=== PATIENT | female | born 1965 | race Caucasian/White ===

== ENCOUNTER 2022-03-26 13:06 | Outpatient (CLI) | payer OTHER, SELFPAY ==
--- OUTSIDE RECORDS SUMMARY | 2022-03-26 08:57 | XMS_ITS | Encounter Summary ---
:1965 Author Organization [facility] Address [address] [place] [address] Care Team Providers Name Role Phone Unavailable Primary Care Provider Unavailable Encounter Details Date Type Department Care Team Description 12/24/2018 Ancillary Procedure Department of Colon and Rectal Social History Tobacco Use Types Packs/Day Years Used Date Smoking Tobacco: Some Days Cigarettes Smokeless Tobacco: Never Comments: 1 cigarette per day Alcohol Use Standard Drinks/Week Comments Yes 3 (1 standard drink = 0.6 oz pure alcoho l) Alcohol Habits Answer Date Recorded How often do you have a drink containing alcohol? 2-3 times a week 12/08/2020 How many drinks containing alcohol do you have on a 1 or 2 12/08/2020 typical day when you are drinking? How often do you have six or more drinks on one Never 12/08/2020 occasion? Comment: Not asked Social Isolation Answer Date Recorded In a typical week, how many times do you More than three ori es a week 12/08/2020 talk on the phone with family, friends, or neighbors? How often do you get together with friends Twice a week 12/08/2020 or relatives? How often do you attend catholic or More than 4 times per year 12/08/2020 episcopalian services? Do you belong to any clubs or Yes 12/08/2020 organizations such as catholic groups, unions, fraternal or athletic groups, or school groups? How often do you attend meetings of the 1 to 4 times per yea r 12/08/2020 clubs or organizations you belong to? Are you now , , , 12/08/2020 , never or living with a partner? Physical Activity Answer Date Recorded On average, how many days per week do you engage in moderate to 7 days 12/08/2020 strenuous exercise (like walking fast, running, jogging, dancing, swimming, biking, or other activities that cause a light or heavy sweat)? On average, how many minutes do you engage in exercise at th is 10 min 12/08/2020 level? Stress Answer Date Recorded Do you feel stress - tense, restless, nervous, or To some ex tent 12/08/2020 anxious, or unable to sleep at night because your mind is troubled all the time - these days? Financial Resource Strain Answer Date Recorded How hard is it for you to pay for the very basics like Not v phillip hard 12/08/2020 food, housing, medical care, and heating? Food Insecurity Answer Date Recorded Within the past 12 months, you worried that your food would Never true 12/08/2020 run out before you got money to buy more. Within the past 12 months, the food you bought just didn't N ever true 05/12/2019 last and you didn't have money to get more. Transportation Needs Answer Date Recorded In the past 12 months, has lack of transportation kept you f rom No 12/08/2020 medical appointments or from getting medications? In the past 12 months, has lack of transportation kept you f rom No 12/08/2020 meetings, work, or getting things needed for daily living? Housing Stability Answer Date Recorded In the last 12 months, was there a time when you were not ab le No 12/08/2020 to pay the mortgage or rent on time? In the last 12 months, how many places have you lived? 1 12/08/2020 In the last 12 months, was there a time when you did not hav e a No 12/08/[address] or slept in a senior care (including now)? Sex Assigned at Date Recorded Female 12/15/2017 11:22 AM CDT documented as of this encounter Plan of Treatment Not on filedocumented as of this encounter Procedures Procedure Name Priority Date/Time Associated Diagnosis Comme nts COLON AND RECTAL Routine 12/24/2018 8:20 AM Resul ts for this SURGERY IMAGE EXAM CDT procedure are in the results section. documented in this encounter Results Flexible Sigmoidoscopy-Colon And Rectal Surgery Image Exam (12/24/2018 8:20 AM CDT) Specimen (Source) Anatomical Location Collection Method / Collectio n Time Received Time / Laterality Volume Narrative [facility] - 12/24/2018 6:19 PM CDT This order has been created and auto-finalized to support the import of images acquired without order. The clini sonido documentation to support these images can be found on the encounter van t produced images. Provider Not In System IMG NON RAD IMAGING PROCEDUR ES Performing Organization Address City/State/ZIP Code Phon e Number IIMS IIMS NA documented in this encounter Visit Diagnoses Not on filedocumented in this encounter
--- OUTSIDE RECORDS SUMMARY | 2022-03-26 08:57 | XMS_ITS | Encounter Summary ---
:1965 Author Organization [facility] Address [address] [place] [address] Care Team Providers Name Role Phone Unavailable Primary Care Provider Unavailable Encounter Details Date Type Department Care Team Description 08/11/2018 Ancillary Procedure Department of Colon and Rectal [...] or relatives? How often do you attend pentecostal or More than 4 times per year 12/08/2020 roman catholic services? Do you belong to any clubs or Yes 12/08/2020 organizations such as pentecostal groups, unions, fraternal or athletic groups, or [...] place to sleep or slept in a penitentiary (including now)? Sex Assigned at Date Recorded Female 12/15/2017 11:22 AM CDT documented as of this encounter Plan of Treatment Not on filedocumented as of this encounter Procedures Procedure Name Priority Date/Time Associated Diagnosis Comme nts COLON AND RECTAL Routine 08/11/2018 2:30 PM Resul ts for this SURGERY IMAGE EXAM NEWSPAPER OR PERIODICAL EDITOR procedure are in the results section. documented in this encounter Results COLON AND RECTAL SURGERY IMAGE EXAM (08/11/2018 2:30 PM NEWSPAPER OR PERIODICAL EDITOR) Specimen (Source) Anatomical Collection Method Collection Time Re ceived Time Location / / Volume Laterality 08/11/2018 2:29 PM NEWSPAPER OR PERIODICAL EDITOR Narrative [facility] - 08/11/2018 5:25 PM NEWSPAPER OR PERIODICAL EDITOR This order has been created and auto-finalized to support the import of images acquired without order. The clini sonido documentation to support these images can be found on the encounter van t produced images. Provider Not In System IMG NON RAD IMAGING PROCEDUR ES Performing Organization Address City/State/ZIP Code Phon e Number IISD IISD NA documented in this encounter Visit Diagnoses Not on filedocumented in this encounter
--- OUTSIDE RECORDS SUMMARY | 2022-03-26 08:57 | XMS_ITS | Encounter Summary ---
:1965 Author Organization [facility] Address [address] [place] [address] Care Team Providers Name Role Phone Unavailable Primary Care Provider Unavailable Reason for Referral Outpatient (Routine) - Closed Specialty Diagnoses / Procedures Referred By Contact Refer red To Contact Diagnoses Malignant Neoplasm Of Rectum (HCC) Arlene Tripathi M.D. [facility] Procedures Flexible Sigmoidoscopy [address] [place] [address] [phone] Referral ID Status Reason Start Date Expiration Date Visits Requ ested Visits Authorized [id number] Closed 08/11/2018 08/11/2019 1 1 Reason for Visit Outpatient (Routine) - Closed Specialty Diagnoses / Procedures Referred By Contact Refer red To Contact Diagnoses Malignant Neoplasm Of Rectum (HCC) Arlene Tripathi M.D. [facility] Procedures Flexible Sigmoidoscopy [address] [place] [address] [phone] Referral ID Status Reason Start Date Expiration Date Visits Requ ested Visits Authorized [id number] Closed 08/11/2018 08/11/2019 1 1 Encounter Details Date Type Department Care Team Description 12/24/2018 Hospital Encounter Division of Colon Arlene Tripathi Ma lignant Neoplasm and Rectal Surgery Tavia Powers Of Rectum (HCC) in [place], [facility] [address] [place], [place] [address] [facility] [address] [place], [place] [phone] (Work) [phone] Social History Tobacco Use Types Packs/Day Years [...] or relatives? How often do you attend congregational or More than 4 times per year 12/08/2020 quaker services? Do you belong to any clubs or Yes 12/08/2020 organizations such as congregational groups, unions, fraternal or athletic groups, or [...] place to sleep or slept in a group home (including now)? Sex Assigned at Date Recorded Female 12/15/2017 11:22 AM CDT documented as of this encounter Medications at Time of Discharge Medication Sig Dispensed Refills Start Date End Date acetaminophen (TYLENOL) Take 2 tablets by 0 06/0305/13/2019 500 mg tablet mouth every 6 (six) hours as needed. for pain. Take no more than 4000 mg in 24 hours. Ok to obtain over the counter. ibuprofen (ADVIL,MOTRIN) Take 3 tablets (600 0 05/13/2019 200 mg tablet mg total) by mouth as needed for pain. every 4-6 hours as needed for pain lisinopril Take 1 tablet by 0 05/12/2017 05/13/20 19 (PRINIVIL,ZESTRIL) 10 mg mouth daily. tablet documented as of this encounter Plan of Treatment Not on filedocumented as of this encounter Procedures Procedure Name Priority Date/Time Associated Comments Diagnosis FLEXIBLE SIGMOIDOSCOPY Routine 12/24/2018 8:20 AM Malignant Ne oplasm Results for this CDT Of Rectum (HCC) procedure ar e in the results section. CRS FLEXIBLE Routine 12/24/2018 8:20 AM Malignant Neoplasm SIGMOIDOSCOPY CDT Of Rectum (HCC) documented in this encounter Results Flexible Sigmoidoscopy (12/24/2018 8:20 AM CDT) Specimen (Source) Anatomical Collection Method Collection Time Re ceived Time Location / / Volume Laterality 12/24/2018 8:20 AM CDT Impressions [facility] - 12/24/2018 6:11 PM CDT Post-op Diagnoses: ? - Post-polypectomy scar in the mi d rectum. ? - No specimens collected. Narrative [facility] - 12/24/2018 6:11 PM CDT Gonda 9 CRS GI Patient Name: Conchita Solis Date of : 1965 Age: 53 Gender: Female Procedure Date: 12/24/2018 Procedure: ? Flexible Sigmoidoscopy Providers: ? Arlene Tripathi MD Referring Provider: ?Arlene olivares MD Pre-op Diagnoses: ?High risk c olon cancer surveillance: Personal ? his tory of rectal cancer Findings: ? The perianal examination was norm al. ? A 30 mm post polypectomy scar was found in the mid rectum. The scar ? tissue was healthy in appearance. There was no evidence of the previous ? polyp. Estimated blood loss: none . Procedural Details: ? The patient was seen, evaluated, and history reviewed. The risks, ? benefits and alternatives for the procedure were discussed and informed ? consent was obtained. A procedura l pause was conducted in the presence ? of assisting personnel to verify the correct patient identity and ? procedure to be performed. The Fl exible Sigmoidoscope was introduced ? under direct vision through the a nus and advanced to the sigmoid colon. ? The flexible sigmoidoscopy was ac complished without difficulty. The ? patient tolerated the procedure w ell. The quality of the bowel ? preparation was good. Complications: ? No immedia te complications. Sedation: ? No sedation administered. Attending Participation: I personally pe rformed the entire procedure. Arlene Tripathi MD 12/24/2018 6:11:17 PM This report has been signed electronical ly. Number of Addenda: 0 Note Initiated On: 12/24/2018 8:20 AM Arlene Tripathi M.D. GI PROCEDURE ORDERABLES Performing Organization Address City/State/ZIP Code Phon e Number [employer] NA documented in this encounter Visit Diagnoses Diagnosis Malignant Neoplasm Of Rectum (HCC) documented in this encounter
--- OUTSIDE RECORDS SUMMARY | 2022-03-26 08:57 | XMS_ITS | Encounter Summary ---
:1965 Author Organization [facility] Address [address] [place] [address] Care Team Providers Name Role Phone Unavailable Primary Care Provider Unavailable Reason for Visit Reason Onset Date Comments Communication 12/28/2018 Encounter Details Date Type Department Care Team Description 12/28/2018 Clinical Communication Division of Colon and Dolly Tripathi Communication Rectal Surgery in [place]. [place], [place] [address] [facility] [address] [place] [phone] Social History Tobacco Use Types Packs/Day Years [...] or relatives? How often do you attend jain or More than 4 times per year 12/08/2020 confucianist services? Do you belong to any clubs or Yes 12/08/2020 organizations such as jain groups, unions, fraternal or athletic groups, or [...] AM CDT documented as of this encounter Miscellaneous Notes Telephone Encounter - Priyanka Womack - 12/28/2018 1:14 PM CDT Patient scheduled, left message for her to call back. Deuce will call with results, held a Deuce visit, just in case per Decue request. Jami Mathew documented in this encounter Plan of Treatment Not on filedocumented as of this encounter Visit Diagnoses Not on filedocumented in this encounter
--- OUTSIDE RECORDS SUMMARY | 2022-03-26 08:57 | XMS_ITS | Encounter Summary ---
:1965 Author Organization [facility] Address [address] [place] [address] Care Team Providers Name Role Phone Unavailable Primary Care Provider Unavailable Reason for Visit Outpatient (Routine) - Closed Specialty Diagnoses / Procedures Referred By Contact Refer red To Contact Colon and Rectal Arlene Tripathi [facility] M.D. [address] [place] [address] Referral ID Status Reason Start Date Expiration Date Visits Requ ested Visits Authorized [id number] Closed 08/11/2018 08/11/2019 1 1 Encounter Details Date Type Department Care Team Description 12/24/2018 Office Visit Division of Colon and Arlene Tripathi M alignant Neoplasm Of Rectal Surgery in M.D. Rectum (HCC) (Primary [place], [place] [address] [facility]) [address] [place] [phone] Social History Tobacco Use Types Packs/Day Years [...] or relatives? How often do you attend hinduism or More than 4 times per year 12/08/2020 hoahaoism services? Do you belong to any clubs or Yes 12/08/2020 organizations such as hinduism groups, unions, fraternal or athletic groups, or [...] place to sleep or slept in a [facility] (including now)? Sex Assigned at Date Recorded Female 12/15/2017 11:22 AM CDT documented as of this encounter Consult Notes Arlene Tripathi M.D. - 12/24/2018 9:15 AM CDT SUBJECTIVE CHIEF COMPLAINT / REASON FOR VISIT Conchita Solis is a 53 y.o. female who presents for evaluation of follow-up of T1 rectal cancer. HISTORY OF PRESENT ILLNESS Ms. Solis is about a year and a half status post transanal excision for a T1 NX rectal cancer. She is here for standard follow-up with flexible sigmoidoscopy and CEA. She reports no concerns with bleeding or changes in her bowel habits. She is otherwise well. The following portions of the patient's history were reviewed and updated as appropriate: current medications, medical history, social history, surgical history and problem list. OBJECTIVE CEA to be drawn later today. PHYSICAL EXAM Digital rectal exam was completely normal. Flexible sigmoidoscopy revealed a scar in the distal rectum that is completely healthy with no signs of recurrent disease. ASSESSMENT / PLAN #1 Hypertension #2 Malignant Neoplasm Of Rectum (HCC) #3 Leiomyoma (Fibroid) Uterus #4 Appendicitis #5 Post Operative Nausea/Vomiting Ms. Solis and I discussed the findings. Her rectal scar looks great with no concerns for recurrence. We will wait for the CEA result. If her CEA remains the same as previous which was approximately 5.7, we will plan to see her back in [address] scans of the chest abdomen pelvis and anotherCEA as well as a flexible sigmoidoscopy. However, for CEA continues to rise, we will get the scans earlier and will also add an MRI of the pelvis to look for localized disease. I spent 15 minutes with the patient, greater than 50% was counseling. documented in this encounter Plan of Treatment Not on filedocumented as of this encounter Visit Diagnoses Diagnosis Malignant Neoplasm Of Rectum (HCC) - Zarina sharon documented in this encounter
--- OUTSIDE RECORDS SUMMARY | 2022-03-26 08:57 | XMS_ITS | Encounter Summary ---
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 [facility] Procedures MR Pelvis without and with IV Contrast UT MRI PELVIS WO/W CNTRST HC MRI PELVIS WO/W CNTRST UT MRI PELVIS WO/W CNTRST [address] [place] [address] Referral ID Status Reason Start Date Expiration Date Visits Requ ested Visits Authorized [id number] Closed 12/10/2018 01/10/2019 1 1 MRI/CAT/PET Scan (Routine) - Closed Specialty Diagnoses / Procedures Referred By Contact Refer red To Contact Radiology Diagnoses Malignant Neoplasm Of Rectosigmoid (HCC) Arlene Tripathi M.D. [facility] Procedures CT Abdomen Pelvis with IV Contrast UT CT ABD&PELVIS W CNTRST HC CT ABD&PELVIS W CNTRST UT CT ABD&PELVIS W CNTRST [address] [place] [address] Referral ID Status Reason Start Date Expiration Date Visits Requ ested Visits Authorized [id number] Closed 12/24/2018 12/24/2019 1 1 MRI/CAT/PET Scan (Routine) - Closed Specialty Diagnoses / Procedures Referred By Contact Refer red To Contact Radiology Diagnoses Malignant Neoplasm Of Rectosigmoid (HCC) Arlene Tripathi M.D. [facility] Procedures CT Chest with IV Contrast UT CT THORAX W CNTRST HC CT THORAX W CNTRST UT CT THORAX W CNTRST [address] [place] [address] Referral ID Status Reason Start Date Expiration Date Visits Requ ested Visits Authorized [id number] Closed 12/10/2018 01/10/2019 1 1 Encounter Details Date Type Department Care Team Description 12/24/2018 Orders Only Division of Colon and Gypsy Conner alignant Neoplasm Of Rectosigmoid (HCC); Rectal Surgery in [place] 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 How often do you attend caodaism or More than 4 times per year 12/08/2020 yarsanism services? Do you belong to any clubs or Yes 12/08/2020 organizations such as caodaism groups, unions, fraternal or athletic groups, or [...] to sleep or slept in a senior living (including now)? Sex Assigned at Date Recorded Female 12/15/2017 11:22 AM CDT documented as of this encounter Plan of Treatment Not on filedocumented as of this encounter Results MR Pelvis without and with IV Contrast (01/07/2019 3:14 PM CDT) Anatomical Region Laterality Modality Pelvis, Abdominal RST LOS, Abdominal ARZ LOS, Abdominal N/A Magnetic Resonance FLA LOS, Musculoskeletal ARZ LOS Specimen (Source) Anatomical Collection Method Collection Time Re ceived Time Location / / Volume Laterality 01/07/2019 4:06 PM CDT Impressions 01/07/2019 4:30 PM CDT No evidence of recurrent rectal tumor. Hysterectomy. Narrative 01/07/2019 4:30 PM CDT EXAM: ??MR PELVIS WITHOUT AND WITH IV CONTRAST COMPARISON: ??CT 08/11/2018 and 01/08/20 19. MR 05/20/2017. FINDINGS: ??Since 05/20/2017 there has b een hysterectomy and resection of fallopian tubes, with ovarian preservati on. Suboptimal image quality because of clay on. Patient has a history of previously resected malignant polyp 10 cm from the anal image, and now has rising CEA. No evidence of tumor recurrence. No lymphad enopathy. No suspicious osseous lesions. A 7 mm T1 hypointense lesion in the left posterior acetabulum (12/01) is unchanged from 05/20/2017. Remainder unr emarkable. Procedure Note Cristopher Louie M.B., Ch.B. - 01/07/2019 EXAM: MR PELVIS WITHOUT AND WITH IV CONT RAST COMPARISON: CT 08/11/2018 and 01/07/2019 . MR 05/20/2017. FINDINGS: Since 05/20/2017 there has bee n hysterectomy and resection of fallopian tubes, with ovarian preservati on. Suboptimal image quality because of clay on. Patient has a history of previously resected malignant polyp 10 cm from the anal image, and now has rising CEA. No evidence of tumor recurrence. No lymphad enopathy. No suspicious osseous lesions. A 7 mm T1 hypointense lesion in the left posterior acetabulum (12/01) is unchanged from 05/20/2017. Remainder unr emarkable. IMPRESSION: No evidence of recurrent rectal tumor. H ysterectomy. Arlene DYSON MRI PROCEDURES CT Abdomen Pelvis with IV Contrast (01/07/2019 12:40 PM CDT) Anatomical Region Laterality Modality Abdomen, Pelvis, Abdominal RST LOS, Abdominal ARZ LOS, N/A Computed Tomography Abdominal FLA LOS Specimen (Source) Anatomical Collection Method Collection Time Re ceived Time Location / / Volume Laterality 01/07/2019 1:12 PM CDT Impressions 01/07/2019 1:21 PM CDT No evidence of recurrence or metastasis in the abdomen or pelvis. Narrative 01/07/2019 1:21 PM CDT EXAM: ??CT ABDOMEN PELVIS WITH IV CONTRAST COMPARISON: ??CT dated 08/11/2018 FINDINGS: Liver is negative for metastasis. Probab le adenomyomatosis in the gallbladder fundus. Adrenals, kidneys and pancreas a re unremarkable. A few mildly prominent lymph nodes in the retroperitoneum are s table and likely benign. Hysterectomy. Appendectomy. Small fat-containing umbil ical hernia. Degenerative changes in the lumbosacral junction. This examination was performed in conjun ction with a CT of the chest, which will be reported separately. Procedure Note Aicha Landers M.D. - 01/07/2019Forma tting of this note might be different from the original. EXAM: CT ABDOMEN PELVIS WITH IV CONTRAST COMPARISON: CT dated 08/11/2018 FINDINGS: Liver is negative for metastasis. Probab le adenomyomatosis in the gallbladder fundus. Adrenals, kidneys and pancreas a re unremarkable. A few mildly prominent lymph nodes in the retroperitoneum are s table and likely benign. Hysterectomy. Appendectomy. Small fat-containing umbil ical hernia. Degenerative changes in the lumbosacral junction. This examination was performed in conjun ction with a CT of the chest, which will be reported separately. IMPRESSION: No evidence of recurrence or metastasis in the abdomen or pelvis. Arlene DYSON CT PROCEDURES CT Chest with IV Contrast (01/07/2019 12:40 PM CDT) Anatomical Region Laterality Modality Chest, Thoracic RST LOS, Thoracic ARZ LOS, Thoracic N/A Computed Tomography ARZ LOS, Thoracic FLA LOS Specimen (Source) Anatomical Collection Method Collection Time Re ceived Time Location / / Volume Laterality 01/07/2019 2:31 PM CDT Impressions 01/07/2019 3:01 PM CDT No new or increasing findings to suggest metastatic disease in the chest. . Narrative 01/07/2019 3:01 PM CDT EXAM: CT CHEST WITH IV CONTRAST No 3D post-processing performed. COMPARISON: 08/11/2018, 12/04/2017 FINDINGS: Stability of prior reported no dules. 2 mm, left lower lobe, image 198 series 5. 1 mm, lingular, image 157. 3 mm, left lower lobe, image 113 and 176 . T1 focal sclerosis image 1 series 5. Mil d degenerative changes thoracic spine. Chest otherwise negative. This examination was performed in conjun ction with a CT of the abdomen, which will be reported separately. Procedure Note Bigg Rodriguez M.D. - 01/07/2019Fo rmatting of this note might be different from the original. EXAM: CT CHEST WITH IV CONTRAST No 3D post-processing performed. COMPARISON: 08/11/2018, 12/04/2017 FINDINGS: Stability of prior reported no dules. 2 mm, left lower lobe, image 198 series 5. 1 mm, lingular, image 157. 3 mm, left lower lobe, image 113 and 176 . T1 focal sclerosis image 1 series 5. Mil d degenerative changes thoracic spine. Chest otherwise negative. This examination was performed in conjun ction with a CT of the abdomen, which will be reported separately. IMPRESSION: No new or increasing findings to suggest metastatic disease in the chest. . Arlene TRAOREG CT PROCEDURES documented in this encounter Visit Diagnoses Diagnosis Malignant Neoplasm Of Rectosigmoid (HCC) Malignant Neoplasm Of Pelvis Not Bone Pr imary (HCC) Malignant Neoplasm Of Pelvis Not Bone Pr imary (HCC) Malignant Neoplasm Of Rectosigmoid (HCC) documented in this encounter
--- OUTSIDE RECORDS SUMMARY | 2022-03-26 08:57 | XMS_ITS | Encounter Summary ---
:1965 Author Organization [facility] Address [address] [place] [address] Care Team Providers Name Role Phone Unavailable Primary Care Provider Unavailable Reason for Referral Outpatient (Routine) - Closed Specialty Diagnoses / Procedures Referred By Contact Refer red To Contact Colon and Rectal Arlene Tripathi [facility] Asif Squires [address] [place] [address] Referral ID Status Reason Start Date Expiration Date Visits Requ ested Visits Authorized [id number] Closed 08/11/2018 08/11/2019 1 1 Scheduling Instructions YUMI with Deuce [place] NUTRITION CONSULTANT Outpatient (Routine) - Closed Specialty Diagnoses / Procedures Referred By Contact Refer red To Contact Diagnoses Malignant Neoplasm Of Rectum (HCC) Arlene Tripathi M.D. [place] [facility] Procedures Flexible Sigmoidoscopy [address] [place] [address] Referral ID Status Reason Start Date Expiration Date Visits Requ ested Visits Authorized [id number] Closed 08/11/2018 08/11/2019 1 1 [place] NUTRITION CONSULTANT Encounter Details Date Type Department Care Team Description 08/11/2018 Orders Only Division of Colon and Gypsy Conner alignant Neoplasm Of Rectal Surgery in L, R.N. Rectum (HC C) (Primary [place], [place] Dx) [address] [place] [phone] Social History Tobacco Use Types Packs/Day Years [...] or relatives? How often do you attend jehovah's witness or More than 4 times per year 12/08/2020 hoahaoism services? Do you belong to any clubs or Yes 12/08/2020 organizations such as jehovah's witness groups, unions, fraternal or athletic groups, or [...] place to sleep or slept in a long term (including now)? Sex Assigned at Date Recorded Female 12/15/2017 11:22 AM CDT documented as of this encounter Plan of Treatment Scheduled Referrals Name Type Priority Associated Diagnoses Order S chedule Colon and Rectal Outpatient Referral Routine Expe cted: Surgery office 11/11/2018, visit (clinic) Expires: 08/11/2021 documented as of this encounter Results (ABNORMAL) CEA (Carcinoembryonic Antigen) (12/24/2018 9:42 AM CDT) [facility] gist Method Time Signature Carcinoembryonic Ag 6.3 (H) ng/mL 12/24/2018 (CEA), S 2:19 PM CDT Comment: ----REFERENCE VALUE---- <=3.0 (Non-smokers) Some smokers may have elevated CEA, usually <5.0. ----ADDITIONAL INFORMATION---- The testing method is an immunoenzymatic assay manufactured by [employer] and performed on the [employer] DxI 800. ? Values obtained with different assay met hods or kits may be different and cannot be used inte rchangeably. ? Test results cannot be interpreted as ab solute evidence for the presence or absence of malignant disease. Specimen Anatomical Collection Method Collection Time Receive d Time (Source) Location / / Volume Laterality Blood (Blood, 12/24/2018 9:42 AM 12/25/19 19 Venous) CDT 12:54 PM CDT Arlene Tripathi M.D. LAB BLOOD ADD-ON Performing Organization Address City/State/ZIP Code Phon e Number [facility] [address] [place], [place] [address] SUPPORT CENTER documented in this encounter Visit Diagnoses Diagnosis Malignant Neoplasm Of Rectum (HCC) - Zarina herrera documented in this encounter
--- OUTSIDE RECORDS SUMMARY | 2022-03-26 08:57 | XMS_ITS | Encounter Summary ---
:1965 Author Organization [facility] Address [address] [place] [address] Care Team Providers Name Role Phone Unavailable Primary Care Provider Unavailable Encounter Details Date Type Department Care Team Description 12/24/2018 Hospital Encounter Department of Arlene Tripathi ant Neoplasm Laboratory Medicine Tavia Powers Of Rectum (HCC) and Pathology, [address] [place] [address], in [place], [place] [address] [place] [address] [place], [place] (Work) [phone] Social History Tobacco Use Types Packs/Day Years [...] or relatives? How often do you attend yazidism or More than 4 times per year 12/08/2020 holiness services? Do you belong to any clubs or Yes 12/08/2020 organizations such as yazidism groups, unions, fraternal or athletic groups, or [...] Procedure Name Priority Date/Time Associated Comments Diagnosis CARCINOEMBRYONIC AG Routine 12/24/2018 9:42 Malignant Neoplasm Results for this (CEA), S AM CDT Of Rectum (HCC) procedure ar e in the results section. documented in this encounter Results (ABNORMAL) CEA (Carcinoembryonic Antigen) (12/24/2018 9:42 AM CDT) [facility] gist Method Time Signature Carcinoembryonic Ag 6.3 (H) ng/mL 12/24/2018 (CEA), S 2:19 PM CDT Comment: ----REFERENCE VALUE---- <=3.0 (Non-smokers) Some smokers may have elevated CEA, usually <5.0. ----ADDITIONAL INFORMATION---- The testing method is an immunoenzymatic assay manufactured by [employer] and performed on the [employer] DxI 800. ? Values obtained with different [...] Organization Address City/State/ZIP Code Phon e Number [facility] [address] [place], [place] [address] SUPPORT CENTER documented in this encounter Visit Diagnoses Diagnosis Malignant Neoplasm Of Rectum (HCC) documented in this encounter
--- OUTSIDE RECORDS SUMMARY | 2022-03-26 08:59 | XMS_ITS | Encounter Summary ---
:1965 Author Organization [facility] Address [address] [place] [address] Care Team Providers Name Role Phone Unavailable Primary Care Provider Unavailable Encounter Details Date Type Department Care Team Description 05/27/2017 Hospital Encounter HX RST CRS FLOOR Arlene Tripathi, PRACTICE M.DSinan [address] [place] [address] (Wo rk) Social History Tobacco Use Types Packs/Day Years Used Date Smoking Tobacco: Never Assessed Alcohol Habits Answer Date Recorded How often [...] or relatives? How often do you attend yarsanism or More than 4 times per year 12/08/2020 hindu services? Do you belong to any clubs or Yes 12/08/2020 organizations such as yarsanism groups, unions, fraternal or athletic groups, or [...] place to sleep or slept in a retirement (including now)? Sex Assigned at Date Recorded Female 12/15/2017 11:22 AM CDT documented as of this encounter Medications at Time of Discharge Medication Sig Dispensed Refills Start Date End Date lisinopril Take 1 tablet by 0 05/12/2017 05/13/20 19 (PRINIVIL,ZESTRIL) 10 mg mouth daily. tablet documented as of this encounter Plan of Treatment Not on filedocumented as of this encounter Visit Diagnoses Not on filedocumented in this encounter
--- OUTSIDE RECORDS SUMMARY | 2022-03-26 08:59 | XMS_ITS | Encounter Summary ---
:1965 Author Organization [facility] Address [address] [place] [address] Care Team Providers Name Role Phone Unavailable Primary Care Provider Unavailable Reason for Visit Reason Comments Colon Cancer Screening Encounter Details Date Type Department Care Team Description 12/04/2017 Clinical Support Enema Prep Facility Shawn Tripathi M.D. [address] [place] [phone] Malignant Neoplasm Of in [facility] Conchita Haddad, R.N. [address] [place] [phone] Rectum (HCC) [place] [address] [place] [phone] Social History Tobacco Use Types Packs/Day Years Used Date Smoking Tobacco: Some Days Alcohol Habits Answer Date Recorded How often [...] or relatives? How often do you attend mu-ism or More than 4 times per year 12/08/2020 anglican services? Do you belong to any clubs or Yes 12/08/2020 organizations such as mu-ism groups, unions, fraternal or athletic groups, or [...] place to sleep or slept in a custodial (including now)? Sex Assigned at Date Recorded Female 12/15/2017 11:22 AM CDT documented as of this encounter Procedure Notes Conchita Haddad R.N. - 12/04/2017 11:45 AM CDT Patient is seen in the Enema Prep Facility for rectal enema administration prior to: flexible sigmoidoscopy/ileoscopy/pouchoscopy nremt needed: No; Egyptian is patient's preferred language. Enema administered by: RN Type of enema(s) administered: Fleet enema(s) administered 2 Time enema(s) administered: 1156 and 1209 documented in this encounter Plan of Treatment Not on filedocumented as of this encounter Visit Diagnoses Diagnosis Malignant Neoplasm Of Rectum (HCC) documented in this encounter Administered Medications Inactive Administered Medications - up to 3 most recent administrations Medication Order MAR Action Action Date Dose Rate Site sodium phosphates enema 1 enema Given 12/04/2017 12:09 PM CDT 1 enema (FLEET) 1 enema, rectal, Every 15 min, First dose on Kari 12/04/17 at 1200, For 2 doses, Administer one hour before procedure., Indications: bowel evacuation Given 12/04/2017 11:56 AM CDT 1 enema documented in this encounter
--- OUTSIDE RECORDS SUMMARY | 2022-03-26 08:59 | XMS_ITS | Encounter Summary ---
:1965 Author Organization [facility] Address [address] [place] [address] Care Team Providers Name Role Phone Unavailable Primary Care Provider Unavailable Encounter Details Date Type Department Care Team Description 05/20/2017 Hospital Encounter HX RST CRS FLOOR Donaldo Martínez PRACTICE M.D. Social History Tobacco Use Types Packs/Day Years [...] or relatives? How often do you attend voodoo or More than 4 times per year 12/08/2020 congregational services? Do you belong to any clubs or Yes 12/08/2020 organizations such as voodoo groups, unions, fraternal or athletic groups, or [...] place to sleep or slept in a half-way (including now)? Sex Assigned at Date Recorded [...]
--- OUTSIDE RECORDS SUMMARY | 2022-03-26 08:59 | XMS_ITS | Encounter Summary ---
:1965 Author Organization [facility] Address [address] [place] [address] Care Team Providers Name Role Phone Unavailable Primary Care Provider Unavailable Encounter Details Date Type Department Care Team Description 11/05/2017 Orders Only Division of Colon and Arlene Tripathi P ersonal History Of Rectal Surgery in M.D. Other Malignant [place], [place] [address] [facility] Neoplasm Of Rectum [address] [place], [place] [address] [place] [phone] Social History Tobacco Use Types Packs/Day Years [...] More than 4 times per year 12/08/2020 alevism services? Do you belong to any clubs [...] as of this encounter Visit Diagnoses Diagnosis Personal History Of Other Malignant Neop lasm Of Rectum Rectosigmoid Junction And Anus documented in this encounter
--- OUTSIDE RECORDS SUMMARY | 2022-03-26 08:59 | XMS_ITS | Encounter Summary ---
:1965 Author Organization [facility] Address [address] [place] [address] Care Team Providers Name Role Phone Unavailable Primary Care Provider Unavailable Encounter Details Date Type Department Care Team Description 08/28/2017 Hospital Encounter HX RST CRS FLOOR Arlene Tripathi, PRACTICE M.DSinan [address] [place] [address] (Wo rk) Social History Tobacco Use Types [...] or relatives? How often do you attend mandaen or More than 4 times per year 12/08/2020 catholic services? Do you belong to any clubs or Yes 12/08/2020 organizations such as mandaen groups, unions, fraternal or athletic groups, or [...] hours. Ok to obtain over the counter. docusate sodium (COLACE) Take 2 capsules by 0 12/04/2017 100 mg capsule mouth daily. to soften stool. ibuprofen (ADVIL,MOTRIN) Take 2 tablets by 0 05/1512/25/2017 200 mg tablet mouth as needed. every 4-6 hours as needed for pain lisinopril Take 1 tablet by 0 05/12/2017 05/13/20 19 (PRINIVIL,ZESTRIL) 10 mg mouth daily. tablet documented as of this encounter Plan of Treatment Not on filedocumented as of this encounter Procedures Procedure Name Priority Date/Time Associated Diagnosis Comme nts FLEXIBLE SIGMOIDOSCOPY Routine 08/28/2017 2:10 PM RESPIRATORY THERAPIST ASSISTANT documented in this encounter Results Flexible Sigmoidoscopy (08/28/2017 2:10 PM RESPIRATORY THERAPIST ASSISTANT) Specimen (Source) Anatomical Collection Method Collection Time Re ceived Time Location / / Volume Laterality 08/28/2017 2:10 PM RESPIRATORY THERAPIST ASSISTANT Arlene Tripathi M.D. GI PROCEDURE ORDERABLES Performing Organization Address City/State/ZIP Code Phon e Number [facility] CON[facility] documented in this encounter Visit Diagnoses Not on filedocumented in this encounter
--- OUTSIDE RECORDS SUMMARY | 2022-03-26 08:59 | XMS_ITS | Encounter Summary ---
:1965 Author Organization [facility] Address [address] [place] [address] Care Team Providers Name Role Phone Unavailable Primary Care Provider Unavailable Encounter Details Date Type Department Care Team Description 06/03/2017 Hospital Encounter HX NO MAPPING Social History Tobacco Use Types Packs/Day Years [...] or relatives? How often do you attend congregation or More than 4 times per year 12/08/2020 faith services? Do you belong to any clubs or Yes 12/08/2020 organizations such as congregation groups, unions, fraternal or athletic groups, or [...] place to sleep or slept in a fdc (including now)? Sex Assigned at Date Recorded Female 12/15/2017 11:22 AM CDT documented as of this encounter Last Filed Vital Signs Vital Sign Reading Time Taken Comments Blood Pressure 149/72 06/03/2017 11:30 AM DRAFTER TOPOGRAPHICAL Pulse 75 06/03/2017 11:30 AM DRAFTER TOPOGRAPHICAL Temperature - - Respiratory Rate 16 06/03/2017 11:30 AM DRAFTER TOPOGRAPHICAL Oxygen Saturation - - Inhaled Oxygen Concentration - - Weight 79.7 kg (175 lb 11.3 oz) 06/03/2017 5:44 AM DRAFTER TOPOGRAPHICAL Height 161 cm (5' 3.39) 06/03/2017 5:44 AM DRAFTER TOPOGRAPHICAL Body Mass Index 30.75 06/03/2017 5:44 AM DRAFTER TOPOGRAPHICAL documented in this encounter Medications at Time of Discharge [...]
--- OUTSIDE RECORDS SUMMARY | 2022-03-26 08:59 | XMS_ITS | Encounter Summary ---
:1965 Author Organization [facility] Address [address] [place] [address] Care Team Providers Name Role Phone Unavailable Primary Care Provider Unavailable Reason for Visit MRI/CAT/PET Scan (Routine) - Closed Specialty Diagnoses / Procedures Referred By Contact Refer red To Contact Radiology Diagnoses Malignant Neoplasm Of Rectosigmoid (HCC) Arlene Tripathi M.D. [facility] Procedures CT Abdomen Pelvis with IV Contrast CT Abdomen Pelvis without and with IV Contrast MT CT ABD&PELVIS WO/W CNTRST HC CT ABD&PELVIS WO/W CNTRST MT CT ABD&PELVIS WO/W CNTRST MT CT ABD&PELVIS W CNTRST HC CT ABD&PELVIS W CNTRST [address] [facility] MT CT ABD&[place] [address] Referral ID Status Reason Start Date Expiration Date Visits Requ ested Visits Authorized [id number] Closed 11/11/2017 05/10/2018 1 1 Encounter Details Date Type Department Care Team Description 12/04/2017 Hospital Encounter Department of Arlene Tripathi Malign ant Neoplasm Of Radiology, Jesus Powers M.D. Rectosigmoid (HCC) Building, in [address] [place] [phone] [place] [address] [place], [place] (Work) [phone] Social History Tobacco Use Types Packs/Day Years [...] or relatives? How often do you attend yazidi or More than 4 times per year 12/08/2020 congregational services? Do you belong to any clubs or Yes 12/08/2020 organizations such as yazidi groups, unions, fraternal or athletic groups, or [...] Sign Reading Time Taken Comments Blood Pressure - - Pulse - - Temperature - - Respiratory Rate - - Oxygen Saturation - - Inhaled Oxygen Concentration - - Weight 79 kg (174 lb 2.6 oz) 12/04/2017 2:29 PM CDT Height - - Body Mass Index 30.48 06/03/2017 7:35 AM SPINNERET PERSON documented in this encounter Medications at Time of Discharge Medication Sig Dispensed Refills Start Date End Date acetaminophen (TYLENOL) Take 2 tablets by 0 06/0305/13/2019 500 mg tablet mouth every 6 (six) hours as needed. for pain. Take no more than 4000 mg in 24 hours. Ok to obtain over the counter. ibuprofen (ADVIL,MOTRIN) Take 2 tablets by 0 05/1512/25/2017 200 mg tablet mouth as needed. every 4-6 hours as needed for pain lisinopril Take 1 tablet by 0 05/12/2017 05/13/20 19 (PRINIVIL,ZESTRIL) 10 mg mouth daily. tablet documented as of this encounter Plan of Treatment Not on filedocumented as of this encounter Procedures Procedure Name Priority Date/Time Associated Comments Diagnosis CT ABDOMEN PELVIS RAD - Routine 12/04/2017 3:05 Malignant Neoplasm Results for this WITH IV CONTRAST (most inpatients PM CDT Of Rectosigmoid proc edure are in and all (HCC) the results outpatients) section. CT CHEST WITH IV RAD - Routine 12/04/2017 3:05 Malignant Neoplasm R esults for this CONTRAST (most inpatients PM CDT Of Rectosigmoid procedur e are in and all (HCC) the results outpatients) section. documented in this encounter Results CT Abdomen Pelvis with IV Contrast (12/04/2017 3:05 PM CDT) Anatomical Region Laterality Modality Abdomen, Pelvis, Abdominal RST LOS N/A Compu filiberto Tomography Specimen (Source) Anatomical Collection Method Collection Time Re ceived Time Location / / Volume Laterality 12/04/2017 5:31 PM CDT Impressions 12/04/2017 5:51 PM CDT IMPRESSION: ?? 1. No evidence of metastatic rectal canc er. 2. Appendicitis, likely chronic, likely perforated, without evidence of spread of inflammation beyond the appendiceal r egion. Discussed with Arlene Tripathi MD [phone], by telephone. Narrative 12/04/2017 5:51 PM CDT EXAM: ??CT ABDOMEN PELVIS WITH IV CONTRAST. This examination was performed in conjunction with a CT of the chest, whic h will be reported separately. COMPARISON: ??Outside CT abdomen and pel vis with IV contrast material 05/02/2017. FINDINGS: ??New soft tissue stranding hernandez rrounding the tip of the previously normal appendix (series 4 image 97, seri es 6 image 53, series 9 image 104) is nonspecific. This inflammation extends t o adjacent segments of small bowel. Single bubble of extraintestinal gas (se neo 4 image 98 and series 6 image 56). Minimal aortoiliac atherosclerosis. Mild ly prominent, but subcentimeter, para-aortic and common iliac lymph nodes are again demonstrated. Uterine fibroids. Largest fibroid, likely and hernandez bmucosal location, measures 4.5 cm diameter. Degenerative disk disease at t he lumbosacral junction. Abdomen and pelvis are otherwise negative. Procedure Note Bigg Gandara M.D. - 12/04/2017Formatt ing of this note might be different from the original. EXAM: CT ABDOMEN PELVIS WITH IV CONTRAST . This examination was performed in conjunction with a CT of the chest, whic h will be reported separately. COMPARISON: Outside CT abdomen and pelvi s with IV contrast material 05/02/2017. FINDINGS: New soft tissue stranding surr ounding the tip of the previously normal appendix (series 4 image 97, seri es 6 image 53, series 9 image 104) is nonspecific. This inflammation extends t o adjacent segments of small bowel. Single bubble of extraintestinal gas (se neo 4 image 98 and series 6 image 56). Minimal aortoiliac atherosclerosis. Mild ly prominent, but subcentimeter, para-aortic and common iliac lymph nodes are again demonstrated. Uterine fibroids. Largest fibroid, likely and hernandez bmucosal location, measures 4.5 cm diameter. Degenerative disk disease at t he lumbosacral junction. Abdomen and pelvis are otherwise negative. IMPRESSION: 1. No evidence of metastatic rectal canc er. 2. Appendicitis, likely chronic, likely perforated, without evidence of spread of inflammation beyond the appendiceal r egion. Discussed with Arlene Tripathi MD [phone], by telephone. Arlene Tripathi M.D. IMG CT PROCEDURES CT Chest with IV Contrast (12/04/2017 3:05 PM CDT) Anatomical Region Laterality Modality Chest, Thoracic RST LOS, Thoracic RST LOS N/A Computed Tomography Specimen (Source) Anatomical Collection Method Collection Time Re ceived Time Location / / Volume Laterality 12/04/2017 3:41 PM CDT Impressions 12/04/2017 3:56 PM CDT IMPRESSION: Indeterminate 2 mm lung nodule in the left lower lobe. Follow-up CT exams suggested. Narrative 12/04/2017 3:56 PM CDT EXAM: CT CHEST WITH IV CONTRAST No 3D post-processing performed. COMPARISON: ?Outside exam 05/02/2017 . FINDINGS: A 2 mm nodule in the periphery of the left lower lobe posteriorly (series 5, image 198) appears to be new, but may have been obscured by atelectasis on the outside exam. A 2-3 m m subpleural nodule in the left lower lobe laterally (series 5, image 175) is unchanged. A 2 mm subpleural nodule in the right middle lobe anteriorly (series 5, image 175) is also stable. A 5 mm nodule in the right middle lobe adjacent to the minor fissure (series 5, image 124) is unchanged. No lymphadenopathy. No pleural effusions . This examination was performed in conjun ction with a CT of the abdomen, which will be reported separately. Procedure Note David Berkowitz M.D. - 12/04/2017Formatt ing of this note might be different from the original. EXAM: CT CHEST WITH IV CONTRAST No 3D post-processing performed. COMPARISON: Outside exam 05/02/2017. FINDINGS: A 2 mm nodule in the periphery of the left lower lobe posteriorly (series 5, image 198) appears to be new, but may have been obscured by atelectasis on the outside exam. A 2-3 m m subpleural nodule in the left lower lobe laterally (series 5, image 175) is unchanged. A 2 mm subpleural nodule in the right middle lobe anteriorly (series 5, image 175) is also stable. A 5 mm nodule in the right middle lobe adjacent to the minor fissure (series 5, image 124) is unchanged. No lymphadenopathy. No pleural effusions . This examination was performed in conjun ction with a CT of the abdomen, which will be reported separately. IMPRESSION: Indeterminate 2 mm lung nodu le in the left lower lobe. Follow-up CT exams suggested. Arlene DYSON CT PROCEDURES documented in this encounter Visit Diagnoses Diagnosis Malignant Neoplasm Of Rectosigmoid (HCC) documented in this encounter Administered Medications Inactive Administered Medications - up to 3 most recent administrations Medication Order MAR Action Action Date Dose Rate Site iohexol 300 mg iodine/mL solution Given 12/04/2017 3:01 PM CDT 1 40 mL 1-200 mL (OMNIPAQUE) 1-200 mL, intravenous, Once in imaging, contrast, Starting on Kari 12/04/17 at 1418, For 1 dose, Imaging Protocol Orders, Dose per Radiant Medication Guidelines sodium chloride 0.9 % flush 50 mL Given 12/04/2017 3:06 PM CDT 50 mL 50 mL, intravenous, Once, On Kari 12/04/17 at 1515, For 1 dose documented in this encounter
--- OUTSIDE RECORDS SUMMARY | 2022-03-26 08:59 | XMS_ITS | Encounter Summary ---
:1965 Author Organization [facility] Address [address] [place] [address] Care Team Providers Name Role Phone Unavailable Primary Care Provider Unavailable Encounter Details Date Type Department Care Team Description 08/28/2017 Telemedicine Department of Colon and Rectal Social History [...] or relatives? How often do you attend christian or More than 4 times per year 12/08/2020 spiritism services? Do you belong to any clubs or Yes 12/08/2020 organizations such as christian groups, unions, fraternal or athletic groups, or [...] Diagnosis Comme nts COLON AND RECTAL Routine 08/28/2017 2:10 PM Resul ts for this SURGERY IMAGE EXAM LABOR STANDARDS DIRECTOR procedure are in the results section. documented in this encounter Results COLON AND RECTAL SURGERY IMAGE EXAM (08/28/2017 2:10 PM LABOR STANDARDS DIRECTOR) Specimen (Source) Anatomical Collection Method Collection Time Re ceived Time Location / / Volume Laterality 08/28/2017 2:10 PM LABOR STANDARDS DIRECTOR Narrative [facility] - 08/28/2017 5:01 PM LABOR STANDARDS DIRECTOR This order has been created and auto-finalized [...]
--- OUTSIDE RECORDS SUMMARY | 2022-03-26 08:59 | XMS_ITS | Encounter Summary ---
:1965 Author Organization [facility] Address [address] [place] [address] Care Team Providers Name Role Phone Unavailable Primary Care Provider Unavailable Encounter Details Date Type Department Care Team Description 11/13/2017 Abstract DATA ABSTRACTION Provider, Historical Social History Tobacco Use Types Packs/Day Years [...] More than 4 times per year 12/08/2020 presybeterian services? Do you belong to any clubs [...] place to sleep or slept in a fpc (including now)? Sex Assigned at Date Recorded Female 12/15/2017 11:22 AM CDT documented as of this encounter Plan of Treatment Not on filedocumented as of this encounter Visit Diagnoses Not on filedocumented in this encounter
--- OUTSIDE RECORDS SUMMARY | 2022-03-26 09:00 | XMS_ITS | Encounter Summary ---
:1965 Author Organization [facility] Address [address] [place] [address] Care Team Providers Name Role Phone Unavailable Primary Care Provider Unavailable Encounter Details Date Type Department Care Team Description 05/19/2017 Hospital Encounter HX NO MAPPING Provider, Historical Social History Tobacco Use Types [...] or relatives? How often do you attend faith or More than 4 times per year 12/08/2020 anabaptism services? Do you belong to any clubs or Yes 12/08/2020 organizations such as faith groups, unions, fraternal or athletic groups, or [...] place to sleep or slept in a fci (including now)? Sex Assigned at Date Recorded [...]
--- OUTSIDE RECORDS SUMMARY | 2022-03-26 09:00 | XMS_ITS | Encounter Summary ---
:1965 Author Organization [facility] Address [address] [place] [address] Care Team Providers Name Role Phone Unavailable Primary Care Provider Unavailable Encounter Details Date Type Department Care Team Description 05/19/2017 Hospital Encounter HX RST CRS DIRECT CLINIC Yanira Whitman, RICHAR, C.N.P., D.N.P. [address] [place] [id number] Social History Tobacco Use Types Packs/Day Years [...] or relatives? How often do you attend shinto or More than 4 times per year 12/08/2020 christianity services? Do you belong to any clubs or Yes 12/08/2020 organizations such as shinto groups, unions, fraternal or athletic groups, or [...] place to sleep or slept in a residential (including now)? Sex Assigned at Date Recorded Female 12/15/2017 11:22 AM CDT documented as of this encounter Last Filed Vital Signs Vital Sign Reading Time Taken Comments Blood Pressure 163/94 05/19/2017 7:42 AM PRODUCT SAFETY HEAD Pulse 72 05/19/2017 7:42 AM PRODUCT SAFETY HEAD Temperature - - Respiratory Rate - - Oxygen Saturation - - Inhaled Oxygen - - Concentration Weight 81.4 kg (179 lb 7.3 05/19/2017 12:58 Vital si gn result oz) PM PRODUCT SAFETY HEAD from [facility]. Height 163 cm (5' 4.17) 05/19/2017 12:58 Vital sign result PM PRODUCT SAFETY HEAD from [facility]. Body Mass Index 30.64 05/19/2017 12:58 PM PRODUCT SAFETY HEAD documented in this encounter Medications at Time of Discharge Medication Sig Dispensed Refills Start Date End Date lisinopril Take 1 tablet by 0 05/12/2017 05/13/20 19 (PRINIVIL,ZESTRIL) 10 mg mouth daily. tablet documented as of this encounter Plan of Treatment Not on filedocumented as of this encounter Procedures Procedure Name Priority Date/Time Associated Comments Diagnosis MR PELVIS WITHOUT AND Routine 05/20/2017 10:26 Re sults for this WITH IV CONTRAST AM PRODUCT SAFETY HEAD procedure a re in the results section. CBC WITHOUT Routine 05/19/2017 9:31 Results for this DIFFERENTIAL, B AM PRODUCT SAFETY HEAD procedure ar e in the results section. BUN (BLOOD UREA Routine 05/19/2017 9:31 Results f or this NITROGEN), S/P AM PRODUCT SAFETY HEAD procedure are in the results section. SODIUM, S/P Routine 05/19/2017 9:31 Results for this AM PRODUCT SAFETY HEAD procedure are i n the results section. POTASSIUM, S/P Routine 05/19/2017 9:31 Results fo r this AM PRODUCT SAFETY HEAD procedure are i n the results section. GLUCOSE, FASTING, S/P Routine 05/19/2017 9:31 Res ults for this AM PRODUCT SAFETY HEAD procedure are i n the results section. CREATININE WITH EGFR, Routine 05/19/2017 9:31 Res ults for this S/P AM PRODUCT SAFETY HEAD procedure are i n the results section. CHLORIDE, S/P Routine 05/19/2017 9:31 Results for this AM PRODUCT SAFETY HEAD procedure are i n the results section. CARCINOEMBRYONIC AG Routine 05/19/2017 9:31 Resul ts for this (CEA), S AM PRODUCT SAFETY HEAD procedure are i n the results section. BICARBONATE, B/S/P Routine 05/19/2017 9:31 Result s for this AM PRODUCT SAFETY HEAD procedure are i n the results section. documented in this encounter Results MR Pelvis without and with IV Contrast (05/20/2017 10:26 AM PRODUCT SAFETY HEAD) Anatomical Region Laterality Modality Pelvis N/A Magnetic Resonance Specimen (Source) Anatomical Collection Method Collection Time Re ceived Time Location / / Volume Laterality 05/20/2017 10:26 AM PRODUCT SAFETY HEAD Impressions 05/20/2017 11:17 AM PRODUCT SAFETY HEAD 1. No MRI findings to suggest residual r ectal carcinoma. No evidence of metastatic disease in the pelvis. 2. Uterine fibroids as described below. FINDINGS: Scans somewhat limited by patient motion artifact. History of a 2.5 cm polyp, approximately 10 cm from the anal verge demonstrating moderately differentiated adenocarcinoma. No definite wall thickening or enhancing mass is seen in the expecte d location within the rectum. The masslike area of wall thickening seen on outside CT 05/02/2017 is no longer seen. No soft tissue or mass in the perirectal fat. No perirectal or pelvic lymphadenopathy. Within the anterior uterine body is a 4. 5 x 3.9 cm T2 hypointense mass with confluent enhancement in keeping with uterine fibroid which is predominantly myometrial with subendometrial extension, imparti ng mild mass effect upon the endometrial cavity (series 5, image 10 and series 2, image 15). Three other small myometrial uterine fibroids are seen the uterine body. The left ovary abuts the posterior super ior uterine fundus (series 2, image 10), with normal appearance. Normal appearance and location of the right ovary. T1 hyperintense lesions in the sacrum ar e hypointense with fat saturation and avidly enhancing, most likely relating to areas of red marrow regeneration. No definite suspicious osseous lesion. Glucagon, 1.00 milligram .9NaCl, 20.00 milliliter Electronically signed by: ?? Christel Johnson M.D. [id number] 20-May-2017 11:17 Narrative 05/20/2017 11:17 AM PRODUCT SAFETY HEAD 20-May-2017 10:26:00 ??Exam: MRI PELVIS wo&w Indications: Carcinoid Rectal Malignant ORIGINAL REPORT - 20-May-2017 11:17:00 EXAM: MRI PELVIS wo&w COMPARISON: ??Outside CT the abdomen and pelvis 05/02/2017. Procedure Note Chapo Johnson M.D. - 10/08/2017 20-May-2017 10:26:00 Exam: MRI PELVIS wo &w Indications: Carcinoid Rectal Malignant ORIGINAL REPORT - 20-May-2017 11:17:00 EXAM: MRI PELVIS wo&w COMPARISON: Outside CT the abdomen and p denis 05/02/2017. IMPRESSION: 1. No MRI findings to suggest residual r ectal carcinoma. No evidence of metastatic disease in the pelvis. 2. Uterine fibroids as described below. FINDINGS: Scans somewhat limited by patient motion artifact. History of a 2.5 cm polyp, approximately 10 cm from the anal verge demonstrating moderately differentiated adenocarcinoma. No definite wall thickening or enhancing mass is seen in the expected location wi thin the rectum. The masslike area of wall thickening seen on outside CT 05/02/2017 is no longer seen. No soft tissue or mass in the perirectal fat. No perirectal or pelvic lymphadenopathy. Within the anterior uterine body is a 4. 5 x 3.9 cm T2 hypointense mass with confluent enhancement in keeping with uterine fibroid which is predominantly myometrial with subendometrial extension, imparting mild mass effect upon the endometrial cavity (series 5, image 10 and series 2, image 15). Three other small myometrial uterine fibroids are seen the uterine body. The left ovary abuts the posterior super ior uterine fundus (series 2, image 10), with normal appearance. Normal appearance and location of the right ovary. T1 hyperintense lesions in the sacrum ar e hypointense with fat saturation and avidly enhancing, most likely relating to areas of red marrow regeneration. No definite suspicious osseous lesion. Glucagon, 1.00 milligram .9NaCl, 20.00 milliliter Electronically signed by: Christel Johnson M.D. [id number] 20-May-2017 11:17 Matheus Carrillo APRN, C.N.P., M.S. IM MRI PROCEDURES CBC without Differential (05/19/2017 9:31 AM PRODUCT SAFETY HEAD) [facility] Method Time Signature Hemoglobin 12.4 12.0 - [facility] 15.5 G/DL LABORATORIES - [facility] Hematocrit 37.5 34.9 - [facility] 44.5 % LABORATORIES - [facility] RBC Distrib Width 14.5 11.9 - [facility] 15.5 % LABORATORIES - [facility] Platelet Count 289 150 - 450 [facility] X10(9)/L LABORATORIES - [facility] Leukocytes 5.6 3.5 - [facility] 10.5 LABORATORIES - X10(9)/L [facility] Erythrocytes 4.35 3.90 - [facility] 5.03 LABORATORIES - X10(12)/L [facility] MCV 86.2 81.6 - [facility] 98.3 FL LABORATORIES - [facility] Specimen Anatomical Collection Method Collection Time Receive d Time (Source) Location / / Volume Laterality 05/19/2017 9:31 AM 7 9:31 PRODUCT SAFETY HEAD AM PRODUCT SAFETY HEAD Matheus Carrillo APRN, C.N.P., M.S. LAB BLOOD ADD-ON Performing Organization Address City/State/ZIP Code Phon e Number [facility] LABORATORIES - [address] [place] [id number] [facility] Potassium (05/19/2017 9:31 AM PRODUCT SAFETY HEAD) P athologist Signature Potassium, S 4.5 3.6 - 5.2 [facility] MMOL/L [facility] Specimen Anatomical Collection Method Collection Time Receive d Time (Source) Location / / Volume Laterality 05/19/2017 9:31 AM 7 9:31 PRODUCT SAFETY HEAD AM PRODUCT SAFETY HEAD Matheus Carrillo APRN, C.N.P., M.S. LAB BLOOD ADD-ON Performing Organization Address City/Va Hospital/ZIP Code Phon e Number [facility] LABORATORIES - [address] [place] [address] [facility] Glucose, Fasting (05/19/2017 9:31 AM PRODUCT SAFETY HEAD) P athologist Signature Last Intake 15 HR [facility] Glucose, P 78 70 - 100 [facility] MG/DL [facility] Specimen Anatomical Collection Method Collection Time Receive d Time (Source) Location / / Volume Laterality 05/19/2017 9:31 AM 7 9:31 PRODUCT SAFETY HEAD AM PRODUCT SAFETY HEAD Mathieu Juárez APRN.Fransisco., M.S. LAB BLOOD NON ADD-ON Performing Organization Address City/State/ZIP Code Phon e Number [facility] LABORATORIES - [address] [place] [address] [facility] Creatinine with Estimated GFR (MDRD) (05/19/2017 9:31 AM PRODUCT SAFETY HEAD) Analysis Performed At Patho logist Time Signature eGFR-Black/Afri >60 >60 [facility] can Estonian ML/MIN/BSA [facility] Creatinine 0.6 0.6 - 1.1 [facility] MG/DL LABORATORIES - [facility] eGFR >60 >60 [facility] Non-Black/Afric ML/MIN/BSA LABORATORIES - an Estonian [facility] Specimen Anatomical Collection Method Collection Time Receive d Time (Source) Location / / Volume Laterality 05/19/2017 9:31 AM 7 9:31 PRODUCT SAFETY HEAD AM PRODUCT SAFETY HEAD Matheus Carrillo APRN, C.N.P., M.S. LAB BLOOD ADD-ON Performing Organization Address City/State/ZIP Code Phon e Number [facility] LABORATORIES - [address] [place] [address] [facility] Bicarbonate (05/19/2017 9:31 AM PRODUCT SAFETY HEAD) P athologist Signature HX 24 22 - 29 [facility] Bicarbonate, MMOL/L LABORATORIES - P/S [facility] Specimen Anatomical Collection Method Collection Time Receive d Time (Source) Location / / Volume Laterality 05/19/2017 9:31 AM 7 9:31 PRODUCT SAFETY HEAD AM PRODUCT SAFETY HEAD Matheus Carrillo APRN, C.N.P., M.S. LAB BLOOD ADD-ON Performing Organization Address City/State/ZIP Code Phon e Number [facility] LABORATORIES - [address] [place] [address] [facility] Chloride (05/19/2017 9:31 AM PRODUCT SAFETY HEAD) P athologist Signature Chloride, S 107 98 - 107 [facility] MMOL/L LABORATORIES - [facility] Specimen Anatomical Collection Method Collection Time Receive d Time (Source) Location / / Volume Laterality 05/19/2017 9:31 AM 7 9:31 PRODUCT SAFETY HEAD AM PRODUCT SAFETY HEAD Mathieu Juárez APRN.Fransisco., M.S. LAB BLOOD ADD-ON Performing Organization Address City/State/ZIP Code Phon e Number [facility] LABORATORIES - [address] [address] [facility] BUN (Blood Urea Nitrogen) (05/19/2017 9:31 AM PRODUCT SAFETY HEAD) P athologist Signature BUN (Blood 13 6 - 21 [facility] Urea MG/DL LABORATORIES - Nitrogen), S [facility] Specimen Anatomical Collection Method Collection Time Receive d Time (Source) Location / / Volume Laterality 05/19/2017 9:31 AM 7 9:31 PRODUCT SAFETY HEAD AM PRODUCT SAFETY HEAD Matheus Carrillo APRN, C.N.P., M.S. LAB BLOOD ADD-ON Performing Organization Address City/Va Hospital/[facility] Code Phon e Number [facility] LABORATORIES - [address] [place] [address] [facility] Sodium (05/19/2017 9:31 AM PRODUCT SAFETY HEAD) P athologist Signature Sodium, S 145 135 - 145 [facility] MMOL/L [facility] Specimen Anatomical Collection Method Collection Time Receive d Time (Source) Location / / Volume Laterality 05/19/2017 9:31 AM 7 9:31 PRODUCT SAFETY HEAD AM PRODUCT SAFETY HEAD Matheus Carrillo APRN, C.N.P., M.S. LAB BLOOD ADD-ON Performing Organization Address [facility]/Va Hospital/[facility] Phon e Number [facility] LABORATORIES - [address] [place] [address] [facility] (ABNORMAL) CEA (Carcinoembryonic Antigen) (05/19/2017 9:31 AM PRODUCT SAFETY HEAD) Patholo gist Method Time Signature Carcinoembryonic Ag 6.2 (H) SeeComment [facility] (CEA), S NG/ML [facility] Comment: ? REFERENCE VALUE------ ? <=3.0 (Non-smokers) ? Some smokers may have elevated ? CEA, usually <5.0. ? ADDITIONAL INFORMATIO N ? The testing method is an immunoenzymatic assay ? manufactured by [employer] and performed ? on the Uni[employer] DxI 800. ? Values obtained with different assay met hods or kits ? may be different and cannot be used inte rchangeably. ? Test results cannot be interpreted as ab solute ? evidence for the presence or absence of malignant ? disease. ? Specimen Anatomical Collection Method Collection Time Receive d Time (Source) Location / / Volume Laterality 05/19/2017 9:31 AM 7 9:31 PRODUCT SAFETY HEAD AM PRODUCT SAFETY HEAD Matheus Carrillo APRN, C.N.P., M.S. LAB BLOOD ADD-ON Performing Organization Address City/State/ZIP Code Phon e Number [facility] LABORATORIES - [address] [place], [place] [address] [facility] documented in this encounter Visit Diagnoses Not on filedocumented in this encounter
--- OUTSIDE RECORDS SUMMARY | 2022-03-26 09:00 | XMS_ITS | Encounter Summary ---
:1965 Author Organization [facility] Address [address] [place] [address] Care Team Providers Name Role Phone Unavailable Primary Care Provider Unavailable Encounter Details Date Type Department Care Team Description 05/20/2017 Telemedicine Department of Colon and Rectal Social [...] or relatives? How often do you attend mosque or More than 4 times per year 12/08/2020 yazdanism services? Do you belong to any clubs or Yes 12/08/2020 organizations such as mosque groups, unions, fraternal or athletic groups, or [...] place to sleep or slept in a nursing home (including now)? Sex Assigned at Date Recorded Female 12/15/2017 11:22 AM CDT documented as of this encounter Plan of Treatment Not on filedocumented as of this encounter Procedures Procedure Name Priority Date/Time Associated Diagnosis Comme nts COLON AND RECTAL Routine 05/20/2017 2:15 PM Resul ts for this SURGERY IMAGE EXAM AUTOMOTIVE COLLISION REPAIR INSTRUCTOR procedure are in the results section. documented in this encounter Results COLON AND RECTAL SURGERY IMAGE EXAM (05/20/2017 2:15 PM AUTOMOTIVE COLLISION REPAIR INSTRUCTOR) Specimen (Source) Anatomical Collection Method Collection Time Re ceived Time Location / / Volume Laterality 05/20/2017 2:11 PM AUTOMOTIVE COLLISION REPAIR INSTRUCTOR Narrative [facility] - 05/20/2017 3:49 PM AUTOMOTIVE COLLISION REPAIR INSTRUCTOR This order has been created and auto-finalized [...]
--- OUTSIDE RECORDS SUMMARY | 2022-03-26 09:01 | XMS_ITS | Clinical Summary ---
:1965 Author Organization [facility] [place] [address] Care Team Providers Name Role Phone Pcp, No Primary Care Provider Unavailable Allergies No known active allergies Medications No known medications Active Problems No known active problems Social History Tobacco Use Types Packs/Day Years Used Date Smoker, Current Status Unknown Cigarettes Tobacco Cessation: Ready to Quit: No; Co unseling Given: Yes Alcohol Use Standard Drinks/Week Comments Yes 0 (1 standard drink = 0.6 oz pure alcoho l) Sex Assigned at Date Recorded Not on file Obstetrics History Last Filed Vital Signs Vital Sign Reading Time Taken Comments Blood Pressure 138/86 03/23/2013 8:40 AM CDT Pulse 88 03/23/2013 8:40 AM CDT Temperature - - Respiratory Rate 18 02/18/2013 10:15 AM CDT Oxygen Saturation 99% 02/18/2013 10:15 AM CDT Inhaled Oxygen Concentration - - Weight 92.9 kg (204 lb 12.8 oz) 03/23/2013 8:40 AM CDT Height 161.9 cm (5' 3.75) 02/18/2013 10:15 AM CDT Body Mass Index 35.43 02/18/2013 10:15 AM CDT Plan of Treatment Health Maintenance Due Date Last Done Comments COVID-19 vaccine series (#1) 03/27/1965 Tdap 09/25/1975 Depression screening for age 12+ 1976 BMI (ht and wt on same day) for age 18+ 1982 Hepatitis C screening for age 18-79 1982 Tetanus booster 1984 Colonoscopy through age 75 2009 Lipids for age 45-75 2009 Mammogram for age 45-75 2009 Zoster (shingles) series for age 50+ (1 of 2014 2) Pap test for age 21-65 03/25/2020 03/25/2017, 03/25/2017 Influenza for age 50-64 03/14/2022 Results Not on filefrom Last 3 Months Insurance Payer Benefit Plan / Subscriber ID Effective Dates Phone Addre ss Type [employer] [id number] 2013-Present [address] [place] [address] Care Teams Materials Supervisor Relationship Specialty Start Date End Date Pcp, No PCP - General 02/18/13 .
[2022-03-26 13:04] LABS: Chloride* 104 mmol/L (96-114); Sodium* 136 mmol/L (135-149)
[2022-03-26 13:05] LABS: Potassium* 4.4 mmol/L (3.6-5.1)
[2022-03-26 13:07] LABS: Blood Urea Nitrogen* 17 mg/dL (7-30); Carbon Dioxide* 23 mmol/L (20-32); Cholesterol* 247 mg/dL (90-199); Creatinine* 0.6 mg/dL (0.5-1.5); Estimated Glomerular Filt Rate 105 ml/min
[2022-03-26 13:08] LABS: Calcium* 9.3 mg/dL (8.4-10.6); Glucose* 93 mg/dL (60-115); HDL Cholesterol* 52 mg/dL (>=50); LDL Cholesterol Calculated 164 mg/dL (<100); Triglycerides* 156 mg/dL (40-149)
== END 2022-03-26 13:07 | disposition home or self-care (01) ==
PROVIDERS: PCP Internal Medicine; Visit Provider Internal Medicine
DX: Z00.00 Encounter for general adult medical examination without abnormal findings (principal); I10 Essential (primary) hypertension; Z13.6 Encounter for screening for cardiovascular disorders
CPT/HCPCS: 80048; 80061

== ENCOUNTER 2022-04-30 11:27 | Outpatient (CLI) | payer OTHER, SELFPAY ==
--- NOTE | 2022-04-30 11:30 | CRLHL7_ITS ---
For Patients: As a result of the Century Cures Act, medical imaging exams and procedure reports are released immediately into your electronic medical record. You may view this report before your referring provider. If you have questions, please contact your health care provider. BILATERAL SCREENING MAMMOGRAM WITH COMPUTER-AIDED DETECTION AND TOMOSYNTHESIS TECHNIQUE: CC and MLO views were obtained. These mammographic images have been obtained using full-field digital technique. These mammographic images were interpreted with the benefit of computer-aided detection. Breast tomosynthesis was used in this interpretation. COMPARISON FILM: 12/28/20, 07/16/18, 03/26/17. FINDINGS: The breasts are almost entirely fatty. IMPRESSION: There is no radiographic evidence for malignancy. ASSESSMENT: BI-RADS Category 1: Negative RECOMMENDATION: Routine screening mammogram in 1 year. A lay language report of this examination will be provided to the patient. CRISTOPHER SEQUEIRA M.D. Diagnostic Radiologist [email or web address] Transcribed: 3:[address]/Dictated by: Cristopher Sequeira MD @ 05/01/2022 9:13:00 AM (Electronically Signed)
--- OUTSIDE RECORDS SUMMARY | 2022-04-30 11:46 | XMS_ITS | Encounter Summary ---
:1965 Author Organization [facility] Address [address] [place] [address] Care Team Providers Name Role Phone Unavailable Primary Care Provider Unavailable Reason for Referral Specialty Diagnoses / Procedures Referred By Contact Refer red To Contact Mary Da Silva M.D. [facility] [address] [place] [phone] Referral ID Status Reason Start Date Expiration Date Visits Requ ested Visits Authorized DRAGGER Encounter Details Date Type Department Care Team Description 05/21/2021 Orders Only RST PCP [facility] MNT Mary Da Silva M.D. [address] [place] [address] [phone] (Wo rk) Social History Tobacco Use Types [...] more drinks on one Never 12/08/2020 occasion? Social Isolation Answer Date Recorded In a typical week, how many times do you More than three ori es a week 12/08/2020 talk on the phone with family, friends, or neighbors? How often do you get together with friends Twice a week 12/08/2020 or relatives? How often do you attend samaritan or More than 4 times per year 12/08/2020 roman catholic services? Do you belong to any clubs or Yes 12/08/2020 organizations such as samaritan groups, unions, fraternal or athletic groups, or [...] place to sleep or slept in a prison (including now)? Education Answer Date Recorded What is the highest level of school Associate degree: stacey blancas, 05/12/2019 you have completed or the highest technical, or vocational p galen degree you have received? Sex Assigned at Date Recorded Female 12/15/2017 11:22 AM CDT documented as of this encounter Plan of Treatment Scheduled Referrals Name Type Priority Associated Order Schedule Diagnoses Covid immunization Outpatient Referral Routine Ex pected: office visit Booster 021 (Approximate), Expires: 05/21/2022 documented as of this encounter Visit Diagnoses Not on filedocumented in this encounter
--- OUTSIDE RECORDS SUMMARY | 2022-04-30 11:46 | XMS_ITS | Encounter Summary ---
:1965 Author Organization [facility] Address [address] [place] [id number] Care Team Providers Name Role Phone Unavailable Primary Care Provider Unavailable Encounter Details Date Type Department Care Team Description 10/01/2021 Orders Only Division of Colon and James, Stacey Doyle, Malignant Neoplasm Of Rectal Surgery in R.N. Rectum (HCC) (Primary [place], [place] Dx) [address] [place] [address] Social History Tobacco Use Types Packs/Day Years Used Date Smoking Tobacco: Some Days Cigarettes Smokeless Tobacco: Never Comments: 3 cigarette per day Alcohol Use Standard Drinks/Week [...] or relatives? How often do you attend sabianist or More than 4 times per year 12/08/2020 jewish services? Do you belong to any clubs or Yes 12/08/2020 organizations such as sabianist groups, unions, fraternal or athletic groups, or [...] or slept in a retirement (including now)? Education Answer Date Recorded What is the highest level of school Associate degree: stacey blancas, 05/12/2019 you have completed or the highest technical, or vocational p galen degree you have received? Sex Assigned at Date Recorded Female 12/15/2017 11:22 AM CDT documented as of this encounter Plan of Treatment Not on filedocumented as of this encounter Results (ABNORMAL) CEA (Carcinoembryonic Antigen) (12/07/2021 9:08 AM CDT) [facility] gist Method Time Signature Carcinoembryonic Ag 6.4 (H) ng/mL 12/07/2021 [facility] (CEA), S 2:13 PM CDT Comment: ----REFERENCE VALUE---- <=3.0 (Non-smokers) Some smokers may have elevated CEA, usually <5.0. ----ADDITIONAL INFORMATION---- The testing method is an immunoenzymatic assay manufactured by [employer]. and performed on the [employer]I 800. ? Values obtained with different assay met hods or kits may be different and cannot be used inte rchangeably. ? Test results cannot be interpreted as ab solute evidence for the presence or absence of malignant disease. Specimen Anatomical Collection Method Collection Time Receive d Time (Source) Location / / Volume Laterality Blood (Blood, 12/07/2021 9:08 AM 12/08/19 1:09 Venous) CDT PM CDT Arlene Tripathi M.D. LAB BLOOD ADD-ON Performing Organization Address City/State/ZIP Code Phon e Number [facility] [address] [place], [place] [address] [facility] [place] [address] Laboratory Medicine and Pathology [address] [place] documented in this encounter Visit Diagnoses Diagnosis Malignant Neoplasm Of Rectum (HCC) - Zarina herrera documented in this encounter
--- OUTSIDE RECORDS SUMMARY | 2022-04-30 11:46 | XMS_ITS | Encounter Summary ---
:1965 Author Organization [facility] Address [address] [place] [address] Care Team Providers Name Role Phone Unavailable Primary Care Provider Unavailable Encounter Details Date Type Department Care Team Description 05/21/2021 Orders Only RST PCP TH Mary Huynh M.D. [address] [place], [place] [phone] (Wo rk) Social History Tobacco [...] or relatives? How often do you attend quaker or More than 4 times per year 12/08/2020 jewish services? Do you belong to any clubs or Yes 12/08/2020 organizations such as quaker groups, unions, fraternal or athletic groups, or [...] or slept in a chcf (including now)? Education Answer Date Recorded What [...]
--- OUTSIDE RECORDS SUMMARY | 2022-04-30 11:46 | XMS_ITS | Encounter Summary ---
:1965 Author Organization [facility] Address [address] [place] [address] Care Team Providers Name Role Phone Unavailable Primary Care Provider Unavailable Reason for Referral Outpatient (Routine) - Closed Specialty Diagnoses / Procedures Referred By Contact Refer red To Contact Diagnoses Malignant Neoplasm Of Rectum (HCC) Arlene Tripathi M.D. [facility] Procedures Colonoscopy [address] [place] [address] Referral ID Status Reason Start Date Expiration Date Visits Requ ested Visits Authorized [id number] Closed 03/13/2021 07/13/2021 1 1 FORMER Reason for Visit Outpatient (Routine) - Closed Specialty Diagnoses / Procedures Referred By Contact Refer red To Contact Diagnoses Malignant Neoplasm Of Rectum (HCC) Arlene Tripathi M.D. [facility] Procedures Colonoscopy [address] [place] [address] Referral ID Status Reason Start Date Expiration Date Visits Requ ested Visits Authorized [id number] Closed 03/13/2021 07/13/2021 1 1 Encounter Details Date Type Department Care Team Description 06/14/2021 Hospital Division of Arlene Tripathi Malignant Pérez plasm Encounter Gastroenterology tamia Powers M.D. Of Rectum (HCC) [place], [place] [address] [facility] [address] [place] [phone] Social History Tobacco Use Types Packs/Day Years [...] More than 4 times per year 12/08/2020 caodaism services? Do you belong to any clubs [...] or slept in a residential (including now)? Education Answer Date Recorded What is the highest level of school Associate degree: stacey blancas, 05/12/2019 you have completed or the highest technical, or vocational p galen degree you have received? Sex Assigned at Date Recorded Female 12/15/2017 11:22 AM CDT documented as of this encounter Last Filed Vital Signs Vital Sign Reading Time Taken Comments Blood Pressure 113/79 06/14/2021 12:46 PM LEAD FORMER Pulse 65 06/14/2021 12:46 PM LEAD FORMER Temperature 36.6 ??C (97.9 ??F) 06/14/2021 12:31 PM LEAD FORMER Respiratory Rate 20 06/14/2021 12:46 PM LEAD FORMER Oxygen Saturation 99% 06/14/2021 12:46 PM LEAD FORMER Inhaled Oxygen Concentration - - Weight 92.1 kg (203 lb) 06/14/2021 10:06 AM LEAD FORMER Height 162.6 cm (5' 4) 06/14/2021 10:06 AM LEAD FORMER Body Mass Index 34.84 06/14/2021 10:06 AM LEAD FORMER documented in this encounter Medications at Time of Discharge Medication Sig Dispensed Refills Start Date End Date lisinopril-hydroCHLOROthi Take 2 tablets by 3 05/2019 azide mouth daily. (PRINZIDE,ZESTORETIC) 20-12.5 mg per tablet documented as of this encounter H&P Notes Cy Hui M.D. - 06/14/2021 10:15 AM CST ASSESSMENT / PLAN Patient Name: Conchita Solis Colonoscopy Procedure Department : DIVISION OF GASTROENTEROLOGY IN [place], [place] SUBJECTIVE Past Medical History: Diagnosis Date ??? Hypertension NOS ??? Leiomyoma (Fibroid) Uterus ??? 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 Malignant Neoplasm Of Rectum (HCC) 2017 ??? Menorrhagia ??? Polyp Colon Adenomatous Family History ??? Post Operative Nausea/Vomiting Past Surgical History: Procedure Laterality Date ??? ABDOMINAL SURGERY ??? HERNIA REPAIR ??? LAPAROSCOPIC APPENDECTOMY N/A 12/25/2017 Procedure: Laparoscopic Appendectomy; Surgeon: Arlene Tripathi M.D.; Location: [facility] ??? RECTAL TUMOR, EXCISION, TRANSANAL N/A 06/03/2017 Rectal tumor, excision, transanal ??? ROBOTIC-ASSISTED HYSTERECTOMY ABDOMINAL WITH SALPINGO-OOPHORECTOMY Bilateral 12/25/2017 Procedure: ROBOTIC-ASSISTED HYSTERECTOMY, SALPINGECTOMY, OVARIAN PRESERVATION.; Surgeon: Chastity Mckay M.D.; Location: [facility] OR OB History Para Term AB Living 1 SAB IAB Ectopic Molar Multiple Live Births # Outcome Date GA Lbr Tho/2nd Weight Sex Delivery Anes PTL Lv 1 Social History Socioeconomic History ??? Marital status: Spouse name: None ??? Number of children: None ??? Years of education: None ??? Highest education level: Associate degree: occupational, technical, or vocational program Occupational History ??? None Tobacco Use ??? Smoking status: Current Some Day Smoker Types: Cigarettes ??? Smokeless tobacco: Never Used ??? Tobacco comment: 3 cigarette per day Vaping Use ??? Vaping Use: never used Substance and Sexual Activity ??? Alcohol use: Yes Alcohol/week: 3.0 standard drinks Types: 3 Glasses of wine per week ??? Drug use: No ??? Sexual activity: None Other Topics Concern ??? None Social History Narrative ??? None Social Determinants of Health Financial Resource Strain: Low Risk ??? Difficulty of Paying Living Expenses: Not very hard Food Insecurity: Unknown ??? Worried About Running Out of Food in the Last Year: Never true ??? Ran Out of Food in the Last Year: Not on file Transportation Needs: No Transportation Needs ??? Lack of Transportation (Medical): No ??? Lack of Transportation (Non-Medical): No Physical Activity: Insufficiently Active ??? Days of Exercise per Week: 7 days ??? Minutes of Exercise per Session: 10 min Stress: Stress Concern Present ??? Feeling of Stress : To some extent Social Connections: Socially Integrated ??? Frequency of Communication with Friends and Family: More than three times a week ??? Frequency of Social Gatherings with Friends and Family: Twice a week ??? Attends Caodaism Services: More than 4 times per year ??? Active Member of Clubs or Organizations: Yes ??? Attends Club or Organization Meetings: 1 to 4 times per year ??? Marital Status: Intimate Partner Violence: Not on file Housing Stability: Low Risk ??? Unable to Pay for Housing in the Last Year: No ??? Number of Places Lived in the Last Year: 1 ??? Unstable Housing in the Last Year: No Ambulatory Infusion Pump/Implanted Milking System Installer- Peripheral IV Catheter 06/14/21 20 G Right Arm (Active) Site Assessment Clean;Dry;Intact 06/14/21 1137 Lumen Status Fluids infusing 06/14/21 1137 Line Care Line pulled back 06/14/21 1137 Dressing Type Transparent 06/14/21 1137 Dressing Status Clean;Dry;Intact 06/14/21 1137 Peripheral IV Catheter 06/14/21 20 G Right Arm (Active) 06/14/21 1125 Arm Placed by External Staff?: IV Change Due: Size (Gauge): 20 G Length (Inches): Orientation: Right Site Prep: Alcohol Technique: Anatomical landmarks Placed by: jordy valle Insertion attempts: 2 Removal Reason (REQUIRED): Removal Status: Site Assessment Clean;Dry;Intact 06/14/21 1137 Lumen Status Fluids infusing 06/14/21 1137 Line Care Line pulled back 06/14/21 1137 Dressing Type Transparent 06/14/21 1137 Dressing Status Clean;Dry;Intact 06/14/21 1137 Nothing was implanted during the procedure OBJECTIVE Weight: 92.1 kg Pain Score: 0 - No pain Consents Obtained: written The benefits, risks and alternatives of sedation or anesthesia, as well as the names, roles, and responsibilities of the healthcare team members, were discussed with the patient and/or decision maker: yes Procedure / Reason for visit: See medical history The following portions of the patient's history were reviewed and updated as appropriate: allergies,current medications, family history, medical history, surgical history, social history and problem list. yes Review of systems: pertinent ROS negative Mallampati: IV - only hard palate visible Heart: normal Lung: normal General / Constitutional: normal ASA physical exam: class 1 - normal, healthy patient Patient seen, evaluated and approved for sedation Sedation plan: moderate sedation Baseline Behavior: Psychosocial (WDL): Within Defined Limits Abdominal Exam: Abdomen Inspection: Soft,Nondistended Dental Information: FORMER documented in this encounter Plan of Treatment Not on filedocumented as of this encounter Procedures Procedure Name Priority Date/Time Associated Diagnosis Comme nts SURGICAL PATHOLOGY Routine 06/14/2021 12:13 PM Re sults for this LEAD FORMER procedure are i n the results section. COLONOSCOPY Routine 06/14/2021 11:36 AM Malignant Neoplasm Re sults for this LEAD FORMER Of Rectum (HCC) procedure ar e in the results section. COLONOSCOPY Routine 06/14/2021 11:36 AM Malignant Neoplasm LEAD FORMER Of Rectum (HCC) documented in this encounter Results Surgical Pathology (06/14/2021 12:13 PM LEAD FORMER) Component Value Ref Test Analysis Performed At [facility] Range Method Time Signature 06/18/2021 DTL 3:30 PM LEAD FORMER Participated in Lemo 06/18/2021 DTL the Interpretation Marleny 3:30 PM BUCKY Squires-Patholog y Resident Report Dorian Nation M.D., Ph.D. [phone] DTL electronically 3:30 PM LEAD FORMER signed by I verify that I have examined all relevant slides/materials for the specimen(s) and rendered or confirmed the diagnosis. Gross Description Received in formalin labeled with the patient's n shaggy, 06/18/2021 DTL medical record number, and colon-polyp, cecum is a 0.5 x 3:30 PM LEAD FORMER 0.3 x 0.1 cm pale roberts-pink irregular soft tissue. ??The specimen is submitted en toto in cassette A1. ??Grossed by AJG. Interpretation FINAL DIAGNOSIS 06/18/2021 DTL A. ??Colon, cecum, polyp, endoscopic biopsy: ??Sessile 3:30 PM LEAD FORMER serrated adenoma. Specimen (Source) Anatomical Collection Method Collection Time Re ceived Time Location / / Volume Laterality Polyp (Colon) 06/14/2021 12:13 PM LEAD FORMER Narrative This result has an attachment that is no t available. Cy Hui M.D. LAB SURG PATH ORDERABLES Performing Organization Address City/State/ZIP Code Phon e Number [facility] - [address] [place], [place] [address] [facility] [address] [facility] [address] Colonoscopy (06/14/2021 11:36 AM LEAD FORMER) Specimen (Source) Anatomical Collection Method Collection Time Re ceived Time Location / / Volume Laterality 06/14/2021 11:36 AM LEAD FORMER Impressions [employer] - 06/14/2021 12:27 PM LEAD FORMER Post-op Diagnoses: ? - One 3 mm polyp in the cecum, re moved with a cold snare. Resected and ? retrieved. ? - A tattoo was seen in the rectum . N[facility]ative [facility] - 06/14/2021 12:27 PM LEAD FORMER [facility] GI GI Patient Name: Conchita Solis Date of : 1965 Age: 55 Gender: Female Procedure Date: 06/14/2021 Procedure: ? Colonosc opy Providers: ? Cy Hui MD Referring Provider: ?Arlene olivares MD Pre-op Diagnoses: ?High risk c olon cancer surveillance: Personal ? his tory of colon cancer Recommendation: ? - Follow up recommendations for p atients with polyps identified during ? colonoscopy are impacted by sever al factors including polyp ? characteristics (size, number and histology), adequacy of colonic ? preparation and pertinent family history. For [facility] providers, ? detailed recommendations are matilda magana as an AskMayoExpert Care Process ? Model: <https://[email or web address].[email or web address].org/>. ? There may be some circumstances, specifically those patients with a ? personal or family history of sig nificant colorectal neoplasms where ? these guidelines may not apply. C onsider consultation in ? Gastroenterology for all other po lyp findings or for patients who are ? not at average risk. Findings: ? A 3 mm polyp was found in the cec um. The polyp was sessile. The polyp ? was removed with a cold snare. Re section and retrieval were complete. ? Estimated blood loss was minimal. ? A tattoo was seen in the rectum. ? The exam was otherwise normal thr oughout the examined colon.A ? retroflexed view of the rectum co uld noty be obtained due to a narrowed ? lumen. ? The perianal and digital rectal e xaminations were normal. Procedural Details: ? The patient was seen, evaluated, history reviewed, airway and heart-lung ? exams were performed by licensed provider and were satisfactory for ? planned level of sedation care. ? The risks, benefits and alternati ves for the procedure and sedation were ? discussed and informed consent wa s obtained. A procedural pause was ? conducted in the presence of assi sting personnel to verify the correct ? patient identity and procedure to be performed. Throughout the ? procedure, the patient's blood pr essure, pulse, and oxygen saturations ? were monitored continuously. The Pediatric Colonoscope was introduced ? under direct vision through the a nus and advanced to the terminal ileum, ? with identification of the append iceal orifice and IC valve. The ? colonoscopy was performed without difficulty. The patient tolerated the ? procedure well. The quality of th e bowel preparation was evaluated using ? the BBPS ([place] Bowel Preparatio n Scale) with scores of: Right Colon = ? 2 (minor amount of residual stain ing, small fragments of stool and/or ? opaque liquid, but mucosa seen we ll), Transverse Colon = 2 (minor amount ? of residual staining, small fragm ents of stool and/or opaque liquid, but ? mucosa seen well) and Left Colon = 3 (entire mucosa seen well with no ? residual staining, small fragment s of stool or opaque liquid). The total ? BBPS score equals 7. The quality of the bowel preparation was good. Estimated Blood Loss: ?Estimated blo od loss was minimal. Complications: ? No immedia te complications. Sedation: ? Moderate (conscious) sedation was administered by the endoscopy nurse ? and supervised by the endoscopist . The following parameters were ? monitored: oxygen saturation, hea rt rate, blood pressure, and response ? to care. Total physician intraser vice time was 23 minutes. Attending Participation: I personally pe rformed the entire procedure. Cy Hui MD 06/14/2021 12:27:44 PM This report has been signed electronical ly. Number of Addenda: 0 Arlene Tripathi M.D. GI PROCEDURE ORDERABLES Performing Organization Address City/State/ZIP Code Phon e Number [employer] [facility] documented in this encounter Visit Diagnoses Diagnosis Malignant Neoplasm Of Rectum (HCC) documented in this encounter Administered Medications Inactive Administered Medications - up to 3 most recent administrations Medication Order MAR Action Action Date Dose Rate Site fentaNYL injection (SUBLIMAZE) Given 06/14/2021 12:00 PM LEAD FORMER 50 mcg intravenous, Code/trauma/sedation medication, Starting on Kari 06/14/21 at 1159 fentaNYL injection (SUBLIMAZE) Given 06/14/2021 12:02 PM LEAD FORMER 25 mcg intravenous, Code/trauma/sedation medication, Starting on Kari 06/14/21 at 1202 fentaNYL injection (SUBLIMAZE) Given 06/14/2021 12:07 PM LEAD FORMER 25 mcg intravenous, Code/trauma/sedation medication, Starting on Kari 06/14/21 at 1207 fentaNYL injection (SUBLIMAZE) Given 06/14/2021 12:12 PM LEAD FORMER 25 mcg intravenous, Code/trauma/sedation medication, Starting on Kari 06/14/21 at 1212 lactated ringers New Bag 06/14/2021 11:37 125 mL/hr 125 mL/hr Code/trauma/sedation continuous med, AM LEAD FORMER Starting on Kari 06/14/21 at 1137 midazolam (PF) injection (VERSED) Given 06/14/2021 12:00 PM LEAD FORMER 2 mg Code/trauma/sedation medication, Starting on Kari 06/14/21 at 1159 midazolam (PF) injection (VERSED) Given 06/14/2021 12:02 PM LEAD FORMER 3 mg Code/trauma/sedation medication, Starting on Kari 06/14/21 at 1202 midazolam (PF) injection (VERSED) Given 06/14/2021 12:12 PM LEAD FORMER 1 mg Code/trauma/sedation medication, Starting on Kari 06/14/21 at 1212 simethicone drops (MYLICON) Given 06/14/2021 12:11 PM LEAD FORMER 1 mL Code/trauma/sedation medication, Starting on Kari 06/14/21 at 1211 sodium chloride 0.9 % injection Given 06/14/2021 12:00 PM LEAD FORMER 3 mL Code/trauma/sedation medication, Starting on Kari 06/14/21 at 1159 sodium chloride 0.9 % injection Given 06/14/2021 12:02 PM LEAD FORMER 3 mL Code/trauma/sedation medication, Starting on Kari 06/14/21 at 1202 sodium chloride 0.9 % injection Given 06/14/2021 12:07 PM LEAD FORMER 4 mL Code/trauma/sedation medication, Starting on Kari 06/14/21 at 1207 sodium chloride 0.9 % injection Given 06/14/2021 12:12 PM LEAD FORMER 3 mL Code/trauma/sedation medication, Starting on Kari 06/14/21 at 1212 documented in this encounter
--- OUTSIDE RECORDS SUMMARY | 2022-04-30 11:46 | XMS_ITS | Encounter Summary ---
:1965 Author Organization [facility] Address [address] [place] [address] Care Team Providers Name Role Phone Unavailable Primary Care Provider Unavailable Reason for Visit Reason Comments Appointment Encounter Details Date Type Department Care Team Description 03/12/2021 Clinical Communication Division of Colon and Dolly Tripathi, Appointment Rectal Surgery in [place], [place] [address] [facility] [address] [place] [phone] Social History Tobacco Use Types Packs/Day Years [...] or relatives? How often do you attend taoism or More than 4 times per year 12/08/2020 jewish services? Do you belong to any clubs or Yes 12/08/2020 organizations such as taoism groups, unions, fraternal or athletic groups, or [...] this encounter Miscellaneous Notes Telephone Encounter - Edith Brannon - 03/12/2021 12:41 PM CDT Patient needing a colonoscopy in june per Dr. Tripathi note. Patient is requesting with Dr. Tripathi. Please place order. Thank you Patrica documented in this encounter Plan of Treatment Not on filedocumented as of this encounter Visit Diagnoses Not on filedocumented in this encounter
--- OUTSIDE RECORDS SUMMARY | 2022-04-30 11:46 | XMS_ITS | Encounter Summary ---
:1965 Author Organization [facility] Address [address] [place] [address] Care Team Providers Name Role Phone Unavailable Primary Care Provider Unavailable Encounter Details Date Type Department Care Team Description 10/25/2021 Orders Only Division of Colon and Gypsy Conner alignike Neoplasm Of Rectal Surgery in L, R.N. Rectum (HC C) (Primary [place], [place] Dx) [address] [place] [address] Social History Tobacco Use Types Packs/Day Years [...] or relatives? How often do you attend anglican or More than 4 times per year 12/08/2020 pentecostalism services? Do you belong to any clubs or Yes 12/08/2020 organizations such as anglican groups, unions, fraternal or athletic groups, or [...] slept in a long term (including now)? Education Answer Date Recorded What [...]
--- OUTSIDE RECORDS SUMMARY | 2022-04-30 11:46 | XMS_ITS | Encounter Summary ---
:1965 Author Organization [facility] Address [address] [place] [address] Care Team Providers Name Role Phone Unavailable Primary Care Provider Unavailable Reason for Referral Outpatient (Routine) - Closed Specialty Diagnoses / Procedures Referred By Contact Refer red To Contact Diagnoses Malignant Neoplasm Of Rectum (HCC) Arlene Tripathi M.D. [facility] Procedures Flexible Sigmoidoscopy [address] [place], [place] [address] Referral ID Status Reason Start Date Expiration Date Visits Requ ested Visits Authorized [id number] Closed 11/25/2021 03/13/2022 1 1 Reason for Visit Outpatient (Routine) - Closed Specialty Diagnoses / Procedures Referred By Contact Refer red To Contact Diagnoses Malignant Neoplasm Of Rectum (HCC) Arlene Tripathi M.D. [facility] Procedures Flexible Sigmoidoscopy [address] [place] [address] Referral ID Status Reason Start Date Expiration Date Visits Requ ested Visits Authorized [id number] Closed 11/25/2021 03/13/2022 1 1 Encounter Details Date Type Department Care Team Description 12/07/2021 Hospital Encounter Division of Colon Arlene Tripathi Ma lignant Neoplasm and Rectal Surgery Tavia Powers Of Rectum (HCC) in [place], [address] [place], [place] [address] [facility] [address] [place], [place] [phone] (Work) [phone] Social History Tobacco Use Types Packs/Day Years [...] or relatives? How often do you attend anabaptist or More than 4 times per year 12/08/2020 hinduism services? Do you belong to any clubs or Yes 12/08/2020 organizations such as anabaptist groups, unions, fraternal or athletic groups, or [...] place to sleep or slept in a m[facility]p (including now)? Education Answer Date Recorded What [...] per tablet documented as of this encounter Plan of Treatment Not on filedocumented as of this encounter Procedures Procedure Name Priority Date/Time Associated Comments Diagnosis FLEXIBLE SIGMOIDOSCOPY Routine 12/07/2021 8:09 AM Malignant Ne oplasm Results for this CDT Of Rectum (HCC) procedure ar e in the results section. CRS FLEXIBLE Routine 12/07/2021 8:09 AM Malignant Neoplasm SIGMOIDOSCOPY CDT Of Rectum (HCC) documented in this encounter Results Flexible Sigmoidoscopy (12/07/2021 8:09 AM CDT) Specimen (Source) Anatomical Collection Method Collection Time Re ceived Time Location / / Volume Laterality 12/07/2021 8:09 AM CDT Impressions [employer] - 12/13/2021 7:50 PM CDT Post-op Diagnoses: ? - No specimens collected. Narrative [employer] - 12/13/2021 7:50 PM CDT Gonda 9 CRS GI Patient Name: Conchita Solis Date of : 1965 Age: 56 Gender: Female Procedure Date: 12/07/2021 Procedure: ? Flexible Sigmoidoscopy Providers: ? Arlene Tripathi MD Referring Provider: ?Arlene olivares MD Pre-op Diagnoses: ?High risk c olon cancer surveillance: Personal ? his tory of rectal cancer Recommendation: ? - Discharge patient to home ([facility]). Findings: ? The perianal and digital rectal e xaminations were normal. ? A 30 mm post polypectomy scar was found in the distal rectum. The scar ? tissue was healthy in appearance. There was no evidence of the previous ? polyp. Procedural Details: ? The patient was seen, [...] the a nus and advanced to the rectosigmoid ? junction. The flexible sigmoidosc opy was accomplished without ? difficulty. The patient tolerated the procedure fairly well. Estimated Blood Loss: ?Estimated blo od loss: none. Estimated blood loss: ? non e. Complications: ? No immedia te complications. Sedation: ? No sedation administered. Attending Participation: I personally pe rformed the entire procedure. Arlene Tripathi MD 12/13/2021 7:50:30 PM This report has been signed electronical ly. Number of Addenda: 0 Note Initiated On: 12/07/2021 8:09 AM Arlene Tripathi M.D. GI PROCEDURE ORDERABLES Performing Organization Address City/State/ZIP Code Phon e Number [employer] NA documented in this encounter Visit Diagnoses Diagnosis Malignant Neoplasm Of Rectum (HCC) documented in this encounter
--- OUTSIDE RECORDS SUMMARY | 2022-04-30 11:46 | XMS_ITS | Encounter Summary ---
:1965 Author Organization [facility] Address [address] [place] [address] Care Team Providers Name Role Phone Unavailable Primary Care Provider Unavailable Reason for Referral MRI/CAT/PET Scan (Routine) - Closed Specialty Diagnoses / Procedures Referred By Contact Refer red To Contact Radiology Diagnoses Malignant Neoplasm Of Rectum (HCC) Arlene Tripathi M.D. [facility] Procedures CT Abdomen Pelvis with IV Contrast NM CT ABD&PELVIS W CNTRST [address] [place] [phone] Referral ID Status Reason Start Date Expiration Date Visits Requ ested Visits Authorized [id number] Closed 11/25/2021 03/13/2022 1 1 Reason for Visit MRI/CAT/PET Scan (Routine) - Modified Order Specialty Diagnoses / Procedures Referred By Contact Refer red To Contact Radiology Diagnoses Malignant Neoplasm Of Rectum (HCC) Arlene Tripathi M.D. [facility] Procedures CT Chest with IV Contrast CT Chest without IV Contrast NM CT THORAX WO CNTRST [address] [place] [phone] Referral ID Status Reason Start Date Expiration Date Visits V isits Requested Authorized [id number] Modified 11/25/2021 10/25/2022 1 1 Order Encounter Details Date Type Department Care Team Description 12/07/2021 Hospital Encounter Department of Arlene Tripathi Malign ant Neoplasm Radiology, Jerry Powers M.D. Of Rectum (HCC) [facility], in [address] [place] [address] [place], [place] [phone] [place], [place] [phone] (Work) [phone] Social History Tobacco Use Types Packs/Day Years [...] or relatives? How often do you attend religion or More than 4 times per year 12/08/2020 mormon services? Do you belong to any clubs or Yes 12/08/2020 organizations such as religion groups, unions, fraternal or athletic groups, or [...] minutes do you engage in exercise at is 10 min 12/08/2020 level? Stress Answer [...] place to sleep or slept in a correction (including now)? Education Answer Date Recorded What [...] of this encounter Plan of Treatment Scheduled Orders Name Type Priority Associated Diagnoses Order S chedule Creatinine, POCT Point of Care Routine Routine la b collection Testing-Docked (next collect ion) for Device 1 Occurrences s tarting 12/07/2021 unti l 12/07/2021 documented as of this encounter Procedures Procedure Name Priority Date/Time Associated Comments Diagnosis CT ABDOMEN PELVIS RAD - Routine 12/07/2021 8:54 Malignant Result s for this WITH IV CONTRAST (most inpatients AM CDT Neoplasm Of procedu re are in and all Rectum (HCC) the results outpatients) section. CT CHEST WITH IV RAD - Routine 12/07/2021 8:54 Malignant Results for this CONTRAST (most inpatients AM CDT Neoplasm Of procedure a re in and all Rectum (HCC) the results outpatients) section. CREATININE, POCT, Routine 12/07/2021 8:13 Results for this B AM CDT procedure are i n the results section. CREATININE, POCT, Routine 12/07/2021 8:13 Results for this B AM CDT procedure are i n the results section. documented in this encounter Results CT Chest with IV Contrast (12/07/2021 8:54 AM CDT) Anatomical Region Laterality Modality Chest, Thoracic RST LOS, Thoracic ARZ N/A Co mputed Tomography, Computed LOS, Thoracic ARZ LOS, Thoracic FLA Moi graphy LOS Specimen (Source) Anatomical Collection Method Collection Time Re ceived Time Location / / Volume Laterality 12/07/2021 8:38 AM CDT Impressions 12/07/2021 9:12 AM CDT No change since 11/30/2020. No metastati c disease in the chest. Narrative 12/07/2021 9:12 AM CDT EXAM: CT CHEST WITH IV CONTRAST COMPARISON: CT chest with IV contrast en hancement 11/30/2020. FINDINGS: Tiny bilateral pulmonary nodules are unc hanged since 11/30/2020 and dating back to 01/07/2019 and should be benign. No new nodules. Minimal scarring in the right base. Smal l bilateral thyroid nodules. This examination was performed in conjun ction with a CT of the abdomen, which will be reported separately. Procedure Note Brad Page M.D. - 12/07/2021Forma tting of this note might be different from the original. EXAM: CT CHEST WITH IV CONTRAST COMPARISON: CT chest with IV contrast en hancement 11/30/2020. FINDINGS: Tiny bilateral pulmonary nodules are unc hanged since 11/30/2020 and dating back to 01/07/2019 and should be benign. No new nodules. Minimal scarring in the right base. Smal l bilateral thyroid nodules. This examination was performed in conjun ction with a CT of the abdomen, which will be reported separately. IMPRESSION: No change since 11/30/2020. No metastati c disease in the chest. Arlene Tripathi M.D. G CT PROCEDURES CT Abdomen Pelvis with IV Contrast (12/07/2021 8:54 AM CDT) Anatomical Region Laterality Modality Abdomen, Pelvis, Abdominal RST LOS, N/A Comp uted Tomography, Computed Abdominal ARZ LOS, Abdominal FLA LOS John ography Specimen (Source) Anatomical Collection Method Collection Time Re ceived Time Location / / Volume Laterality 12/07/2021 8:35 AM CDT Impressions 12/07/2021 9:[address] evidence of metastatic disease in abdomen or pelvis. Narrative 12/07/2021 9:07 AM CDT EXAM: ??CT ABDOMEN PELVIS WITH IV CONTRAST COMPARISON: ??CT 12/08/2020, 03/22/2020. FINDINGS: ??No suspicious hepatic lesion s. Focal fatty infiltration near falciform ligament. Stable adenomyomatosis of gallbladder fundus. P ancreas, spleen, adrenals and kidneys are negative. Normal caliber bowel. Unchanged subcentimeter p eriportal, retroperitoneal and iliac chain lymph nodes. No new or enlarged lymph nodes in abdomen o r pelvis. No ascites. Postoperative changes of hysterectomy, b ilateral salpingo-oophorectomy, laparoscopic appendectomy and transanal excision of rectal tumor. No suspicious osseous lesions. Stable as ymmetrical sclerosis right pubic bone. This examination was performed in conjun ction with CT of the chest, which will be reported separately. Procedure Note Mary Hdez M.D. - 12/07/2021Forma tting of this note might be different from the original. EXAM: CT ABDOMEN PELVIS WITH IV CONTRAST COMPARISON: CT 12/08/2020, 03/22/2020. FINDINGS: No suspicious hepatic lesions. Focal fatty infiltration near falciform ligament. Stable adenomyomatosis of gallbladder fundus. P ancreas, spleen, adrenals and kidneys are negative. Normal caliber bowel. Unchanged subcentimeter p eriportal, retroperitoneal and iliac chain lymph nodes. No new or enlarged lymph nodes in abdomen o r pelvis. No ascites. Postoperative changes of hysterectomy, b ilateral salpingo-oophorectomy, laparoscopic appendectomy and transanal excision of rectal tumor. No suspicious osseous lesions. Stable as ymmetrical sclerosis right pubic bone. This examination was performed in conjun ction with CT of the chest, which will be reported separately. IMPRESSION: No CT evidence of metastatic disease in abdomen or pelvis. Arlene DYSON CT PROCEDURES Creatinine, POCT (12/07/2021 8:13 AM CDT) athologist Signature Creatinine, 0.7 0.6 - 1.0 12/07/2021 PCDT POCT, B mg/dL 8:16 AM CDT Comment: ----ADDITIONAL INFORMATION---- Performed at the Point of Care Specimen Anatomical Collection Method Collection Time Receive d Time (Source) Location / / Volume Laterality Blood 12/07/2021 8:13 AM 8:16 CDT AM CDT Unknown Provider LAB POCT ORDERABLES - DEVICE Performing Organization Address [facility] Phon e Number POC YODER PERFORMING [address] [place] [address] [place] [address] [facility] [address] Creatinine, POCT (12/07/2021 8:13 AM CDT) athologist Signature eGFR-Black/Afri >90 >=60 12/07/2021 PCDT can Kazakh, mL/min/BSA 8:16 AM CDT POCT Comment: ----ADDITIONAL INFORMATION---- Estimated GFR calculated using the 2009 CKD_EPI creatinine equation. eGFR Non-Black/, >90 >=60 mL/min/BSA 12/07/2021 8:16 AM CDT PCDT POCT Comment: ----ADDITIONAL INFORMATION---- Estimated GFR calculated using the 2009 CKD_EPI creatinine equation. Specimen Anatomical Collection Method Collection Time Receive d Time (Source) Location / / Volume Laterality Blood 12/07/2021 8:13 AM 8:16 CDT AM CDT Unknown Provider LAB POCT ORDERABLES - DEVICE Performing Organization Address [facility] Phon e Number POC YODER PERFORMING [address] [place] [address] [place] [address] [facility] [address] documented in this encounter Visit Diagnoses Diagnosis Malignant Neoplasm Of Rectum (HCC) documented in this encounter Administered Medications Inactive Administered Medications - up to 3 most recent administrations Medication Order MAR Action Action Date Dose Rate Site iohexoL 300 mg iodine/mL solution Given 12/07/2021 8:26 AM CDT 1 00 mL 1-200 mL (OMNIPAQUE) 1-200 mL, intravenous, Once in imaging, contrast, Starting on Fri12/07/21 at 0806, For 1 dose, Imaging Protocol Orders, Dose per Radiant Medication Guidelines sodium chloride (PF) 0.9 % injection 1-1 00 mL Given 12/07/2021 8:26 AM CDT 50 mL 1-100 mL, intravenous, Once, On Fri12/07/21 at 0815, For 1 dose, Imaging Protocol Orders documented in this encounter
--- OUTSIDE RECORDS SUMMARY | 2022-04-30 11:46 | XMS_ITS | Encounter Summary ---
:1965 Author Organization [facility] Address [address] [place] [address] Care Team Providers Name Role Phone Unavailable Primary Care Provider Unavailable Encounter Details Date Type Department Care Team Description 06/14/2021 Ancillary Procedure Department of Gastroenterology Social History Tobacco Use Types Packs/Day Years [...] More than 4 times per year 12/08/2020 sikhism services? Do you belong to any clubs [...] or slept in a half-way (including now)? Education Answer Date Recorded What is the highest level of school Associate degree: stacey blancas, 05/12/2019 you have completed or the highest technical, or vocational p rogram degree you have received? Sex Assigned at Date Recorded Female 12/15/2017 11:22 AM CDT documented as of this encounter Plan of Treatment Not on filedocumented as of this encounter Procedures Procedure Name Priority Date/Time Associated Comments Diagnosis GASTROENTEROLOGY IMAGE Routine 06/14/2021 11:40 R esults for this EXAM AM RADIOLOGIC TECHNOLOGY TEACHER procedure are i n the results section. documented in this encounter Results Colonoscopy-Gastroenterology Image Exam (06/14/2021 11:40 AM RADIOLOGIC TECHNOLOGY TEACHER) Specimen (Source) Anatomical Collection Method Collection Time Re ceived Time Location / / Volume Laterality 06/14/2021 11:36 AM RADIOLOGIC TECHNOLOGY TEACHER Narrative [facility] - 06/14/2021 12:35 PM RADIOLOGIC TECHNOLOGY TEACHER This order has been created and auto-finalized [...]
--- OUTSIDE RECORDS SUMMARY | 2022-04-30 11:46 | XMS_ITS | Encounter Summary ---
:1965 Author Organization [facility] Address [address] [place] [address] Care Team Providers Name Role Phone Unavailable Primary Care Provider Unavailable Encounter Details Date Type Department Care Team Description 05/25/2021 Orders Only RST PCP TH Mary Huynh M.D. [address] [place], [place] [phone] (Wo rk) Social History [...] or relatives? How often do you attend buddhism or More than 4 times per year 12/08/2020 restorationism services? Do you belong to any clubs or Yes 12/08/2020 organizations such as buddhism groups, unions, fraternal or athletic groups, or [...]
--- OUTSIDE RECORDS SUMMARY | 2022-04-30 11:46 | XMS_ITS | Clinical Summary ---
:1965 Author Organization [facility] Address [address] [place] [address] Care Team Providers Name Role Phone Unavailable Primary Care Provider Unavailable Source Comments Patient records contain information from all sites at [facility]. For routine questions regarding patient records, call [phone] during business hours, M-F 8:00 AM - 5:00 PM Central Time. Record requests for emergency care only can be directed to [phone] at any time.[facility] Allergies No known active allergies Medications Medication Sig Dispensed Refills Start Date End Date Status lisinopril-hydroCHLORO Take 2 tablets by 3 9 Active thiazide mouth daily. 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 How often do you attend roman catholic or More than 4 times per year 12/08/2020 confucianist services? Do you belong to any clubs or Yes 12/08/2020 organizations such as roman catholic groups, unions, fraternal or athletic groups, [...] highest level of school Associate degree: stacey blnacas, 05/12/2019 you have completed or the highest technical, or vocational p galen degree you have received? Sex Assigned at Date Recorded Female 12/15/2017 11:22 AM CDT Last Filed Vital Signs Vital Sign Reading Time Taken Comments Blood Pressure 113/79 06/14/2021 12:46 PM SUBSTATION DESIGNER Pulse 65 06/14/2021 12:46 PM SUBSTATION DESIGNER Temperature 36.6 ??C (97.9 ??F) 06/14/2021 12:31 PM SUBSTATION DESIGNER Respiratory Rate 20 06/14/2021 12:46 PM SUBSTATION DESIGNER Oxygen Saturation 99% 06/14/2021 12:46 PM SUBSTATION DESIGNER Inhaled Oxygen Concentration - - Weight 92.1 kg (203 lb) 06/14/2021 10:06 AM SUBSTATION DESIGNER Height 162.6 cm (5' 4) 06/14/2021 10:06 AM SUBSTATION DESIGNER Body Mass Index 34.84 06/14/2021 10:06 AM SUBSTATION DESIGNER Plan of Treatment Health Maintenance Due Date Last Done Comments CT Colonography 1965 Cologuard 1965 HIV Screening 1965 Hepatitis B Vaccines (1 of 3 - 1965 3-dose series) Hepatitis C Screening 1965 Lipid (Cholesterol) Screening 1965 Mammogram 1965 Office Visit for Blood Pressure 1965 Check / Re-check Tobacco Cessation counseling 1965 Pneumococcal vaccine (0-64 years) 1970 (1 - PCV) Zoster Vaccines (1 of 2) 2014 Potassium Level 05/19/2018 05/19/2017 Sodium Level 05/19/2018 05/19/2017 Fasting Glucose for Diabetes 05/19/2020 05/19/2017 Screening Depression Screening (Annual 07/14/2021 PHQ-2) COVID-19 Vaccine (4 - Booster for 08/16/2021 06/21/2021, , Pfizer series) 09/30/2020 Influenza Vaccine (#1) 2022 06/01/2018 Creatinine Level 12/07/2022 12/07/2021, 12/08/2020, 03/22/2020, Additional history exists Colonoscopy 06/14/2026 06/14/2021, 06/14/2021, 04/14/2018, Additional history exists Colorectal Cancer Surveillance 06/14/2026 DTaP,Tdap,and Td Vaccines (2 - Td 03/25/2027 03/25/2017 or Tdap) Insurance Payer Benefit Plan / Subscriber ID Effective Phone Address T ype Group Dates PREFERREDONE PREFERREDONE [id number] 2021-Pres [phone] PPO ADMINISTRATIVE SEGIP ent [id number] SERVICES [place] [id number] [facility] [address] [place] [phone] Advance Directives For more information, please contact: [phone] Latest Code Status on File Code Status Date Activated Date Inactivated Comments Full Code 12/25/2017 5:21 PM 12/25/2017 11:28 PM Question Answer Comments Full Code: Discussed Code Status History Code Status Date Activated Date Inactivated Comments Full Code 12/25/2017 5:58 AM 12/25/2017 5:21 PM Question Answer Comments Full Code: Discussed
--- OUTSIDE RECORDS SUMMARY | 2022-04-30 11:46 | XMS_ITS | Encounter Summary ---
:1965 Author Organization [facility] Address [address] [place] [address] Care Team Providers Name Role Phone Unavailable Primary Care Provider Unavailable Reason for Visit Outpatient (Routine) - Closed Specialty Diagnoses / Procedures Referred By Contact Refer red To Contact Laboratory Medicine and Diagnoses Malignant Neoplasm Of Rectum (HCC) Arlene Tripathi [facility]john [facility] Cl C Pathology / Laboratory Procedures CARCINOEMBRYONIC AG (CEA), S LAB TEST BLOOD M.D. [address] [place] [address] Medicine [address] [place] [phone] Referral ID Status Reason Start Date Expiration Date Visits Requ ested Visits Authorized [id number] Closed 06/14/2021 07/13/2021 1 1 Encounter Details Date Type Department Care Team Description 06/14/2021 Hospital Encounter Department of Arlene Tripathi Malign ant Neoplasm Laboratory Medicine [facility] Of Rectum (HCC) and Pathology, [address] [place] [address] in [place], [place] [phone] [place] [address] [place], [place] (Work) [phone] Social History Tobacco Use [...] or relatives? How often do you attend zoroastrianism or More than 4 times per year 12/08/2020 islam services? Do you belong to any clubs or Yes 12/08/2020 organizations such as zoroastrianism groups, unions, fraternal or athletic groups, or [...] Date/Time Associated Comments Diagnosis CARCINOEMBRYONIC AG Routine 06/14/2021 2:06 Malignant Neoplasm Results for this (CEA), S PM SNOW TECHNICIAN Of Rectum (HCC) procedure ar e in the results section. documented in this encounter Results (ABNORMAL) CEA (Carcinoembryonic Antigen) (06/14/2021 2:06 PM SNOW TECHNICIAN) [facility] Method Time Signature Carcinoembryonic Ag 5.7 (H) ng/mL 06/14/2021 SDSC (CEA), S 7:13 PM SNOW TECHNICIAN Comment: ----REFERENCE VALUE---- <=3.0 (Non-smokers) Some smokers may have elevated CEA, usually <5.0. ----ADDITIONAL INFORMATION---- The testing method is an immunoenzymatic assay manufactured by [employer] and performed on the ConnollyI 800. ? Values obtained with different assay met hods or kits may be different and cannot be used inte rchangeably. ? Test results cannot be interpreted as ab solute evidence for the presence or absence of malignant disease. Specimen Anatomical Collection Method Collection Time Receive d Time (Source) Location / / Volume Laterality Blood (Blood, 06/14/2021 2:06 PM 06/14/20 21 6:20 Venous) SNOW TECHNICIAN PM SNOW TECHNICIAN Arlene Tripathi M.D. LAB BLOOD ADD-ON Performing Organization Address City/State/ZIP Code Phon e Number [facility] [address] [place] [address] SUPPORT CENTER [facility] [place] [address] Laboratory Medicine and Pathology [address] [place] documented in this encounter Visit Diagnoses Diagnosis Malignant Neoplasm Of Rectum (HCC) documented in this encounter
--- OUTSIDE RECORDS SUMMARY | 2022-04-30 11:46 | XMS_ITS | Encounter Summary ---
:1965 Author Organization [facility] Address [address] [place] [address] Care Team Providers Name Role Phone Unavailable Primary Care Provider Unavailable Reason for Referral Outpatient (Routine) - Closed Specialty Diagnoses / Procedures Referred By Contact Refer red To Contact Colon and Rectal Diagnoses Arlene Tripathi, [facility] Surgery MCherie [address] [place] [address] Referral ID Status Reason Start Date Expiration Date Visits Requ ested Visits Authorized [id number] Closed 11/25/2021 03/13/2022 1 1 Scheduling Instructions Liz Sometime in November Outpatient (Routine) - Closed Specialty Diagnoses / Procedures Referred By Contact Refer red To Contact Diagnoses Malignant Neoplasm Of Rectum (HCC) Arlene Tripathi M.D. [facility] Procedures Colonoscopy [address] [place] [address] Referral ID Status Reason Start Date Expiration Date Visits Requ ested Visits Authorized [id number] Closed 03/13/2021 07/13/2021 1 1 Outpatient (Routine) - Closed Specialty Diagnoses / Procedures Referred By Contact Refer red To Contact Diagnoses Malignant Neoplasm Of Rectum (HCC) Arlene Tripathi M.D. [facility] Procedures Flexible Sigmoidoscopy [address] [place], [place] [address] Referral ID Status Reason Start Date Expiration Date Visits Requ ested Visits Authorized [id number] Closed 11/25/2021 03/13/2022 1 1 MRI/CAT/PET Scan (Routine) - Closed Specialty Diagnoses / Procedures Referred By Contact Refer red To Contact Radiology Diagnoses Malignant Neoplasm Of Rectum (HCC) Arlene Tripathi M.D. [facility] Procedures CT Abdomen Pelvis with IV Contrast DE CT ABD&PELVIS W CNTRST [address] [place], [place] [address] Referral ID Status Reason Start Date Expiration Date Visits Requ ested Visits Authorized [id number] Closed 11/25/2021 03/13/2022 1 1 Encounter Details Date Type Department Care Team Description 03/13/2021 Orders Only Division of Colon and Gypsy Conner alignant Neoplasm Of Rectal Surgery in L, R.N. Rectum (HC C) (Primary [place], [place] Dx) [address] [place] [phone] Social History Tobacco Use Types Packs/Day Years [...] More than 4 times per year 12/08/2020 sabianist services? Do you belong to any clubs [...] place to sleep or slept in a mcc (including now)? Education Answer Date Recorded What [...] Outpatient Referral Routine Expe cted: Surgery office 11/12/2021 visit (clinic) (Approximate) , Expires: 03/13/2024 documented as of this encounter Results CT Abdomen Pelvis with IV Contrast (12/07/2021 [...] metastatic disease in abdomen or pelvis. Arlene Tripathi M.D. IMG CT PROCEDURES (ABNORMAL) CEA (Carcinoembryonic Antigen) (06/14/2021 2:06 PM IN CLASSROOM TUTOR) [facility] Method Time Signature Carcinoembryonic Ag 5.7 (H) ng/mL 06/14/2021 [facility] (CEA), S 7:13 PM IN CLASSROOM TUTOR Comment: ----REFERENCE VALUE---- <=3.0 (Non-smokers) Some smokers may have elevated CEA, usually <5.0. ----ADDITIONAL INFORMATION---- The testing method is an immunoenzymatic assay manufactured by [employer]. and performed on the [employer] DxI 800. ? Values obtained with different assay met hods or kits may be different and cannot be used inte rchangeably. ? Test results cannot be interpreted as ab solute evidence for the presence or absence of malignant disease. Specimen Anatomical Collection Method Collection Time Receive d Time (Source) Location / / Volume Laterality Blood (Blood, 06/14/2021 2:06 PM 06/14/20 21 6:20 Venous) IN CLASSROOM TUTOR PM IN CLASSROOM TUTOR Arlene Tripathi M.D. LAB BLOOD ADD-ON Performing Organization Address City/State/ZIP Code Phon e Number [facility] [address] [place], [place] [address] SUPPORT CENTER [facility] [place] [address] Laboratory Medicine and Pathology [address] [place] documented in this encounter Visit Diagnoses Diagnosis Malignant Neoplasm Of Rectum (HCC) - Zarina sharon Malignant Neoplasm Of Rectum (HCC) documented in this encounter
--- OUTSIDE RECORDS SUMMARY | 2022-04-30 11:46 | XMS_ITS | Encounter Summary ---
:1965 Author Organization [facility] Address [address] [place] [address] Care Team Providers Name Role Phone Unavailable Primary Care Provider Unavailable Reason for Referral MRI/CAT/PET Scan (Routine) - Closed Specialty Diagnoses / Procedures Referred By Contact Refer red To Contact Radiology Diagnoses Malignant Neoplasm Of Rectum (HCC) Arlene Tripathi M.D. [facility] Procedures CT Chest with IV Contrast [address] [place], [place] [address] Referral ID Status Reason Start Date Expiration Date Visits Requ ested Visits Authorized [id number] Closed 11/13/2020 07/13/2021 1 1 MRI/CAT/PET Scan (Routine) - Closed Specialty Diagnoses / Procedures Referred By Contact Refer red To Contact Radiology Diagnoses Malignant Neoplasm Of Rectum (HCC) Arlene Tripathi M.D. [facility] Procedures CT Abdomen Pelvis with IV Contrast [address] [place] [address] Referral ID Status Reason Start Date Expiration Date Visits Requ ested Visits Authorized [id number] Closed 11/13/2020 07/13/2021 1 1 Reason for Visit MRI/CAT/PET Scan (Routine) - Closed Specialty Diagnoses / Procedures Referred By Contact Refer red To Contact Radiology Diagnoses Malignant Neoplasm Of Rectum (HCC) Arlene Tripathi M.D. [facility] Procedures CT Chest with IV Contrast [address] [place] [phone] Referral ID Status Reason Start Date Expiration Date Visits Requ ested Visits Authorized [id number] Closed 11/13/2020 07/13/2021 1 1 Encounter Details Date Type Department Care Team Description 12/08/2020 Hospital Encounter Department of Arlene Tripathi ant Neoplasm Radiology, Jesus Powers M.D. Of Rectum (HCC) Building, in [address] [place] [address] [place] [address] [place], [place] [phone] (Work) [phone] Social History Tobacco Use Types Packs/Day Years [...] More than 4 times per year 12/08/2020 lutheran services? Do you belong to any clubs [...] tablets by 3 05/2019 azide mouth daily. (PRINZIDAlberta,ZESTORETIC) 20-12.5 mg per tablet documented as of this encounter Plan of Treatment Scheduled Orders Name Type Priority Associated Diagnoses Order S chedule Creatinine, POCT Point of Care Routine Routine la b collection Testing-Docked (next collect ion) for Device 1 Occurrences s tarting 12/08/2020 unti l 12/08/2020 documented as of this encounter Procedures Procedure Name Priority Date/Time Associated Comments Diagnosis CT ABDOMEN PELVIS RAD - Routine 12/08/2020 11:49 Malignant Resul ts for this WITH IV CONTRAST (most inpatients AM CDT Neoplasm Of procedu re are in and all Rectum (HCC) the results outpatients) section. CT CHEST WITH IV RAD - Routine 12/08/2020 11:49 Malignant Result s for this CONTRAST (most inpatients AM CDT Neoplasm Of procedure a re in and all Rectum (HCC) the results outpatients) section. CREATININE, POCT, Routine 12/08/2020 10:50 Result s for this B AM CDT procedure are i n the results section. CREATININE, POCT, Routine 12/08/2020 10:50 Result s for this B AM CDT procedure are i n the results section. documented in this encounter Results CT Chest with IV Contrast (12/08/2020 11:49 AM CDT) Anatomical Region Laterality Modality Chest, Thoracic RST LOS, Thoracic ARZ N/A Co mputed Tomography, Computed LOS, Thoracic ARZ LOS, Thoracic FLA Moi graphy LOS Specimen (Source) Anatomical Collection Method Collection Time Re ceived Time Location / / Volume Laterality 12/08/2020 1:01 PM CDT Impressions 12/08/2020 1:09 PM CDT 1. Unchanged scattered bilateral pulmonary nodules. 2. This examination was performed in [facility] with a CT of the abdomen and pelvis, which will be reported separatel y. Narrative 12/08/2020 1:09 PM CDT EXAM: CT CHEST WITH IV CONTRAST COMPARISON: CT chest with IV contrast . FINDINGS: No lymphadenopathy. Unchanged trace simple pericardial effus ion. Prominent pericardial fat. No pleural effusion. Unchanged scattered bilateral noncalcifi ed solid pulmonary nodules. Example: Sub-3 mm, peripheral left lower lobe pos terior basal segment (series 3, image 403). Unchanged scattered bilateral most likely intrapulmonary lymph nodes. Example: Along the minor fissure (series 3, image 272). Unchanged mild diffuse). Unchanged mild diffuse bronchial wall th ickening and mosaic attenuation of the lungs compatible with infectious/inflamm atory airway disease. No suspicious osseous focus. Most likely subcentimeter bone island in the caudal right humeral head. Degenerative changes of the skeleton. This examination was performed in conjun ction with a CT of the abdomen and pelvis, which will be reported separatel y. Procedure Note Ana Mcintosh M.D. - 12/08/2020Formatt ing of this note might be different from the original. EXAM: CT CHEST WITH IV CONTRAST COMPARISON: CT chest with IV contrast . FINDINGS: No lymphadenopathy. Unchanged trace simple pericardial effus ion. Prominent pericardial fat. No pleural effusion. Unchanged scattered bilateral noncalcifi ed solid pulmonary nodules. Example: Sub-3 mm, peripheral left lower lobe pos terior basal segment (series 3, image 403). Unchanged scattered bilateral most likely intrapulmonary lymph nodes. Example: Along the minor fissure (series 3, image 272). Unchanged mild diffuse). Unchanged mild diffuse bronchial wall th ickening and mosaic attenuation of the lungs compatible with infectious/inflamm atory airway disease. No suspicious osseous focus. Most likely subcentimeter bone island in the caudal right humeral head. Degenerative changes of the skeleton. This examination was performed in conjun ction with a CT of the abdomen and pelvis, which will be reported separatel y. IMPRESSION: 1. Unchanged scattered bilateral pulmona ry nodules. 2. This examination was performed in [facility] with a CT of the abdomen and pelvis, which will be reported separatel y. Arlene DYSON CT PROCEDURES CT Abdomen Pelvis with IV Contrast (12/08/2020 11:49 AM CDT) Anatomical Region Laterality Modality Abdomen, Pelvis, Abdominal RST LOS, N/A Comp uted Tomography, Computed Abdominal ARZ LOS, Abdominal FLA LOS John ography Specimen (Source) Anatomical Collection Method Collection Time Re ceived Time Location / / Volume Laterality 12/08/2020 11:37 AM CDT Impressions 12/08/2020 1:16 PM CDT No evidence of metastatic disease in the abdomen or pelvis. Narrative 12/08/2020 1:16 PM CDT EXAM: ??CT ABDOMEN PELVIS WITH IV CONTRAST COMPARISON: ??CT abdomen/pelvis 03/22/20 20, 09/13/2019, 01/07/2019 FINDINGS: ?? No suspicious hepatic lesions. Focal megan atosis near the falciform ligament. Unchanged adenomyomatosis in the gallbla dder fundus. The pancreas, spleen, adrenals, and kidneys are negative. Norm al caliber of the bowel. Unchanged subcentimeter periportal, retroperitonea l, and iliac chain lymph nodes. No new or enlarging lymphadenopathy. No ascites . Hysterectomy. No suspicious osseous lesions. Stable asymmetric sclerosis of the right pubic body. This examination was performed in conjun ction with a CT of the chest, which will be reported separately. Procedure Note Lev Pak M.D. - 12/08/2020 EXAM: CT ABDOMEN PELVIS WITH IV CONTRAST COMPARISON: CT abdomen/pelvis 03/22/2020 , 09/13/2019, 01/07/2019 FINDINGS: No suspicious hepatic lesions. Focal megan atosis near the falciform ligament. Unchanged adenomyomatosis in the gallbla dder fundus. The pancreas, spleen, adrenals, and kidneys are negative. Norm al caliber of the bowel. Unchanged subcentimeter periportal, retroperitonea l, and iliac chain lymph nodes. No new or enlarging lymphadenopathy. No ascites . Hysterectomy. No suspicious osseous lesions. Stable asymmetric sclerosis of the right pubic body. This examination was performed in conjun ction with a CT of the chest, which will be reported separately. IMPRESSION: No evidence of metastatic disease in the abdomen or pelvis. Arlene Tripathi M.D. IMG CT PROCEDURES Creatinine, POCT (12/08/2020 10:50 AM CDT) P athologist Signature Creatinine, 0.6 0.6 - 1.0 12/08/2020 PCDT POCT, B mg/dL 11:07 AM CDT Comment: ----ADDITIONAL INFORMATION---- Performed at the Point of Care Specimen Anatomical Collection Method Collection Time Receive d Time (Source) Location / / Volume Laterality Blood 12/08/2020 10:50 12/08/2020 AM CDT 11:07 AM CDT Unknown Provider LAB POCT ORDERABLES - DEVICE Performing Organization Address City/State/ZIP Code Phon e Number POC [facility] PERFORMING [address] [place] [address] LABS PCDT [facility] [place] [address] [place] [facility] [address] Creatinine, POCT (12/08/2020 10:50 AM CDT) P athologist Signature eGFR-Black/Afri >90 >=60 12/08/2020 PCMO can Gabonese, mL/min/BSA 11:07 AM CDT POCT Comment: ----ADDITIONAL INFORMATION---- Estimated GFR calculated using the 2009 CKD_EPI creatinine equation. eGFR Non-Black/, >90 >=60 mL/min/BSA 12/08/2020 11:07 AM CDT PCMO POCT Comment: ----ADDITIONAL INFORMATION---- Estimated GFR calculated using the 2009 CKD_EPI creatinine equation. Specimen Anatomical Collection Method Collection Time Receive d Time (Source) Location / / Volume Laterality Blood 12/08/2020 10:50 12/08/2020 AM CDT 11:07 AM CDT Unknown Provider LAB POCT ORDERABLES - DEVICE Performing Organization Address City/State/ZIP Code Phon e Number POC [facility] [address] [place] [address] OUTPATIENT LABS PCMO [facility] [place] [address] [place] [facility] [address] documented in this encounter Visit Diagnoses Diagnosis Malignant Neoplasm Of Rectum (HCC) documented in this encounter Administered Medications Inactive Administered Medications - up to 3 most recent administrations Medication Order MAR Action Action Date Dose Rate Site iohexoL 300 mg iodine/mL solution Given 12/08/2020 11:33 AM CDT 140 mL 1-200 mL (OMNIPAQUE) 1-200 mL, intravenous, Once in imaging, contrast, Starting on Fri12/08/20 at 1032, For 1 dose, Imaging Protocol Orders, Dose per Radiant Medication Guidelines sodium chloride (PF) 0.9 % injection 1-1 00 mL Given 12/08/2020 11:34 AM CDT 50 mL 1-100 mL, intravenous, Once, On Fri12/08/20 at 1045, For 1 dose, Imaging Protocol Orders documented in this encounter
--- OUTSIDE RECORDS SUMMARY | 2022-04-30 11:46 | XMS_ITS | Encounter Summary ---
:1965 Author Organization [facility] Address [address] [place] [address] Care Team Providers Name Role Phone Unavailable Primary Care Provider Unavailable Reason for Referral Outpatient (Routine) - Closed Specialty Diagnoses / Procedures Referred By Contact Refer red To Contact Diagnoses Malignant Neoplasm Of Rectum (HCC) Arlene Tripathi M.D. [facility] Procedures Flexible Sigmoidoscopy [address] [place] [address] Referral ID Status Reason Start Date Expiration Date Visits Requ ested Visits Authorized [id number] Closed 11/27/2020 07/13/2021 1 1 Encounter Details Date Type Department Care Team Description 12/08/2020 Orders Only Division of Colon and Gypsy Conner alignant Neoplasm Of Rectal Surgery in L, R.N. Rectum (HC C) (Primary [place], [place] Dx) [address] [place] [address] Social History Tobacco Use Types Packs/Day [...] or relatives? How often do you attend oriental orthodox or More than 4 times per year 12/08/2020 buddhism services? Do you belong to any clubs or Yes 12/08/2020 organizations such as oriental orthodox groups, unions, fraternal or athletic groups, or [...] place to sleep or slept in a care home (including now)? Education Answer Date Recorded What is the highest level of school Associate degree: stacey blancas, 05/12/2019 you have completed or the highest technical, or vocational p galen degree you have received? Sex Assigned at Date Recorded Female 12/15/2017 11:22 AM CDT documented as of this encounter Plan of Treatment Scheduled Orders Name Type Priority Associated Diagnoses Order S chedule Flexible Sigmoidoscopy GI Routine Malignant Neoplasm Of Expected: 12/08/2020, Rectum (HCC) Expires: 2023 documented as of this encounter Visit Diagnoses Diagnosis Malignant Neoplasm Of Rectum (HCC) - Zarina herrera documented in this encounter
--- OUTSIDE RECORDS SUMMARY | 2022-04-30 11:46 | XMS_ITS | Encounter Summary ---
:1965 Author Organization [facility] Address [address] [place] [address] Care Team Providers Name Role Phone Unavailable Primary Care Provider Unavailable Encounter Details Date Type Department Care Team Description 12/07/2021 Hospital Encounter Department of Arlene Tripathi ant Neoplasm Laboratory Medicine Tavia Powers Of Rectum (HCC) and Pathology, [address] [place] [address], in [place], [place] [address] [place] [address] [place], [place] (Work) [address] [phone] Social History Tobacco Use Types Packs/Day Years [...] More than 4 times per year 12/08/2020 tenriism services? Do you belong to any clubs [...] Date/Time Associated Comments Diagnosis CARCINOEMBRYONIC AG Routine 12/07/2021 9:08 Malignant Neoplasm Results for this (CEA), S AM CDT Of Rectum (HCC) procedure ar e in the results section. documented in this encounter Results (ABNORMAL) CEA (Carcinoembryonic Antigen) (12/07/2021 9:08 AM CDT) [facility] gist Method Time Signature Carcinoembryonic Ag 6.4 (H) ng/mL 12/07/2021 [facility] (CEA), S 2:13 PM CDT Comment: ----REFERENCE VALUE---- <=3.0 (Non-smokers) Some smokers may have elevated CEA, usually <5.0. ----ADDITIONAL INFORMATION---- The testing method is an immunoenzymatic assay manufactured by [employer] and performed on the [employer] DxI 800. ? Values obtained with different [...] Organization Address City/State/ZIP Code Phon e Number [facility] [address] [place] [address] SUPPORT CENTER [facility] [place] [address] Laboratory Medicine and Pathology [address] [place] documented in this encounter Visit Diagnoses Diagnosis Malignant Neoplasm Of Rectum (HCC) documented in this encounter
--- OUTSIDE RECORDS SUMMARY | 2022-04-30 11:46 | XMS_ITS | Encounter Summary ---
:1965 Author Organization [facility] Address [address] [place] [address] Care Team Providers Name Role Phone Unavailable Primary Care Provider Unavailable Reason for Visit Reason Comments Appointment Encounter Details Date Type Department Care Team Description 09/28/2021 Clinical Communication Division of Colon and Dolly Tripathi, Appointment Rectal Surgery in [place], [place] [address] [facility] [address] [place] [address] [phone] Social History Tobacco Use Types Packs/Day Years [...] More than 4 times per year 12/08/2020 methodist services? Do you belong to any clubs [...] or the highest technical, or vocational p [facility] degree you have received? Sex Assigned at Date Recorded Female 12/15/2017 11:22 AM CDT documented as of this encounter Miscellaneous Notes Telephone Encounter - Stacey Ramirez R.N. - 10/01/2021 4:57 PM CDT Order placed for CEA please schedule Telephone Encounter - Edith Brannon - 09/28/2021 10:59 AM CDT Patient wondered if she should also have a blood test with these appointments in November. She said she usually does. CEA? I dont have any orders. Thank you Patrica documented in this encounter Plan of Treatment Not on filedocumented as of this encounter Visit Diagnoses Not on filedocumented in this encounter
--- OUTSIDE RECORDS SUMMARY | 2022-04-30 11:46 | XMS_ITS | Encounter Summary ---
:[address] [facility] Address [address] [place] [address] Care Team Providers Name Role Phone Unavailable Primary Care Provider Unavailable Reason for Visit Outpatient (Routine) - Closed Specialty Diagnoses / Procedures Referred By Contact Refer red To Contact Colon and Rectal Diagnoses Arlene Tripathi, [facility] Surgery M.D. [address] [place] [address] Referral ID Status Reason Start Date Expiration Date Visits Requ ested Visits Authorized [id number] Closed 11/25/2021 03/13/2022 1 1 Encounter Details Date Type Department Care Team Description 12/07/2021 Office Visit Division of Colon and Arlene Tripathi M alignant Neoplasm Of Rectal Surgery in M.D. Rectum (HCC) (Primary [place], [place] [address] [facility] Dx) [address] [place] [address] [phone] Social History Tobacco Use Types Packs/Day Years [...] or the highest technical, or vocational p fiorellaram degree you have received? Sex Assigned at Date Recorded Female 12/15/2017 11:22 AM CDT documented as of this encounter Consult Notes Arlene Tripathi M.D. - 12/07/2021 2:00 PM CDT SUBJECTIVE CHIEF COMPLAINT / REASON FOR VISIT Conchita Solis is a 56 y.o. female presenting in referral from Arlene Tripathi M.D. for consultation in the evaluation of rectal cancer follow-up. HISTORY OF PRESENT ILLNESS Ms. Solis is well known to me. She is about 4 years out from a transanal excision for an early rectal cancer. She comes back regularly for surveillance imaging and endoscopies. Her last full colonoscopy was in May of 2021, she had a 3 mm cecal polyp. She denies any new concerns related to her bowels. She is otherwise doing well. She had a CT scan ofthe chest abdomen pelvis today. OBJECTIVE I reviewed the CT scans of the chest abdomen and pelvis. These were all negative for recurrent or metastatic disease. Her CEA remains pending. PHYSICAL EXAM Physical Exam Digital rectal exam was normal. I performed a anoscopy and flexible sigmoidoscopy. Sigmoidoscopy shows a flat white scar with no recurrent growth. The remainder of the rectum appears normal. There is alarge tattoo adjacent to the scar. ASSESSMENT / PLAN #1 Malignant Neoplasm Of Rectum (HCC) Ms. Solis is 4 years out. This is great. I suggest that we bring her back in 1 year for flexible sigmoidoscopy, CT scans of the chest abdomen pelvis, and a CEA. If this is all normal then she willbe dismissed from our cancer practice. But she should continue to get colonoscopies approximately every 3 years until she has no polyps and then could consider every 5 years after that. She is comfortable with this plan. I will let her know after we receive the CEA test. documented in this encounter Plan of Treatment Not on filedocumented as of this encounter Visit Diagnoses Diagnosis Malignant Neoplasm Of Rectum (HCC) - Zarina herrera documented in this encounter
--- OUTSIDE RECORDS SUMMARY | 2022-04-30 11:46 | XMS_ITS | Encounter Summary ---
:1965 Author Organization [facility] Address [address] [place] [address] Care Team Providers Name Role Phone Unavailable Primary Care Provider Unavailable Reason for Referral Outpatient (Routine) - Closed Specialty Diagnoses / Procedures Referred By Contact Refer red To Contact Diagnoses Malignant Neoplasm Of Rectum (HCC) Arlene Tripathi M.D. [facility] Procedures Flexible Sigmoidoscopy [address] [place], [place] [address] Referral ID Status Reason Start Date Expiration Date Visits Requ ested Visits Authorized [id number] Closed 11/27/2020 07/13/2021 1 1 Reason for Visit Outpatient (Routine) - Closed Specialty Diagnoses / Procedures Referred By Contact Refer red To Contact Diagnoses Malignant Neoplasm Of Rectum (HCC) Arlene Tripathi M.D. [facility] Procedures Flexible Sigmoidoscopy [address] [place] [phone] Referral ID Status Reason Start Date Expiration Date Visits Requ ested Visits Authorized [id number] Closed 11/27/2020 07/13/2021 1 1 Encounter Details Date Type Department Care Team Description 12/08/2020 Hospital Encounter Division of Colon Arlene Tripathi Ma lignant Neoplasm and Rectal Surgery Tavia Powers Of Rectum (HCC) in [place], [address] [place], [place] [address] [facility] [address] [place], [place] [phone] (Work) [phone] Social History Tobacco Use Types Packs/Day Years [...] or relatives? How often do you attend temple or More than 4 times per year 12/08/2020 christianity services? Do you belong to any clubs or Yes 12/08/2020 organizations such as temple groups, unions, fraternal or athletic groups, or [...] Flexible Sigmoidoscopy GI Routine Malignant Neoplasm Of Once for 1 Occurrences Rectum (HCC) starting 2020 until 1 documented as of this encounter Visit Diagnoses Diagnosis Malignant Neoplasm Of Rectum (HCC) documented in this encounter
--- OUTSIDE RECORDS SUMMARY | 2022-04-30 11:46 | XMS_ITS | Encounter Summary ---
:1965 Author Organization [facility] Address [address] [place] [address] Care Team Providers Name Role Phone Unavailable Primary Care Provider Unavailable Encounter Details Date Type Department Care Team Description 12/08/2020 Hospital Encounter Department of Arlene Tripathi ant Neoplasm Laboratory Medicine Tavia Powers Of Rectum (HCC) and Pathology, [address] [place] [address], in [place], [place] [address] [place] [address] [place], [place] (Work) [address] [phone] Social History Tobacco Use Types Packs/Day Years [...] or relatives? How often do you attend nondenominational or More than 4 times per year 12/08/2020 yazdanism services? Do you belong to any clubs or Yes 12/08/2020 organizations such as nondenominational groups, unions, fraternal or athletic groups, or [...] or the highest technical, or vocational p [facility] degree you have received? Sex Assigned at [...] Date/Time Associated Comments Diagnosis CARCINOEMBRYONIC AG Routine 12/08/2020 12:06 Malignant Neoplas m Results for this (CEA), S PM CDT Of Rectum (HCC) procedure ar e in the results section. documented in this encounter Results (ABNORMAL) CEA (Carcinoembryonic Antigen) (12/08/2020 12:06 PM CDT) [facility] Method Time Signature Carcinoembryonic Ag 5.9 (H) ng/mL 12/08/2020 [facility] (CEA), S 4:58 PM CDT Comment: ----REFERENCE VALUE---- <=3.0 (Non-smokers) Some smokers may have elevated CEA, usually <5.0. ----ADDITIONAL INFORMATION---- The testing method is an immunoenzymatic assay manufactured by [employer] and performed on the [employer] DxI 800. ? Values obtained with different assay met hods or kits may be different and cannot be used inte rchangeably. ? Test results cannot be interpreted as ab solute evidence for the presence or absence of malignant disease. Specimen Anatomical Collection Method Collection Time Receive d Time (Source) Location / / Volume Laterality Blood (Blood, 12/08/2020 12:06 12/08/2020 3:36 Venous) PM CDT PM CDT Arlene Tripathi M.D. LAB BLOOD ADD-ON Performing Organization Address City/State/ZIP Code Phon e Number [facility] [address] [place], [place] [address] SUPPORT CENTER [facility] [place] [address] Laboratory Medicine and Pathology [address] [place] documented in this encounter Visit Diagnoses Diagnosis Malignant Neoplasm Of Rectum (HCC) documented in this encounter
--- OUTSIDE RECORDS SUMMARY | 2022-04-30 11:47 | XMS_ITS | Encounter Summary ---
:1965 Author Organization [facility] Address [address] [place] [address] Care Team Providers Name Role Phone Unavailable Primary Care Provider Unavailable Encounter Details Date Type Department Care Team Description 01/06/2019 Orders Only Division of Colon and Gypsy Conner , Rectal Surgery in [place], [place] [address] [place] [address] Social History Tobacco Use Types Packs/Day Years [...] or relatives? How often do you attend synagogue or More than 4 times per year 12/08/2020 presybeterian services? Do you belong to any clubs or Yes 12/08/2020 organizations such as synagogue groups, unions, fraternal or athletic groups, or [...] place to sleep or slept in a detention (including now)? Sex Assigned at Date Recorded Female 12/15/2017 11:22 AM CDT documented as of this encounter Plan of Treatment Not on filedocumented as of this encounter Visit Diagnoses Not on filedocumented in this encounter
--- OUTSIDE RECORDS SUMMARY | 2022-04-30 11:47 | XMS_ITS | Encounter Summary ---
:1965 Author Organization [facility] Address [address] [place] [address] Care Team Providers Name Role Phone Unavailable Primary Care Provider Unavailable Reason for Referral Outpatient (Routine) - Closed Specialty Diagnoses / Procedures Referred By Contact Refer red To Contact Colon and Rectal Diagnoses Malignant neoplasm of rectum (HCC) Arlene Tripathi [facility] M.[facility] [address] [place] [address] Referral ID Status Reason Start Date Expiration Date Visits Requ ested Visits Authorized [id number] Closed 08/17/2019 07/13/2020 1 1 MRI/CAT/PET Scan (Routine) - Closed Specialty Diagnoses / Procedures Referred By Contact Refer red To Contact Radiology Diagnoses Malignant Neoplasm Of Rectum Adenocarcinoma (HCC) Arlene Tripathi M.D. [facility] Procedures CT Chest with IV Contrast [address] [place] [phone] Referral ID Status Reason Start Date Expiration Date Visits Requ ested Visits Authorized [id number] Closed 05/14/2019 05/13/2020 1 1 Encounter Details Date Type Department Care Team Description 05/14/2019 Orders Only Division of Colon and Arlene Tripathi M alignant Neoplasm Of Rectal Surgery in M.D. Rectum Adenocarcinoma [place], [place] [address] [facility] (HCC) (Primary Dx) [address] [place] [phone] [phone] Social History Tobacco Use Types Packs/Day Years [...] or relatives? How often do you attend denominational or More than 4 times per year 12/08/2020 baptist services? Do you belong to any clubs or Yes 12/08/2020 organizations such as denominational groups, unions, fraternal or athletic groups, or [...] place to sleep or slept in a alf (including now)? Education Answer Date Recorded What [...] Outpatient Referral Routine Expe cted: Surgery office 08/14/2019 visit (clinic) (Approximate) , Expires: 05/14/2022 documented as of this encounter Results CT Chest with IV Contrast (09/13/2019 12:05 PM ALLOCATIONS CLERK) Anatomical Region Laterality Modality Chest, Thoracic RST LOS, Thoracic ARZ N/A Co mputed Tomography, Computed LOS, Thoracic ARZ LOS, Thoracic FLA Moi graphy LOS Specimen (Source) Anatomical Collection Method Collection Time Re ceived Time Location / / Volume Laterality 09/13/2019 1:08 PM ALLOCATIONS CLERK Impressions 09/13/2019 1:26 PM ALLOCATIONS CLERK 1. No significant change in the chest since 01/07/2019. 2. Tiny pulmonary nodules remain stable. Narrative 09/13/2019 1:26 PM ALLOCATIONS CLERK EXAM: CT CHEST WITH IV CONTRAST No 3D post-processing performed. COMPARISON: Chest CT 01/07/2019. FINDINGS: Tiny pulmonary nodules are unchanged wit h examples including a 4 mm nodule in the subpleural right middle lobe (series 2 image 352), 3 mm subpleural nodule in the left lower lobe (2/330) and a 2-3 mm nodule in the peripheral left lower lobe (2/375). No new or enlarging nodule s. Few scattered areas of peripheral endobronchial plugging. Mosaic attenuati on in both lungs, which is likely secondary to air trapping. Slight linear scarring/atelectasis in the left lower lung. No pleural effusion. Mildly prominent hilar lymph nodes are s table including a right hilar node measuring 8 mm in short axis (2/210 and left hilar node measuring 7 mm (2/242). No thoracic lymphadenopathy by size crit eria. Stable small area of sclerosis within th e posterior T1 vertebral body. Minor hypertrophic changes in the spine. This examination was performed in conjun ction with a CT of the abdomen, which will be reported separately. Procedure Note Hermelindo Bedolla M.D. - 09/13/2019Form atting of this note might be different from the original. EXAM: CT CHEST WITH IV CONTRAST No 3D post-processing performed. COMPARISON: Chest CT 01/07/2019. FINDINGS: Tiny pulmonary nodules are unchanged wit h examples including a 4 mm nodule in the subpleural right middle lobe (series 2 image 352), 3 mm subpleural nodule in the left lower lobe (2/330) and a 2-3 mm nodule in the peripheral left lower lobe (2/375). No new or enlarging nodule s. Few scattered areas of peripheral endobronchial plugging. Mosaic attenuati on in both lungs, which is likely secondary to air trapping. Slight linear scarring/atelectasis in the left lower lung. No pleural effusion. Mildly prominent hilar lymph nodes are s table including a right hilar node measuring 8 mm in short axis (2/210 and left hilar node measuring 7 mm (2/242). No thoracic lymphadenopathy by size crit eria. Stable small area of sclerosis within th e posterior T1 vertebral body. Minor hypertrophic changes in the spine. This examination was performed in conjun ction with a CT of the abdomen, which will be reported separately. IMPRESSION: 1. No significant change in the chest si nce 01/07/2019. 2. Tiny pulmonary nodules remain stable. Arlene Tripathi M.D. IMG CT PROCEDURES (ABNORMAL) CEA (Carcinoembryonic Antigen) (09/13/2019 10:38 AM ALLOCATIONS CLERK) [facility] gist Method Time Signature Carcinoembryonic Ag 5.8 (H) ng/mL 09/13/2019 [facility] (CEA), S 3:53 PM ALLOCATIONS CLERK Comment: ----REFERENCE VALUE---- <=3.0 (Non-smokers) Some smokers may have elevated CEA, usually <5.0. ----ADDITIONAL INFORMATION---- The testing method is an immunoenzymatic assay manufactured by [employer] and performed on the 7writeI 800. ? Values obtained with different assay met hods or kits may be different and cannot be used inte rchangeably. ? Test results cannot be interpreted as ab solute evidence for the presence or absence of malignant disease. Specimen Anatomical Collection Method Collection Time Receive d Time (Source) Location / / Volume Laterality Blood (Blood, 09/13/2019 10:38 09/13/2019 2:58 Venous) AM ALLOCATIONS CLERK PM ALLOCATIONS CLERK Arlene Tripathi M.D. LAB BLOOD ADD-ON Performing Organization Address City/State/ZIP Code Phon e Number [facility] [address] [place] [address] SUPPORT CENTER [facility] [place] [address] Laboratory Medicine and Pathology [address] [place] documented in this encounter Visit Diagnoses Diagnosis Malignant Neoplasm Of Rectum Adenocarcin ruby (HCC) - Primary Malignant Neoplasm Of Rectum Adenocarcin ruby (HCC) documented in this encounter
--- OUTSIDE RECORDS SUMMARY | 2022-04-30 11:47 | XMS_ITS | Encounter Summary ---
:1965 Author Organization [facility] Address [address] [place] [address] Care Team Providers Name Role Phone Unavailable Primary Care Provider Unavailable Reason for Referral Outpatient (Routine) - Closed Specialty Diagnoses / Procedures Referred By Contact Refer red To Contact Colon and Rectal Diagnoses Malignant neoplasm of rectum (HCC) Arlene Tripathi [facility] Surgery Tavia [address] [place] [phone] Referral ID Status Reason Start Date Expiration Date Visits Requ ested Visits Authorized [id number] Closed 01/26/2019 01/26/2020 1 1 Scheduling Instructions YUMI Outpatient (Routine) - Closed Specialty Diagnoses / Procedures Referred By Contact Refer red To Contact Diagnoses Malignant Neoplasm Of Rectum (HCC) Arlene Tripathi M.D. [facility] Procedures Flexible Sigmoidoscopy [address] [place] [phone] Referral ID Status Reason Start Date Expiration Date Visits Requ ested Visits Authorized [id number] Closed 01/26/2019 01/26/2020 1 1 Encounter Details Date Type Department Care Team Description 01/26/2019 Orders Only Division of Colon and Gypsy Conner alignant Neoplasm Of Rectal Surgery in [place], [place]. Rectum (HC C) (Primary [place], [place] Dx) [address] [place] [phone] Social History Tobacco Use Types Packs/Day [...] place to sleep or slept in a assisted (including now)? Sex Assigned at Date Recorded Female 12/15/2017 11:22 AM CDT documented as of this encounter Plan of Treatment Scheduled Referrals Name Type Priority Associated Diagnoses Order S chedule Colon and Rectal Outpatient Referral Routine Expe cted: Surgery office 04/13/2019 visit (clinic) (Approximate) , Expires: 01/26/2022 documented as of this encounter Results (ABNORMAL) CEA (Carcinoembryonic Antigen) (05/13/2019 12:09 PM CDT) [facility] Method Time Signature Carcinoembryonic Ag 6.4 (H) ng/mL 05/13/2019 [facility] (CEA), S 4:12 PM CDT Comment: ----REFERENCE VALUE---- <=3.0 (Non-smokers) Some smokers may have elevated CEA, usually <5.0. ----ADDITIONAL INFORMATION---- The testing method is an immunoenzymatic assay manufactured by [employer] and performed on the TrilibisI 800. ? Values obtained with different assay met hods or kits may be different and cannot be used inte rchangeably. ? Test results cannot be interpreted as ab solute evidence for the presence or absence of malignant disease. Specimen Anatomical Collection Method Collection Time Receive d Time (Source) Location / / Volume Laterality Blood (Blood, 05/13/2019 12:09 05/13/2019 3:24 Venous) PM CDT PM CDT Arlene Tripathi M.D. LAB BLOOD ADD-ON Performing Organization Address City/State/ZIP Code Phon e Number [facility] [address] [place] [address] SUPPORT [facility] [place] [address] Laboratory Medicine and Pathology [address] [place] [address] Dr. CLAY documented in this encounter Visit Diagnoses Diagnosis Malignant Neoplasm Of Rectum (HCC) - Zarina herrera documented in this encounter
--- OUTSIDE RECORDS SUMMARY | 2022-04-30 11:47 | XMS_ITS | Encounter Summary ---
:1965 Author Organization [facility] Address [address] [place] [address] Care Team Providers Name Role Phone Unavailable Primary Care Provider Unavailable Reason for Referral Outpatient (Routine) - Closed Specialty Diagnoses / Procedures Referred By Contact Refer red To Contact Colon and Rectal Diagnoses - Arlene Tripathi [facility] Surgery MCherie [address] [place] [address] Referral ID Status Reason Start Date Expiration Date Visits Requ ested Visits Authorized [id number] Closed 11/13/2020 07/13/2021 1 1 Scheduling Instructions tammy some time in Jul MRI/CAT/PET Scan (Routine) - Closed Specialty Diagnoses / Procedures Referred By Contact Refer red To Contact Radiology Diagnoses Malignant Neoplasm Of Rectum (HCC) Arlene Tripathi M.D. [facility] Procedures CT Chest with IV Contrast 200 [place] [address] Referral ID Status Reason Start Date Expiration Date Visits Requ ested Visits Authorized [id number] Closed 11/13/2020 07/13/2021 1 1 MRI/CAT/PET Scan (Routine) - Closed Specialty Diagnoses / Procedures Referred By Contact Refer red To Contact Radiology Diagnoses Malignant Neoplasm Of Rectum (HCC) Arlene Tripathi M.D. [facility] Procedures CT Abdomen Pelvis with IV Contrast [address] [place] [address] Referral ID Status Reason Start Date Expiration Date Visits Requ ested Visits Authorized [id number] Closed 11/13/2020 07/13/2021 1 1 Encounter Details Date Type Department Care Team Description 04/05/2020 Orders Only Division of Colon and Gypsy Conner Neoplasm Of Rectal Surgery in L, R.N. Rectum (HC C) (Primary [place], [place] Dx) [address] [place] [address] Social History Tobacco Use Types Packs/Day Years [...] or relatives? How often do you attend presybeterian or More than 4 times per year 12/08/2020 protestant services? Do you belong to any clubs or Yes 12/08/2020 organizations such as presybeterian groups, unions, fraternal or athletic groups, or [...] Outpatient Referral Routine Expe cted: Surgery office 07/31/2020 visit (clinic) (Approximate) , Expires: 04/05/2023 documented as of this encounter Results CT [...] nodules. 2. This examination was performed in [place] with a CT of the abdomen [...] the skeleton. This examination was performed in [facility] with [facility] CT of the abdomen and pelvis, which will be reported separatel y. IMPRESSION: 1. Unchanged scattered bilateral pulmona ry nodules. 2. This examination was performed in [facility] with a CT of the abdomen and [...] pubic body. [facility] of the chest, which [...] disease in the abdomen or pelvis. Arlene DYSON CT PROCEDURES documented in this encounter Visit Diagnoses Diagnosis Malignant Neoplasm Of Rectum (HCC) - [facility] Malignant Neoplasm Of Rectum (HCC) documented in this encounter
--- OUTSIDE RECORDS SUMMARY | 2022-04-30 11:47 | XMS_ITS | Encounter Summary ---
:1965 Author Organization [facility] Address [address] [place] [address] Care Team Providers Name Role Phone Unavailable Primary Care Provider Unavailable Reason for Visit Reason Comments Appointment Encounter Details Date Type Department Care Team Description 06/21/2020 Clinical Communication Division of Colon and Deuce, Dolly Powers, Appointment Rectal Surgery in [place], [place] [address] [facility] [address] [place] [phone] [phone] Social History Tobacco Use Types Packs/Day Years [...] or relatives? How often do you attend baptist or More than 4 times per year 12/08/2020 worship services? Do you belong to any clubs or Yes 12/08/2020 organizations such as baptist groups, unions, fraternal or athletic groups, or school groups? How often do you attend meetings of the to 4 times per yea r 12/08/2020 [...] Notes Telephone Encounter - Edith Brannon - 06/22/2020 2:12 PM CST Left a message on - but sent 3 letters also.I can keep trying if you like INER Telephone Encounter - Edith Brannon - 06/21/2020 7:35 AM CST We have attempted multiple times to contact patient, are we ok to stop or should we continue trying? Thank you Patrica INER documented in this encounter Plan of Treatment Not on filedocumented as of this encounter Visit Diagnoses Not on filedocumented in this encounter
--- OUTSIDE RECORDS SUMMARY | 2022-04-30 11:47 | XMS_ITS | Encounter Summary ---
:1965 Author Organization [facility] Address [address] [place] [address] Care Team Providers Name Role Phone Unavailable Primary Care Provider Unavailable Encounter Details Date Type Department Care Team Description 05/13/2019 Ancillary Procedure Department of Colon and Rectal [...] or relatives? How often do you attend scientology or More than 4 times per year 12/08/2020 jainism services? Do you belong to any clubs or Yes 12/08/2020 organizations such as scientology groups, unions, fraternal or athletic groups, or [...] Diagnosis Comme nts COLON AND RECTAL Routine 05/13/2019 2:20 PM Resul ts for this SURGERY IMAGE EXAM CDT procedure are in the results section. documented in this encounter Results Flexible Sigmoidoscopy-Colon And Rectal Surgery Image Exam (05/13/2019 2:20 PM CDT) Specimen (Source) Anatomical Location Collection Method / Collectio n Time Received Time / Laterality Volume Narrative [facility] - 05/14/2019 8:26 AM CDT This order has been created and [...]
--- OUTSIDE RECORDS SUMMARY | 2022-04-30 11:47 | XMS_ITS | Encounter Summary ---
:1965 Author Organization [facility] Address [address] [place] [address] Care Team Providers Name Role Phone Unavailable Primary Care Provider Unavailable Reason for Visit Reason Comments Consult Outpatient (Routine) - Closed Specialty Diagnoses / Procedures Referred By Contact Refer red To Contact Colon and Rectal Diagnoses Malignant neoplasm of rectum (HCC) Arlene Tripathi [facility] Surgery M.D. [address] [place] [address] Referral ID Status Reason Start Date Expiration Date Visits Requ ested Visits Authorized [id number] Closed 08/17/2019 07/13/2020 1 1 Encounter Details Date Type Department Care Team Description 09/13/2019 Office Visit Division of Colon and Arlene Tripathi M alignant Neoplasm Of Rectal Surgery in M.D. Rectum (HCC) (Primary [place], [place] [address] [facility] Dx) [address] [place] [phone] Social History Tobacco Use Types Packs/Day Years [...] More than 4 times per year 12/08/2020 mormonism services? Do you belong to any clubs [...] or slept in a penitentiary (including now)? Education Answer Date Recorded What is the highest level of school Associate degree: stacey blancas, 05/12/2019 you have completed or the highest technical, or vocational p galen degree you have received? Sex Assigned at Date Recorded Female 12/15/2017 11:22 AM CDT documented as of this encounter Consult Notes Arlene Tripathi M.D. - 09/13/2019 3:30 PM CST SUBJECTIVE CHIEF COMPLAINT / REASON FOR VISIT Conchita Solis is a 53 y.o. female who presents for evaluation of surveillance after transanal excision of rectal cancer. HISTORY OF PRESENT ILLNESS Ms. Solis is well known to me. She returns for her normal surveillance. She reports no issues with her anorectal function. She is feeling well overall. The following portions of the patient's history were reviewed and updated as appropriate: current medications, medical history, social history, surgical history and problem list. OBJECTIVE CEA went slightly down. CT chest abdomen and pelvis show no new concerns and no evidence of metastatic or recurrent disease. She does have some indeterminate pulmonary nodules which is not changed overtime. PHYSICAL EXAM Digital rectal exam was normal. I did an endoscopy which shows a normal scar. There is a tiny polypoid lesion on the lateral side of the scar which I removed as a polypectomy today. This did not appearconcerning it appeared very benign in nature. The remainder of the rectum appears normal. ASSESSMENT / PLAN #1 Surveillance after transanal excision of rectal cancer Ms. Solis is doing well. I will call her later this week after we get the biopsy results as well as the CEA level. If this is normal, we will plan to re- evaluate in 6 months. If there are any concerns, we will continue on 3-4 months surveillance plan. I spent 15 minutes with the patient, greater than 50% was counseling. Answers for HPI/ROS submitted by the patient on 09/12/2019 No general issues: Yes No eye issues: Yes No ENT issues: Yes No heart issues: Yes No respiratory issues: Yes No GI issues: Yes Muscle pain/stiffness: Yes Pain or stiffness in the joints: Yes No skin issues: Yes No neurologic issues: Yes No mental health issues: Yes No blood/lymph issues: Yes No urinary/reproductive issues: Yes OR EXAMINER documented in this encounter Plan of Treatment Not on filedocumented as of this encounter Visit Diagnoses Diagnosis Malignant Neoplasm Of Rectum (HCC) - Zarina herrera documented in this encounter
--- OUTSIDE RECORDS SUMMARY | 2022-04-30 11:47 | XMS_ITS | Encounter Summary ---
:1965 Author Organization [facility] Address [address] [place] [address] Care Team Providers Name Role Phone Unavailable Primary Care Provider Unavailable Reason for Referral MRI/CAT/PET Scan (Routine) - Closed Specialty Diagnoses / Procedures Referred By Contact Refer red To Contact Radiology Diagnoses Malignant Neoplasm Of Rectosigmoid (HCC) Arlene Tripathi M.D. [facility] Procedures CT Abdomen Pelvis with IV Contrast AK CT ABD&PELVIS W CNTRST HC CT ABD&PELVIS W CNTRST AK CT ABD&PELVIS W CNTRST [address] [place] [address] Referral ID Status Reason Start Date Expiration Date Visits Requ ested Visits Authorized [id number] Closed 12/24/2018 12/24/2019 1 1 MRI/CAT/PET Scan (Routine) - Closed Specialty Diagnoses / Procedures Referred By Contact Refer red To Contact Radiology Diagnoses Malignant Neoplasm Of Rectosigmoid (HCC) Arlene Tripathi M.D. [facility] Procedures CT Chest with IV Contrast AK CT THORAX W CNTRST HC CT THORAX W CNTRST AK CT THORAX W CNTRST [address] [place] [phone] Referral ID Status Reason Start Date Expiration Date Visits Requ ested Visits Authorized [id number] Closed 12/10/2018 01/10/2019 1 1 Reason for Visit MRI/CAT/PET Scan (Routine) - Closed Specialty Diagnoses / Procedures Referred By Contact Refer red To Contact Radiology Diagnoses Malignant Neoplasm Of Rectosigmoid (HCC) Arlene Tripathi M.D. [facility] Procedures CT Chest with IV Contrast AK CT THORAX W CNTRST HC CT THORAX W CNTRST AK CT THORAX W CNTRST [address] [place] [phone] Referral ID Status Reason Start Date Expiration Date Visits Requ ested Visits Authorized [id number] Closed 12/10/2018 01/10/2019 1 1 Encounter Details Date Type Department Care Team Description 01/07/2019 Hospital Encounter Department of Arlene Tripathi Malign ant Neoplasm Of Radiology, Jerry Powers M.D. Rectosigmoid (HCC) [facility], in [address] [place] [phone] [place] [address] [place], [place] (Work) [phone] Social History Tobacco Use [...] More than 4 times per year 12/08/2020 amish services? Do you belong to any clubs [...] or slept in a mcc (including now)? Sex Assigned at Date Recorded Female 12/15/2017 11:22 AM CDT documented as of this encounter Last Filed Vital Signs Vital Sign Reading Time Taken Comments Blood Pressure - - Pulse - - Temperature - - Respiratory Rate - - Oxygen Saturation - - Inhaled Oxygen Concentration - - Weight - - Height 162.6 cm (5' 4) 01/07/2019 11:56 AM CDT Body Mass Index - - documented in this encounter Medications at Time [...] 19 (PRINIVIL,ZESTRIL) 10 mg mouth daily. tablet LORazepam (ATIVAN) 0.5 mg Take 2 tablets (1 mg 1 tablet 0 01/06/2019 05/13/2019 tablet total) by mouth as directed for 1 day. Take 1 tablet 30-60 minutes before exam documented as of this encounter Nursing Notes Matheus Da Silva R.N. - 01/07/2019 12:10 PM CDT Outpatient, keeping PIV in for later exam: Why is PIV being left in? Another procedure/exam scheduled for today which requires a PIV Name and role of person notified in receiving area: documented in this encounter Plan of Treatment Not on filedocumented as of this encounter Procedures Procedure Name Priority Date/Time Associated Comments Diagnosis CT ABDOMEN PELVIS RAD - Routine 01/07/2019 12:40 Malignant Neoplasm Results for this WITH IV CONTRAST (most inpatients PM CDT Of Rectosigmoid proc edure are in and all (HCC) the results outpatients) section. CT CHEST WITH IV RAD - Routine 01/07/2019 12:40 Malignant Neoplasm Results for this CONTRAST (most inpatients PM CDT Of Rectosigmoid procedur e are in and all (HCC) the results outpatients) section. CREATININE, POCT, Routine 01/07/2019 11:59 Result s for this B AM CDT procedure are i n the results section. CREATININE, POCT, Routine 01/07/2019 11:59 Result s for this B AM CDT procedure are i n the results section. documented in this encounter Results CT Abdomen Pelvis with IV Contrast (01/07/2019 [...] metastatic disease in the chest. . Arlene Tripathi M.D. IMG CT PROCEDURES Creatinine, POCT (01/07/2019 11:59 AM CDT) P athologist Signature Creatinine, 0.6 0.6 - 1.0 01/07/2019 POCT, B mg/dL 12:07 PM CDT Comment: ----ADDITIONAL INFORMATION---- Performed at the Point of Care Specimen Anatomical Collection Method Collection Time Receive d Time (Source) Location / / Volume Laterality Blood 01/07/2019 11:59 01/07/2019 AM CDT 12:07 PM CDT Unknown Provider LAB POCT ORDERABLES - DEVICE Performing Organization Address [facility] Phon e Number [facility] 200 [place] [address] Creatinine, POCT (01/07/2019 11:59 AM CDT) P athologist Signature eGFR-Black/Afri >90 >=60 01/07/2019 can Spanish, mL/min/BSA 12:07 PM CDT POCT Comment: ----ADDITIONAL INFORMATION---- Estimated GFR calculated using the 2009 CKD_EPI creatinine equation. eGFR Non-Black/, >90 >=60 mL/min/BSA 0 01/07/2019 12:07 PM CDT POCT Comment: ----ADDITIONAL INFORMATION---- Estimated GFR calculated using the 2009 CKD_EPI creatinine equation. Specimen Anatomical Collection Method Collection Time Receive d Time (Source) Location / / Volume Laterality Blood 01/07/2019 11:59 01/07/2019 AM CDT 12:07 PM CDT Unknown Provider LAB POCT ORDERABLES - DEVICE Performing Organization Address [facility] Phon e Number [facility] 200 [place] [address] documented in this encounter Visit Diagnoses Diagnosis Malignant Neoplasm Of Rectosigmoid (HCC) documented in this encounter Administered Medications Inactive Administered Medications - up to 3 most recent administrations Medication Order MAR Action Action Date Dose Rate Site iohexol 300 mg iodine/mL solution Given 01/07/2019 12:30 PM CDT 140 mL 1-200 mL (OMNIPAQUE) 1-200 mL, intravenous, Once in imaging, contrast, Starting on Kari 01/07/19 at 1146, For 1 dose, Imaging Protocol Orders, Dose per Radiant Medication Guidelines sodium chloride (PF) 0.9 % injection 1-1 00 mL Given 01/07/2019 12:31 PM CDT 50 mL 1-100 mL, intravenous, Once, On Kari 01/07/19 at 1200, For 1 dose, Imaging Protocol Orders documented in this encounter
--- OUTSIDE RECORDS SUMMARY | 2022-04-30 11:47 | XMS_ITS | Encounter Summary ---
:1965 Author Organization [facility] Address [address] [place] [address] Care Team Providers Name Role Phone Unavailable Primary Care Provider Unavailable Reason for Visit Reason Comments Establish Care Outpatient (Routine) - Closed Specialty Diagnoses / Procedures Referred By Contact Refer red To Contact Colon and Rectal Diagnoses - Arlene Tripathi, [facility] Surgery M.D. [address] [place] [address] Referral ID Status Reason Start Date Expiration Date Visits Requ ested Visits Authorized [id number] Closed 11/13/2020 07/13/2021 1 1 Encounter Details Date Type Department Care Team Description 12/08/2020 Office Visit Division of Colon and Arlene Tripathi M alignant Neoplasm Of Rectal Surgery in M.D. Rectum (HCC) (Primary [place], [place] [address] [facility] Dx) [address] [place] [phone] Social History Tobacco Use Types Packs/Day Years [...] or relatives? How often do you attend sabianism or More than 4 times per year 12/08/2020 religion services? Do you belong to any clubs or Yes 12/08/2020 organizations such as sabianism groups, unions, fraternal or athletic groups, or [...] place to sleep or slept in a usp (including now)? Education Answer Date Recorded What is the highest level of school Associate degree: stacey yonny, 05/12/2019 you have completed or the highest technical, or vocational p galen degree you have received? Sex Assigned at Date Recorded Female 12/15/2017 11:22 AM CDT documented as of this encounter Consult Notes Arlene Tripathi M.D. - 12/08/2020 3:30 PM CDT SUBJECTIVE CHIEF COMPLAINT / REASON FOR VISIT Conchita Solis is a 55 y.o. female presenting in referral from Arlene Tripathi M.D. for consultation in the evaluation of history of rectal cancer. HISTORY OF PRESENT ILLNESS Ms. Solis is a very pleasant 55-year-old female who I know well. She underwent a transanal excision of an early stage rectal cancer now 3 and half years ago. She has had serial imaging and flex sig follow-ups. Her last 1 with me was 3-4 months ago. She reports no new complaints or concerns. The following portions of the patient's history were reviewed and updated as appropriate: current medications, medical history, social history, surgical history and problem list. OBJECTIVE I reviewed the CT scans of the chest abdomen pelvis which did not show any obvious metastatic disease in any of the cavities. She does have some known bilateral pulmonary nodules which are unchanged. CEA is pending currently. PHYSICAL EXAM Physical Exam Digital rectal exam was normal. Flexible sigmoidoscopy reveals a tattooed scar- like lesion in the distal rectum. There is no regrowth or concern along the scar. It looks very healthy. No biopsies were taken. ASSESSMENT / PLAN #1 History of rectal cancer status post transanal excision Ms. Solis and I discussed the findings of her CT scans which is very reassuring. Additionally, her endoscopy looks great. She is now 3 and half years postoperatively. As long as her CEA is okay, we will plan to see her back in 6 months with a colonoscopy only. Then 12 months from now we will see her back with CT scans of the chest abdomen pelvis in a flex sig for me to do in the office. I will reach out after I get the CEA result. All her questions answered to satisfaction. I spent 15 minutes in counseling with the patient and anadditional 5 minutes during the procedure. Answers for HPI/ROS submitted by the patient on 12/08/2020 No general issues: Yes No eye issues: Yes No ENT issues: Yes No heart issues: Yes No respiratory issues: Yes Diarrhea: Yes No muscle/bone issues: Yes No skin issues: Yes No neurologic issues: Yes No mental health issues: Yes No blood/lymph issues: Yes No urinary/reproductive issues: Yes documented in this encounter Plan of Treatment Not on filedocumented as of this encounter Visit Diagnoses Diagnosis Malignant Neoplasm Of Rectum (HCC) - Zarina herrera documented in this encounter
--- OUTSIDE RECORDS SUMMARY | 2022-04-30 11:47 | XMS_ITS | Encounter Summary ---
:1965 Author Organization [facility] Address [address] [place] [address] Care Team Providers Name Role Phone Unavailable Primary Care Provider Unavailable Reason for Referral Outpatient (Routine) - Closed Specialty Diagnoses / Procedures Referred By Contact Refer red To Contact Diagnoses Malignant Neoplasm Of Rectum (HCC) Arlene Tripathi M.D. [facility] Procedures Flexible Sigmoidoscopy [address] [place] [phone] Referral ID Status Reason Start Date Expiration Date Visits Requ ested Visits Authorized [id number] Closed 12/28/2019 07/13/2020 1 1 Reason for Visit Outpatient (Routine) - Closed Specialty Diagnoses / Procedures Referred By Contact Refer red To Contact Diagnoses Malignant Neoplasm Of Rectum (HCC) Arlene Tripathi M.D. [facility] Procedures Flexible Sigmoidoscopy [address] [place] [phone] Referral ID Status Reason Start Date Expiration Date Visits Requ ested Visits Authorized [id number] Closed 12/28/2019 07/13/2020 1 1 Encounter Details Date Type Department Care Team Description 03/22/2020 Hospital Encounter Division of Colon Arlene Tripathi Ma lignant Neoplasm and Rectal Surgery Tavia Powers Of Rectum (HCC) in [place], [facility] [address] [place], [place] [address] [facility] [address] [place], [place] [phone] (Work) [phone] Social History Tobacco Use Types Packs/Day Years [...] AM CDT documented as of this encounter Discharge Instructions AttachmentsThe following attachments cannot be sent through Care Everywhere. About Your Unsedated Flexible Sigmoidoscopy (Maltese)documented in this encounter Medications at Time of Discharge Medication Sig Dispensed Refills Start Date End Date lisinopril-hydroCHLOROthi Take 2 tablets by 3 05/2019 azide mouth daily. (PRINZIDE,ZESTORETIC) 20-12.5 mg per tablet documented as of this encounter Plan of Treatment Scheduled Orders Name Type Priority Associated Diagnoses Order S chedule Flexible Sigmoidoscopy GI Routine Malignant Neoplasm Of Once for 1 Occurrences Rectum (HCC) starting 2019 until 0 documented as of this encounter Visit Diagnoses Diagnosis Malignant Neoplasm Of Rectum (HCC) documented in this encounter
--- OUTSIDE RECORDS SUMMARY | 2022-04-30 11:47 | XMS_ITS | Encounter Summary ---
:1965 Author Organization [facility] Address [address] [place] [address] Care Team Providers Name Role Phone Unavailable Primary Care Provider Unavailable Reason for Visit Reason Onset Date Comments confirm appts 07/26/2019 Encounter Details Date Type Department Care Team Description 07/26/2019 Clinical Communication Division of Colon and Dolly Tripathi confirm appts Rectal Surgery in Tavia Powers [place], [place] [address] [facility] [address] [place] [phone] Social History Tobacco Use Types Packs/Day Years [...] or relatives? How often do you attend restoration or More than 4 times per year 12/08/2020 anglican services? Do you belong to any clubs or Yes 12/08/2020 organizations such as restoration groups, unions, fraternal or athletic groups, or [...] this encounter Miscellaneous Notes Telephone Encounter - Mercedes Soto - 08/06/2019 4:20 PM CST Left message to call and confirm September follow up Mercedes ICAL FIELD SPECIALIST Telephone Encounter - Mercedes Soto - 07/26/2019 1:31 PM CST Please order CRS flex for fabian to do. I only have an office visit and patient called back to schedule her follow up. Mercedes ICAL FIELD SPECIALIST documented in this encounter Plan of Treatment Not on filedocumented as of this encounter Visit Diagnoses Not on filedocumented in this encounter
--- OUTSIDE RECORDS SUMMARY | 2022-04-30 11:47 | XMS_ITS | Encounter Summary ---
:1965 Author Organization [facility] Address [address] [place] [address] Care Team Providers Name Role Phone Unavailable Primary Care Provider Unavailable Reason for Referral Outpatient (Routine) - Closed Specialty Diagnoses / Procedures Referred By Contact Refer red To Contact Diagnoses Malignant Neoplasm Of Rectum (HCC) Arlene Tripathi M.D. [facility] Procedures Flexible Sigmoidoscopy [address] [place], [place] [phone] Referral ID Status Reason Start Date Expiration Date Visits Requ ested Visits Authorized [id number] Closed 01/26/2019 01/26/2020 1 1 Reason for Visit Outpatient (Routine) - Closed Specialty Diagnoses / Procedures Referred By Contact Refer red To Contact Diagnoses Malignant Neoplasm Of Rectum (HCC) Arlene Tripathi M.D. [facility] Procedures Flexible Sigmoidoscopy [address] [place] [address] Referral ID Status Reason Start Date Expiration Date Visits Requ ested Visits Authorized [id number] Closed 01/26/2019 01/26/2020 1 1 Encounter Details Date Type Department Care Team Description 05/13/2019 Hospital Encounter Division of Colon Arlene Tripathi Ma lignant Neoplasm and Rectal Surgery Tavia Powers Of Rectum (HCC) [place], [facility] [address] [place], [place] [address] [facility] [address] [place], [place] [phone] (Work) [phone] Social History Tobacco Use Types Packs/Day Years [...] or relatives? How often do you attend amish or More than 4 times per year 12/08/2020 church services? Do you belong to any clubs or Yes 12/08/2020 organizations such as amish groups, unions, fraternal or athletic groups, or [...] or slept in a assisted (including now)? Education Answer Date Recorded What [...] Date/Time Associated Comments Diagnosis FLEXIBLE SIGMOIDOSCOPY Routine 05/13/2019 2:16 PM Malignant Ne oplasm Results for this CDT Of Rectum (HCC) procedure ar e in the results section. CRS FLEXIBLE Routine 05/13/2019 2:16 PM Malignant Neoplasm SIGMOIDOSCOPY CDT Of Rectum (HCC) documented in this encounter Results Flexible Sigmoidoscopy (05/13/2019 2:16 PM CDT) Specimen (Source) Anatomical Collection Method Collection Time Re ceived Time Location / / Volume Laterality 05/13/2019 2:16 PM CDT Impressions [employer] - 05/14/2019 8:19 AM CDT Post-op Diagnoses: ? - Scar in the distal rectum. ? - No specimens collected. Narrative [employer] - 05/14/2019 8:19 AM CDT Gonda 9 CRS GI Patient Name: Conchita Solis Date of : 1965 Age: 53 Gender: Female Procedure Date: 05/13/2019 Procedure: ? Flexible Sigmoidoscopy Providers: ? Arlene Tripathi MD Referring Provider: ?Arlene olivares MD Pre-op Diagnoses: ?High risk c olon cancer surveillance: Personal ? his tory of rectal cancer Findings: ? The perianal and digital rectal e xaminations were normal. ? A 20 mm scar was found in the dis airam rectum. The scar tissue was healthy ? in appearance. There was no evide nce of the previous polyp. Procedural Details: ? The patient was [...] rformed the entire procedure. Arlene Tripathi MD 05/14/2019 8:19:00 AM This report has been signed electronical ly. Number of Addenda: 0 Note Initiated On: 05/13/2019 2:16 PM Arlene Tripathi M.D. GI PROCEDURE ORDERABLES Performing Organization Address City/State/ZIP Code [facility]on [facility] documented in this encounter Visit Diagnoses Diagnosis Malignant Neoplasm Of Rectum (HCC) documented in this encounter
--- OUTSIDE RECORDS SUMMARY | 2022-04-30 11:47 | XMS_ITS | Encounter Summary ---
:1965 Author Organization [facility] Address [address] [place] [address] Care Team Providers Name Role Phone Unavailable Primary Care Provider Unavailable Reason for Referral Outpatient (Routine) - Closed Specialty Diagnoses / Procedures Referred By Contact Refer red To Contact Diagnoses Malignant Neoplasm Of Rectum (HCC) Arlene Tripathi M.D. [facility] Procedures Flexible Sigmoidoscopy [address] [place] [address] [phone] Referral ID Status Reason Start Date Expiration Date Visits Requ ested Visits Authorized [id number] Closed 08/17/2019 07/13/2020 1 1 IGURATION MANAGEMENT ADMINISTRATOR Reason for Visit Outpatient (Routine) - Closed Specialty Diagnoses / Procedures Referred By Contact Refer red To Contact Diagnoses Malignant Neoplasm Of Rectum (HCC) Arlene Tripathi M.D. [facility] Procedures Flexible Sigmoidoscopy [address] [place] [address] [phone] Referral ID Status Reason Start Date Expiration Date Visits Requ ested Visits Authorized [id number] Closed 08/17/2019 07/13/2020 1 1 Encounter Details Date Type Department Care Team Description 09/13/2019 Hospital Encounter Division of Colon Arlene Tripathi Ma lignant Neoplasm and Rectal Surgery Tavia Powers Of Rectum (HCC) in [place], [facility] [address] [place], [place] [address] [facility] [address] [place], [place] [phone] (Work) [phone] Social History Tobacco Use Types Packs/Day Years [...] or relatives? How often do you attend advent or More than 4 times per year 12/08/2020 zoroastrianism services? Do you belong to any clubs or Yes 12/08/2020 organizations such as advent groups, unions, fraternal or athletic groups, or [...] place to sleep or slept in a longterm (including now)? Education Answer Date Recorded What [...] Procedure Name Priority Date/Time Associated Comments Diagnosis SURGICAL PATHOLOGY Routine 09/13/2019 4:11 PM Res ults for this CONFIGURATION MANAGEMENT ADMINISTRATOR procedure are i n the results section. FLEXIBLE SIGMOIDOSCOPY Routine 09/13/2019 1:34 PM Malignant Ne oplasm Results for this CONFIGURATION MANAGEMENT ADMINISTRATOR Of Rectum (HCC) procedure ar e in the results section. CRS FLEXIBLE Routine 09/13/2019 1:34 PM Malignant Neoplasm SIGMOIDOSCOPY CONFIGURATION MANAGEMENT ADMINISTRATOR Of Rectum (HCC) documented in this encounter Results Surgical Pathology (09/13/2019 4:11 PM CONFIGURATION MANAGEMENT ADMINISTRATOR) Component Value Ref Test Analysis Performed At [facility] Method Time Signature 09/14/2019 DTL 9:33 AM CONFIGURATION MANAGEMENT ADMINISTRATOR Report Sammy Pickard M.D. [phone] 09/14/2019 DT electronically I verify that I have examined all relevant slides/ma terials 9:33 AM CONFIGURATION MANAGEMENT ADMINISTRATOR signed by for the specimen(s) and rendered or confirmed the diagnosis. Gross Description Received in formalin labeled with the patient's n shaggy, 09/14/2019 DT medical record number, and rectum-rectal polyp are five 9:33 AM CONFIGURATION MANAGEMENT ADMINISTRATOR pale roberts-pink irregular soft tissues, ranging from 0.1-0.3 cm in greatest dimension. Specimens are submitted en toto in cassette A1. ??Grossed by AT. Interpretation FINAL DIAGNOSIS 09/14/2019 DTL A. ??Rectum, polyp, endoscopic biopsy: ??Slightly thickened 9:33 AM CONFIGURATION MANAGEMENT ADMINISTRATOR muscularis mucosa beneath normal rectal mucosa. ??No evidence of neoplasm. Specimen (Source) Anatomical Collection Method Collection Time Re ceived Time Location / / Volume Laterality Biopsy (Rectum) 09/13/2019 4:11 PM CONFIGURATION MANAGEMENT ADMINISTRATOR Narrative This result has an attachment that is no t available. Arlene Tripathi M.D. LAB SURG PATH ORDERABLES Performing Organization Address City/State/[facility] Code Phon e Number [facility] - [address] [place] [phone] [place] [place] [address] [address] Flexible Sigmoidoscopy (09/13/2019 1:34 PM CONFIGURATION MANAGEMENT ADMINISTRATOR) Specimen (Source) Anatomical Collection Method Collection Time Re ceived Time Location / / Volume Laterality 09/13/2019 1:34 PM CONFIGURATION MANAGEMENT ADMINISTRATOR Impressions [facility] - 10/18/2019 7:46 AM CDT Post-op Diagnoses: ? - The rectum is normal. Narrative [facility] - 10/18/2019 7:46 AM CDT Gonda 9 CRS GI Patient Name: Conchita Solis Date of : 1965 Age: 53 Gender: Female Procedure Date: 09/13/2019 Procedure: ? Flexible Sigmoidoscopy Providers: ? Arlene Tripathi MD Referring Provider: ?Arlene olivares MD Pre-op Diagnoses: ?High risk c olon cancer surveillance: Personal ? his tory of rectal cancer Findings: ? The perianal and digital rectal e xaminations were normal. ? A post excision was found in the distal rectum. The scar tissue was ? healthy in appearance. This was b iopsied with a cold forceps for ? histology. ? The perianal and digital rectal e xaminations were normal. [Pertinent ? Negatives]. Procedural Details: ? The patient was seen, [...] rformed the entire procedure. Arlene Tripathi MD 10/18/2019 7:46:07 AM This report has been signed electronical ly. Number of Addenda: 0 Note Initiated On: 09/13/2019 1:34 PM Arlene Tripathi M.D. GI PROCEDURE ORDERABLES Performing Organization Address City/State/ZIP Code Phon e Number [employer] NA documented in this encounter Visit Diagnoses Diagnosis Malignant Neoplasm Of Rectum (HCC) documented in this encounter
--- OUTSIDE RECORDS SUMMARY | 2022-04-30 11:47 | XMS_ITS | Encounter Summary ---
:1965 Author Organization [facility] Address [address] [place] [phone] Care Team Providers Name Role Phone Unavailable Primary Care Provider Unavailable Encounter Details Date Type Department Care Team Description 10/12/2020 Orders Only RST PCP [facility] Joaquín Feliz Jr., M.D. [address] [place] [phone] (Wo rk) Social History Tobacco Use Types [...] or relatives? How often do you attend protestant or More than 4 times per year 12/08/2020 orthodox services? Do you belong to any clubs or Yes 12/08/2020 organizations such as protestant groups, unions, fraternal or athletic groups, or [...]
--- OUTSIDE RECORDS SUMMARY | 2022-04-30 11:47 | XMS_ITS | Encounter Summary ---
:1965 Author Organization 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 [facility] Procedures MR Pelvis without and with IV Contrast KS MRI PELVIS WO/W CNTRST HC MRI PELVIS WO/W CNTRST [place] MRI PELVIS WO/W CNTRST [address] [place] [phone] Referral ID Status Reason Start Date Expiration Date Visits Requ ested Visits Authorized [id number] Closed 12/10/2018 01/10/2019 1 1 Encounter Details Date Type Department Care Team Description 01/07/2019 Hospital Encounter Department of Malignan t Neoplasm Of Radiology, Gonda Pelvis Not Bone Primary Building, in ([facility]) [place], [place] [address] [place] [address] Social History Tobacco Use Types Packs/Day Years [...] More than 4 times per year 12/08/2020 taoism services? Do you belong to any clubs [...] or slept in a longterm (including now)? Sex Assigned at Date Recorded Female 12/15/2017 11:22 AM CDT documented as of this encounter Last Filed Vital Signs Vital Sign Reading Time Taken Comments Blood Pressure - - Pulse - - Temperature - - Respiratory Rate - - Oxygen Saturation - - Inhaled Oxygen Concentration - - Weight - - Height 162.6 cm (5' 4) 01/07/2019 12:59 PM CDT Body Mass Index - - documented [...] documented as of this encounter Nursing Notes Manny Stokes R.N. - 01/07/2019 1:03 PM CDT Glucagon Administration Screening: Does patient have an allergy to glucagon? NO If no???continue. Does patient have a history of insulinoma or phenochromocytoma? NO If no???continue. If yes, discusswith Radiologist. Does patient have diabetes? NO If yes???order and obtain RMG. If yes and insulin dependent, provide patient with Glucagon Injections if you Have Diabetes card. What is patient???s glucose? Not diabetic - less than 70 treat f using Hypoglycemia Nurse Initiated Protocol - between 70 and 300 administer medication as ordered. - greater than 300 notify radiologist and do not administer medication. Manny Stokes R.N. - 01/07/2019 12:56 PM CDT Gel Administration Screening: * If also ordered with Glucagon, perform that screening as well. If not ordered with Glucagon, verify with Technologist if this may have been an oversight and Glucagon is wanted. Does patient have an allergy or sensitivity to Lidocaine or other amide-type (Prilocaine, Mepivacaine, Bupivacaine, Levobupivacaine, Articaine, Ropivacaine) local anesthetics? No If no... continue Does patient have a latex allergy? No If no, administer as ordered and outlined in medication reference document. documented in this encounter Plan of Treatment Not on filedocumented as of this encounter Procedures Procedure Name Priority Date/Time Associated Comments Diagnosis MR PELVIS WITHOUT RAD - Routine 01/07/2019 3:14 Malignant Result s for this AND WITH IV (most inpatients PM CDT Neoplasm Of procedure a re in CONTRAST and all Pelvis Not Bone the results outpatients) Primary (HCC) section. documented in this encounter Results MR [...] tumor. H ysterectomy. Arlene DYSON MRI PROCEDURES documented in this encounter Visit Diagnoses Diagnosis Malignant Neoplasm Of Pelvis Not Bone Pr imary (HCC) documented in this encounter Administered Medications Inactive Administered Medications - up to 3 most recent administrations Medication Order MAR Action Action Date Dose Rate Site gadobutrol injection 0.01-30 mL Given 01/07/2019 2:57 PM CDT 8 m L (GADAVIST) 0.01-30 mL, intravenous, Once in imaging, contrast, Starting on Kari 01/07/19 at 1259, For 1 dose, Imaging Protocol Orders, Dose per Radiant Medication Guidelines glucagon injection 0.5-1 mg (GlucaGen) Given 01/07/2019 2:48 PM CDT 1 mg 0.5-1 mg, intravenous, Once, On Kari 01/07/19 at 1300, For 1 dose, Imaging Protocol Orders NaCl 0.9 % bolus 20 mL New Bag 01/07/2019 3:00 PM CDT 20 mL 20 mL, intravenous, Once, On Kari 01/07/19 at 1515, For 1 dose documented in this encounter
--- OUTSIDE RECORDS SUMMARY | 2022-04-30 11:47 | XMS_ITS | Encounter Summary ---
:1965 Author Organization [facility] Address [address] [place] [address] Care Team Providers Name Role Phone Unavailable Primary Care Provider Unavailable Reason for Referral MRI/CAT/PET Scan (Routine) - Closed Specialty Diagnoses / Procedures Referred By Contact Refer red To Contact Radiology Diagnoses Malignant Neoplasm Of Rectum Adenocarcinoma (HCC) Arlene Tripathi M.D. [facility] Procedures CT Chest with IV Contrast [address] [place] [phone] Referral ID Status Reason Start Date Expiration Date Visits Requ ested Visits Authorized [id number] Closed 05/14/2019 05/13/2020 1 1 CASTER Reason for Visit Outpatient (Routine) - Closed Specialty Diagnoses / Procedures Referred By Contact Refer red To Contact Radiology Diagnoses Malignant Neoplasm Of Rectum Adenocarcinoma (HCC) Arlene Tripathi M.D. [facility] Procedures CT Abdomen Pelvis with IV Contrast CT Abdomen without and with IV Contrast [address] [place] [address] [phone] Referral ID Status Reason Start Date Expiration Date Visits Requ ested Visits Authorized [id number] Closed 08/17/2019 07/13/2020 1 1 Encounter Details Date Type Department Care Team Description 09/13/2019 Hospital Encounter Department of Arlene Tripathi ant Neoplasm Of Radiology, Jerry Powers M.D. Rectum Adenocarcinoma Building, in [address] [place] [address] (HCC) [facility] [phone] [place] [address] [place], [place] (Work) [phone] Social History Tobacco Use Types Packs/Day Years [...] or slept in a fci (including now)? Education Answer Date Recorded What [...] Concentration - - Weight - - Height 162 cm (5' 3.78) 09/13/2019 11:32 AM FOAM CASTER Body Mass Index - - documented in this encounter Medications at Time of Discharge Medication Sig Dispensed Refills Start Date End Date lisinopril-hydroCHLOROthi Take 2 tablets by 3 05/2019 azide mouth daily. (PRINZIDE,ZESTORETIC) 20-12.5 mg per tablet documented as of this encounter Nursing Notes Alexandra Klein R.N. - 09/13/2019 12:00 PM CST A review of the patients current medications was completed under the context of radiology care priorto contrast/medication administration. JG CASTER documented in this encounter Plan of Treatment Scheduled Orders Name Type Priority Associated Diagnoses Order S chedule Creatinine, POCT Point of Care STAT STAT for 1 Occurrences Testing-Docked starting 08/2019 Device until 0 documented as of this encounter Procedures Procedure Name Priority Date/Time Associated Diagnosis Comme nts CT ABDOMEN RAD - Routine 09/13/2019 12:05 Malignant Neoplasm Of R esults for PELVIS WITH IV (most inpatients PM FOAM CASTER Rectum Adenocarcinoma this procedure CONTRAST and all (HCC) are in the outpatients) results section. CT CHEST WITH IV RAD - Routine 09/13/2019 12:05 Malignant Neoplasm Of Results for CONTRAST (most inpatients PM FOAM CASTER Rectum Adenocarcinoma th is procedure and all (HCC) are in the outpatients) results section. CREATININE, Routine 09/13/2019 11:40 Results for POCT, B AM FOAM CASTER this procedure are in the results section. CREATININE, Routine 09/13/2019 11:40 Results for POCT, B AM FOAM CASTER this procedure are in the results section. documented in this encounter Results CT Abdomen Pelvis with IV Contrast (09/13/2019 12:05 PM FOAM CASTER) Anatomical Region Laterality Modality Abdomen, Pelvis, Abdominal RST LOS, N/A Comp uted Tomography, Computed Abdominal ARZ LOS, Abdominal FLA LOS John ography Specimen (Source) Anatomical Collection Method Collection Time Re ceived Time Location / / Volume Laterality 09/13/2019 1:07 PM FOAM CASTER Impressions 09/13/2019 1:16 PM FOAM CASTER Stable exam with no evidence of recurrent or metastatic disease in the abdomen and pelvis. Narrative 09/13/2019 1:16 PM FOAM CASTER EXAM: ??CT ABDOMEN PELVIS WITH IV CONTRAST COMPARISON: ??CT abdomen and pelvis 01/07 and 08/11/2018. FINDINGS: ?? Negative liver. Stable unremarkable panc reas, spleen, and adrenals. Appendectomy. Gallbladder fundal adenomy omatosis. No new or enlarging lymph node enlargement. Fat-containing periumbilica l hernia. Hysterectomy. Degenerative changes at L5-S1. This examination was performed in conjun ction with a CT of the chest, which will be reported separately. Procedure Note Jacob Pitts M.D. - 09/13/2019Formatt ing of this note might be different from the original. EXAM: CT ABDOMEN PELVIS WITH IV CONTRAST COMPARISON: CT abdomen and pelvis 019 and 08/11/2018. FINDINGS: Negative liver. Stable unremarkable panc reas, spleen, and adrenals. Appendectomy. Gallbladder fundal adenomy omatosis. No new or enlarging lymph node enlargement. Fat-containing periumbilica l hernia. Hysterectomy. Degenerative changes at L5-S1. This examination was performed in conjun ction with a CT of the chest, which will be reported separately. IMPRESSION: Stable exam with no evidence of recurren t or metastatic disease in the abdomen and pelvis. Arlene DYSON CT PROCEDURES CT Chest with IV Contrast (09/13/2019 12:05 PM FOAM CASTER) Anatomical Region Laterality Modality Chest, Thoracic RST LOS, Thoracic ARZ N/A Co mputed Tomography, Computed LOS, Thoracic ARZ LOS, Thoracic FLA Moi graphy LOS Specimen (Source) Anatomical Collection Method Collection Time Re ceived Time Location / / Volume Laterality 09/13/2019 1:08 PM FOAM CASTER Impressions 09/13/2019 1:26 PM FOAM CASTER 1. No significant change in the chest since 01/07/2019. 2. Tiny pulmonary nodules remain stable. Narrative 09/13/2019 1:26 PM FOAM CASTER EXAM: CT CHEST WITH IV CONTRAST No [...] 2. Tiny pulmonary nodules remain stable. Arlene DYSON CT PROCEDURES Creatinine, POCT (09/13/2019 11:40 AM FOAM CASTER) P athologist Signature Creatinine, 0.6 0.6 - 1.0 09/13/2019 PCDT POCT, B mg/dL 11:46 AM FOAM CASTER Comment: ----ADDITIONAL INFORMATION---- Performed at the Point of Care Specimen Anatomical Collection Method Collection Time Receive d Time (Source) Location / / Volume Laterality Blood 09/13/2019 11:40 09/13/2019 AM FOAM CASTER 11:46 AM FOAM CASTER Unknown Provider LAB POCT ORDERABLES - DEVICE Performing Organization Address City/State/ZIP Code Phon e Number [facility] [address] [place] [address] LABS PCDT [facility] [place] [phone] [place] [address] Creatinine, POCT (09/13/2019 11:40 AM FOAM CASTER) P athologist Signature eGFR-Black/Afri >90 >=60 09/13/2019 PCDT can Armenian, mL/min/BSA 11:46 AM FOAM CASTER POCT Comment: ----ADDITIONAL INFORMATION---- Estimated GFR calculated using the 2009 CKD_EPI creatinine equation. eGFR Non-Black/, >90 >=60 mL/min/BSA 09/13/2019 11:47 AM FOAM CASTER PCDT POCT Comment: ----ADDITIONAL INFORMATION---- Estimated GFR calculated using the 2009 CKD_EPI creatinine equation. Specimen Anatomical Collection Method Collection Time Receive d Time (Source) Location / / Volume Laterality Blood 09/13/2019 11:40 09/13/2019 AM FOAM CASTER 11:46 AM FOAM CASTER Unknown Provider LAB POCT ORDERABLES - DEVICE Performing Organization Address City/State/ZIP Code Phon e Number [facility] [address] [place] [address] LABS PCDT [facility] [place] [phone] [place] [address] documented in this encounter Visit Diagnoses Diagnosis Malignant Neoplasm Of Rectum Adenocarcin ruby (HCC) documented in this encounter Administered Medications Inactive Administered Medications - up to 3 most recent administrations Medication Order MAR Action Action Date Dose Rate Site iohexoL 300 mg iodine/mL solution Given 09/13/2019 11:55 AM FOAM CASTER 140 mL 1-200 mL (OMNIPAQUE) 1-200 mL, intravenous, Once in imaging, contrast, Starting on Fri09/13/19 at 1128, For 1 dose, Imaging Protocol Orders, Dose per Radiant Medication Guidelines sodium chloride (PF) 0.9 % injection 1-1 00 mL Given 09/13/2019 11:55 AM FOAM CASTER 47 mL 1-100 mL, intravenous, Once, On Fri09/13/19 at 1130, For 1 dose, Imaging Protocol Orders documented in this encounter
--- OUTSIDE RECORDS SUMMARY | 2022-04-30 11:47 | XMS_ITS | Encounter Summary ---
:1965 Author Organization [facility] Address [address] [place] [address] Care Team Providers Name Role Phone Unavailable Primary Care Provider Unavailable Reason for Referral Outpatient (Routine) - Closed Specialty Diagnoses / Procedures Referred By Contact Refer red To Contact Colon and Rectal Diagnoses . Arlene Tripathi [facility] Surgery [place] [address] [place] [address] Referral ID Status Reason Start Date Expiration Date Visits Requ ested Visits Authorized [id number] Closed 12/28/2019 07/13/2020 1 1 Scheduling Instructions SarahMar 2020 with Deuce Outpatient (Routine) - Closed Specialty Diagnoses / Procedures Referred By Contact Refer red To Contact Diagnoses Malignant Neoplasm Of Rectum (HCC) Arlene Tripathi M.D. [facility] Procedures Flexible Sigmoidoscopy [address] [place] [address] Referral ID Status Reason Start Date Expiration Date Visits Requ ested Visits Authorized [id number] Closed 12/28/2019 07/13/2020 1 1 Encounter Details Date Type Department Care Team Description 12/28/2019 Orders Only Division of Colon and Gypsy Conner alignant Neoplasm Of Rectal Surgery in L, R.N. Rectum (HC C) (Primary [place], [place] Dx) [address] [place] [phone] Social History Tobacco Use Types Packs/Day [...] or relatives? How often do you attend lutheran or More than 4 times per year 12/08/2020 bahai services? Do you belong to any clubs or Yes 12/08/2020 organizations such as lutheran groups, unions, fraternal or athletic groups, or [...] or slept in a fpc (including now)? Education Answer Date Recorded What [...] Sigmoidoscopy GI Routine Malignant Neoplasm Of Expected: 12/28/2019 Rectum (HCC) (Approximate), Expires: 12/27/2022 Scheduled Referrals Name Type Priority Associated Diagnoses Order S chedule Colon and Rectal Outpatient Referral Routine Expe cted: Surgery office 12/28/2019 visit (clinic) (Approximate) , Expires: 12/27/2022 documented as of this encounter Visit Diagnoses Diagnosis Malignant Neoplasm Of Rectum (HCC) - Zarina herrera documented in this encounter
--- OUTSIDE RECORDS SUMMARY | 2022-04-30 11:47 | XMS_ITS | Encounter Summary ---
:1965 Author Organization [facility] Address [address] [place] [address] Care Team Providers Name Role Phone Unavailable Primary Care Provider Unavailable Reason for Visit Reason Comments Flexible Sigmoidoscopy Outpatient (Routine) - Closed Specialty Diagnoses / Procedures Referred By Contact Refer red To Contact Colon and Rectal Diagnoses Malignant neoplasm of rectum (HCC) Arlene Tripathi, [facility] Surgery M.D. [address] [place] [address] Referral ID Status Reason Start Date Expiration Date Visits Requ ested Visits Authorized [id number] Closed 01/26/2019 01/26/2020 1 1 Encounter Details Date Type Department Care Team Description 05/13/2019 Office Visit Division of Colon and Arlene Tripathi M alignant Neoplasm Of Rectal Surgery in M.D. Rectum (HCC) (Primary [place], [place] [address] [facility] Dx) [address] [place] [phone] Social History Tobacco Use Types Packs/Day Years [...] or relatives? How often do you attend muslim or More than 4 times per year 12/08/2020 sikh services? Do you belong to any clubs or Yes 12/08/2020 organizations such as muslim groups, unions, fraternal or athletic groups, or [...] place to sleep or slept in a halfway (including now)? Education Answer Date Recorded What is the highest level of school Associate degree: stacey blancas, 05/12/2019 you have completed or the highest technical, or vocational p galen degree you have received? Sex Assigned at Date Recorded Female 12/15/2017 11:22 AM CDT documented as of this encounter Consult Notes Arlene Tripathi M.D. - 05/13/2019 2:30 PM CDT SUBJECTIVE CHIEF COMPLAINT / REASON FOR VISIT Conchita Solis is a 53 y.o. female who presents for evaluation of Flexible Sigmoidoscopy. HISTORY OF PRESENT ILLNESS Ms. Solis is well known to me. We performed a transanal excision of a T1 presumed N0 rectal cancer 2 years ago. She has been followed closely since that time. She is here for flexible sigmoidoscopy today. She denies any symptoms concerning for recurrent cancer. Particularly, no changes in bowel function and no bleeding. Her weight is stable. The following portions of the patient's history were reviewed and updated as appropriate: current medications, medical history, social history, surgical history and problem list. OBJECTIVE We did not do any new imaging today. I did review the CT scans of the chest abdomen pelvis as well as the MRI of the pelvis from earlier this summer. These were unremarkable. Her CEA is pending today. PHYSICAL EXAM Abdomen soft and nontender. Digital rectal exam normal. Endoscopy performed with no concerns at the transanal excision site. Photos taken. ASSESSMENT / PLAN #1 Transanal excision of T1 rectal cancer #2 Slightly elevated CEA We will await the results of the CEA from today. If this continues to rise, we will have to consideradditional imaging. However, we did full set of imaging just a couple of months ago which was completely unremarkable. The only testing we have not performed via CT PET scan. She and I will discuss theCEA level once it is back. If it is stable, we will plan to see her back in 3 months for new imagingand endoscopy. I spent 20 minutes with the patient, greater than 50% was counseling. documented in this encounter Plan of Treatment Not on filedocumented as of this encounter Visit Diagnoses Diagnosis Malignant Neoplasm Of Rectum (HCC) - Zarina herrera documented in this encounter
--- OUTSIDE RECORDS SUMMARY | 2022-04-30 11:47 | XMS_ITS | Encounter Summary ---
:1965 Author Organization [facility] Address [address] [place] [address] Care Team Providers Name Role Phone Unavailable Primary Care Provider Unavailable Reason for Referral Outpatient (Routine) - Closed Specialty Diagnoses / Procedures Referred By Contact Refer red To Contact Diagnoses Malignant Neoplasm Of Rectum (HCC) Arlene Tripathi M.D. [facility] Procedures Flexible Sigmoidoscopy [address] [place] [address] Referral ID Status Reason Start Date Expiration Date Visits Requ ested Visits Authorized [id number] Closed 08/17/2019 07/13/2020 1 1 ARCH TEST ENGINE EVALUATOR Encounter Details Date Type Department Care Team Description 07/26/2019 Orders Only Division of Colon and Gypsy Conner alignant Neoplasm Of Rectal Surgery in L, R.N. Rectum (HC C) (Primary [place], [place] Dx) [address] [place] [address] Social History Tobacco Use Types [...] or relatives? How often do you attend holiness or More than 4 times per year 12/08/2020 sabianist services? Do you belong to any clubs or Yes 12/08/2020 organizations such as holiness groups, unions, fraternal or athletic groups, or [...] place to sleep or slept in a [place] [facility] [place] (including now)? Education Answer Date Recorded What is the highest level of school Associate degree: stacey blancas, 05/12/2019 you have completed or the highest technical, or vocational ambrocio aaron degree you have received? Sex Assigned at Date Recorded Female 12/15/2017 11:22 AM CDT documented as of this encounter Plan of Treatment Not on filedocumented as of this encounter Visit Diagnoses Diagnosis Malignant Neoplasm Of Rectum (HCC) - Zarina herrera documented in this encounter
--- OUTSIDE RECORDS SUMMARY | 2022-04-30 11:47 | XMS_ITS | Encounter Summary ---
:1965 Author Organization [facility] Address [address] [place] [address] Care Team Providers Name Role Phone Unavailable Primary Care Provider Unavailable Encounter Details Date Type Department Care Team Description 09/13/2019 Ancillary Procedure Department of Colon and Rectal [...] or relatives? How often do you attend gnosticism or More than 4 times per year 12/08/2020 catholic services? Do you belong to any clubs or Yes 12/08/2020 organizations such as gnosticism groups, unions, fraternal or athletic groups, or [...] Diagnosis Comme nts COLON AND RECTAL Routine 09/13/2019 1:35 PM Resul ts for this SURGERY IMAGE EXAM BOX STAPLER procedure are in the results section. documented in this encounter Results Flexible Sigmoidoscopy-Colon And Rectal Surgery Image Exam (09/13/2019 1:35 PM BOX STAPLER) Specimen (Source) Anatomical Location Collection Method / Collectio n Time Received Time / Laterality Volume Narrative IIMS - 10/18/2019 7:57 AM CDT This order has been created [...]
--- OUTSIDE RECORDS SUMMARY | 2022-04-30 11:47 | XMS_ITS | Encounter Summary ---
:1965 Author Organization [facility] Address [address] [place] [address] Care Team Providers Name Role Phone Unavailable Primary Care Provider Unavailable Encounter Details Date Type Department Care Team Description 05/13/2019 Hospital Encounter Department of Arlene Tripathi ant Neoplasm Laboratory Medicine Tavia Powers Of Rectum (HCC) and Pathology, [address] [place] [address], in [place], [place] [address] [place] [address] [place], [place] (Work) [phone] Social History Tobacco Use Types Packs/Day Years [...] or relatives? How often do you attend latter-day or More than 4 times per year 12/08/2020 jew services? Do you belong to any clubs or Yes 12/08/2020 organizations such as latter-day groups, unions, fraternal or athletic groups, or [...] or slept in a custodial (including now)? Education Answer Date Recorded What [...] Date/Time Associated Comments Diagnosis CARCINOEMBRYONIC AG Routine 05/13/2019 12:09 Malignant Neoplas m Results for this (CEA), S PM CDT Of Rectum (HCC) procedure ar e in the results section. documented in this encounter Results (ABNORMAL) CEA (Carcinoembryonic Antigen) (05/13/2019 12:09 PM CDT) [facility] gist Method Time Signature Carcinoembryonic Ag 6.4 (H) ng/mL 05/13/2019 [facility] (CEA), S 4:12 PM CDT Comment: ----REFERENCE VALUE---- <=3.0 (Non-smokers) Some smokers may have elevated CEA, usually <5.0. ----ADDITIONAL INFORMATION---- The testing method is an immunoenzymatic assay manufactured by [employer] and performed on the [employer] 800. ? Values obtained with [...] City/State/ZIP Code Phon e Number [facility] [address] [place], [place] [address] [place] [address] Laboratory Medicine and Pathology [address] [place] documented in this encounter Visit Diagnoses Diagnosis Malignant Neoplasm Of Rectum (HCC) documented in this encounter
--- OUTSIDE RECORDS SUMMARY | 2022-04-30 11:47 | XMS_ITS | Encounter Summary ---
:1965 Author Organization [facility] Address [address] [place] [address] Care Team Providers Name Role Phone Unavailable Primary Care Provider Unavailable Reason for Visit Reason Comments Flexible Sigmoidoscopy Outpatient (Routine) - Closed Specialty Diagnoses / Procedures Referred By Contact Refer red To Contact Colon and Rectal Diagnoses . Arlene Tripathi, [facility] Surgery M.D. [address] [place] [address] Referral ID Status Reason Start Date Expiration Date Visits Requ ested Visits Authorized [id number] Closed 12/28/2019 07/13/2020 1 1 Encounter Details Date Type Department Care Team Description 03/22/2020 Office Visit Division of Colon and Arlene Tripathi M alignant Neoplasm Of Rectal Surgery in M.D. Rectum (HCC) (Primary [place], [place] [address] [facility] Dx) [address] [place] [phone] Social History Tobacco Use Types Packs/Day Years [...] or relatives? How often do you attend yazdanism or More than 4 times per year 12/08/2020 congregational services? Do you belong to any clubs or Yes 12/08/2020 organizations such as yazdanism groups, unions, fraternal or athletic groups, or [...] encounter Consult Notes Arlene Tripathi M.D. - 03/22/2020 2:30 PM CDT SUBJECTIVE CHIEF COMPLAINT / REASON FOR VISIT Conchita Solis is a 54 y.o. female who presents for evaluation of Flexible Sigmoidoscopy. HISTORY OF PRESENT ILLNESS Ms. Solis is almost 3 years out from a transanal excision for an early rectal cancer. She is doing well with no complaints or concerns. She is here for her surveillance imaging and flexible sigmoidoscopy. The following portions of the patient's history were reviewed and updated as appropriate: current medications, medical history, social history, surgical history and problem list. OBJECTIVE I reviewed the CT scans of the chest abdomen pelvis. Fortunately, the CT chest shows unchanged indeterminate very small nodules bilaterally. The CT scan of the abdomen and pelvis showed no concerns forrecurrent or metastatic disease. CEA is 5.7. PHYSICAL EXAM Digital rectal exam was normal. Endoscopic exam shows a large scar in the low rectum consistent withprior transanal excision. This is completely healed with no signs of polypoid regrowth. ASSESSMENT / PLAN #1 History of rectal cancer status post transanal excision She is doing great. I did not know the CEA level at the time of the visit but I will call her to solange know this evening. We will plan for a four-month re- evaluation with flexible sigmoidoscopy and repeat imaging as well as the CEA. She is comfortable with this plan. I spent 20 minutes with the patient, greater than 50% was counseling. Answers for HPI/ROS submitted by the patient on 03/22/2020 No general issues: Yes No eye issues: Yes No ENT issues: Yes No heart issues: Yes No respiratory issues: Yes Diarrhea: Yes Pain or stiffness in the joints: [...]
--- OUTSIDE RECORDS SUMMARY | 2022-04-30 11:47 | XMS_ITS | Encounter Summary ---
:1965 Author Organization [facility] Address [address] [place] [address] Care Team Providers Name Role Phone Unavailable Primary Care Provider Unavailable Reason for Visit Outpatient (Routine) - Closed Specialty Diagnoses / Procedures Referred By Contact Refer red To Contact Laboratory Medicine Diagnoses Malignant Neoplasm Of Rectum Adenocarcinoma (HCC) Arlene Tripathi [facility] C and Pathology / Procedures CARCINOEMBRYONIC AG (CEA), S LAB TEST BLOOD M.DSinan [address] [place] [address] Laboratory Medicine [address] [place] [phone] Referral ID Status Reason Start Date Expiration Date Visits Requ ested Visits Authorized [id number] Closed 08/17/2019 07/13/2020 1 1 Encounter Details Date Type Department Care Team Description 09/13/2019 Hospital Encounter Department of Arlene Tripathi Malign ant Neoplasm Of Laboratory Medicine [facility] Rectum Adenocarcinoma and Pathology, [address] [place] [address] (HCC) [facility] [address] [place] [phone] [place] [address] (Work) [place], [place] [phone] (Fax) [phone] Social History Tobacco Use Types Packs/Day Years [...] More than 4 times per year 12/08/2020 synagogue services? Do you belong to any clubs [...] slept in a nursing home (including now)? Education Answer Date Recorded [...] Name Priority Date/Time Associated Diagnosis Comme nts CARCINOEMBRYONIC AG Routine 09/13/2019 10:38 Malignant Neoplas m Of Results for this (CEA), S AM EXCEL DEVELOPER Rectum Adenocarcinoma proced ure are in (HCC) the results section. documented in this encounter Results (ABNORMAL) CEA (Carcinoembryonic Antigen) (09/13/2019 10:38 AM EXCEL DEVELOPER) [facility] Method Time Signature Carcinoembryonic Ag 5.8 (H) ng/mL 09/13/2019 [facility] (CEA), S 3:53 PM EXCEL DEVELOPER Comment: ----REFERENCE VALUE---- <=3.0 (Non-smokers) Some smokers may have elevated CEA, usually <5.0. ----ADDITIONAL INFORMATION---- The testing method is an immunoenzymatic assay manufactured by [employer] and performed on the [employer] 800. ? Values obtained with different assay met hods or kits may be different and cannot be used inte rchangeably. ? Test results cannot be interpreted as ab solute evidence for the presence or absence of malignant disease. Specimen Anatomical Collection Method Collection Time Receive d Time (Source) Location / / Volume Laterality Blood (Blood, 09/13/2019 10:38 09/13/2019 2:58 Venous) AM EXCEL DEVELOPER PM EXCEL DEVELOPER Arlene Tripathi M.D. LAB BLOOD ADD-ON Performing Organization Address City/State/ZIP Code Phon e Number [facility] [address] [place] [address] SUPPORT CENTER [facility] [place] [address] Laboratory Medicine and Pathology [address] [place] documented in this encounter Visit Diagnoses Diagnosis Malignant Neoplasm Of Rectum Adenocarcin ruby (HCC) documented in this encounter
--- OUTSIDE RECORDS SUMMARY | 2022-04-30 11:47 | XMS_ITS | Encounter Summary ---
:1965 Author Organization [facility] Address [address] [place] [address] Care Team Providers Name Role Phone Unavailable Primary Care Provider Unavailable Reason for Referral MRI/CAT/PET Scan (Routine) - Modified Order Specialty Diagnoses / Procedures Referred By Contact Refer red To Contact Radiology Diagnoses Malignant Neoplasm Of Rectum (HCC) Arlene Tripathi M.D. [facility] Procedures CT Abdomen Pelvis with IV Contrast CT Abdomen Pelvis without and with IV Contrast [address] [place] [address] Referral ID Status Reason Start Date Expiration Date Visits V isits Requested Authorized [id number] Modified 09/14/2019 09/13/2020 1 1 Order MRI/CAT/PET Scan (Routine) - Closed Specialty Diagnoses / Procedures Referred By Contact Refer red To Contact Radiology Diagnoses Malignant Neoplasm Of Rectum (HCC) Arlene Tripathi M.D. [facility] Procedures CT Chest with IV Contrast [address] [place], [place] [address] Referral ID Status Reason Start Date Expiration Date Visits Requ ested Visits Authorized [id number] Closed 09/14/2019 07/13/2020 1 1 Reason for Visit MRI/CAT/PET Scan (Routine) - Closed Specialty Diagnoses / Procedures Referred By Contact Refer red To Contact Radiology Diagnoses Malignant Neoplasm Of Rectum (HCC) Arlene Tripathi M.D. [facility] Procedures CT Chest with IV Contrast [address] [place] [phone] Referral ID Status Reason Start Date Expiration Date Visits Requ ested Visits Authorized [id number] Closed 09/14/2019 07/13/2020 1 1 Encounter Details Date Type Department Care Team Description 03/22/2020 Hospital Encounter Department of Arlene Tripathi ant Neoplasm Radiology, Jesus Powers M.D. Of Rectum (HCC) Building, in [address] [place] [address] [place] [phone] [place], [place] [phone] (Work) [phone] Social History Tobacco Use Types Packs/Day Years [...] More than 4 times per year 12/08/2020 orthodoxy services? Do you belong to any clubs [...] tablets by 3 05/2019 azide mouth daily. (KEN,ZESTORETIC) 20-12.5 mg per tablet documented as of this encounter Plan of Treatment Scheduled Orders Name Type Priority Associated Diagnoses Order S chedule Creatinine, POCT Point of Care Routine Routine la b collection Testing-Docked (next collect ion) for Device 1 Occurrences s tarting 03/22/2020 unti l 03/22/2020 documented as of this encounter Procedures Procedure Name Priority Date/Time Associated Comments Diagnosis CT ABDOMEN PELVIS RAD - Routine 03/22/2020 8:33 Malignant Result s for this WITH IV CONTRAST (most inpatients AM CDT Neoplasm Of procedu re are in and all Rectum (HCC) the results outpatients) section. CT CHEST WITH IV RAD - Routine 03/22/2020 8:33 Malignant Results for this CONTRAST (most inpatients AM CDT Neoplasm Of procedure a re in and all Rectum (HCC) the results outpatients) section. CREATININE, POCT, Routine 03/22/2020 7:57 Results for this B AM CDT procedure are i n the results section. CREATININE, POCT, Routine 03/22/2020 7:57 Results for this B AM CDT procedure are i n the results section. documented in this encounter Results CT Abdomen Pelvis with IV Contrast (03/22/2020 8:33 AM CDT) Anatomical Region Laterality Modality Abdomen, Pelvis, Abdominal RST LOS, N/A Comp uted Tomography, Computed Abdominal ARZ LOS, Abdominal FLA LOS John ography Specimen (Source) Anatomical Collection Method Collection Time Re ceived Time Location / / Volume Laterality 03/22/2020 8:37 AM CDT Impressions 03/22/2020 10:[address] findings of metastatic disease in the abdomen or pelvis. No change since 09/13/2019. Narrative 03/22/2020 10:35 AM CDT EXAM: ??CT ABDOMEN PELVIS WITH IV CONTRAST COMPARISON: CTs of 09/13/[address] FINDINGS: ??Normal liver. No new lymp hadenopathy in the abdomen or pelvis. Stable small subcentimeter periportal, r etroperitoneal and iliac lymph nodes with one of the largest located along th e left common iliac chain measuring 7mm in short axis diameter (series 1, image 76). CT otherwise unchanged. Normal spleen, p ancreas, adrenal glands and kidneys. Stable focal fundal adenomyomatosis invo lving the gallbladder. Normal caliber abdominal aorta with mild atheromatous c alcifications. Small fat-containing periumbilical hernia. No bowel dilatatio n. No abdominal or pelvic ascites. Appendectomy. Hysterectomy. No worrisome skeletal lesions. This examination was performed in conjun ction with a CT of the chest which will be reported separately. Procedure Note Paula Valdez M.D. - 03/22/2020Forma tting of this note might be different from the original. EXAM: CT ABDOMEN PELVIS WITH IV CONTRAST COMPARISON: CTs of 09/13/[address] FINDINGS: Normal liver. No new lympha denopathy in the abdomen or pelvis. Stable small subcentimeter periportal, r etroperitoneal and iliac lymph nodes with one of the largest located along th e left common iliac chain measuring 7mm in short axis diameter (series 1, image 76). CT otherwise unchanged. Normal spleen, p ancreas, adrenal glands and kidneys. Stable focal fundal adenomyomatosis invo lving the gallbladder. Normal caliber abdominal aorta with mild atheromatous c alcifications. Small fat-containing periumbilical hernia. No bowel dilatatio n. No abdominal or pelvic ascites. Appendectomy. Hysterectomy. No worrisome skeletal lesions. This examination was performed in conjun ction with a CT of the chest which will be reported separately. IMPRESSION: No CT findings of metastatic disease in the abdomen or pelvis. No change since 09/13/2019. Arlene DYSON CT PROCEDURES CT Chest with IV Contrast (03/22/2020 8:33 AM CDT) Anatomical Region Laterality Modality Chest, Thoracic RST LOS, Thoracic ARZ N/A Co mputed Tomography, Computed LOS, Thoracic ARZ LOS, Thoracic FLA Moi graphy LOS Specimen (Source) Anatomical Collection Method Collection Time Re ceived Time Location / / Volume Laterality 03/22/2020 11:19 AM CDT Impressions 03/22/2020 11:33 AM CDT Continued stability of small pulmonary nodules. No new findings concerning for metastatic disease in the chest. Narrative 03/22/2020 11:33 AM CDT EXAM: CT CHEST WITH IV CONTRAST COMPARISON: 01/07/2019, 09/13/2019 FINDINGS: Continued stability of small subpleural 3 mm pulmonary nodules. Locations include right middle lobe (series 2/imag e 376), left lower lobe (2/352 and 400) and posterior right lower lobe (2/363). No new nodules. No adenopathy. Small linear scarring in the periphery of the left lower lobe. This examination was performed in conjun ction with a CT of the abdomen, which will be reported separately. Procedure Note Bigg Rodriguez M.D. - 03/22/2020Fo rmatting of this note might be different from the original. EXAM: CT CHEST WITH IV CONTRAST COMPARISON: 01/07/2019, 09/13/2019 FINDINGS: Continued stability of small subpleural 3 mm pulmonary nodules. Locations include right middle lobe (series 2/imag e 376), left lower lobe (2/352 and 400) and posterior right lower lobe (2/363). No new nodules. No adenopathy. Small linear scarring in the periphery of the left lower lobe. This examination was performed in conjun ction with a CT of the abdomen, which will be reported separately. IMPRESSION: Continued stability of small pulmonary n odules. No new findings concerning for metastatic disease in the chest. Arlene Tripathi M.D. IMG CT PROCEDURES Creatinine, POCT (03/22/2020 7:57 AM CDT) athologist Signature Creatinine, 0.6 0.6 - 1.0 03/22/2020 PCDT POCT, B mg/dL 8:04 AM CDT Comment: ----ADDITIONAL INFORMATION---- Performed at the Point of Care Specimen Anatomical Collection Method Collection Time Receive d Time (Source) Location / / Volume Laterality Blood 03/22/2020 7:57 AM 0 8:04 CDT AM CDT Unknown Provider LAB POCT ORDERABLES - DEVICE Performing Organization Address City/State/ZIP Code Phon e Number POC [facility] PERFORMING [address] [place] [address] LABS PCDT [facility] [place] [address] [facility] P[facility] [address] Creatinine, POCT (03/22/2020 7:57 AM CDT) athologist Signature eGFR-Black/Afri >90 >=60 03/22/2020 PCMO can Micronesian, mL/min/BSA 8:04 AM CDT POCT Comment: ----ADDITIONAL INFORMATION---- Estimated GFR calculated using the 2009 CKD_EPI creatinine equation. eGFR Non-Black/, >90 >=60 mL/min/BSA 03/22/2020 8:04 AM CDT PCMO POCT Comment: ----ADDITIONAL INFORMATION---- Estimated GFR calculated using the 2009 CKD_EPI creatinine equation. Specimen Anatomical Collection Method Collection Time Receive d Time (Source) Location / / Volume Laterality Blood 03/22/2020 7:57 AM 0 8:04 CDT AM CDT Unknown Provider LAB POCT ORDERABLES - DEVICE Performing Organization Address City/State/ZIP Code Phon e Number POC RST YAZDANISM [address] [place] [address] OUTPATIENT LABS PCMO [facility] [place] [address] [facility] P[facility] [address] documented in this encounter Visit Diagnoses Diagnosis Malignant Neoplasm Of Rectum (HCC) documented in this encounter Administered Medications Inactive Administered Medications - up to 3 most recent administrations Medication Order MAR Action Action Date Dose Rate Site iohexoL 300 mg iodine/mL solution Given 03/22/2020 8:22 AM CDT 1 40 mL 1-200 mL (OMNIPAQUE) 1-200 mL, intravenous, Once in imaging, contrast, Starting on Fri03/22/20 at 0806, For 1 dose, Imaging Protocol Orders, Dose per Radiant Medication Guidelines sodium chloride (PF) 0.9 % injection 1-1 00 mL Given 03/22/2020 8:22 AM CDT 50 mL 1-100 mL, intravenous, Once, On Fri03/22/20 at 0815, For 1 dose, Imaging Protocol Orders documented in this encounter
--- OUTSIDE RECORDS SUMMARY | 2022-04-30 11:47 | XMS_ITS | Encounter Summary ---
:1965 Author Organization [facility] Address [address] [place] [address] Care Team Providers Name Role Phone Unavailable Primary Care Provider Unavailable Encounter Details Date Type Department Care Team Description 12/01/2020 Orders Only Division of Colon and Gypsy Conner alignike Neoplasm Of Rectal Surgery in L, R.N. Rectum (HC C) (Primary [place], [place] Dx) [address] [place] [address] Social History Tobacco Use Types Packs/Day Years [...] More than 4 times per year 12/08/2020 adventist services? Do you belong to any clubs [...] CEA (Carcinoembryonic Antigen) (12/08/2020 12:06 PM CDT) [facility] gist Method Time Signature Carcinoembryonic Ag 5.9 (H) ng/mL 12/08/2020 [facility] (CEA), S 4:58 PM CDT Comment: ----REFERENCE VALUE---- <=3.0 (Non-smokers) Some smokers may have elevated CEA, usually <5.0. ----ADDITIONAL INFORMATION---- The testing method is an immunoenzymatic assay manufactured by [employer]. and performed on the WeblioI 800. ? Values obtained with different assay [...] Organization Address City/State/ZIP Code Phon e Number [facility] [address] [place], [place] [address] [facility] [place] [address] Laboratory Medicine and Pathology [address] [place] documented in this encounter Visit Diagnoses Diagnosis Malignant Neoplasm Of Rectum (HCC) - Zarina herrera documented in this encounter
--- OUTSIDE RECORDS SUMMARY | 2022-04-30 11:47 | XMS_ITS | Encounter Summary ---
:1965 Author Organization [facility] Address [address] [place] [address] Care Team Providers Name Role Phone Unavailable Primary Care Provider Unavailable Reason for Visit Reason Comments MRI/Flex Encounter Details Date Type Department Care Team Description 12/14/2019 Clinical Communication Division of Colon and Dolly Triptahi, MRI/Flex Rectal Surgery in [place], [place] [address] [facility] [address] [place] [phone] Social History Tobacco Use Types Packs/Day Years [...] or relatives? How often do you attend latter day or More than 4 times per year 12/08/2020 oriental orthodox services? Do you belong to any clubs or Yes 12/08/2020 organizations such as latter day groups, unions, fraternal or athletic groups, or [...] this encounter Miscellaneous Notes Telephone Encounter - Arlene Tripathi M.D. - 12/15/2019 12:53 PM CDT I would like to do both if she will allow it. If MRI ok, then we do not need to repeat that again unless her CEA rises. Telephone Encounter - Dulce Carrington - 12/14/2019 3:58 PM CDT Called pt to schedule march appointments and she is confused. I informed her there is an order for a MRI, she states she thought it was a flex sig. Please advise which she was supposed to have. Liz documented in this encounter Plan of Treatment Not on filedocumented as of this encounter Visit Diagnoses Not on filedocumented in this encounter
--- OUTSIDE RECORDS SUMMARY | 2022-04-30 11:47 | XMS_ITS | Encounter Summary ---
:1965 Author Organization [facility] Address [address] [place] [address] Care Team Providers Name Role Phone Unavailable Primary Care Provider Unavailable Reason for Visit Outpatient (Routine) - Closed Specialty Diagnoses / Procedures Referred By Contact Refer red To Contact Laboratory Medicine and Diagnoses Malignant Neoplasm Of Rectum (HCC) Arlene Tripathi [facility] Cl C Pathology / Laboratory Procedures [employer] (CEA), S LAB TEST BLOOD M.D. [address] [place] [address] Medicine [address] [place] [phone] Referral ID Status Reason Start Date Expiration Date Visits Requ ested Visits Authorized [id number] Closed 03/22/2020 07/13/2020 1 1 Encounter Details Date Type Department Care Team Description 03/22/2020 Hospital Encounter Department of Arlnee Tripathi Malign ant Neoplasm Laboratory Medicine Tavia Powers Of Rectum (HCC) and Pathology, [address] [place] [address] in [place], [place] [phone] [place] [address] [place], [place] (Work) [phone] Social History Tobacco Use [...] or relatives? How often do you attend bahai or More than 4 times per year 12/08/2020 pentecostal services? Do you belong to any clubs or Yes 12/08/2020 organizations such as bahai groups, unions, fraternal or athletic groups, or [...] Date/Time Associated Comments Diagnosis CARCINOEMBRYONIC AG Routine 03/22/2020 9:57 Malignant Neoplasm Results for this (CEA), S AM CDT Of Rectum (HCC) procedure ar e in the results section. documented in this encounter Results (ABNORMAL) CEA (Carcinoembryonic Antigen) (03/22/2020 9:57 AM CDT) [facility] gist Method Time Signature Carcinoembryonic Ag 5.7 (H) ng/mL 03/22/2020 [facility] (CEA), S 2:17 PM CDT Comment: ----REFERENCE VALUE---- <=3.0 (Non-smokers) Some smokers may have elevated CEA, usually <5.0. ----ADDITIONAL INFORMATION---- The testing method is an immunoenzymatic assay manufactured by [employer] and performed on the [address] DxI 800. ? Values obtained with different assay met hods or kits may be different and cannot be used inte rchangeably. ? Test results cannot be interpreted as ab solute evidence for the presence or absence of malignant disease. Specimen Anatomical Collection Method Collection Time Receive d Time (Source) Location / / Volume Laterality Blood (Blood, 03/22/2020 9:57 AM 03/22/20 20 1:21 Venous) CDT PM CDT Arlene Tripathi M.D. LAB BLOOD ADD-ON Performing Organization Address City/State/ZIP Code Phon e Number [facility] [address] [place] [address] SUPPORT CENTER [facility] [place] [address] Laboratory Medicine and Pathology [address] [place] documented in this encounter Visit Diagnoses Diagnosis Malignant Neoplasm Of Rectum (HCC) documented in this encounter
--- OUTSIDE RECORDS SUMMARY | 2022-04-30 11:47 | XMS_ITS | Encounter Summary ---
:1965 Author Organization [facility] Address [address] [place] [address] Care Team Providers Name Role Phone Unavailable Primary Care Provider Unavailable Reason for Referral MRI/CAT/PET Scan (Routine) - Modified Order Specialty Diagnoses / Procedures Referred By Contact Refer red To Contact Radiology Diagnoses Malignant Neoplasm Of Rectum (HCC) Arlene Tripathi M.D. [facility] Procedures CT Abdomen Pelvis with IV Contrast CT Abdomen Pelvis without and with IV Contrast [address] [place] [address] Referral ID Status Reason Start Date Expiration Date Visits V isits Requested Authorized [id number] Modified 09/14/2019 09/13/2020 1 1 Order OR FRONT END ENGINEER MRI/CAT/PET Scan (Routine) - Closed Specialty Diagnoses / Procedures Referred By Contact Refer red To Contact Radiology Diagnoses Malignant Neoplasm Of Rectum (HCC) Arlene Tripathi M.D. [facility] Procedures CT Chest with IV Contrast [address] [place] [address] Referral ID Status Reason Start Date Expiration Date Visits Requ ested Visits Authorized [id number] Closed 09/14/2019 07/13/2020 1 1 OR FRONT END ENGINEER Encounter Details Date Type Department Care Team Description 09/14/2019 Orders Only Division of Colon and Arlene Tripathi M alignant Neoplasm Of Rectal Surgery in M.DSinan Rectum (HCC) (Primary [place], [place] [address] [place] Dx) [address] [place] [phone] [phone] Social History Tobacco Use Types Packs/Day Years [...] More than 4 times per year 12/08/2020 judaism services? Do you belong to any clubs [...] slept in a senior living (including now)? Education Answer Date Recorded What [...] CEA (Carcinoembryonic Antigen) (03/22/2020 9:57 AM CDT) [facility] Method Time Signature Carcinoembryonic Ag 5.7 (H) ng/mL 03/22/2020 [facility] (CEA), S 2:17 PM CDT Comment: ----REFERENCE VALUE---- <=3.0 (Non-smokers) Some smokers may have elevated CEA, usually <5.0. ----ADDITIONAL INFORMATION---- The testing method is an immunoenzymatic assay manufactured by [employer] and performed on the LeafI 800. ? Values obtained with different assay [...] Organization Address City/State/ZIP Code Phon e Number [facility] [address] [place], [place] [address] SUPPORT CENTER [facility] [place] [address] Laboratory Medicine and Pathology [address] Abdomen Pelvis with IV Contrast (03/22/2020 [...] for metastatic disease in the chest. Arlene DYSON CT PROCEDURES documented in this encounter Visit Diagnoses Diagnosis Malignant Neoplasm Of Rectum (HCC) - [facility] Malignant Neoplasm Of Rectum (HCC) documented in this encounter
--- OUTSIDE RECORDS SUMMARY | 2022-04-30 11:48 | XMS_ITS | Encounter Summary ---
:1965 Author Organization [facility] Address [address] [place] [address] Care Team Providers Name Role Phone Unavailable Primary Care Provider Unavailable Encounter Details Date Type Department Care Team Description 05/07/2018 Clinical Communication Department of Chastity Mckay Obstetrics and Tavia Pinzon Gynecology in [address] [place] [address] [place] [phone] [place], [place] [phone] (Work) [phone] Social History Tobacco Use Types Packs/Day Years [...] or relatives? How often do you attend mormon or More than 4 times per year 12/08/2020 baptist services? Do you belong to any clubs or Yes 12/08/2020 organizations such as mormon groups, unions, fraternal or athletic groups, or [...] this encounter Miscellaneous Notes Telephone Encounter - Kaela Fiore - 05/07/2018 1:23 PM CDT Erroneous note done in error. documented in this encounter Plan of Treatment Not on filedocumented as of this encounter Visit Diagnoses Not on filedocumented in this encounter
--- OUTSIDE RECORDS SUMMARY | 2022-04-30 11:48 | XMS_ITS | Encounter Summary ---
:1965 Author Organization [facility] Address [address] [place] [address] Care Team Providers Name Role Phone Unavailable Primary Care Provider Unavailable Reason for Referral Outpatient (Routine) - Closed Specialty Diagnoses / Procedures Referred By Contact Refer red To Contact Diagnoses Malignant Neoplasm Of Rectosigmoid (HCC) Arlene Tripathi M.D. [facility] Procedures Flexible Sigmoidoscopy [address] [place], [place] [address] Referral ID Status Reason Start Date Expiration Date Visits Requ ested Visits Authorized [id number] Closed 06/18/2018 06/18/2019 1 1 NEERING AIDE Reason for Visit Outpatient (Routine) - Closed Specialty Diagnoses / Procedures Referred By Contact Refer red To Contact Diagnoses Malignant Neoplasm Of Rectosigmoid (HCC) Arlene Tripathi M.D. [facility] Procedures Flexible Sigmoidoscopy [address] [place], [place] [address] Referral ID Status Reason Start Date Expiration Date Visits Requ ested Visits Authorized [id number] Closed 06/18/2018 06/18/2019 1 1 Encounter Details Date Type Department Care Team Description 08/11/2018 Hospital Encounter Division of Colon Arlene Tripathi Ma lignant Neoplasm Of and Rectal Surgery Tavia Powers Rectosigmoid (HCC) in [place], [facility] [address] [place], [place] [address] [facility] [address] [place], [place] [phone] [address] (Work) [phone] Social History Tobacco Use Types Packs/Day Years [...] or relatives? How often do you attend episcopal or More than 4 times per year 12/08/2020 shinto services? Do you belong to any clubs or Yes 12/08/2020 organizations such as episcopal groups, unions, fraternal or athletic groups, or [...] Associated Diagnosis Comme nts FLEXIBLE SIGMOIDOSCOPY Routine 08/11/2018 2:29 Malignant Neopl asm Results for this PM ENGINEERING AIDE Of Rectosigmoid procedure ar jimmy in (HCC) the results section. CRS FLEXIBLE Routine 08/11/2018 2:29 Malignant Neoplasm SIGMOIDOSCOPY PM ENGINEERING AIDE Of Rectosigmoid (HCC) documented in this encounter Results Flexible Sigmoidoscopy (08/11/2018 2:29 PM ENGINEERING AIDE) Specimen (Source) Anatomical Collection Method Collection Time Re ceived Time Location / / Volume Laterality 08/11/2018 2:29 PM ENGINEERING AIDE Impressions [facility] - 08/11/2018 5:22 PM ENGINEERING AIDE Post-op Diagnoses: ? - The mid rectum is normal. Tatto o and scar seen without abnormality. ? - No specimens collected. Narrative [facility] - 08/11/2018 5:22 PM ENGINEERING AIDE Gonda 9 CRS GI Patient Name: Conchita Solis Date of : 1965 Age: 52 Gender: Female Procedure Date: 08/11/2018 Procedure: ? Flexible Sigmoidoscopy Providers: ? Arlene Tripathi MD Referring Provider: ?Arlene olivares MD Pre-op Diagnoses: ?High risk c olon cancer surveillance: Personal ? his tory of rectal cancer Recommendation: ? - Repeat flexible sigmoidoscopy i n 4 months for surveillance. Findings: ? The perianal and digital rectal e xaminations were normal. ? The mid rectum appeared normal. Procedural Details: ? The patient was seen, evaluated, and history reviewed. The risks, ? benefits and alternatives for the procedure were discussed and informed ? consent was obtained. A procedura l pause was conducted in the presence ? of assisting personnel to verify the correct patient identity and ? procedure to be performed. The CF -Q160S Flexible Sigmoidoscope was ? introduced under direct vision th rough the anus and advanced to the ? descending colon. The flexible si gmoidoscopy was accomplished without ? difficulty. The patient tolerated the procedure well. The quality of the ? bowel preparation was good. Complications: ? No immedia te complications. Sedation: ? No sedation administered. Attending Participation: I personally pe rformed the entire procedure. Arlene Tripathi MD 08/11/2018 5:22:23 PM This report has been signed electronical ly. Number of Addenda: 0 Note Initiated On: 08/11/2018 2:29 PM Arlene Tripathi M.D. GI PROCEDURE ORDERABLES Performing Organization Address City/State/ZIP Code Phon e Number [employer] NA documented in this encounter Visit Diagnoses Diagnosis Malignant Neoplasm Of Rectosigmoid (HCC) documented in this encounter
--- OUTSIDE RECORDS SUMMARY | 2022-04-30 11:48 | XMS_ITS | Encounter Summary ---
:1965 Author Organization [facility] Address [address] [place] [address] Care Team Providers Name Role Phone Unavailable Primary Care Provider Unavailable Encounter Details Date Type Department Care Team Description 02/26/2018 Orders Only Division of Colon and Rectal Matheus Carrillo, RICHAR, Surgery in [facility].N.., [place] [address] [address] [facility] [address] [place] [address] [phone] (Wo rk) Social History Tobacco Use Types [...] or relatives? How often do you attend rastafarian or More than 4 times per year 12/08/2020 confucianism services? Do you belong to any clubs or Yes 12/08/2020 organizations such as rastafarian groups, unions, fraternal or athletic groups, or [...]
--- OUTSIDE RECORDS SUMMARY | 2022-04-30 11:48 | XMS_ITS | Encounter Summary ---
:1965 Author Organization [facility] Address [address] [place] [address] Care Team Providers Name Role Phone Unavailable Primary Care Provider Unavailable Reason for Visit Auth/Cert Specialty Diagnoses / Procedures Referred By Contact Refer red To Contact Diagnoses Leiomyoma of uterus, unspecified Procedures D25.9 (ICD-10-CM) - Leiomyoma of uterus, unspecified Referral ID Status Reason Start Date Expiration Date Visits Requ ested Visits Authorized [id number] 1 1 Encounter Details Date Type Department Care Team Description 01/02/2018 Hospital Encounter [facility] Prakash Edgar md (Fibroid) [facility], Idris Hendrickson M.D., Ph. D. [facility] [address] [place], [place] Floor [address] [address] [facility] [phone] [place], [place] (Work) [phone] Social History Tobacco Use Types Packs/Day Years [...] or relatives? How often do you attend hoahaoism or More than 4 times per year 12/08/2020 protestant services? Do you belong to any clubs or Yes 12/08/2020 organizations such as hoahaoism groups, unions, fraternal or athletic groups, or [...] place to sleep or slept in a long-term (including now)? Sex Assigned at Date Recorded Female 12/15/2017 11:22 AM CDT documented as of this encounter Last Filed Vital Signs Vital Sign Reading Time Taken Comments Blood Pressure 163/80 01/02/2018 7:08 PM CDT Pulse - - Temperature 37.6 ??C (99.7 ??F) 01/02/2018 7:08 PM CDT Respiratory Rate - - Oxygen Saturation - - Inhaled Oxygen Concentration - - Weight - - Height - - Body Mass Index - - documented in this encounter Medications at Time of Discharge Medication Sig Dispensed Refills Start Date End Date oxyCODONE (ROXICODONE) 5 Take 1 tablet (5 mg 10 tablet 0 02/05/2018 mg immediate release total) by mouth tablet every 4 (four) hours as needed for moderate pain or score 4-6 of 10. oxyCODONE (ROXICODONE) 5 Take 1 tablet (5 mg 10 tablet 0 02/05/2018 mg immediate release total) by mouth tablet every 4 (four) hours as needed for pain for up to 10 doses. acetaminophen (TYLENOL) Take 2 tablets by 0 [...] 19 (PRINIVIL,ZESTRIL) 10 mg mouth daily. tablet sennosides-docusate Take 1 tablet by 0 12/25/2017 02/05/2018 sodium (SENOKOT-S) 8.6-50 mouth 2 (two) times mg per tablet a day. documented as of this encounter Progress Notes Swathi Maurice, RSinanN. - 01/02/2018 7:46 PM CDT Patient assessed by Dr Norma Gould in OB triage. Pain 5/10 with last tylenol in morning and ibuprofen early afternoon. Reports increased foul smelling discharge. VS obtained. Swab sent and blood work complete. Patient dismissed to home with . Sawthi Maurice RN Aaliyah Aguilar M.D. - 01/02/2018 7:37 PM CDT SUBJECTIVE 52 y.o. who is currently POD 8 status post robotic assisted hysterectomy, salpingectomy, ovarian preservation. She presented for evaluation of a clear and brown discharge that she describes foul-smelling. She states are temperature home was 100.3. Denies chills, nausea, vomiting, shortness of breath, abdominal pain. She states that she smells the discharge when bearing down and smells like cleaning chemicals. She states that this not sound like stool. She has not place anything inside her vagina. She is wearing a pad. OBJECTIVE VITAL SIGNS Vital signs reviewed. 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 Nondistended, nontender, soft. No guarding or rebound tenderness. Incisions approximated without drainage or erythema. Pelvic: External genitalia within normal limits. Speculum examination was performed with a Q-tip to probe the vaginal cuff. The Q-Tip did not penetrate the vaginal cuff. Clear discharge. Bimanual exam was performed. The vaginal cuff was intact. No areas of erythema or edema noted at the vaginal cuff. Vaginal wall felt intact without evidence of fistula. LABORATORY RESULTS Hemoglobin Date Value Ref Range Status 01/02/2018 11.2 (L) 11.6 - 15.0 g/dL Final Leukocytes Date Value Ref Range Status 01/02/2018 12.5 (H) 3.4 - 9.6 x10(9)/L Final No results found for this visit on 01/02/18 (from the past 72 hour(s)). IMAGING RESULTS, LAST 1 DAY No results found. ASSESSMENT / PLAN Problem List Hypertension Malignant Neoplasm Of Rectum (HCC) Leiomyoma (Fibroid) Uterus Overview Signed 12/16/2017 4:15 PM by Chantal Leger R.N. Added automatically from request for surgery [id number] Appendicitis Post Operative Nausea/Vomiting #1 Vaginal discharge postop day 8 I evaluated this patient with Dr. Norma Gould, PGY-3. Given that she is feeling overall well, she isafebrile, and there is a scant amount of discharge we discharged her to home. We did obtain a vaginal culture swab that we will send. We also obtained a CBC to evaluate her white blood cell count. Her leukocytes mary from 9.3 preoperatively to 12.5 postoperatively. This may be secondary to surgery. Wereviewed warning signs and symptoms for infection and vaginal cuff dehiscence. We advised her to be seen by a provider for evaluation if she has a fever over 100.4, foul-smelling vaginal discharge different than what we have evaluated, chills, nausea, inability to tolerate p.o., copious vaginal discharge or heavy vaginal bleeding. Aaliyah Campo M.D. documented in this encounter Plan of Treatment Not on filedocumented as of this encounter Procedures Procedure Name Priority Date/Time Associated Diagnosis Comme nts CBC WITH STAT 01/02/2018 7:28 PM Results f or this DIFFERENTIAL, B CDT procedure ar e in the results section. BACTERIAL CULTURE, Routine 01/02/2018 7:10 PM Res ults for this AEROBIC + SUSC CDT procedure are in the results section. documented in this encounter Results (ABNORMAL) CBC with Differential, Blood (01/02/2018 7:28 PM CDT) [facility] Method Time Signature Hemoglobin 11.2 (L) 11.6 - 01/02/2018 [facility] 15.0 g/dL 7:58 PM CDT LAB[facility]ATOR[facility] - [facility] Hematocrit 34.5 (L) 35.5 - 01/02/2018 [facility] 44.9 % 7:58 PM CDT [facility] - [facility] Erythrocytes 4.21 3.92 - 01/02/2018 [facility] 5.13 7:58 PM CDT LABORATORIES - x10(12)/L [facility] MCV 81.9 78.2 - 01/02/2018 [facility] 97.9 fL 7:58 PM CDT [facility] - [facility] RBC Distrib 15.0 12.2 - 01/02/2018 [facility] Width 16.1 % 7:58 PM CDT [facility] - [facility] Platelet Count 478 (H) 157 - 371 01/02/2018 [facility] x10(9)/L 7:58 PM CDT [facility] - [facility] Leukocytes 12.5 (H) 3.4 - 9.6 01/02/2018 [facility] x10(9)/L 7:58 PM CDT [facility] - [facility] Neutrophils 9.26 (H) 1.56 - 01/02/2018 [facility] 6.45 7:58 PM CDT LABORATORIES - x10(9)/L [facility] Lymphocytes 1.75 0.95 - 01/02/2018 [facility] 3.07 7:58 PM CDT LABORATORIES - x10(9)/L [facility] Monocytes 1.09 (H) 0.26 - 01/02/2018 [facility] 0.81 7:58 PM CDT LABORATORIES - x10(9)/L [facility] Eosinophils 0.36 0.03 - 01/02/2018 [facility] 0.48 7:58 PM CDT LABORATORIES - x10(9)/L [facility] Basophils 0.06 0.01 - 01/02/2018 [facility] 0.08 7:58 PM CDT LABORATORIES - x10(9)/L [facility] Specimen Anatomical Collection Method Collection Time Receive d Time (Source) Location / / Volume Laterality Blood (Blood, 01/02/2018 7:28 PM 01/03/20 18 7:36 Venous) CDT PM CDT Aaliyah Campo M.D. LAB BLOOD ADD-ON Performing Organization Address City/State/ZIP Code Phon e Number [facility] LABORATORIES - [address] [place], [place] [address] [facility] Bacterial Culture, Aerobic + Susc (01/02/2018 7:10 PM CDT) Patholo gist Method Time Signature Bacterial Usual 01/05/2018 [facility] Culture, jose 11:03 AM CDT LABORATORIES - Aerobic + Susc [facility] Specimen Anatomical Collection Method Collection Time Receive d Time (Source) Location / / Volume Laterality Swab (Vulva) 01/02/2018 7:10 PM 8 7:45 CDT PM CDT Comment: Specimen Source Site: Swab Aaliyah Campo M.D. LAB MICROBIOLOGY - GEN ERAL ORDERABLES Performing Organization Address City/State/ZIP Code Phon e Number [facility] LABORATORIES - [address] [place], [place] [address] [facility] documented in this encounter Visit Diagnoses Diagnosis Leiomyoma (Fibroid) Uterus documented in this encounter
--- OUTSIDE RECORDS SUMMARY | 2022-04-30 11:48 | XMS_ITS | Encounter Summary ---
:1965 Author Organization [facility] Address [address] [place] [address] Care Team Providers Name Role Phone Unavailable Primary Care Provider Unavailable Encounter Details Date Type Department Care Team Description 04/06/2018 Orders Only Division of Colon and Gypsy Conner , Rectal Surgery in [place], [place] [address] [place] [address] Social History Tobacco Use Types Packs/Day [...] or relatives? How often do you attend mandaeism or More than 4 times per year 12/08/2020 voodoo services? Do you belong to any clubs or Yes 12/08/2020 organizations such as mandaeism groups, unions, fraternal or athletic groups, or [...]
--- OUTSIDE RECORDS SUMMARY | 2022-04-30 11:48 | XMS_ITS | Encounter Summary ---
:1965 Author Organization [facility] Address [address] [place] [address] Care Team Providers Name Role Phone Unavailable Primary Care Provider Unavailable Reason for Visit Reason Onset Date Comments Communication 01/02/2018 Encounter Details Date Type Department Care Team Description 01/02/2018 Clinical Communication Department of Chastity Mckay Communication Obstetrics and E, M.D. Gynecology in [address] [place] [address] [place] [address] [place], [place] [phone] [address] (Work) [phone] Social History Tobacco Use Types Packs/Day Years [...] More than 4 times per year 12/08/2020 taoist services? Do you belong to any clubs [...] or slept in a correction (including now)? Sex Assigned at Date Recorded Female 12/15/2017 11:22 AM CDT documented as of this encounter Miscellaneous Notes Telephone Encounter - Sammie Parr R.N. - 01/02/2018 4:15 PM CDT HISTORY OF PRESENT ILLNES Mrs. Solis is status post a robotic assisted hysterectomy bilateral salpingectomy with ovarian preservation. Laparoscopic appendectomy with Dr. Mckay and Dr. Catie Tripathi. The patient called withconcerns regarding a brown watery discharge with a foul smell. She she is still having gas pains inte rmittently and when she has the gas pain she can feel the discharge coming out. She states that she could wear a pad all day with a discharge but she does change it because of the foul smell. She states that it does not smell like feces and it does not smell like urine. She also notes that she has hada low- grade temperature of a 100.3 starting at 1:00 p.m. this afternoon. She felt feverish that is why she took her temperature. She is moving her bowels normally her bladder is working without difficulty. She is taking 1 Colace a day. She is eating and drinking without difficulty. Her pain is minimalwhen she has gas pains she rates those at a 5 but says they are short-lived. ASSESSMENT / PLAN I paged Dr. Mckay's service and spoke to Teresa Levin CNP. Disposition/Recommendation: Teresa spoke to Dr. Gould who recommended the patient come in for further evaluation. The patient will report to [facility] Triage. I have called them to let them know. I have asked that they page Dr. Gould when she arrives. Education: patient/caller able to teach back Caller agreeable to plan of care: yes The following references were used: provider Dr. Gould's advice as noted above. Telephone Encounter - Alexa Kraft - 01/02/2018 1:45 PM CDT Patient is requesting to speak with Kym regarding some post surgery symptoms including brownish watery discharge. documented in this encounter Plan of Treatment Not on filedocumented as of this encounter Visit Diagnoses Not on filedocumented in this encounter
--- OUTSIDE RECORDS SUMMARY | 2022-04-30 11:48 | XMS_ITS | Encounter Summary ---
:1965 Author Organization [facility] Address [address] [place] [address] Care Team Providers Name Role Phone Unavailable [...]
--- OUTSIDE RECORDS SUMMARY | 2022-04-30 11:48 | XMS_ITS | Encounter Summary ---
:1965 Author Organization [facility] Address [address] [place] [address] Care Team Providers Name Role Phone Unavailable Primary Care Provider Unavailable Encounter Details Date Type Department Care Team Description 04/02/2018 Orders Only Division of Colon and Rectal Matheus Carrillo, RICHAR, Surgery in [facility].N.., [address] [address] [address] [facility] [address] [place] [address] [phone] (Wo rk) Social History Tobacco Use Types [...] or relatives? How often do you attend islam or More than 4 times per year 12/08/2020 hindu services? Do you belong to any clubs or Yes 12/08/2020 organizations such as islam groups, unions, fraternal or athletic groups, or [...]
--- OUTSIDE RECORDS SUMMARY | 2022-04-30 11:48 | XMS_ITS | Encounter Summary ---
:1965 Author Organization [facility] Address [address] [place] [address] Care Team Providers Name Role Phone Unavailable Primary Care Provider Unavailable Reason for Visit Reason Onset Date Comments Communication 12/28/2018 Encounter Details Date Type Department Care Team Description 12/28/2018 Clinical Communication Division of Colon and Dolly Tripathi Communication Rectal Surgery in [place], [place] [address] [facility] [address] [place] [address] [phone] Social History Tobacco Use Types Packs/Day Years [...] or relatives? How often do you attend yarsani or More than 4 times per year 12/08/2020 bahai services? Do you belong to any clubs or Yes 12/08/2020 organizations such as yarsani groups, unions, fraternal or athletic groups, or [...] a Deuce visit, just in case per Deuce request. Jami Mathew documented in this encounter Plan of Treatment Not on filedocumented as of this encounter Visit Diagnoses Not on filedocumented in this encounter
--- OUTSIDE RECORDS SUMMARY | 2022-04-30 11:48 | XMS_ITS | Encounter Summary ---
:1965 Author Organization [facility] Address [address] [place] [address] Care Team Providers Name Role Phone Unavailable Primary Care Provider Unavailable Reason for Visit Reason Onset Date Comments bowel prep 02/26/2018 Encounter Details Date Type Department Care Team Description 02/26/2018 Clinical Communication Division of Colon and Dolly Tripathi, bowel prep Rectal Surgery in [place], [place] [address] [facility] [address] [place] [address] [phone] Social History Tobacco Use Types Packs/Day Years [...] or relatives? How often do you attend restorationist or More than 4 times per year 12/08/2020 anabaptist services? Do you belong to any clubs or Yes 12/08/2020 organizations such as restorationist groups, unions, fraternal or athletic groups, or [...] or slept in a halfway (including now)? Sex Assigned at Date Recorded Female 12/15/2017 11:22 AM CDT documented as of this encounter Miscellaneous Notes Telephone Encounter - Priyanka Womack - 03/19/2018 1:57 PM CDT Matheus, Did this ever get done? Telephone Encounter - Priyanka Womack - 02/26/2018 9:42 AM CDT Please send bowel prep to verified pharmacy. Jami Mathew documented in this encounter Plan of Treatment Not on filedocumented as of this encounter Visit Diagnoses Not on filedocumented in this encounter
--- OUTSIDE RECORDS SUMMARY | 2022-04-30 11:48 | XMS_ITS | Encounter Summary ---
:1965 Author Organization [facility] Address [address] [place] [address] Care Team Providers Name Role Phone Unavailable Primary Care Provider Unavailable Encounter Details Date Type Department Care Team Description 04/02/2018 Clinical Communication Division of Colon and Dolly Tripathi, Rectal Surgery in [place], [place] [address] [facility] [address] [place] [address] [phone] Social History Tobacco Use Types Packs/Day Years [...] More than 4 times per year 12/08/2020 latter-day services? Do you belong to any clubs [...]
--- OUTSIDE RECORDS SUMMARY | 2022-04-30 11:48 | XMS_ITS | Encounter Summary ---
:1965 Author Organization [facility] Address [address] [place] [address] Care Team Providers Name Role Phone Unavailable Primary Care Provider Unavailable Reason for Referral Outpatient (Routine) - Closed Specialty Diagnoses / Procedures Referred By Contact Refer red To Contact Diagnoses Cancer Rectum Primary Personal History Arlene Tripathi M.D. [facility] Procedures Colonoscopy [address] [place], [place] [address] Referral ID Status Reason Start Date Expiration Date Visits Requ ested Visits Authorized [id number] Closed 11/01/2017 04/30/2018 1 1 Reason for Visit Outpatient (Routine) - Closed Specialty Diagnoses / Procedures Referred By Contact Refer red To Contact Diagnoses Cancer Rectum Primary Personal History Arlene Tripathi M.D. [facility] Procedures Colonoscopy [address] [place] [address] Referral ID Status Reason Start Date Expiration Date Visits Requ ested Visits Authorized [id number] Closed 11/01/2017 04/30/2018 1 1 Encounter Details Date Type Department Care Team Description 04/14/2018 Hospital Division of Arlene Tripathi Malignant Pérez plasm Of Rectum (HCC) (Primary Dx); Encounter Gastroenterology tamia Powers M.D. Cancer Rectum Primary Personal History [place], [place] [address] [facility] [address] [place] [phone] [phone] Social History Tobacco Use Types Packs/Day Years [...] More than 4 times per year 12/08/2020 adventism services? Do you belong to any clubs [...] or slept in a prison (including now)? Sex Assigned at Date Recorded Female 12/15/2017 11:22 AM CDT documented as of this encounter Last Filed Vital Signs Vital Sign Reading Time Taken Comments Blood Pressure 152/68 04/14/2018 9:00 AM CDT Pulse 71 04/14/2018 9:00 AM CDT Temperature 36.6 ??C (97.9 ??F) 04/14/2018 8:46 AM CDT Respiratory Rate 15 04/14/2018 9:00 AM CDT Oxygen Saturation 100% 04/14/2018 9:00 AM CDT Inhaled Oxygen Concentration - - Weight - - Height 162.6 cm (5' 4) 04/14/2018 7:14 AM CDT Body Mass Index - - [...] daily. tablet documented as of this encounter H&P Notes Arlene Tripathi M.D. - 04/14/2018 7:51 AM CDT ASSESSMENT / PLAN Patient Name: Conchita Solis Colonoscopy Procedure Department : DIVISION OF GASTROENTEROLOGY IN [place], [place] SUBJECTIVE Past Medical History: Diagnosis Date ??? Hypertension NOS ??? Leiomyoma (Fibroid) Uterus ??? 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 Malignant Neoplasm Of Rectum (HCC) 2017 ??? Menorrhagia ??? Polyp Colon Adenomatous Family History Past Surgical History: Procedure Laterality Date ??? ABDOMINAL SURGERY ??? LAPAROSCOPIC APPENDECTOMY N/A 12/25/2017 Procedure: Laparoscopic Appendectomy; Surgeon: Arlene Tripathi M.D.; Location: [facility] OR ??? RECTAL TUMOR, EXCISION, TRANSANAL N/A 06/03/2017 Rectal tumor, excision, transanal ??? ROBOTIC-ASSISTED HYSTERECTOMY ABDOMINAL WITH SALPINGO-OOPHORECTOMY Bilateral 12/25/2017 Procedure: ROBOTIC-ASSISTED HYSTERECTOMY, SALPINGECTOMY, OVARIAN PRESERVATION.; Surgeon: Chastity Mckay M.D.; Location: [facility] OR OB History Para Term AB Living 1 SAB TAB Ectopic Molar Multiple Live Births # Outcome Date GA Lbr Tho/2nd Weight Sex Delivery Anes PTL Lv 1 Social History Social History ??? Marital status: Spouse name: N/A ??? Number of children: N/A ??? Years of education: N/A Social History Main Topics ??? Smoking status: Current Some Day Smoker Types: Cigarettes ??? Smokeless tobacco: Never Used Comment: 1 cigarette per day ??? Alcohol use 1.8 oz/week 3 Glasses of wine per week ??? Drug use: No ??? Sexual activity: Not Asked Other Topics Concern ??? None Social History Narrative ??? None Ambulatory Infusion Pump/Implanted Foreign Food Cook Specialty- Nothing was implanted during the procedure OBJECTIVE Pain Score: 0 - No pain Consents Obtained: written The benefits, risks, and alternatives to the procedure and the potential need for sedation or anesthesia as well as the names, roles and responsibilities of healthcare team members performing significant interventional tasks were discussed with the patient and/or decision maker: yes The following portions of the patient's history were reviewed and updated as appropriate: allergies,current medications, family history, medical history, social history and problem list. yes Review of systems: pertinent ROS negative Mallampati: II - soft palate, uvula, fauces visible Heart: normal Lung: normal ASA physical exam: class 2 - patient with mild systemic disease Sedation plan: moderate sedation Patient seen, evaluated and approved for sedation Baseline Behavior: Psychosocial (WDL): Within Defined Limits Abdominal Exam: Abdomen Inspection: Soft Dental Information: Teeth: Intact documented in this encounter Plan of Treatment Not on filedocumented as of this encounter Procedures Procedure Name Priority Date/Time Associated Diagnosis Comme nts SURGICAL PATHOLOGY Routine 04/14/2018 8:21 AM Res ults for this CDT procedure are i n the results section. COLONOSCOPY Routine 04/14/2018 7:27 AM Cancer Rectum Results for this CDT Primary Personal procedure a re in History the results section. COLONOSCOPY Routine 04/14/2018 7:27 AM Cancer Rectum CDT Primary Personal History documented in this encounter Results (ABNORMAL) CEA (Carcinoembryonic Antigen) (04/14/2018 9:39 AM CDT) [facility] Method Time Signature Carcinoembryonic Ag 5.5 (H) ng/mL 04/14/2018 [facility] IC (CEA), S 2:01 PM CDT [facility] Comment: ----REFERENCE VALUE---- <=3.0 (Non-smokers) Some smokers may have elevated CEA, usually <5.0. ----ADDITIONAL INFORMATION---- The testing method is an immunoenzymatic assay manufactured by [employer] and performed on the [employer] DxI 800. ? Values obtained with different assay met hods or kits may be different and cannot be used inte rchangeably. ? Test results cannot be interpreted as ab solute evidence for the presence or absence of malignant disease. Specimen Anatomical Collection Method Collection Time Receive d Time (Source) Location / / Volume Laterality Blood (Blood, 04/14/2018 9:39 AM 04/14/20 18 1:08 Venous) CDT PM CDT Arlene Tripathi M.D. LAB BLOOD ADD-ON Performing Organization Address City/State/ZIP Code Phon e Number [facility] [address] [place], [place] [address] [facility] Surgical Pathology (04/14/2018 8:21 AM CDT) Component Value Ref Test Analysis Performed At Patholo gist Range Method Time Signature Gross Description A: ??Received in formalin labeled with the patien t's name, 04/15/2018 [facility] medical record number, and colon-transverse colon are tw o 4:55 PM CDT LABORATORIES - pale roberts-pink irregular soft tissues, 0.5 x 0.3 x 0.1 cm [facility] and 0.7 x 0.2 x 0.1 cm. Specimens are submitted en toto in CAMPUS cassette A1. Grossed by GEE. B: ??Received in formalin labeled with the patient's name, medical record number, and colon-rectum, trans anal scar are three pale roberts-pink irregular soft tissues, ranging from 0.2-0.4 cm in greatest dimension. Specimens are submitted en toto in cassette B1. Grossed by GEE. Report Aydin Franz M.D. [id number] 04/15/2018 [facility] electronically I verify that I have examined all relevant slides/ma terials 4:55 PM CDT LABORATORIES - signed by for the specimen(s) and rendered or confirmed the diagnosi s. [facility] 04/15/2018 [facility] 4:55 PM CDT LABORATORIES - [facility] Interpretation FINAL DIAGNOSIS 04/15/2018 [facility] A. Colon, Transverse, endoscopic biopsy: ??Serrated lesion 4:55 PM CDT LABORATORIES - with focal features suggestive of sessile serrated adenoma. [facility] B. Colon, Trans Anal Scar, Rectum, endoscopic biopsy: CAMPUS Colonic mucosa without diagnostic abnormality. ??Negative for malignancy. Specimen (Source) Anatomical Collection Method Collection Time Re ceived Time Location / / Volume Laterality Polyp (Colon) 04/14/2018 8:21 AM CDT Biopsy (Colon) 04/14/2018 8:35 AM CDT Narrative This result has an attachment that is no t available. Arlene Tripathi M.D. LAB SURG PATH ORDERABLES Performing Organization Address City/State/ZIP Code Phon e Number [facility]ATORIES - [address] [place], [place] [address] [facility] Colonoscopy (04/14/2018 7:27 AM CDT) Specimen (Source) Anatomical Collection Method Collection Time Re ceived Time Location / / Volume Laterality 04/14/2018 7:27 AM CDT Impressions [facility] - 04/14/2018 8:40 AM CDT Post-op Diagnoses: ? - One 3 mm polyp in the distal tr ansverse colon, removed with a cold ? biopsy forceps. Resected and retr ieved. ? - Post-polypectomy scar in the mi d rectum. Biopsied. ? - The examination was otherwise n ormal. Narrative [facility] - 04/14/2018 8:40 AM CDT [facility] 9 GI GI Patient Name: Conchita Solis Date of : 1965 Age: 52 Gender: Female Procedure Date: 04/14/2018 Procedure: ? Colonosc opy Providers: ? Arlene Tripathi MD Referring Provider: ?Arlene olivares MD Pre-op Diagnoses: ?High risk c olon cancer surveillance: Personal ? his tory of rectal cancer Recommendation: ? - Discharge patient to home ([facility]). ? - Resume regular diet today. ? - Continue present medications. ? - Await pathology results. ? - Follow up recommendations for p atients with polyps identified during ? colonoscopy are impacted by sever al factors including polyp ? characteristics (size, number and histology), adequacy of colonic ? preparation and pertinent family history. For [facility] providers, ? detailed recommendations are matilda magana [...] ? not at average risk. Findings: ? The perianal and digital rectal e xaminations were normal. ? A 3 mm polyp was found in the dis airam transverse colon. The polyp was ? sessile. The polyp was removed wi th a cold biopsy forceps. Resection and ? retrieval were complete. Estimate d blood loss was minimal. ? A 30 mm post polypectomy scar was found in the mid rectum. The scar ? tissue was healthy in appearance. This was biopsied with a cold forceps ? for histology. Estimated blood lo ss was minimal. ? The exam was otherwise without ab normality. Procedural Details: ? The patient was seen, [...] oxygen saturations ? were monitored continuously. The Colonoscope was introduced under direct ? vision through the anus and advan daren to the cecum, identified by the ? appendiceal orifice, IC valve and transillumination. The colonoscopy was ? performed without difficulty. The patient tolerated the procedure well. ? The quality of the bowel preparat ion was good. The ileocecal valve, ? appendiceal orifice, and rectum w ere photographed. Complications: ? No immedia te complications. Sedation: ? Moderate (conscious) sedation was administered by the endoscopy nurse ? and supervised by the endoscopist . The patient's oxygen saturation, ? heart rate, blood pressure and re sponse to care were monitored. Total ? physician intraservice time was 3 9 minutes. Attending Participation: I personally pe rformed the entire procedure. Arlene Tripathi MD 04/14/2018 8:40:16 AM This report has been signed electronical ly. Number of Addenda: 0 Arlene Tripathi M.D. GI PROCEDURE ORDERABLES Performing Organization Address City/State/ZIP Code Phon e Number [employer] documented in this encounter Visit Diagnoses Diagnosis Malignant Neoplasm Of Rectum (HCC) - [facility] Cancer Rectum Primary Personal History documented in this encounter Administered Medications Inactive Administered Medications - up to 3 most recent administrations Medication Order MAR Action Action Date Dose Rate Site fentaNYL injection (SUBLIMAZE) Given 04/14/2018 8:01 AM CDT 25 mcg intravenous, Code/trauma/sedation medication, Starting on Fri04/14/18 at 0758 Given 04/14/2018 7:58 AM CDT 50 mcg fentaNYL injection (SUBLIMAZE) Given 04/14/2018 8:10 AM CDT 25 mcg intravenous, Code/trauma/sedation medication, Starting on Fri04/14/18 at 0810 midazolam (PF) injection (VERSED) Given 04/14/2018 8:01 AM CDT 1 mg Code/trauma/sedation medication, Starting on Fri04/14/18 at 0758 Given 04/14/2018 7:58 AM CDT 3 mg midazolam (PF) injection (VERSED) Given 04/14/2018 8:10 AM CDT 1 mg Code/trauma/sedation medication, Starting on Fri04/14/18 at 0810 documented in this encounter
--- OUTSIDE RECORDS SUMMARY | 2022-04-30 11:48 | XMS_ITS | Encounter Summary ---
:1965 Author Organization [facility] Address [address] [place] [address] Care Team Providers Name Role Phone Unavailable Primary Care Provider Unavailable Reason for Referral Outpatient (Routine) - Closed Specialty Diagnoses / Procedures Referred By Contact Refer red To Contact Colon and Rectal Arlene Tripathi [facility] Asif Squires [address] [place] [address] Referral ID Status Reason Start Date Expiration Date Visits Requ ested Visits Authorized [id number] Closed 08/11/2018 08/11/2019 1 1 Scheduling Instructions YUMI with [employer] Outpatient (Routine) - Closed Specialty Diagnoses / Procedures Referred By Contact Refer red To Contact Diagnoses Malignant Neoplasm Of Rectum (HCC) Arlene Tripathi M.D. [facility] [facility] Procedures Flexible Sigmoidoscopy [address] [place] [address] Referral ID Status Reason Start Date Expiration Date Visits Requ ested Visits Authorized [id number] Closed 08/11/2018 08/11/2019 1 1 [employer] WE[employer]TER Encounter Details Date Type Department Care Team Description 08/11/2018 Orders Only Division of Colon and Gypsy Conner alignant Neoplasm Of Rectal Surgery in L, R.N. Rectum (HC C) (Primary [place], [place] Dx) [address] [place] [phone] Social History Tobacco Use Types Packs/Day Years [...] or relatives? How often do you attend orthodox or More than 4 times per year 12/08/2020 tenriism services? Do you belong to any clubs or Yes 12/08/2020 organizations such as orthodox groups, unions, fraternal or athletic groups, [...] CEA (Carcinoembryonic Antigen) (12/24/2018 9:42 AM CDT) [facility] gist Method Time Signature Carcinoembryonic Ag 6.3 (H) ng/mL 12/24/2018 (CEA), S 2:19 PM CDT Comment: ----REFERENCE VALUE---- <=3.0 (Non-smokers) Some smokers may have elevated CEA, usually <5.0. ----ADDITIONAL INFORMATION---- The testing method is an immunoenzymatic assay manufactured by [employer] and performed on the [employer] DxI 800. ? Values obtained with different [...] Organization Address City/State/ZIP Code Phon e Number [facility] [address] [place], [place] [address] [facility] documented in this encounter Visit Diagnoses Diagnosis Malignant Neoplasm Of Rectum (HCC) - Zarina herrera documented in this encounter
--- OUTSIDE RECORDS SUMMARY | 2022-04-30 11:48 | XMS_ITS | Encounter Summary ---
:1965 Author Organization [facility] Address [address] [place] [address] Care Team Providers Name Role Phone Unavailable Primary Care Provider Unavailable Encounter Details Date Type Department Care Team Description 12/24/2018 Hospital Encounter Department of Arlene Tripathi ant Neoplasm Laboratory Medicine Tavia Powers Of Rectum (HCC) and Pathology, [address] [place] [address], in [place], [place] [phone] [place] [address] [place], [place] (Work) [phone] Social History Tobacco Use Types Packs/Day Years [...] CEA (Carcinoembryonic Antigen) (12/24/2018 9:42 AM CDT) [facility] gist Method Time Signature Carcinoembryonic Ag 6.3 (H) ng/mL 12/24/2018 (CEA), S 2:19 PM CDT Comment: ----REFERENCE VALUE---- <=3.0 (Non-smokers) Some smokers may have elevated CEA, usually <5.0. ----ADDITIONAL INFORMATION---- The testing method is an immunoenzymatic assay manufactured by [employer] and performed on the [employer] DxI 800. ? Values obtained with different [...] Address City/State/ZIP Code Phon e Number [facility] [address] [place], [place] [address] [facility] documented in this encounter Visit Diagnoses Diagnosis Malignant Neoplasm Of Rectum (HCC) documented in this encounter
--- OUTSIDE RECORDS SUMMARY | 2022-04-30 11:48 | XMS_ITS | Encounter Summary ---
:1965 Author Organization [facility] Address [address] [place] [address] Care Team Providers Name Role Phone Unavailable Primary Care Provider Unavailable Reason for Visit Outpatient (Routine) - Closed Specialty Diagnoses / Procedures Referred By Contact Refer red To Contact Diagnoses Cancer Rectum Primary Personal History Arlene Tripathi M.D. [facility] Procedures Colonoscopy [address] [place] [phone] Referral ID Status Reason Start Date Expiration Date Visits Requ ested Visits Authorized [id number] Closed 11/01/2017 04/30/2018 1 1 Encounter Details Date Type Department Care Team Description 04/06/2018 Hospital Division of Arlene Tripathied (Cli nina: Encounter Gastroenterology in Tavia Powers Scheduling Error) [place], [place] [address] [facility] [address] [place] [phone] Social History Tobacco Use Types Packs/Day Years [...] or relatives? How often do you attend tenriism or More than 4 times per year 12/08/2020 mu-ism services? Do you belong to any clubs or Yes 12/08/2020 organizations such as tenriism groups, unions, fraternal or athletic groups, or [...] 19 (PRINIVIL,ZESTRIL) 10 mg mouth daily. tablet [id number] Do first portion of 1 box(es) 0 04/06/2018 10/0 08/2017 [id number] prep at 6 PM the (MOVIPREP) 100-7.5-2.691 evening before. gram per packet Second portion must be started 3 hrs before and finished 2 hrs prior to report time. documented as of this encounter Plan of Treatment Not on filedocumented as of this encounter Procedures Procedure Name Priority Date/Time Associated Diagnosis Comme nts COLONOSCOPY Routine 04/14/2018 7:27 AM CDT Cancer Rectum Prim obdulio Personal History documented in this encounter Visit Diagnoses Not on filedocumented in this encounter
--- OUTSIDE RECORDS SUMMARY | 2022-04-30 11:48 | XMS_ITS | Encounter Summary ---
:1965 Author Organization [facility] Address [address] [place] [address] Care Team Providers Name Role Phone Unavailable Primary Care Provider Unavailable Reason for Visit Outpatient (Routine) - Closed Specialty Diagnoses / Procedures Referred By Contact Refer red To Contact Colon and Rectal Arlene Tripathi [facility] Surgery M.D. [address] [place] [address] Referral ID Status Reason Start Date Expiration Date Visits Requ ested Visits Authorized [id number] Closed 06/18/2018 06/18/2019 1 1 Encounter Details Date Type Department Care Team Description 08/11/2018 Office Visit Division of Colon and Arlene Tripathi M alignant Neoplasm Of Rectal Surgery in M.D. Rectum (HCC) (Primary [place], [place] [address] [facility] Dx) [address] [place] [phone] Social History Tobacco Use Types Packs/Day Years [...] encounter Consult Notes Arlene Tripathi M.D. - 08/11/2018 3:30 PM CST SUBJECTIVE CHIEF COMPLAINT / REASON FOR VISIT Conchita Solis is a 52 y.o. female who presents for evaluation of T1 rectal cancer. HISTORY OF PRESENT ILLNESS Ms. Solis is here with her for follow-up. She underwent a transanal excision of a T1 presumed N0 rectal cancer in April 2017. Three months after that in approximately August 2017 we did her 1st endoscopy. This showed some scarring at the anastomosis which was biopsied and came back consistent with scar. She had another normal endoscopy in November of 2017. In December of 2017 she underwent a laparoscopic appendectomy by me combined with a Gyne procedure. And then in April of 2018 we did full colonoscopy with a completely normal rectum and no other concerns. She is here today for endoscopyfollow-up. She denies any new symptoms. Specifically, she denies any trouble with evacuation, constipation, rectal bleeding, etc. Her weight is stable. She did undergo her CT scans this morning. The following portions of the patient's history were reviewed and updated as appropriate: current medications, medical history, social history, surgical history and problem list. OBJECTIVE I reviewed the CT scans of the chest abdomen and pelvis. These fortunately show no signs of metastatic disease. She does have indeterminate nodules in the chest which are unchanged. Her CEA is pending. PHYSICAL EXAM Rectal exam is completely normal. See endoscopy report, but her transanal excision scar is also completely normal with no signs of recurrent disease. ASSESSMENT / PLAN #1 Hypertension #2 Malignant Neoplasm Of Rectum (HCC) #3 Leiomyoma (Fibroid) Uterus #4 Appendicitis #5 Post Operative Nausea/Vomiting Ms. Solis , her and I discussed the findings. I gave her the excellent news that everything looks great. I will let her know what the CEA is she has that final report. We will plan to bring her back in approximately 4 months in November of 2017 for another flexible sigmoidoscopy and CEA. We will then bring her back and additional 4 months which will be approximately her for 2 year corina. At that time we will do the CEA, flexible sigmoidoscopy, and serial imaging with CT scans. She is comfortable with this plan. I spent 20 min with the patient, greater than 50% was counseling. AN SALES CONSULTANT documented in this encounter Plan of Treatment Not on filedocumented as of this encounter Visit Diagnoses Diagnosis Malignant Neoplasm Of Rectum (HCC) - Zarina herrera documented in this encounter
--- OUTSIDE RECORDS SUMMARY | 2022-04-30 11:48 | XMS_ITS | Encounter Summary ---
:1965 Author Organization [facility] Address [address] [place] [address] Care Team Providers Name Role Phone Unavailable Primary Care Provider Unavailable Reason for Referral MRI/CAT/PET Scan (Routine) - Closed Specialty Diagnoses / Procedures Referred By Contact Refer red To Contact Radiology Diagnoses Malignant Neoplasm Of Rectosigmoid (HCC) Arlene Tripathi M.D. [facility] Procedures CT Abdomen Pelvis with IV Contrast MI CT ABD&PELVIS W CNTRST HC CT ABD&PELVIS W CNTRST MI CT ABD&PELVIS W CNTRST [address] [place] [address] Referral ID Status Reason Start Date Expiration Date Visits Requ ested Visits Authorized [id number] Closed 06/18/2018 06/18/2019 1 1 AL CIRCUIT DESIGNER Reason for Visit MRI/CAT/PET Scan (Routine) - Closed Specialty Diagnoses / Procedures Referred By Contact Refer red To Contact Radiology Diagnoses Malignant Neoplasm Of Rectosigmoid (HCC) Arlene Tripathi M.D. [facility] Procedures CT Abdomen Pelvis with IV Contrast MI CT ABD&PELVIS W CNTRST HC CT ABD&PELVIS W CNTRST MI CT ABD&PELVIS W CNTRST [address] [place] [address] Referral ID Status Reason Start Date Expiration Date Visits Requ ested Visits Authorized [id number] Closed 06/18/2018 06/18/2019 1 1 Encounter Details Date Type Department Care Team Description 08/11/2018 Hospital Encounter Department of Tripathi, Arlene Malign ant Neoplasm Of Rectosigmoid (HCC); Radiology, Jerry Powers M.D. [facility] Solitary Building, in [address] [facility] [address] 200 [facility] [phone] [place], [place] (Work) [phone] Social History Tobacco Use Types Packs/Day Years [...] or relatives? How often do you attend jew or More than 4 times per year 12/08/2020 faith services? Do you belong to any clubs or Yes 12/08/2020 organizations such as jew groups, unions, fraternal or athletic groups, or [...] - - Height 162.6 cm (5' 4) 08/11/2018 9:44 AM SIGNAL CIRCUIT DESIGNER Body Mass Index - - documented in [...] Diagnosis CT ABDOMEN PELVIS RAD - Routine 08/11/2018 10:16 Malignant Neoplasm Results for this WITH IV CONTRAST (most inpatients AM SIGNAL CIRCUIT DESIGNER Of Rectosigmoid proc edure are in and all (HCC) the results outpatients) section. CT CHEST WITH IV RAD - Routine 08/11/2018 10:16 N[facility] Pulmonary Re sults for this CONTRAST (most inpatients AM SIGNAL CIRCUIT DESIGNER Solitary procedure a re in and all the results outpatients) section. documented in this encounter Results CT Chest with IV Contrast (08/11/2018 10:16 AM SIGNAL CIRCUIT DESIGNER) Anatomical Region Laterality Modality Chest, Thoracic RST LOS, Thoracic ARZ LOS, Thoracic N/A Computed Tomography ARZ LOS, Thoracic FLA LOS Specimen (Source) Anatomical Collection Method Collection Time Re ceived Time Location / / Volume Laterality 08/11/2018 11:47 AM SIGNAL CIRCUIT DESIGNER Impressions 08/11/2018 12:01 PM SIGNAL CIRCUIT DESIGNER IMPRESSION: No significant interval change in chest CT from 12/04/2017 to include indeterminate small pulmonary no dules and T1 vertebral body focal sclerosis. Narrative 08/11/2018 12:01 PM SIGNAL CIRCUIT DESIGNER EXAM: CT CHEST WITH IV CONTRAST No 3D post-processing performed. COMPARISON: 12/04/2017. FINDINGS: Mild increased dependent atele ctasis partially obscures the previously noted posterior left lower lobe 2 mm nod ule (series 2/image 199), although appears otherwise unchanged. Additional small peripheral pulmonary nodules appear unchanged, for instance posterior lingular 2 mm nodule (2/159), left lower lobe 3 mm nodules (2/111 and 177) and right lower lobe 2 mm nodule (2/183). Similar lymph node along the an terior horizontal fissure. No new pulmonary nodule or mass. Mild biapical scarring. No new thoracic lymphadenopathy by size criteria. Mild subcentimeter nodularity of the thyroid appears unchanged. Focal sclerosis in the T1 vertebral body (2/18) is similar compared to 05/02/2017 . Mild degenerative changes of the thoracic spine. Thank you for this consultation. This examination was performed in conjun ction with a CT of the abdomen, which will be reported separately. Procedure Note Eusebio Lilly M.D. - 08/11/2018Forma tting of this note might be different from the original. EXAM: CT CHEST WITH IV CONTRAST No 3D post-processing performed. COMPARISON: 12/04/2017. FINDINGS: Mild increased dependent atele ctasis partially obscures the previously noted posterior left lower lobe 2 mm nod ule (series 2/image 199), although appears otherwise unchanged. Additional small peripheral pulmonary nodules appear unchanged, for instance posterior lingular 2 mm nodule (2/159), left lower lobe 3 mm nodules (2/111 and 177) and right lower lobe 2 mm nodule (2/183). Similar lymph node along the an terior horizontal fissure. No new pulmonary nodule or mass. Mild biapical scarring. No new thoracic lymphadenopathy by size criteria. Mild subcentimeter nodularity of the thyroid appears unchanged. Focal sclerosis in the T1 vertebral body (2/18) is similar compared to 05/02/2017 . Mild degenerative changes of the thoracic spine. Thank you for this consultation. This examination was performed in conjun ction with a CT of the abdomen, which will be reported separately. IMPRESSION: No significant interval ro ge in chest CT from 12/04/2017 to include indeterminate small pulmonary no dules and T1 vertebral body focal sclerosis. Arlene DYSON CT PROCEDURES CT Abdomen Pelvis with IV Contrast (08/11/2018 10:16 AM SIGNAL CIRCUIT DESIGNER) Anatomical Region Laterality Modality Abdomen, Pelvis, Abdominal RST LOS, Abdominal ARZ LOS, N/A Computed Tomography Abdominal FLA LOS Specimen (Source) Anatomical Collection Method Collection Time Re ceived Time Location / / Volume Laterality 08/11/2018 10:42 AM SIGNAL CIRCUIT DESIGNER Impressions 08/11/2018 11:52 AM SIGNAL CIRCUIT DESIGNER IMPRESSION: ??No evidence of metastatic colorectal cancer in the abdomen/pelvis. Narrative 08/11/2018 11:52 AM SIGNAL CIRCUIT DESIGNER EXAM: ??CT ABDOMEN PELVIS WITH IV CONTRAST. This examination was performed in conjunction with a CT of the chest, whic h will be reported separately. COMPARISON: ??CT abdomen/pelvis with IV contrast 12/04/2017 FINDINGS: Interval appendectomy, hystere ctomy, and bilateral salpingectomy (12/25/2017). No change small fatty umbil ical hernia. Degenerative disk disease at the lumbosacral junction. Abdomen and pelvis are otherwise unremarkable. Procedure Note Bigg Gandara M.D. - 08/11/2018Formatt ing of this note might be different from the original. EXAM: CT ABDOMEN PELVIS WITH IV CONTRAST . This examination was performed in conjunction with a CT of the chest, whic h will be reported separately. COMPARISON: CT abdomen/pelvis with IV co ntrast 12/04/2017 FINDINGS: Interval appendectomy, hystere ctomy, and bilateral salpingectomy (12/25/2017). No change small fatty umbil ical hernia. Degenerative disk disease at the lumbosacral junction. Abdomen and pelvis are otherwise unremarkable. IMPRESSION: No evidence of metastatic co lorectal cancer in the abdomen/pelvis. Arlene Tripathi M.D. IMG CT PROCEDURES documented in this encounter Visit Diagnoses Diagnosis Malignant Neoplasm Of Rectosigmoid (HCC) [facility] Solitary documented in this encounter Administered Medications Inactive Administered Medications - up to 3 most recent administrations Medication Order MAR Action Action Date Dose Rate Site iohexol 300 mg iodine/mL solution Given 08/11/2018 10:17 AM SIGNAL CIRCUIT DESIGNER 140 mL 1-200 mL (OMNIPAQUE) 1-200 mL, intravenous, Once in imaging, contrast, Starting on Fri08/11/18 at 0940, For 1 dose, Imaging Protocol Orders, Dose per Radiant Medication Guidelines sodium chloride 0.9 % flush 50 mL Given 08/11/2018 10:17 AM SIGNAL CIRCUIT DESIGNER 50 mL 50 mL, intravenous, Once, On Fri08/11/18 at 1000, For 1 dose sodium chloride 0.9 % injection 2.5 mL Given 08/11/2018 10:21 AM SIGNAL CIRCUIT DESIGNER 2.5 mL 2.5 mL, intravenous, Once, On Fri08/11/18 at 1000, For 1 dose documented in this encounter
--- OUTSIDE RECORDS SUMMARY | 2022-04-30 11:48 | XMS_ITS | Encounter Summary ---
:1965 Author Organization [facility] Address [address] [place] [address] Care Team Providers Name Role Phone Unavailable [...] place to sleep or slept in a jail (including now)? Sex Assigned at Date Recorded Female 12/15/2017 11:22 AM CDT documented as of this encounter Plan of Treatment Not on filedocumented as of this encounter Procedures Procedure Name Priority Date/Time Associated Diagnosis Comme nts COLON AND RECTAL Routine 08/11/2018 2:30 PM Resul ts for this SURGERY IMAGE EXAM PREDATORY ANIMAL TRAPPER procedure are in the results section. documented in this encounter Results COLON AND RECTAL SURGERY IMAGE EXAM (08/11/2018 2:30 PM PREDATORY ANIMAL TRAPPER) Specimen (Source) Anatomical Collection Method Collection Time Re ceived Time Location / / Volume Laterality 08/11/2018 2:29 PM PREDATORY ANIMAL TRAPPER Narrative [facility] - 08/11/2018 5:25 PM PREDATORY ANIMAL TRAPPER This order has been created and auto-finalized [...]
--- OUTSIDE RECORDS SUMMARY | 2022-04-30 11:48 | XMS_ITS | Encounter Summary ---
:1965 Author Organization [facility] Address [address] [place] [address] Care Team Providers Name Role Phone Unavailable Primary Care Provider Unavailable Encounter Details Date Type Department Care Team Description 08/11/2018 Hospital Encounter Department of Arlene Tripathi Malign ant Neoplasm Of Rectosigmoid (HCC); Laboratory Medicine Tavia Powers [facility] Multiple and Pathology, [address] [place] [address], in [place] [phone] [place] [phone] [place] [address] (Work) [place], [place] [phone] (Fax) [phone] Social History Tobacco Use Types Packs/Day Years [...] place to sleep or slept in a snf (including now)? Sex Assigned at Date Recorded [...] Date/Time Associated Comments Diagnosis CARCINOEMBRYONIC AG Routine 08/11/2018 10:57 Malignant Neoplas m Results for this (CEA), S AM COMBINATION TECHNICIAN Of Rectosigmoid procedure ar e in (HCC) the results Nodules Pulmonary section. Multiple documented in this encounter Results (ABNORMAL) CEA (Carcinoembryonic Antigen) (08/11/2018 10:57 AM COMBINATION TECHNICIAN) [facility] gist Method Time Signature Carcinoembryonic Ag 5.7 (H) ng/mL 08/11/2018 [facility] (CEA), S 5:21 PM COMBINATION TECHNICIAN [facility] Comment: ----REFERENCE VALUE---- <=3.0 (Non-smokers) Some smokers may have elevated CEA, usually <5.0. ----ADDITIONAL INFORMATION---- The testing method is an immunoenzymatic assay manufactured by [employer] and performed on the [employer] DxI 800. ? Values obtained with different assay met hods or kits may be different and cannot be used inte rchangeably. ? Test results cannot be interpreted as ab solute evidence for the presence or absence of malignant disease. Specimen Anatomical Collection Method Collection Time Receive d Time (Source) Location / / Volume Laterality Blood (Blood, 08/11/2018 10:57 08/11/2018 3:28 Venous) AM COMBINATION TECHNICIAN PM COMBINATION TECHNICIAN Arlene Tripathi M.D. LAB BLOOD ADD-ON Performing Organization Address City/State/ZIP Code Phon e Number [facility] [address] [address] [address] [place], [place] [address] [facility] documented in this encounter Visit Diagnoses Diagnosis Malignant Neoplasm Of Rectosigmoid (HCC) [facility] Multiple documented in this encounter
--- OUTSIDE RECORDS SUMMARY | 2022-04-30 11:48 | XMS_ITS | Encounter Summary ---
:1965 Author Organization [facility] Address [address] [place] [address] Care Team Providers Name Role Phone Unavailable Primary Care Provider Unavailable Reason for Referral Outpatient (Routine) - Closed Specialty Diagnoses / Procedures Referred By Contact Refer red To Contact Diagnoses Malignant Neoplasm Of Rectum (HCC) Arlene Tripathi M.D. [facility] Procedures Flexible Sigmoidoscopy [address] [place] [address] [phone] Referral ID Status Reason Start Date Expiration Date Visits Requ ested Visits Authorized [id number] Closed 08/11/2018 08/11/2019 1 1 Reason for Visit Outpatient (Routine) - Closed Specialty Diagnoses / Procedures Referred By Contact Refer red To Contact Diagnoses Malignant Neoplasm Of Rectum (HCC) Alrene Tripathi M.D. [facility] Procedures Flexible Sigmoidoscopy [address] [place] [address] [phone] Referral ID Status Reason Start Date Expiration Date Visits Requ ested Visits Authorized [id number] Closed 08/11/2018 08/11/2019 1 1 Encounter Details Date Type Department Care Team Description 12/24/2018 Hospital Encounter Division of Colon Arlene Tripathi Ma lignant Neoplasm and Rectal Surgery Tavia Powers Of Rectum (HCC) in [place], [facility] [address] [place], [place] [address] [facility] [address] [place], [place] [phone] [address] (Work) [phone] Social History Tobacco Use Types Packs/Day Years [...] or relatives? How often do you attend buddhist or More than 4 times per year 12/08/2020 anglican services? Do you belong to any clubs or Yes 12/08/2020 organizations such as buddhist groups, unions, fraternal or athletic groups, or [...] Volume Laterality 12/24/2018 8:20 AM CDT Impressions [facility] - 12/24/2018 6:11 PM CDT Post-op Diagnoses: ? - Post-polypectomy scar in the mi d rectum. ? - No specimens collected. Narrative [facility] - 12/24/2018 6:11 PM CDT Gonda 9 [...]
--- OUTSIDE RECORDS SUMMARY | 2022-04-30 11:48 | XMS_ITS | Encounter Summary ---
:1965 Author Organization [facility] Address [address] [place] [address] Care Team Providers Name Role Phone Unavailable Primary Care Provider Unavailable Reason for Referral Outpatient (Routine) - Closed Specialty Diagnoses / Procedures Referred By Contact Refer red To Contact Diagnoses Malignant Neoplasm Of Rectosigmoid (HCC) Arlene Tripathi M.D. [facility] Procedures Flexible Sigmoidoscopy [address] [place] [phone] Referral ID Status Reason Start Date Expiration Date Visits Requ ested Visits Authorized [id number] Closed 06/18/2018 06/18/2019 1 1 NICAL ADMINISTRATIVE ASSISTANT MRI/CAT/PET Scan (Routine) - Closed Specialty Diagnoses / Procedures Referred By Contact Refer red To Contact Radiology Diagnoses Malignant Neoplasm Of Rectosigmoid (HCC) Arlene Tripathi M.D. [place] Procedures CT Abdomen Pelvis with IV Contrast VT CT ABD&PELVIS W CNTRST HC CT ABD&PELVIS W CNTRST VT CT ABD&PELVIS W CNTRST [address] [place] [phone] Referral ID Status Reason Start Date Expiration Date Visits Requ ested Visits Authorized [id number] Closed 06/18/2018 06/18/2019 1 1 NICAL ADMINISTRATIVE ASSISTANT Outpatient (Routine) - Closed Specialty Diagnoses / Procedures Referred By Contact Refer red To Contact Colon and Rectal Arlene Tripathi, [facility] Asif Squires [address] [place] [address] Referral ID Status Reason Start Date Expiration Date Visits Requ ested Visits Authorized [id number] Closed 06/18/2018 06/18/2019 1 1 Scheduling Instructions Priyanka NICAL ADMINISTRATIVE ASSISTANT Encounter Details Date Type Department Care Team Description 06/18/2018 Orders Only Division of Colon and Gypsy Conner alignant Neoplasm Of Rectosigmoid (HCC) (Primary Dx); Rectal Surgery in [place], R[place]. Nodule Pul monary Solitary; [place], [place] Nodules Pulmonary Multiple [address] [place] [address] Social History Tobacco Use Types Packs/Day Years [...] Name Type Priority Associated Order Schedule Diagnoses Colon and Rectal Outpatient Referral Routine 1 Oc currences Surgery office starting 12/2017 visit (clinic) until 021 documented as of this encounter Results (ABNORMAL) CEA (Carcinoembryonic Antigen) (08/11/2018 10:57 AM TECHNICAL ADMINISTRATIVE ASSISTANT) [facility] Method Time Signature Carcinoembryonic Ag 5.7 (H) ng/mL 08/11/2018 [facility] (CEA), S 5:21 PM TECHNICAL ADMINISTRATIVE ASSISTANT [facility] Comment: ----REFERENCE VALUE---- <=3.0 (Non-smokers) Some smokers may have elevated CEA, usually <5.0. ----ADDITIONAL INFORMATION---- The testing method is an immunoenzymatic assay manufactured by [employer] and performed on the [employer] DxI 800. ? Values obtained with different assay met hods or kits may be different and cannot be used inte rchangeably. ? Test results cannot be interpreted as ab solute evidence for the presence or absence of malignant disease. Specimen Anatomical Collection Method Collection Time Receive d Time (Source) Location / / Volume Laterality Blood (Blood, 08/11/2018 10:57 08/11/2018 3:28 Venous) AM TECHNICAL ADMINISTRATIVE ASSISTANT PM TECHNICAL ADMINISTRATIVE ASSISTANT Arlene Tripathi M.D. LAB BLOOD ADD-ON Performing Organization Address City/State/ZIP Code Phon e Number [facility] [address] [place] [address] Abdomen Pelvis with IV Contrast (08/11/2018 10:16 AM TECHNICAL ADMINISTRATIVE ASSISTANT) Anatomical Region Laterality Modality Abdomen, Pelvis, Abdominal RST LOS, Abdominal ARZ LOS, N/A Computed Tomography Abdominal FLA LOS Specimen (Source) Anatomical Collection Method Collection Time Re ceived Time Location / / Volume Laterality 08/11/2018 10:42 AM TECHNICAL ADMINISTRATIVE ASSISTANT Impressions 08/11/2018 11:52 AM TECHNICAL ADMINISTRATIVE ASSISTANT IMPRESSION: ??No evidence of metastatic colorectal cancer in the abdomen/pelvis. Narrative 08/11/2018 11:52 AM TECHNICAL ADMINISTRATIVE ASSISTANT EXAM: ??CT ABDOMEN PELVIS WITH IV CONTRAST. [...] co lorectal cancer in the abdomen/pelvis. Arlene DYSON CT PROCEDURES documented in this encounter Visit Diagnoses Diagnosis Malignant Neoplasm Of Rectosigmoid (HCC) - Primary N[facility] Pulmonary Solitary Nodules Pulmonary Multiple Malignant Neoplasm Of Rectosigmoid (HCC) [facility] Solitary documented in this encounter
--- OUTSIDE RECORDS SUMMARY | 2022-04-30 11:48 | XMS_ITS | Encounter Summary ---
:[address] 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 [facility] Procedures MR Pelvis without and with IV Contrast IN MRI PELVIS WO/W CNTRST HC MRI PELVIS WO/W CNTRST IN MRI PELVIS WO/W CNTRST [address] [place] [address] Referral ID Status Reason Start Date Expiration Date Visits Requ ested Visits Authorized [id number] Closed 12/10/2018 01/10/2019 1 1 MRI/CAT/PET Scan (Routine) - Closed Specialty Diagnoses / Procedures Referred By Contact Refer red To Contact Radiology Diagnoses Malignant Neoplasm Of Rectosigmoid (HCC) Arlene Tripathi M.D. [facility] [facility] Procedures CT Abdomen Pelvis with IV Contrast IN CT ABD&PELVIS W CNTRST HC CT ABD&PELVIS W CNTRST IN CT ABD&PELVIS W CNTRST [address] [place] [address] Referral ID Status Reason Start Date Expiration Date Visits Requ ested Visits Authorized [id number] Closed 12/24/2018 12/24/2019 1 1 MRI/CAT/PET Scan (Routine) - Closed Specialty Diagnoses / Procedures Referred By Contact Refer red To Contact Radiology Diagnoses Malignant Neoplasm Of Rectosigmoid (HCC) Arlene Tripathi M.D. [facility] Procedures CT Chest with IV Contrast IN CT THORAX W CNTRST HC CT THORAX W CNTRST IN CT THORAX W CNTRST [address] [place] [phone] Referral ID Status Reason Start Date Expiration Date Visits Requ ested Visits Authorized [id number] Closed 12/10/2018 01/10/2019 1 1 Encounter Details Date Type Department Care Team Description 12/24/2018 Orders Only Division of Colon and Gypsy Conner alignant Neoplasm Of Rectosigmoid (HCC); Rectal Surgery in [place], R.N. 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 Do you belong to any clubs [...] hypointense lesion in the left posterior acetabulum (5) is unchanged from 05/20/2017. Remainder unr emarkable. [...] hypointense lesion in the left posterior acetabulum (5/21) is unchanged from 05/20/2017. Remainder unr emarkable. [...]
--- OUTSIDE RECORDS SUMMARY | 2022-04-30 11:48 | XMS_ITS | Encounter Summary ---
:1965 Author Organization [facility] Address [address] [place] [address] Care Team Providers Name Role Phone Unavailable Primary Care Provider Unavailable Encounter Details Date Type Department Care Team Description 06/18/2018 Clinical Communication Division of Colon and Dolly Tripathi, Rectal Surgery in [place], [place] [address] [facility] [address] [place] [phone] Social History Tobacco Use Types Packs/Day Years [...] this encounter Miscellaneous Notes Telephone Encounter - Gypsy Conner R.N. - 06/18/2018 12:43 PM COMMERCIAL DESIGNER See orders for Jul 2018 with Deuce ERCIAL DESIGNER Telephone Encounter - Edith Brannon - 06/18/2018 8:55 AM CST Patient is requesting a sigmoidoscopy, ct and blood for every 3months, Had surgery with Dr. Tripathi April 2017. Patient is requesting these done in July ERCIAL DESIGNER documented in this encounter Plan of Treatment Not on filedocumented as of this encounter Visit Diagnoses Not on filedocumented in this encounter
--- OUTSIDE RECORDS SUMMARY | 2022-04-30 11:48 | XMS_ITS | Encounter Summary ---
:1965 Author Organization [facility] Address [address] [place] [address] Care Team Providers Name Role Phone Unavailable Primary Care Provider Unavailable Encounter Details Date Type Department Care Team Description 12/30/2017 Clinical Communication Department of Kym Martin Obstetrics and RMaxim. Gynecology in [address] [place] [address] [place] [phone] [place], [place] [phone] (Work) [phone] Social History Tobacco Use Types Packs/Day Years [...] many times do you More than three roi es a week 12/08/2020 talk on the phone with family, friends, or neighbors? How often do you get together with friends Twice a week 12/08/2020 or relatives? How often do you attend mu-ism or More than 4 times per year 12/08/2020 zoroastrian services? Do you belong to any clubs [...] this encounter Miscellaneous Notes Telephone Encounter - Norma Gould M.D. - 12/30/2017 5:43 PM CDT I contacted Ms. Solis after learning about her discussion with our nurse, Kym Martin. The patient reports 3-4 episodes of diarrhea that initially began last night after taking milk of magnesia. She also took 1 dose of Colace this morning. Her stools are predominantly watery although there are some formed elements. She has not had a normal appetite since surgery, but reports that this is stable today. She maintains adequate hydration. She denies fevers, chills, nausea or vomiting. She denies worsening abdominal pain, although her oxycodone was refilled today for what she describes as normal postoperative pain. This type of pain has continued to improve since surgery, but she does intermittently experience sharp gas pain when having a bowel movement. I explained that since this seems to be incited by laxative use and she has no concerning signs for an infection or bowel leak, we can continueto monitor. I suggested she stop use of all laxatives and stool softeners at this time. She will update us if she continues to have persistent watery stools throughout the day tomorrow. If that is the case, we can evaluate her and consider stool testing. If her symptoms worsen or she develops infectious signs, she will need to be seen urgently. She voiced understanding and agreement with this plan. Telephone Encounter - Veronica, Kym Trejo RMaxim. - 12/30/2017 5:10 PM CDT Conchita calls this evening with an update. She reports that yesterday evening at about 830 she began tohave diarrhea. The diarrhea has continued to through today. She reports that she has had about 3 episodes of diarrhea today immediately preceded by a sharp crampy abdominal pain. She rates the pain as 6 to 7/10 and describes it as similar to gas pain. She also experiences some diaphoresis during bowel movements. Her stools are watery in consistency with occasional soft stool. Today she has taken 100 mg of Colace but no other bowel medications. She does not have a crampy painat any other time other than just prior to and during bowel movements. She states that for the rest of the day she has had just normal postoperative pain. Note: her daughter was able to fish bait picker the prescription for additional oxycodone but we left her at the [facility] admissions test today. Conchita valdez has not developed any other new symptoms such as nausea vomiting and she is still able to eat small amounts of solid food. Conchita wonders if she needs evaluation at this time or if her symptoms are likely just her bowels continuing to try to normalize. I will update Dr. Mckay his team on her symptoms and make sure that theydo not have any additional concerns at this time, given her recent history of appendectomy and subacute appendicitis. I will ask them to call her with recommendations yet this evening. I reviewed with the said that even if they recommend continued watchful monitoring, she should go to her local ER ([place]) if she develops a fever nausea vomiting or significant increase in abdominal pain. This is comfortable with this plan and will await further recommendations. documented in this encounter Plan of Treatment Not on filedocumented as of this encounter Visit Diagnoses Not on filedocumented in this encounter
--- OUTSIDE RECORDS SUMMARY | 2022-04-30 11:48 | XMS_ITS | Encounter Summary ---
:1965 Author Organization [facility] Address [address] [place] [address] Care Team Providers Name Role Phone Unavailable Primary Care Provider Unavailable Encounter Details Date Type Department Care Team Description 04/14/2018 Ancillary Procedure Department of Gastroenterology Social History [...] Date/Time Associated Comments Diagnosis GASTROENTEROLOGY IMAGE Routine 04/14/2018 7:30 Re sults for this EXAM AM CDT procedure are i n the results section. documented in this encounter Results GASTROENTEROLOGY IMAGE EXAM (04/14/2018 7:30 AM CDT) Specimen (Source) Anatomical Collection Method Collection Time Re ceived Time Location / / Volume Laterality 04/14/2018 7:27 AM CDT Narrative [facility] - 04/14/2018 8:46 AM CDT This order has been created [...]
--- OUTSIDE RECORDS SUMMARY | 2022-04-30 11:48 | XMS_ITS | Encounter Summary ---
:1965 Author Organization [facility] Address [address] [place] [address] Care Team Providers Name Role Phone Unavailable Primary Care Provider Unavailable Encounter Details Date Type Department Care Team Description 01/02/2018 Documentation Department of Obstetrics Sammie Parr, and Gynecology in [place], [place] [address] [facility] [address] [place] [phone] Social History Tobacco Use Types Packs/Day Years [...] AM CDT documented as of this encounter Progress Notes Sammie Parr, RSinnaN. - 01/02/2018 4:14 PM CDT Entered in error. documented in this encounter Plan of Treatment Not on filedocumented as of this encounter Visit Diagnoses Not on filedocumented in this encounter
--- OUTSIDE RECORDS SUMMARY | 2022-04-30 11:48 | XMS_ITS | Encounter Summary ---
:[address] [facility] Address [address] [place] [address] Care Team Providers Name Role Phone Unavailable Primary Care Provider Unavailable Reason for Visit Outpatient (Routine) - Closed Specialty Diagnoses / Procedures Referred By Contact Refer red To Contact Obstetrics and Sumaya Robert M.D. [facility] Gynecology [address] [place] [phone] Referral ID Status Reason Start Date Expiration Date Visits Requ ested Visits Authorized [id number] Closed 12/25/2017 12/25/2018 1 1 Encounter Details Date Type Department Care Team Description 02/05/2018 Office Visit Department of Luigi Molina, Follow Up Examination Obstetrics and P.A.-C. Status Post Surgery Gynecology in [address] [place] [address] (Primary Dx) [place], [place] [address] [place] [phone] [place], [place] [phone] (Work) [phone] Social History Tobacco Use Types Packs/Day Years [...] or relatives? How often do you attend taoist or More than 4 times per year 12/08/2020 baptist services? Do you belong to any clubs or Yes 12/08/2020 organizations such as taoist groups, unions, fraternal or athletic groups, or [...] or slept in a [facility] (including now)? Sex Assigned at Date Recorded Female 12/15/2017 11:22 AM CDT documented as of this encounter Progress Notes Luigi Molina P.A.-C. - 02/05/2018 11:00 AM CDT Subjective Conchita Solis is a 52 y.o. year old patient who is 6 weeks status post robotic hysterectomy, bilateral salpingo-oophorectomy and appendectomy for benign uterine fibroids with Dr. Mckay and Dr. Tirpathi. Final pathology from surgery showed 6 fibroids and subacute appendicitis. Patient did notice some gas discomfort and deeper abdominal discomfort following surgery. This has continued to improve. She did wake up last night with a bad dream and woke up suddenly with right upper quadrant discomfort. She still has some tenderness in this region She last took Tylenol with few weeks ago. She has been back to work and feels that this is going well. She reports that her energy level has returned to her baseline. Patient reports that her bladder and bowel are functioning well. She did have some brown vaginal discharge right after surgery and had a temperature. She was evaluated at this time and was notfound to have an infection. Culture showed normal jose. Patient reports that the vaginal discharge has since resolved. Objective There were no vitals taken for this visit. General: No acute distress Abdomen: Soft, non-tender, non-distended. Incision Incision edges are well approximated and without any erythema or drainage. Some roughness near right-sided scars but no visibly exposed suture. With Valsalva, no evidence of herniation. Pelvic External genitalia appears normal. A regular sized speculum was used to visualize the vaginalvault. Vaginal incision appears to be healing well and is without discharge, granulation tissue or separation. Bimanual examination confirms an intact vaginal apex. There was an area of puckering alongher mid anterior vaginal wall. I re-examined this with a speculum and did not see any concerns in this region. Examination was assisted by Monica Romano. Assessment #1 Follow Up Examination Status Post Surgery Patient appears to be doing well overall. Plan Patient may slowly return back to normal lifting and exercise activities at this time. She may return to sexual activity when she is 9 weeks out from surgery. If she would experience any vaginal bleeding after another three weeks or concerns with sexual activity, she should let us know. Patient did not have routine Pap smears throughout her life. There was a 20 year span that she did not have Pap smears prior to last year. She has smoked a small amount of cigarettes throughout her adult life and does continue to smoke one cigarette daily. For this reason, I let her know not be unreasonable to continue with Pap smears. She should continue to have pelvic examinations with primary careprovider as she does retain her ovaries. Patient should continue to followed for preventative care with her primary care provider. documented in this encounter Plan of Treatment Not on filedocumented as of this encounter Visit Diagnoses Diagnosis Follow Up Examination Status Post Surger y - Primary documented in this encounter
--- OUTSIDE RECORDS SUMMARY | 2022-04-30 11:48 | XMS_ITS | Encounter Summary ---
:1965 Author Organization [facility] Address [address] [place] [address] Care Team Providers Name Role Phone Unavailable Primary Care Provider Unavailable Reason for Visit Outpatient (Routine) - Closed Specialty Diagnoses / Procedures Referred By Contact Refer red To Contact Colon and Rectal Arlene Tripathi [facility] Surgery M.D. [address] [place] [address] Referral ID Status Reason Start Date Expiration Date Visits Requ ested Visits Authorized [id number] Closed 08/11/2018 08/11/2019 1 1 Encounter Details Date Type Department Care Team Description 12/24/2018 Office Visit Division of Colon and Arlene Tripathi M alignant Neoplasm Of Rectal Surgery in M.D. Rectum (HCC) (Primary [place], [place] [address] [facility] Dx) [address] [place] [phone] [phone] Social History Tobacco Use Types Packs/Day Years [...]
--- OUTSIDE RECORDS SUMMARY | 2022-04-30 11:49 | XMS_ITS | Encounter Summary ---
:1965 Author Organization [facility] Address [address] [place] [address] Care Team Providers Name Role Phone Unavailable Primary Care Provider Unavailable Encounter Details Date Type Department Care Team Description 12/29/2017 Orders Only Department of Obstetrics Virgilio Sal M.D. and Gynecology in [address] [place] [address] [address] [facility] [place], [place] [phone] Social History Tobacco Use Types Packs/Day Years [...]
--- OUTSIDE RECORDS SUMMARY | 2022-04-30 11:49 | XMS_ITS | Encounter Summary ---
:1965 Author Organization [facility] Address [address] [place] [address] Care Team Providers Name Role Phone Unavailable Primary Care Provider Unavailable Encounter Details Date Type Department Care Team Description 05/27/2017 Hospital Encounter HX RST CRS FLOOR Arlene Tripathi, PRACTICE M.DSinan [address] [place] [address] (Wo rk) Social History Tobacco Use Types [...] or relatives? How often do you attend rastafari or More than 4 times per year 12/08/2020 samaritan services? Do you belong to any clubs or Yes 12/08/2020 organizations such as rastafari groups, unions, fraternal or athletic groups, or [...] slept in a care home (including now)? Sex Assigned at Date [...]
--- OUTSIDE RECORDS SUMMARY | 2022-04-30 11:49 | XMS_ITS | Encounter Summary ---
:1965 Author Organization [facility] Address [address] [place] [address] Care Team Providers Name Role Phone Unavailable Primary Care Provider Unavailable Encounter Details Date Type Department Care Team Description 12/18/2017 Clinical Communication Department of Kym Martin Obstetrics and RSinanN. Gynecology in [address] [place] [address] [place] [address] [place], [place] [phone] (Work) [phone] Social History Tobacco Use Types Packs/Day Years [...] or relatives? How often do you attend confucianist or More than 4 times per year 12/08/2020 spiritism services? Do you belong to any clubs or Yes 12/08/2020 organizations such as confucianist groups, unions, fraternal or athletic groups, or [...] this encounter Miscellaneous Notes Telephone Encounter - Kym Martin R.N. - 12/18/2017 1:59 PM CDT I attempted to call Conchita to let her know that Dr. Mckay and Dr. Tripathi recommend proceeding with surgery on 01/28. LMTCB documented in this encounter Plan of Treatment Not on filedocumented as of this encounter Visit Diagnoses Not on filedocumented in this encounter
--- OUTSIDE RECORDS SUMMARY | 2022-04-30 11:49 | XMS_ITS | Encounter Summary ---
:1965 Author Organization [facility] Address [address] [place] [address] Care Team Providers Name Role Phone Unavailable [...] or relatives? How often do you attend mormonism or More than 4 times per year 12/08/2020 voodoo services? Do you belong to any clubs or Yes 12/08/2020 organizations such as mormonism groups, unions, fraternal or athletic groups, or [...]
--- OUTSIDE RECORDS SUMMARY | 2022-04-30 11:49 | XMS_ITS | Encounter Summary ---
:1965 Author Organization [facility] Address [address] [place] [address] Care Team Providers Name Role Phone Unavailable Primary Care Provider Unavailable Reason for Visit Reason Comments pre-appointment record review Encounter Details Date Type Department Care Team Description 12/16/2017 Documentation Department of Kym Martin, pre-appoi ntment record Obstetrics and R.N. review Gynecology in [address] [place] [address] [place] [place] [address] [place], [place] [phone] (Work) [phone] Social History Tobacco Use Types Packs/Day Years [...] More than 4 times per year 12/08/2020 moravian services? Do you belong to any clubs [...] documented as of this encounter Progress Notes Kym Martin R.N. - 12/16/2017 12:42 PM CDT Conchita Solis [id number] [address] [place] [address] OUTSIDE RECORD REVIEW. Information collected from outside records and has not been verified by the patient. Patient not seen. Patient will be seen by Chastity Mckay MD on 12/16/17. ANTICIPATED SURGICAL DATE/PROCEDURE: Pending consultation with Dr. Caceres DIAGNOSIS: Menorrhagia; Uterine Fibroids HISTORY OF PRESENT ILLNESS: -05/16/17 Routine colonoscopy found invasive moderately-differentiated adenocarcinoma in the rectum. -05/20/17 Colorectal surgery consult with Dr. Martínez. Recommendation for transanal excision. -05/19/[address] Sanderson for a one-month history of continuous uterine bleeding. She noted menstrual irregularity for the previous two year, including heavier periods. PBLAC score was 1570. Hgb was 12.4. Patient expressed interest in hysterectomy for definitive management. Note indicates that patient had already had genetic testing and Marcelo was negative. -05/20/17 MRI showed a 4.5 cm uterine fibroid in the anterior uterine body, predominantly myometrial with subendometrial extension, with mild mass effect on the endometrial cavity. There were three other smaller myometrial fibroids as well. Patient subsequently discussed results with Dr. Sanderson and decided to forgo treatment of her fibroids until after surgery for her rectal cancer. -06/03/17 Transanal excision of rectal cancer performed by Dr. Tripathi. -08/28/[address] Tripathi. Possible recurrence a excision scar site was ruled out. -12/04/17 CT chest/abd/pelv for surveillance showed no evidence of metastatic rectal cancer. There was an incidental finding of chronic appendicitis with possible perforation. Patient was relatively asymptomatic, but Dr. Tripathi recommended considering appendectomy. 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 acetaminophen (TYLENOL) 500 mg tablet, Take 2 tablets by mouth every 6 (six) hours as needed. for pain. Take no more than 4000 mg in 24 hours. Ok to obtain over the counter., Disp: , Rfl: ??? ibuprofen (ADVIL,MOTRIN) 200 mg tablet, Take 2 tablets by mouth as needed. every 4-6 hours as needed for pain, Disp: , Rfl: ??? lisinopril (PRINIVIL,ZESTRIL) 10 mg tablet, Take 1 tablet by mouth daily., Disp: , Rfl: ALLERGIES: No Known Allergies PAST MEDICAL HISTORY: Past Medical History: Diagnosis Date ??? Hypertension NOS ??? Leiomyoma (Fibroid) Uterus ??? Malignant Neoplasm Of Rectum (HCC) 2016 ??? Menorrhagia PAST SURGICAL HISTORY: Past Surgical History: Procedure Laterality Date ??? RECTAL TUMOR, EXCISION, TRANSANAL N/A 06/03/2017 Rectal tumor, excision, transanal FAMILY HISTORY: No family history on file. SOCIAL HISTORY: Social History Social History ??? Marital status: Spouse name: N/A ??? Number of children: N/A ??? Years of education: N/A Occupational History ??? Not on file. Social History Main Topics ??? Smoking status: Current Some Day Smoker ??? Smokeless tobacco: Not on file ??? Alcohol use Not on file ??? Drug use: Unknown ??? Sexual activity: Not on file Other Topics Concern ??? Not on file Social History Narrative ??? No narrative on file FOLLOWING TESTS/IMAGING HAVE BEEN ORDERED: documented in this encounter Plan of Treatment Not on filedocumented as of this encounter Visit Diagnoses Not on filedocumented in this encounter
--- OUTSIDE RECORDS SUMMARY | 2022-04-30 11:49 | XMS_ITS | Encounter Summary ---
:1965 Author Organization [facility] Address [address] [place] [address] Care Team Providers Name Role Phone Unavailable Primary Care Provider Unavailable Encounter Details Date Type Department Care Team Description 11/05/2017 Orders Only Division of Colon and Arlene Tripathi P ersonal History Of Rectal Surgery in M.D. Other Malignant [place], [place] [address] [facility] Neoplasm Of Rectum [address] [place], [place] [address] [place] [address] [phone] Social History Tobacco Use Types Packs/Day Years [...]
--- OUTSIDE RECORDS SUMMARY | 2022-04-30 11:49 | XMS_ITS | Encounter Summary ---
:1965 Author Organization [facility] Address [address] [place] [address] Care Team Providers Name Role Phone Unavailable [...] Resul ts for this SURGERY IMAGE EXAM SENIOR UX DEVELOPER procedure are in the results section. documented in this encounter Results COLON AND RECTAL SURGERY IMAGE EXAM (08/28/2017 2:10 PM SENIOR UX DEVELOPER) Specimen (Source) Anatomical Collection Method Collection Time Re ceived Time Location / / Volume Laterality 08/28/2017 2:10 PM SENIOR UX DEVELOPER Narrative [facility] - 08/28/2017 5:01 PM SENIOR UX DEVELOPER This order has been created and auto-finalized [...]
--- OUTSIDE RECORDS SUMMARY | 2022-04-30 11:49 | XMS_ITS | Encounter Summary ---
:1965 Author Organization [facility] Address [address] [place] [address] Care Team Providers Name Role Phone Unavailable Primary Care Provider Unavailable Reason for Visit Outpatient (Routine) - Closed Specialty Diagnoses / Procedures Referred By Contact Refer red To Contact Obstetrics and Diagnoses Fibroid Uterus Intramural Menorrhagia [facility] Kaia Alberto M.D. [address] [place] [phone] Referral ID Status Reason Start Date Expiration Date Visits Requ ested Visits Authorized [id number] Closed 12/09/2017 12/09/2018 1 1 Encounter Details Date Type Department Care Team Description 12/16/2017 Comprehensive Visit Department of Chastity Mckay Uterus Intramural (Primary Dx); Obstetrics and Tavia Pinzon Menorrhagia; Gynecology in [address] [place] [address] Malignant Neoplasm Of Rectum (HCC); [facility] [phone] [place] [address] [place], [place] (Work) [phone] Social History Tobacco Use Types Packs/Day Years [...] More than 4 times per year 12/08/2020 christian services? Do you belong to any clubs [...] documented as of this encounter Consult Notes Chastity Mckay M.D. - 12/16/2017 2:30 PM CDT SUBJECTIVE REFERRING PROVIDER Kaia Sanderson M.D. REASON FOR VISIT Consult HISTORY OF PRESENT CONDITION Chief complaint: Fibroid uterus, menorrhagia Ms. Solis is a 52 y.o., No obstetric history on file. who presents in consultation at the request of Kaia Tsai MD for an opinion regarding a fibroid uterus and menorrhagia. 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 ?? -05/20/17 Colorectal surgery consult with Dr. Martínez. Recommendation for transanal excision. ?? -05/19/[address] Sanderson for a one-month history of continuous uterine bleeding. She noted menstrual irregularity for the previous two year, including heavier periods. PBLAC score was 1570. Hgb was 12.4. Patient expressed interest in hysterectomy for definitive management. Note indicates that patient had already had genetic testing and Marcelo was negative. ?? -05/20/17 MRI showed a 4.5 cm uterine fibroid in the anterior uterine body, predominantly myometrial with subendometrial extension, with mild mass effect on the endometrial cavity. There were three other smaller myometrial fibroids as well. Patient subsequently discussed results with Dr. Sanderson and decided to forgo treatment of her fibroids until after surgery for her rectal cancer. ?? -06/03/17 Transanal excision of rectal cancer performed by Dr. Tripathi. ?? -08/28/[address] Tripathi. Possible recurrence a excision scar site was ruled out. ?? -12/04/17 CT chest/abd/pelv for surveillance showed no evidence of metastatic rectal cancer. There was an incidental finding of chronic appendicitis with possible perforation. Patient was relatively asymptomatic, but Dr. Tripathi recommended considering appendectomy. Patient expressed interest in pursing hysterectomy in conjunction with possible future appendectomy The patient continues to have heavy, frequent vaginal bleeding. She states that she has to use a super pad and tampon and still has to change them every hour. She has also had right-sided pelvic pain for you several years. This pain is similar to severe. G. No loss of urine with cough or sneeze. No urinary urgency. ?? The following portions of the patient's history were reviewed and updated as appropriate: allergies,current medications, family history, medical history, social history, surgical history and problem list. MENSTRUAL HISTORY No LMP recorded. FAMILY HISTORY Breast, ovarian, colon, or uterine cancer-related family history is not on file. REVIEW OF SYSTEMS A comprehensive review of systems was negative except as noted in HPI. OBJECTIVE VITAL SIGNS There is no height or weight on file to calculate BMI. ECOG status: 0 PHYSICAL EXAM GYNSURG Exam Amb 1. General: Well appearing, no apparent distress, alert and oriented. 2. Lymph: Neck symmetric without cervical or supraclavicular adenopathy or mass. 3. Lungs: Normal respiratory rate, no accessory muscle use. 4. Psych: Normal affect. 5. Abdomen: Nondistended, soft, nontender, no masses palpated, no ascites, no hepatosplenomegaly. 6. Skin: Warm, dry, no rashes or lesions. 7. Extremities: Bilateral lower extremities without edema or tenderness. 8. Genitourinary ?? Pelvic Examination including: ?? External genitalia are normal in appearance. No lesions noted. ?? Urethral meatus is normal size, location, and appearance. ?? Urethra is negative. ?? Bladder is nontender. No masses noted. ?? Vagina has normal mucosa with physiologic discharge. No lesions noted. ?? Uterus approximately 14 weeks size and mobile. ?? Adnexa with no masses or nodularity noted. DIAGNOSTICS Hemoglobin Date Value Ref Range Status 05/19/2017 12.4 12.0 - 15.5 G/DL Final Leukocytes Date Value Ref Range Status 05/19/2017 5.6 3.5 - 10.5 X10(9)/L Final Platelet Count Date Value Ref Range Status 05/19/2017 289 150 - 450 X10(9)/L Final Creatinine, P Date Value Ref Range Status 05/19/2017 0.6 0.6 - 1.1 MG/DL Final PATHOLOGY, LAST 30 DAYS No results found for this or any previous visit (from the past 720 hour(s)). IMAGING RESULTS, LAST 7 DAYS - IMPRESSION ONLY No results found. ASSESSMENT / PLAN Visit diagnosis: #1 Fibroid Uterus Intramural #2 Menorrhagia #3 Malignant Neoplasm Of Rectum (HCC) #4 Appendicitis I discussed with the patient that is very reasonable to perform a hysterectomy for her indications. We will plan to proceed with a robotic hysterectomy, bilateral salpingectomy, proceed as indicated. Iwill plan to leave both ovaries intact. We will plan to come by this case with Dr. Arlene Tripathi so that she can remove the appendix. I discussed with the patient that she can either stay overnight or go home the same day. The patient seemed of some interest in going home the same day, but I will discuss with Dr. Tripathi and see if this is feasible. PATIENT EDUCATION Ready to learn, no apparent learning barriers were identified; learning preferences include listening. Explained diagnosis and treatment plan; patient expressed understanding of the content. INFORMED CONSENT Discussed the risks, benefits, and alternatives of the procedure and of possible blood transfusion. Discussed the necessity of other members of the healthcare team participating in the procedure. All questions answered and consent given. I discussed with the patient that in our practice at [facility], we sometimes perform overlapping surgeries, meaning that I will be present for the entire critical portion of the surgery, and that my team members will assist me with the noncritical portions of the procedure. BILLING Greater than 50% of the time spent counseling. Chastity Mckay M.D. documented in this encounter Plan of Treatment Not on filedocumented as of this encounter Results (ABNORMAL) Creatinine with Estimated GFR (12/16/2017 4:48 PM CDT) [facility] Method Time Signature Creatinine 0.57 (L) 0.59 - 12/16/2017 [facility] 1.04 5:52 PM CDT LABORATORIES - mg/dL [facility] eGFR-Non >90 >=60 12/16/2017 [facility] Black/ mL/min/BS 5:52 PM CDT LABORATORIES - Greek A [facility] Comment: ----ADDITIONAL INFORMATION---- Estimated GFR calculated using the 2009 CKD_EPI creatinine equation. eGFR-Black/ >90 >=60 mL/min/BSA 12/16/2017 5:52 [facility] CDT LABORATORIES - [facility] Comment: ----ADDITIONAL INFORMATION---- Estimated GFR calculated using the 2009 CKD_EPI creatinine equation. Specimen Anatomical Collection Method Collection Time Receive d Time (Source) Location / / Volume Laterality Blood (Blood, 12/16/2017 4:48 PM 12/17/19 18 5:13 Venous) CDT PM CDT Chastity Mckay M.D. LAB BLOOD ADD-ON Performing Organization Address City/State/ZIP Code Phon e Number [facility] LABORATORIES - [address] [place] [phone] [facility] CBC without Differential (12/16/2017 4:48 PM CDT) [facility] gist Method Time Signature Hemoglobin 11.8 11.6 - 12/16/2017 [facility] 15.0 g/dL 5:21 PM CDT LABORATORIES - [facility] Hematocrit 36.4 35.5 - 12/16/2017 [facility] 44.9 % 5:21 PM CDT LABORATORIES - [facility] Erythrocytes 4.43 3.92 - 12/16/2017 [facility] 5.13 5:21 PM CDT LABORATORIES - x10(12)/L [facility] MCV 82.2 78.2 - 12/16/2017 [facility] 97.9 fL 5:21 PM CDT LABORATORIES [facility] RBC Distrib Width 14.8 12.2 - 12/16/2017 [facility] 16.1 % 5:21 PM CDT LABORATORIES - [facility] Platelet Count 345 157 - 371 12/16/2017 [facility] x10(9)/L 5:21 PM CDT LABORATORIES - [facility] Leukocytes 9.3 3.4 - 9.6 12/16/2017 [facility] x10(9)/L 5:21 PM CDT LABORATORIES - [facility] Specimen Anatomical Collection Method Collection Time Receive d Time (Source) Location / / Volume Laterality Blood (Blood, 12/16/2017 4:48 PM 12/17/19 18 5:13 Venous) CDT PM CDT Chastity Mckay M.D. LAB BLOOD ADD-ON Performing Organization Address City/State/ZIP Code Phon e Number [facility] LABORATORIES - [address] [place] [phone] [facility] Type and screen (12/16/2017 4:48 PM CDT) [facility] gist Method Time Signature ABORh A Pos Not 12/16/2017 [facility] applicable 6:25 PM LABORATORIES - CDT [facility] Antibody Negative Negative 12/16/2017 [facility] Screen 6:38 PM LABORATORIES - CDT [facility] Type & Screen [id number] 12/16/2017 [facility] Expiration 6:25 PM LABORATORIES - CDT [facility] Specimen Anatomical Collection Method Collection Time Receive d Time (Source) Location / / Volume Laterality Blood (Blood, 12/16/2017 4:48 PM 12/17/19 18 5:23 Venous) CDT PM CDT Chastity Mckay M.D. LAB BLOOD BANK TEST ORDERABL ES Performing Organization Address [facility]/ZIP Code Phon e Number [facility] LABORATORIES - [address] [place] [address] [facility] documented in this encounter Visit Diagnoses Diagnosis Fibroid Uterus Intramural - Primary Menorrhagia Malignant Neoplasm Of Rectum (HCC) Appendicitis documented in this encounter
--- OUTSIDE RECORDS SUMMARY | 2022-04-30 11:49 | XMS_ITS | Encounter Summary ---
:1965 Author Organization [facility] Address [address] [place] [address] Care Team Providers Name Role Phone Unavailable Primary Care Provider Unavailable Reason for Visit Reason Comments Colon Cancer Screening Encounter Details Date Type Department Care Team Description 12/04/2017 Clinical Support Enema Prep Facility Shawn Tripathi M.D. [address] [place] [phone] Malignant Neoplasm Of in [facility] Conchita Haddad, R.N. 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 Enema administered by: [...]
--- OUTSIDE RECORDS SUMMARY | 2022-04-30 11:49 | XMS_ITS | Encounter Summary ---
:1965 Author Organization [facility] Address [address] [place] [address] Care Team Providers Name Role Phone Unavailable Primary Care Provider Unavailable Reason for Referral Outpatient (Routine) - Closed Specialty Diagnoses / Procedures Referred By Contact Refer red To Contact Colon and Rectal Arlene Tripathi, [facility] Asif Squires [address] [place] [address] Referral ID Status Reason Start Date Expiration Date Visits Requ ested Visits Authorized [id number] Closed 12/04/2017 12/04/2018 1 1 Encounter Details Date Type Department Care Team Description 12/04/2017 Orders Only Division of Colon and Gypsy Conner , Rectal Surgery in [place], [place] [address] [place] [phone] Social History Tobacco Use Types Packs/Day [...] Outpatient Referral Routine Expe cted: Surgery office 12/04/2017 visit (clinic) (Approximate) , Expires: 12/04/2020 documented as of this encounter Visit Diagnoses Not on filedocumented in this encounter
--- OUTSIDE RECORDS SUMMARY | 2022-04-30 11:49 | XMS_ITS | Encounter Summary ---
:1965 Author Organization [facility] Address [address] [place] [address] Care Team Providers Name Role Phone Unavailable [...] More than 4 times per year 12/08/2020 mandaeism services? Do you belong to any clubs [...] a [place] [facility] care facility (including now)? 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
--- OUTSIDE RECORDS SUMMARY | 2022-04-30 11:49 | XMS_ITS | Encounter Summary ---
:1965 Author Organization [facility] Address [address] [place] [address] Care Team Providers Name Role Phone Unavailable Primary Care Provider Unavailable Reason for Visit Reason Onset Date Comments Communication 12/18/2017 Encounter Details Date Type Department Care Team Description 12/18/2017 Clinical Communication Department of Chastity Mckay Communication Obstetrics and E, M.D. Gynecology in [address] [place] [address] [place] [phone] [place], [place] [phone] (Work) [phone] Social History Tobacco Use Types Packs/Day Years [...] More than 4 times per year 12/08/2020 sabianism services? Do you belong to any clubs [...] Telephone Encounter - Kym Martin R.N. - 12/19/2017 12:34 PM CDT After discussing with Drs. Tripathi and Nely, they were able to identify an alternative surgical date option of 12/25 for Conchita. Conchita is happy with this date. She has no further questions about the preoperative instructions and will call us if any concerns arise in the mean time. Telephone Encounter - Kym Martin R.N. - 12/18/2017 5:41 PM CDT I called Conchita again this afternoon to discuss her surgical date. I let her know that it looks like the 1st available date for combined surgery with Dr. Tripathi and Dr. Mckay is January 28. We verified with Dr. Tripathi that it is safe for the patient to wait until that date for her appendectomy. Conchita is uncomfortable waiting until January 28 for surgery. She is afraid that she will require emergent appendectomy in the meantime and will therefore be unable to have hysterectomy at the same time. She wonders if Dr. Tripathi could recommend one of her colleagues who would be available to perform a combined surgery sooner. I will relay her concerns to Dr. Mckay and Dr. Tripathi and see what they recommend. We will contact her back with recommendations. Telephone Encounter - Trisha Rojas - 12/18/2017 2:43 PM CDT Pt states she is returning a call to Kym. documented in this encounter Plan of Treatment Not on filedocumented as of this encounter Visit Diagnoses Not on filedocumented in this encounter
--- OUTSIDE RECORDS SUMMARY | 2022-04-30 11:49 | XMS_ITS | Encounter Summary ---
:1965 Author Organization [facility] Address [address] [place] [address] Care Team Providers Name Role Phone Unavailable Primary Care Provider Unavailable Encounter Details Date Type Department Care Team Description 12/04/2017 Ancillary Procedure Department of Colon and Rectal [...] or relatives? How often do you attend methodist or More than 4 times per year 12/08/2020 judaism services? Do you belong to any clubs or Yes 12/08/2020 organizations such as methodist groups, unions, fraternal or athletic groups, or [...] place to sleep or slept in a skilled nursing (including now)? Sex Assigned at Date Recorded Female 12/15/2017 11:22 AM CDT documented as of this encounter Plan of Treatment Not on filedocumented as of this encounter Procedures Procedure Name Priority Date/Time Associated Diagnosis Comme nts COLON AND RECTAL Routine 12/04/2017 1:15 PM Resul ts for this SURGERY IMAGE EXAM CDT procedure are in the results section. documented in this encounter Results COLON AND RECTAL SURGERY IMAGE EXAM (12/04/2017 1:15 PM CDT) Specimen (Source) Anatomical Location Collection Method / Collectio n Time Received Time / Laterality Volume Narrative IIMS - 12/04/2017 5:25 PM CDT This order has been created [...]
--- OUTSIDE RECORDS SUMMARY | 2022-04-30 11:49 | XMS_ITS | Encounter Summary ---
:1965 Author Organization [facility] Address [address] [place] [address] Care Team Providers Name Role Phone Unavailable Primary Care Provider Unavailable Encounter Details Date Type Department Care Team Description 08/28/2017 Hospital Encounter HX RST CRS FLOOR Arlene Tripathi, PRACTICE M.DSinan [address] [place] [phone] (Wo rk) Social History Tobacco Use Types [...] or slept in a usp (including now)? 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 GI PROCEDURE ORDERABLES Performing Organization Address City/State/ZIP Code Phon e Number HX [facility] CONVERSION documented in this encounter Visit Diagnoses Not on filedocumented in this encounter
--- OUTSIDE RECORDS SUMMARY | 2022-04-30 11:49 | XMS_ITS | Encounter Summary ---
:1965 Author Organization [facility] Address [address] [place] [address] Care Team Providers Name Role Phone Unavailable Primary Care Provider Unavailable Reason for Visit Reason Comments Flexible Sigmoidoscopy Outpatient (Routine) - Closed Specialty Diagnoses / Procedures Referred By Contact Refer red To Contact Colon and Rectal Arlene Tripathi [facility] Surgery M.D. [address] [place] [address] Referral ID Status Reason Start Date Expiration Date Visits Requ ested Visits Authorized [id number] Closed 12/04/2017 12/04/2018 1 1 Encounter Details Date Type Department Care Team Description 12/04/2017 Office Visit Division of Colon and Arlene Tripathi M alignant Neoplasm Of Rectal Surgery in M.D. Rectum (HCC) (Primary [place], [place] [address] [facility] Dx) [address] [place] [phone] Social History Tobacco Use Types Packs/Day Years [...] documented as of this encounter Progress Notes Arlene Tripathi M.D. - 12/04/2017 1:00 PM CDT SUBJECTIVE Mrs. Solis has no complaints or concerns. She does describe a heaviness in her rectum which is not new. She denies any pain. She also denies any bleeding. She has normal bowel function. OBJECTIVE Abdominal exam is benign. Digital rectal exam is normal. Please see the endoscopy report for details. There is no evidence of recurrent tumor at the transanal excision site. ASSESSMENT / PLAN #1 Hypertension #2 Malignant Neoplasm Of Rectum (HCC) She has a T1 presumed N0 rectal cancer that has been removed by transanal excision. We biopsied the scar at her last endoscopy and this was consistent with scar tissue. At today, the scar site looks completely normal and no biopsies were obtained. We also saw the additional tattoo corina in her sigmoid c olon which looks normal. She is getting CT scans of the chest abdomen and pelvis this afternoon. She is also awaiting a CEA results. I will send her the results of the CTs and a CEA through the portal later today or tomorrow. We will plan to see her back in 3-4 months with repeat imaging and a another endoscopy as long as today's tests are within normal limits. documented in this encounter Plan of Treatment Not on filedocumented as of this encounter Visit Diagnoses Diagnosis Malignant Neoplasm Of Rectum (HCC) - Zarina herrera documented in this encounter
--- OUTSIDE RECORDS SUMMARY | 2022-04-30 11:49 | XMS_ITS | Encounter Summary ---
:1965 Author Organization [facility] Address [address] [place] [address] Care Team Providers Name Role Phone Unavailable Primary Care Provider Unavailable Reason for Visit Auth/Cert Specialty Diagnoses / Procedures Referred By Contact Refer red To Contact Diagnoses Leiomyoma (Fibroid) Uterus Procedures NE LAPAROSCOPY W RMVL ADNEXA ROBOTIC-ASSISTED HYSTERECTOMY WITH SALPINGECTOMY (OVARIAN PRESERVATION) Referral ID Status Reason Start Date Expiration Date Visits Requ ested Visits Authorized [id number] 1 1 Encounter Details Date Type Department Care Team Description 12/25/2017 Anesthesia Event RST [facility]ULL[facility]T OR Sara Cabrera M.D. [address] [facility], Germaine L, LIBRARY DIRECTOR, WIRING MECHANIC, DNAP [address] [place] [address] [place] [address] Anesthesia Record Procedure Summary Procedure Name Responsible Anesthesia Start Anesthesia Stop Time Anesthesiologist Time ROBOTIC-ASSISTED Sara Cabrera M.D. 12/25/17 0747 12/25/17 1115 HYSTERECTOMY, SALPINGECTOMY, OVARIAN PRESERVATION. (Bilateral) Events Date Time Event Comment 12/25/2017 0739 0747 An Start Machine/Equipmen t Checked Infection Precautions Foll owed Procedure/Site Verified NPO Sta tus Verified Supine Standard ASA Mon itors Applied 0759 An Induction 0801 An Intubation 0807 Turnover to Proceduralist 0845 Gas Insufflation 1101 Turnover to ANE Staff 1104 Airway Removal Criteria Met 1104 Extubation/Airway Removed 1106 an stop data 1115 An End I completed my h andoff to the receiving staff during i ch we 1. Identified the patient 2. Ident ified the responsible provider 3. Revi ewed the pertinent medical history 4. Discussed the surgical course 5. Review ed intra-op anesthesia management and i ssues during anesthesia 6. Set expectati ons for post-procedure period 7. Allowe d opportunity for questions and ac knowledgement of understanding. Name Total fentanyl injection 50 mcg/mL 250 mcg lidocaine 2% (mg) injection 100 mg propofol 10 mg/mL 160 mg ondansetron 4 mg/2 mL injection 4 mg sugammadex 100 mg/mL injection 200 mg vecuronium 10 mg injection 17 mg dexamethasone 4 mg/mL injection 8 mg droperidol 2.5 mg/mL injection 0.625 mg HYDROmorphone 2 mg/mL injection 0.8 mg ketorolac 30 mg injection 15 mg propofol 10 mg/mL infusion 677.16 mg scopolamine 1.5mg (1 mg/72) hr patch 1 patch ceFAZolin injection 2 g (ANCEF) 2 g labetalol 5 mg/mL injection 5 mg Lactated Ringers Free Drip 600 mL lactated ringers free drip 1,000 mL Agents No agents on file. Blood No blood administrations on file. Lines, Drains, and Airways Type Details Placement Removal (RETIRED) Incision 12/25/17; No; Leg; 12/25/17 0000 by 04/03/21 1418 by Anterior, Proximal, Jacy Bains, [facility] c-Backgroun Upper; Skin Tag R.N. d, Scheduling removal site; 04/03/21 Automated Batch Job (Removed by background completion utility); 1418 (Removed by background completion utility) (RETIRED) Incision 12/25/17; No; Abdomen; 12/25/17 0000 by 04/03 1418 by Bilateral; Lap sites Jacy Bains [facility] ic-Backgroun x5; 04/03/21 (Removed R.N. d, Schedul ing by background Automated Batch Job completion utility); 1418 (Removed by background completion utility) Peripheral IV Placement Date: 12/25/17714 by 12/25/172049 b y 12/25/17; Placement Germaine Braraza Ellis, Sara J, R.N. Time: 714; Catheter LIBRARY DIRECTOR, WIRING MECHANIC, DNAP Size: 18 G; Orientation: Left; Location: Hand; Inserted by: SRNA; Removal Date: 12/25/17; Removal Time: 2049; Removal Reason: Per protocol ETT Placement Date: 12/25/17 08 by 12/25/17 1104 b y 12/25/17; Placement Germaine Barraza, Germaine Peters, Time: 800 (created LIBRARY DIRECTOR, WIRING MECHANIC, DNAP LIBRARY DIRECTOR, WIRING MECHANIC, DNAP via procedure documentation); Mask Ventilation: Oral/Nasal airway needed; Type: Standard ETT; Cuffed: Yes; Location: Oral; Removal Date: 12/25/17; Removal Time: 1104 Peripheral IV Placement Date: 12/25/17 0805 by 12/25/172050 b y 12/25/17; Placement Germaine Barraza, Aggie Spencer, R.NSinan Time: 804; Catheter LIBRARY DIRECTOR, WIRING MECHANIC, DNAP Size: 18 G; Orientation: Right; Location: Arm; Inserted by: KARLY Ibanez; Removal Date: 12/25/17; Removal Time: 2050; Removal Reason: Per protocol NG/OG Tube 12/25/17; 08; 12/25/17 0806 by 12/25/17 1721 b y Orogastric; 16 Fr; Germaine Barraza, Yas Kruger B, 12/25/17; 1721 LIBRARY DIRECTOR, WIRING MECHANIC, DNAP LIBRARY DIRECTOR, C.N.P., D .N.P. Indwelling Urinary Placement Date: 12/25/17 0843 by 12/25/17 105 4 by Catheter 12/25/17; Placement Vonnie Hinds, R.N. Vonnie Hinds, R.N. Time: 842; Inserted by: Sumaya Robert; Type: Latex; Size: 16 Fr.; Balloon Size: 5 mL; Urine Returned: Yes; Removal Date: 12/25/17; Removal Time: 1054 (RETIRED) Incision 12/25/17; 1053; 12/25/17 1053 by 04/03/21 141 8 by Abdomen; Bilateral; Vonnie Hinds, R.N. [facility] inic-Backgroun DRSG PRM WND NONADH d, Schedulin g 2X3 (x5), STRP STRS Automated Ba tch Job SKNCLSR NWVN 07/17X4 (x1); 04/03/21 (Removed by background completion utility); 1418 (Removed by background completion utility) documented in this encounter Social History Tobacco Use Types Packs/Day Years [...] AM CDT documented as of this encounter OR Notes Anesthesia Postprocedure Evaluation - Sara Cabrera M.D. - 12/25/2017 12:41 PM CDT Patient: Conchita Solis Procedure Summary Date: 12/25/17 Room / Location: [place] [address] / [facility] in [place], [place] Anesthesia Start: 746 Anesthesia Stop: 1114 Procedures: ROBOTIC-ASSISTED HYSTERECTOMY, SALPINGECTOMY, OVARIAN PRESERVATION. (Bilateral ) Laparoscopic Appendectomy (N/A ) Diagnosis: Leiomyoma (Fibroid) Uterus (Leiomyoma (Fibroid) Uterus [D25.9].) Provider: Chastity Mckay M.D.; Arlene Tripathi M.D. Responsible Provider: Sara Cabrera M.D. Anesthesia Type: general ASA Status: 2 Anesthesia Type: general Last vitals BP 152/73 (12/25/17 1215) Temp 36 ??C (12/25/17 1115) Pulse 78 (12/25/17 1218) Resp 17 (12/25/17 1218) SpO2 95 % (12/25/17 1218) Anesthesia Post Evaluation 12/25/2017 12:41 PM Patient Disposition: dismissal Cardiovascular status: hemodynamics (HR & BP) acceptable Respiratory status: patent airway with spontaneous effort Temperature: normothermic Oxygen requirements: room air Level of consciousness: sedated but awakens easily Pain score: pain adequately controlled and/or at baseline Post Op nausea/vomiting: none Hydration status: euvolemic Anesthesia Procedure Notes - Germaine Barraza R.N. - 12/25/2017 8:21 AM CDT Associated Order(s): AIRWAY MANAGEMENT Airway Date/Time: 12/25/2017 8:01 AM Patient location during procedure: OR / Procedure Area Performed by: GERMAINE BARRAZA Authorized by: SARA CABRERA Pre procedure details Pre evaluation for airway management: procedure Urgency: elective Preop assessment of probable difficulty: no difficulty anticipated Sedation level: anesthetized Preoxygenation: bag valve mask Procedure details Mask difficulty assessment: oral/nasal airway needed Final airway type: direct laryngoscopy, intubation Laryngeal Manipulation: no Final airway difficulty of direct laryngoscopy (DL): 0-easy Final best view of glottic structures - Cormack/Lehane Score: grade 1 ETT location: oral Adult ETT distance at teeth/gum: 21 Oral tube type: standard ETT Cuffed: yes Number of attempt to successful placement: 1 Airway confirmation: bilateral breath sounds, positive ETCO2 and bilateral chest rise Other previous techniques attempted: none Post procedure details Procedure outcome: successful Airway event: no complications Anesthesia Preprocedure Evaluation - Sara Caberra M.D. - 12/25/2017 7:00 AM CDT Anesthesia Pre-Evaluation Pertinent components of the patient's history including current problem list, medical history, surgical history, family history, social history, medications and allergies were reviewed and updated as appropriate. The patient was examined and the Pre-op diagnosis, planned procedure, and H&P were reviewed and remain unchanged. PROBLEM LIST Relevant Problems ANESTHESIA (+) Post Operative Nausea/Vomiting ONC (+) Malignant Neoplasm Of Rectum (HCC) Other (+) Appendicitis (+) Hypertension (+) Leiomyoma (Fibroid) Uterus OBJECTIVE PHYSICAL EXAMINATION Airway (HEENT) Mallampati: I TM Distance: >3 FB Neck ROM: Full Cardiovascular Rhythm: Regular Rate: Normal Cardiovascular Assessment: Normal Functional Capacity: >4 METS Pulmonary Pulmonary Assessment: Clear Neurological Normal Dental Normal General / Constitutional Normal ASSESSMENT / PLAN ANESTHESIA PLAN ASA: 2 Anesthesia Plan: general GETA, 2 PIV, PONV prophylaxis with droperidol, zofran, decadron. Pain control with PO tylenol, celebrex, gabapentin preop, fentanyl, dilaudid, toradol intraop. Patient seen and allergies reviewed; anesthesia plan and risks discussed directly with patient / legal guardian, or through an copper plate lithographer; patient evaluated and approved for anesthesia / sedation. Use of blood products discussed with patient who consented to blood products. documented in this encounter Plan of Treatment Not on filedocumented as of this encounter Procedures Procedure Name Priority Date/Time Associated Comments Diagnosis LDA ANE ENDOTRACHEAL Routine 12/25/2017 8:21 AM R yayoults for this AIRWAY CDT procedure are i n the results section. documented in this encounter Results LDA ANE ENDOTRACHEAL AIRWAY (12/25/2017 8:21 AM CDT) Narrative Germaine Barraza R.N. - 12/25/2017 8 :21 AM CDT Germaine Barraza RMaxim. ? 12/25/2017 ??8:21 AM Airway Date/Time: 12/25/2017 8:01 AM Patient location during procedure: OR / Procedure Area Performed by: GERMAINE BARRAZA Authorized by: SARA CABRERA Pre procedure details ?? Pre evaluation for airway management : procedure ?? Urgency: elective ?? Preop assessment of probable difficu lty: no difficulty anticipated ?? Sedation level: anesthetized ?? Preoxygenation: bag valve mask Procedure details ??Mask difficulty assessment: oral/nasa l airway needed ?? Final airway type: direct laryngosco py, intubation Laryngeal Manipulation: no ? Final airway difficulty of direct la ryngoscopy (DL): 0-easy ?? Final best view of glottic structure s - Cormack/Lehane Score: grade 1 ?? ETT location: oral ?? Adult ETT distance at teeth/gum: 21 ?? Oral tube type: standard ETT ?? Cuffed: yes ?? Number of attempt to successful plac ement: 1 ?? Airway confirmation: bilateral breat h sounds, positive ETCO2 and bilateral chest rise ?? Other previous techniques attempted: none Post procedure details ?? Procedure outcome: successful ? Airway event: no complications Procedure Note Germaine Barraza, R.N. - 12/25/2017 8 :21 AM CDT Airway Date/Time: 12/25/2017 8:01 AM Patient location during procedure: OR / Procedure Area Performed by: GERMAINE BARRAZA Authorized by: SARA CABRERA Pre procedure details Pre evaluation for airway management: p rocedure Urgency: elective Preop assessment of probable difficulty : no difficulty anticipated Sedation level: anesthetized Preoxygenation: bag valve mask Procedure details Mask difficulty assessment: oral/nasal airway needed Final airway type: direct laryngoscopy, intubation Laryngeal Manipulation: no Final airway difficulty of direct laryn goscopy (DL): 0-easy Final best view of glottic structures - Cormack/Lehane Score: grade 1 ETT location: oral Adult ETT distance at teeth/gum: 21 Oral tube type: standard ETT Cuffed: yes Number of attempt to successful placeme nt: 1 Airway confirmation: bilateral breath s ounds, positive ETCO2 and bilateral chest rise Other previous techniques attempted: no ne Post procedure details Procedure outcome: successful Airway event: no complications Sara Cabrera M.D. ANESTHESIA ORDERABLES documented in this encounter Visit Diagnoses Not on filedocumented in this encounter Administered Medications Inactive Administered Medications - up to 3 most recent administrations Medication Order MAR Action Action Date Dose Rate Site ceFAZolin injection 2 g (ANCEF) Given 12/25/2017 8:29 AM CDT 2 g 2 g, intravenous, Once, On Kari 12/25/17 at 0715, For 1 dose, Intra-Op, Preoperatively within 1 hour prior to surgical incision. [place] IV push over 3 minutes. Add 5 mL NS to 1 gram vial for a final concentration of 200 mg/mL., Drug Monitoring Program: Pharmacist to adjust medication order based on comorbities and indication., Indications: Prophylaxis, surgical dexamethasone injection (DECADRON) Given 12/25/2017 8:12 AM CDT 8 mg As needed, Starting on Kari 12/25/17 at 0812, Anesthesia Intra-op droperidol injection (INAPSINE) Given 12/25/2017 10:35 AM CDT 0.625 mg intravenous, As needed, nausea, vomiting, Starting on Kari 12/25/17 at 1035, Anesthesia Intra-op fentaNYL injection (SUBLIMAZE) Given 12/25/2017 9:28 AM CDT 50 mcg intravenous, As needed, severe pain or score 7-10 of 10, Starting on Kari 12/25/17 at 0754, Anesthesia Intra-op Given 12/25/2017 9:08 AM CDT 50 mcg Given 12/25/2017 8:48 AM CDT 50 mcg HYDROmorphone injection (DILAUDID) Given 12/25/2017 9:37 AM CDT 0.4 mg As needed, severe pain or score 7-10 of 10, Starting on Kari 12/25/17 at 0930, Anesthesia Intra-op Given 12/25/2017 9:30 AM CDT 0.4 mg ketorolac injection (TORADOL) Given 12/25/2017 10:38 AM CDT 15 mg As needed, moderate pain or score 4-6 of 10, Starting on Kari 12/25/17 at 1038, Anesthesia Intra-op labetalol injection (NORMODYNE,TRANDATE) Given 12/25/2017 9:55 AM CDT 2.5 mg As needed, high blood pressure, Starting on Kari 12/25/17 at 0947, Anesthesia Intra-op Given 12/25/2017 9:47 AM CDT 2.5 mg lactated ringers New Bag 12/25/2017 7:50 AM CDT intravenous, Continuous Infusion: Per Instructions PRN, Starting on Kari 12/25/17 at 0750, Anesthesia Intra-op lactated ringers New Bag 12/25/2017 10:10 AM CDT intravenous, Continuous Infusion: Per Instructions PRN, Starting on Kari 12/25/17 at 0806, Anesthesia Intra-op New Bag 12/25/2017 8:06 AM CDT lidocaine (PF) (cardiac) injection Given 12/25/2017 10:59 AM CDT 40 mg intravenous, As needed, Starting on Kari 18 at 0754, Anesthesia Intra-op Given 12/25/2017 7:54 AM CDT 60 mg ondansetron (PF) injection (ZOFRAN) Given 12/25/2017 10:35 AM CDT 4 mg intravenous, As needed, nausea, vomiting, Starting on Kari 12/25/17 at 1035, Anesthesia Intra-op propofol 10 mg/mL infusion New Bag 12/25/2017 7:54 AM 50 mcg/kg/mi n 23.8 mL/hr (DIPRIVAN) CDT Continuous Infusion: Per Instructions PRN, Starting on Kari 12/25/17 at 0754, Anesthesia Intra-op propofol injection (DIPRIVAN) Given 12/25/2017 7:59 AM CDT 160 mg intravenous, As needed, Starting on Kari 12/25/17 at 0759, Anesthesia Intra-op scopolamine base 1 mg over 3 days (TRANSDERM Given 7:35 AM CDT 1 patch SCOP) transdermal, Administer over 72 Hours, As needed, Starting on Kari 12/25/17 at 0735, Anesthesia Intra-op sugammadex injection (BRIDION) Given 12/25/2017 10:44 AM CDT 200 mg As needed, Starting on Kari 12/25/17 at 1044, Anesthesia Intra-op vecuronium injection (NORCURON) Given 12/25/2017 10:09 AM CDT 2 mg As needed, Starting on Kari 12/25/17 at 0759, Anesthesia Intra-op Given 12/25/2017 9:25 AM CDT 3 mg Given 12/25/2017 8:42 AM CDT 2 mg documented in this encounter
--- OUTSIDE RECORDS SUMMARY | 2022-04-30 11:49 | XMS_ITS | Encounter Summary ---
:1965 Author Organization [facility] Address [address] [place] [address] Care Team Providers Name Role Phone Unavailable Primary Care Provider Unavailable Reason for Visit Reason Onset Date Comments Communication 12/29/2017 Encounter Details Date Type Department Care Team Description 12/29/2017 Clinical Communication Department of Chastity Mckay Communication Obstetrics and E, M.D. Gynecology in [address] [place] [address] [place] [address] [place], [place] [phone] (Work) [phone] Social History Tobacco Use Types Packs/Day Years [...] Telephone Encounter - Kym Martin R.N. - 12/29/2017 6:07 PM CDT I called Conchita back to let her know that Dr. Sal wrote her a prescription for some additional oxycodone. We will leave this at the [facility] desk for her daughter to pepper picker for her tomorrow. Conchita reports that she took a dose of Milk of Magnesia. She took two tablespoons and has since had three small hard stools but has had severe cramping just prior to each bowel movement. I therefore suggested that she try adding more of a stool softener, like colace, and not take any more Milk of Magnesia. She should continue taking the Senokot-S BID. We also discussed that she might try Simethicone for the gas pains. I discussed with her that I suspect she is having some increased bowel cramping from the Milk of Magnesia. I would expect this will improve by tomorrow morning and instructed her to call us if this is not the case or if her pain worsens dramatically or she develops fever, vomiting etcetera. I also confirmed with her, per Dr. Sal's request, that she is not having any paresthesias or weakness. Conchita is comfortable with the plan and will keep us updated. Telephone Encounter - Sawyer Sal M.D. - 12/29/2017 5:51 PM CDT Juan Daniel Mejía, If the pain is not related to neuropathy , Ok to give more oxycodone. Is there any paresthesia or weakness?? Telephone Encounter - Kym Martin R.N. - 12/29/2017 1:19 PM CDT Post-Op Phone call Pain: Patient rates pain 5 on a scale 0-10. 0 being no pain and 10 being worst pain imaginable. The pain is minimal when she is sitting still, but escalates with any movement. She is taking Tylenol andibuprofen on a rotating scheduled as instructed. She has one oxycodone left and is worried about hercontinued intense pain. Patient states pain intolerable. Service contacted for pain control recommendations. . Diet: Patient is able to tolerate fluids and normal diet. Bowel Movement: Patient is able to pass gas and has had a bowel movement. Her first bowel movement since surgery was this morning. She had 2 small hard stools. She has been taking Senokot S one tablet twice daily. She does note that she experienced a lot of gas pain prior to her stools this morning. Iinstructed her to try taking a dose of milk of magnesia after our phone call to see if this could get her bowels moving more and possibly improve her pain. Voiding: Patient is able to void. Vaginal discharge: spotty External Skin Incision: dry and intact. She has some bruising around the robotic incisions and we discussed that this is common. She also notes that her daughter who is a home health care nurse has been keeping an eye on her incisions and feels that they look like they are healing well. She has been afebrile. External Skin Incision Site Care: Patient is cleansing incision site with Hibiclens. Activity: Patient is following post-operative activity restrictions. Follow-up appointment scheduled: Yes Patient Education: Reinforced post-procedure/discharge teaching. Reviewed signs and symptoms of surgical site infection. Instructed patient to check daily for warmth, increased tenderness or redness around the surgical site; cloudy drainage from the surgical site; and chills/fever of 100.4 degrees Fahrenheit (38 degrees Celsius) or greater. If experiencing any of these symptoms, patient should contact their health care provider immediately. Disposition of Call/Coordination of Care Disposition of call is required for symptom assessment. Select all that apply Notified provider, Comment Dr. Mckay's team and Awaiting provider recommendations Self-care Instructions The patient/caller was instructed to call back if symptoms are persistent, changing, worsening, or if there are specific symptoms to watch for. yes Response to Education/Information Given Role: RN Response to education/information given is required for symptom assessment, medical information, telephone follow-up, and DEL notes. Complete the section below as appropriate. Patient/caller is willing and able to follow the nurse's recommendation yes References Utilized References utilized are required for symptom assessment and/or medical information calls. Complete the reference utilization section below: Did you utilize any references? no Type of phone call: Symptom Assessment, Medical Information, Telephone Follow-up (concerns related to recent appointmentor hospitalization, patient specific education) and Test Results Conchita called today because she has been struggling with continued intermittently intense pain. She notes this is more on her right side. I will contact team for additional pain control recommendations. The patient notes that her daughter works in [place] and could pepper picker an additional oxycodone prescription if this is recommended by the team. I also let recent know that her final pathology report is back on the pathologist notes 6 benign fibroids in her uterus everything else from her plastic card grader cardroom surgery looked benign. Pathology from her appendectomy showed subacute appendicitis and a possiblehealed prior perforation. Conchita expressed understanding of these results and was happy to hear that there was nothing malignant found. She will await recommendations from Dr. barclay team. Kym Martin R.N. . Telephone Encounter - Laura Mccann - 12/29/2017 11:28 AM CDT Patient called in stating that she has surgery last with [facility] and has finished her pain medsand is still in a lot of pain. Pain rated as 4-5 when not on anything. The medication took the edge off. When she leans forward she is having pains in tummy. Can someone please contact her. Thank you Pharmacy: [facility] documented in this encounter Plan of Treatment Not on filedocumented as of this encounter Visit Diagnoses Not on filedocumented in this encounter
--- OUTSIDE RECORDS SUMMARY | 2022-04-30 11:49 | XMS_ITS | Encounter Summary ---
:1965 Author Organization [facility] Address [address] [place] [address] Care Team Providers Name Role Phone Unavailable [...] More than 4 times per year 12/08/2020 [employer] services? Do you belong to any clubs [...] Resul ts for this SURGERY IMAGE EXAM DIESEL ENGINE MECHANIC APPRENTICE procedure are in the results section. documented in this encounter Results COLON AND RECTAL SURGERY IMAGE EXAM (05/20/2017 2:15 PM DIESEL ENGINE MECHANIC APPRENTICE) Specimen (Source) Anatomical Collection Method Collection Time Re ceived Time Location / / Volume Laterality 05/20/2017 2:11 PM DIESEL ENGINE MECHANIC APPRENTICE Narrative [facility] - 05/20/2017 3:49 PM DIESEL ENGINE MECHANIC APPRENTICE This order has been created and auto-finalized [...]
--- OUTSIDE RECORDS SUMMARY | 2022-04-30 11:49 | XMS_ITS | Encounter Summary ---
:1965 Author Organization [facility] Address [address] [place] [id number] Care Team Providers Name Role Phone Unavailable Primary Care Provider Unavailable Reason for Referral Outpatient (Routine) - Closed Specialty Diagnoses / Procedures Referred By Contact Refer red To Contact Diagnoses Malignant Neoplasm Of Rectosigmoid (HCC) Arlene Tripathi M.D. [facility] Procedures Flexible Sigmoidoscopy [address] [place], [place] [phone] Referral ID Status Reason Start Date Expiration Date Visits Requ ested Visits Authorized [id number] Closed 11/11/2017 05/10/2018 1 1 Reason for Visit Outpatient (Routine) - Closed Specialty Diagnoses / Procedures Referred By Contact Refer red To Contact Diagnoses Malignant Neoplasm Of Rectosigmoid (HCC) Arlene Tripathi M.D. [facility] Procedures Flexible Sigmoidoscopy [address] [place] [address] Referral ID Status Reason Start Date Expiration Date Visits Requ ested Visits Authorized [id number] Closed 11/11/2017 05/10/2018 1 1 Encounter Details Date Type Department Care Team Description 12/04/2017 Hospital Encounter Division of Colon Arlene Tripathi Ma lignant Neoplasm Of and Rectal Surgery Tavia Powers Rectosigmoid (HCC) in [place], [address] [place], [place] [address] [facility] [address] [place], [place] [phone] (Work) [phone] Social History Tobacco Use Types Packs/Day Years [...] Care Everywhere. About Your Unsedated Flexible Sigmoidoscopy ([place])documented in this encounter Medications at Time of [...] Name Priority Date/Time Associated Diagnosis Comme nts CRS FLEXIBLE Routine 12/04/2017 1:14 Malignant Neoplasm Result s for this SIGMOIDOSCOPY PM CDT Of Rectosigmoid procedure a re in (HCC) the results section. documented in this encounter Results Flexible Sigmoidoscopy (12/04/2017 1:14 PM CDT) Specimen (Source) Anatomical Collection Method Collection Time Re ceived Time Location / / Volume Laterality 12/04/2017 1:14 PM CDT Impressions [facility] 12/04/2017 5:14 PM CDT Post-op Diagnoses: ? - Post-polypectomy scar in the di stal rectum. ? - A tattoo was seen in the mid si gmoid colon. The tattoo site appeared ? normal. ? - No specimens collected. Narrative [facility] - 12/04/2017 5:14 PM CDT [facility] CRS GI Patient Name: Conchita Solis Date of : 1965 Age: 52 Gender: Female Procedure Date: 12/04/2017 Procedure: ? Flexible Sigmoidoscopy Providers: ? Arlene Tripathi MD Referring Provider: ?Arlene olivares MD Pre-op Diagnoses: ?High risk c olon cancer surveillance: Personal ? his tory of rectal cancer Findings: ? The perianal and digital rectal e xaminations were normal. Pertinent ? negatives include normal sphincte r tone. ? A 20 mm post polypectomy scar was found in the distal rectum. The scar ? tissue was healthy in appearance. There was no evidence of the previous ? polyp. ? A tattoo was seen in the mid sigm oid colon. The tattoo site appeared ? normal. Procedural Details: ? The patient was [...] the a nus and advanced to the splenic ? flexure. The flexible sigmoidosco py was accomplished without difficulty. ? The patient tolerated the procedu re well. The quality of the bowel ? preparation was good. Complications: ? No immedia te complications. Sedation: ? No sedation administered. ? No sedation administered. Attending Participation: I personally pe rformed the entire procedure. Arlene Tripathi MD 12/04/2017 5:14:01 PM This report has been signed electronical ly. Number of Addenda: 0 Note Initiated On: 12/04/2017 1:14 PM Arlene Tripathi M.D. GI PROCEDURE ORDERABLES Performing Organization Address City/State/ZIP Code Phon e Number [employer] NA documented in this encounter Visit Diagnoses Diagnosis Malignant Neoplasm Of Rectosigmoid (HCC) documented in this encounter
--- OUTSIDE RECORDS SUMMARY | 2022-04-30 11:49 | XMS_ITS | Encounter Summary ---
:1965 Author Organization [facility] Address [address] [place] [address] Care Team Providers Name Role Phone Unavailable Primary Care Provider Unavailable Reason for Referral Outpatient (Routine) - Closed Specialty Diagnoses / Procedures Referred By Contact Refer red To Contact Obstetrics and Sumaya Robert M.D. [facility] [address] [place] [address] Referral ID Status Reason Start Date Expiration Date Visits Requ ested Visits Authorized [id number] Closed 12/25/2017 12/25/2018 1 1 Reason for Visit Auth/Cert Specialty Diagnoses / Procedures Referred By Contact Refer red To Contact Diagnoses Leiomyoma (Fibroid) Uterus Procedures HI LAPAROSCOPY W RMVL ADNEXA ROBOTIC-ASSISTED HYSTERECTOMY WITH SALPINGECTOMY (OVARIAN PRESERVATION) Referral ID Status Reason Start Date Expiration Date Visits Requ ested Visits Authorized [id number] 1 1 Encounter Details Date Type Department Care Team Description 12/25/2017 Hospital Encounter [facility] Chastity Mckay [facility] (Fibroid) [facility] [place] [address] [facility], [place], [place] Floor [phone] [phone] [place], [place] (Work) [phone] Social History Tobacco Use [...] Sign Reading Time Taken Comments Blood Pressure 170/83 12/25/2017 8:25 PM CDT Pulse 73 12/25/2017 8:25 PM CDT Temperature 36.7 ??C (98.06 ??F) 12/25/2017 8:25 PM CDT Respiratory Rate 17 12/25/2017 7:15 PM CDT Oxygen Saturation 95% 12/25/2017 8:25 PM CDT Inhaled Oxygen Concentration - - Weight 79.2 kg (174 lb 9.7 oz) 12/25/2017 6:38 AM CDT Height 161 cm (5' 3.39) 12/25/2017 6:38 AM CDT Body Mass Index 30.55 12/25/2017 6:38 AM CDT documented in this encounter Medications at Time of Discharge Medication Sig Dispensed Refills Start Date End Date acetaminophen (TYLENOL) Take 2 tablets by 0 06/0305/13/2019 500 mg tablet mouth every 6 (six) hours as needed. for pain. Take no more than 4000 mg in 24 hours. Ok to obtain over the counter. lisinopril Take 1 tablet by 0 05/12/2017 05/13/20 19 (PRINIVIL,ZESTRIL) 10 mg mouth daily. tablet ibuprofen (ADVIL,MOTRIN) Take 3 tablets (600 0 05/13/2019 200 mg tablet mg total) by mouth as needed for pain. every 4-6 hours as needed for pain oxyCODONE (ROXICODONE) 5 Take 1 tablet (5 mg 10 tablet 0 02/05/2018 mg immediate release total) by mouth tablet every 4 (four) hours as needed for moderate pain or score 4-6 of 10. sennosides-docusate Take 1 tablet by 0 12/25/2017 02/05/2018 sodium (SENOKOT-S) 8.6-50 mouth 2 (two) times mg per tablet a day. documented as of this encounter H&P Notes Sumaya Robert M.D. - 12/25/2017 7:35 AM CDT INTERVAL HISTORY AND PHYSICAL PRE-PROCEDURE UPDATE H&P reviewed. The patient was examined and there are no significant changes to the H&P. Sumaya Robert M.D. Source Note - Chastity Mckay M.D. - 12/16/2017 2:30 PM [...] ?? -05/20/17 Colorectal surgery consult with Dr. Martíenz. Recommendation for transanal excision. ?? -05/19/17 Patient [...] the patient that in our practice at [facility], we sometimes perform overlapping surgeries, meaning that I will be present for the entire critical portion of the surgery, and that my team members will assist me with the noncritical portions of the procedure. BILLING Greater than 50% of the time spent counseling. Chastity Mckay M.D. documented in this encounter Nursing Notes Jacy Bains R.N. - 12/25/2017 9:19 PM CDT Patient dismissed Home self care with . All questions were answered. Jacy Bains R.N. - 12/25/2017 8:44 PM CDT Goals: Identify possible barriers to meeting goals/advancing plan of care: None Stability of the patient: Moderately Stable - Low risk of patient condition declining or worsening End of Shift Summary: Patient has been ambulating, tolerating food and fluids, and able to empty herbladder. Yas Kruger R.N. - 12/25/2017 4:55 PM CDT Pt still waiting for room to be clean, this RN called [facility] for an update on ETA. [facility] reported they would switch pts bed. Pt informed of this. Yas Kruger R.N. - 12/25/2017 3:55 PM CDT Pt reports urge to void, bed chew offered to pt, pt refused. Reports she would like to wait until transfer to unit Chastity Mckay M.D. - 12/25/2017 8:01 AM CDT Before entering the OR, the patient alerted me to a small skin tag which is present on her right groin. She asked me to remove it. I examined the skin tag and this seems appropriate, especially given the fact that it is directly in our operative field. I will therefore remove the skin tag when I turn to the vaginal portion of the procedure. Chastity Mckay M.D. documented in this encounter OR Notes Op Note - Arlene Tripathi M.D. - 12/25/2017 8:43 AM CDT FULL OP NOTE Procedure: Laparoscopic appendectomy Surgeon: MD Lisa Noyola MD Anesthesia Type: General Pre-Operative Diagnosis: Leiomyoma (Fibroid) Uterus [D25.9]. Post-Operative Diagnosis: Same as pre-operative diagnosis Findings: As expected Complications: None Description of Procedure: Conchita Solis was taken to the operating room, placed on a table in a synchronous position, and underwent general endotracheal anesthesia. A urinary catheter was inserted and sequential compressiondevices were placed to the bilateral lower extremities. Preoperative antibiotics and subcutaneous heparin were administered. The patient was then prepped and draped in a normal sterile fashion followedby a pause identifying the correct patient, date, site, and procedure. Dr. Mckay's team placed their robotic trocars through direct visualization. We then scrubbed in to perform the appendectomy. We placed the patient in Trendelenburg and [id number] position. We identified the appendix. The base the appendix appeared very healthy however as it moved toward the tip it became more inflamed. The tip appeared perforated and was adherent to the terminal ileum. We used blunt dissection to peel the TI off of the appendix. We then freed the appendix from its other attachments. We identified the base of the cecum. We used a Dolores grasper to create a window between the appendix and the mesentery.We then used serial white loads of the Endo-JACQUES stapler to transect 1st the appendiceal base and 2ndthe appendiceal mesentery. We used an Endo-Catch bag to retrieve the specimen and sent for permanentpathologic review. We evaluated the staple lines for hemostasis and also looked at the terminal ileum that we had fully dissected off of the appendix. This all appeared normal with no bleeding. This concluded our portion of the procedure and Dr. Mckay's team continued. Specimens ID Type Source Tests Collected by Time A : appendix Tissue Appendix SURGICAL PATHOLOGY, [facility] Chastity Mckay M.D. 12/25/2017 0914 Drains GI Tubes (Adults) Orogastric (Active) Indwelling Urinary Catheter Latex 16 Fr. (Active) Estimated Blood Loss No blood loss documented. Implants * No implants in log * Arlene Tripathi M.D. Op Note - Chastity Mckay M.D. - 12/25/2017 8:43 AM CDT Procedure(s): ROBOTIC-ASSISTED HYSTERECTOMY, SALPINGECTOMY, OVARIAN PRESERVATION. (Bilateral) Laparoscopic Appendectomy Surgeon(s) and Role: Panel 1: * Chastity Mckay M.D. - Primary Panel 2: * Arlene Tripathi M.D. - Primary * Lisa Jean M.D. ANESTHESIA TYPE General PRE-OPERATIVE DIAGNOSIS Leiomyoma (Fibroid) Uterus [D25.9]. POST-OPERATIVE DIAGNOSIS Same as pre-operative diagnosis. FINDINGS Uterus: Abnormal. Mobile. Size: 14 weeks. Tubes/Ovaries: Normal. Symmetrical. Bilateral description: Smooth. DESCRIPTION OF PROCEDURE The patient was prepped and draped in the synchronous position with Yellofin stirrups. A Bynum catheter was placed. Attention was then turned to the abdomen. A 12-mm periumbilical incision was made, and the abdomen was entered without difficulty using an open laparoscopic technique. A Genna trocar was inserted, and a pneumoperitoneum was created. Examination of the peritoneal cavity revealed no gross abnormalities. Three robotic trocars and an recruitment assistant port trocar were placed in the upper quadrants under direct visualization. The robot was docked. The ureter was identified, and the right fallopian tube was dissected free from the ovary utilizing cautery. The utero-ovarian ligament was sealed andtransected using the LigaSure device. The identical procedure was performed on the left side. Both fallopian tubes were removed through the recruitment assistant port. The bladder was then reflected from the uterus using monopolar coagulation. The cardinal ligaments were skeletonized, the ureter visualized laterally, and the uterine vessels were ligated and divided using the bipolar cautery. This procedure was performed bilaterally. A probe was placed in the vagina to facilitate identification of the cervix. Vaginotomy was performed, and a circumferential incision was made around the cervix. The uterus and cervix were then delivered through the vagina and sent to Pathology for analysis. The vagina was closed in a two-layered fashion with Quill suture, incorporating the uterosacral ligaments into the cuff closure. The pelvis was then carefully examined, and hemostasis was assured. The robot was undocked. Thetrocars were removed, and the pneumoperitoneum was evacuated. The fascia underlying the periumbilical incision and recruitment assistant port incision was closed with 1-0 Vicryl, and all skin incisions were closedwith 3-0 Monocryl. The right groin skin tag was then easily removed with a scalpel and the base cauterized. The patient tolerated the procedure well, and the Bynum catheter was removed. The patient wastransferred to recovery in stable condition. SPECIMENS ID Type Source Tests Collected by Time A : appendix Tissue Appendix SURGICAL PATHOLOGY, Chastity Abreu M.D. 12/25/2017 0914 B : uterus and left fallopian tube Tissue Uterus SURGICAL PATHOLOGY, Chastity Abreu M.D. 12/25/2017 1013 C : right fallopian tube Tissue Fallopian Tube, Right SURGICAL PATHOLOGY, Chastity Abreu M.D. 12/25/2017 1014 DRAINS GI Tubes (Adults) Orogastric (Active) Indwelling Urinary Catheter Latex 16 Fr. (Active) ESTIMATED BLOOD LOSS 50 mL IMPLANTS * No implants in log * INTRA-OPERATIVE MEDICATIONS Intra-op Medications Date/Time Order Dose Route Action Action by 12/25/2017 0829 ceFAZolin injection 2 g (ANCEF) 2 g intravenous Given Carmen Brothers M.D. Brief Op Note - Sumaya Robert M.D. - 12/25/2017 8:43 AM CDT BRIEF OP NOTE Procedure(s): ROBOTIC-ASSISTED HYSTERECTOMY, SALPINGECTOMY, OVARIAN PRESERVATION. (Bilateral) Laparoscopic Appendectomy Surgeon(s) and Role: Panel 1: * Chastity Mckay M.D. - Primary Panel 2: * Arlene Tripathi M.D. - Primary * Lisa Jean M.D. Anesthesia Type: General Pre-Operative Diagnosis: Leiomyoma (Fibroid) Uterus [D25.9]. Post-Operative Diagnosis: Same as pre-operative diagnosis Findings: Normal appearing upper abdomen. Normal fibroid uterus, fallopian tubes, ovaries. Frozen pathology benign. Complications: None Specimens ID Type Source Tests Collected by Time A : appendix Tissue Appendix SURGICAL PATHOLOGY, Chastity Abreu M.D. 12/25/2017 0914 B : uterus and left fallopian tube Tissue Uterus SURGICAL PATHOLOGY, Chastity Abreu M.D. 12/25/2017 1013 C : right fallopian tube Tissue Fallopian Tube, Right SURGICAL PATHOLOGY, Chastity Abreu M.D. 12/25/2017 1014 Drains GI Tubes (Adults) Orogastric (Active) [REMOVED] Indwelling Urinary Catheter Latex 16 Fr. (Removed) Estimated Blood Loss 50 mL IV fluids: 1600 cc Implants * No implants in log * Sumaya Robert M.D. documented in this encounter Plan of Treatment Scheduled Referrals Name Type Priority Associated Order Schedule Diagnoses Obstetrics and Outpatient Referral Routine Expect ed: Gynecology office 02/05/2018 visit (clinic) (Approximate) , Expires: 12/25/2020 documented as of this encounter Procedures Procedure Name Priority Date/Time Associated Comments Diagnosis ADULT OXYGEN THERAPY Routine 12/25/2017 11:16 AM CDT SURGICAL PATHOLOGY, Routine 12/25/2017 9:14 AM Leiomyoma (Fibr oid) Results for this [facility] CDT Uterus procedure are i n the results section. LAPAROSCOPIC 12/25/2017 7:18 AM Leiomyoma (Fibroid) APPENDECTOMY CDT Uterus ROBOTIC-ASSISTED 12/25/2017 7:18 AM Leiomyoma (Fibroid ) HYSTERECTOMY CDT Uterus ABDOMINAL WITH SALPINGO-OOPHORECTOMY documented in this encounter Results Surgical Pathology, [facility] (12/25/2017 9:14 AM CDT) Component Value Ref Test Analysis Performed At [facility] Method Time Signature Gross A. ??Received fresh labeled appendix is a 5.6 x 1.4 cm 12/26/2017 [facility] Description appendix with smooth serosa, except for the tip of the 4:08 PM LABORATORIES appendix, which contains adhesions. ??There is an [facility] outpouching from the appendix tip into the periappendiceal [facility] adipose tissue. ??The outpouching does not show gross perforation, but the surrounding periappendiceal adipose tissue contains a 1.1 x 0.8 x 0.8 cm area of fat necrosis. The lumen contains no fecalith. ??Ranch Manager tissue submitted for permanent sections only. ??Grossed by BERE. B. ??Received fresh labeled uterus and left fallopian tube is a 230 gram uterus and cervix with a 10.7 x 0.8 cm attached left fallopian tube. ??The uterine serosa is smooth. ??The endometrium is unremarkable. ??There are multiple (6) intramural leiomyomata (ranging in size from 0.7 cm to 4.6 cm in greatest dimension). ??Ranch Manager tissue submitted for frozen and permanent sections. Grossed by FC/SSF. C. ??Received fresh labeled right fallopian tube is a 6.3 cm in length by 1 cm in diameter portion of unremarkable fallopian tube. ??Ranch Manager tissue submitted for frozen and permanent sections. ??Grossed by SSF. Participated in Kiley Price M.D.-Pathology Fellow 12/26/2017 [facility] the Manoj Black M.D.-Pathology Resident 4:08 PM LABORATORIES Interpretation [facility] Report Sbarina Kramer M.D., Ph.D. [phone] 12/27/19 18 [facility] electronically I verify that I have examined all relevant slides/ma terials 4:08 PM LABORATORIES signed by for the specimen(s) and rendered or confirmed the diagnosi s. [facility] 12/26/2017 [facility] 4:08 PM LABORATORIES [facility] Frozen B. ??Uterus and left fallopian tube, hysterectomy and left 12/26/2017 [facility] Intraoperative salpingectomy: ??Multiple (6) intramural leiomyomata 4:08 PM LABORATORIES Report (ranging in size from 0.7 cm to 4.6 cm in greatest [facility] dimension). ??Unremarkable endometrium, cervix, and [facility] fallopian tube. C. ??Fallopian tube, right, salpingectomy: ??Fallopian tube without diagnostic abnormality. Frozen section histologic interpretation performed by: Sabrina Kramer M.D., Ph.D. [phone] Block Summary A Appendix 12/26/2017 [facility] A1 Appendix tip-1 4:08 PM LABORATORIES A2 Appendix tip-2 CDT - [place] A3 Appendix [facility] B Uterus and left fallopian tube B1 Cervix 6:00 B2 Endomyometrium with fibroid B3 Endomyometrium B4 Fibroid B5 Left tube C Right fallopian tube C1 Right fallopian tube Interpretation FINAL DIAGNOSIS 12/26/2017 [facility] A. ??Appendix, appendectomy: ??Subacute appendicitis with 4:08 PM LABORATORIES dense lymphohistiocytic inflammation, foreign body type [facility] giant cells, and fat necrosis adjacent to the appendiceal [facility] tip, consistent with healed prior perforation. B. ??Uterus and left fallopian tube, hysterectomy and left salpingectomy: ??Multiple (6) intramural leiomyomata (ranging in size from 0.7 cm to 4.6 cm in greatest dimension). ??Unremarkable endometrium, cervix, and fallopian tube. C. ??Fallopian tube, right, salpingectomy: ??Fallopian tube without diagnostic abnormality. Specimen (Source) Anatomical Collection Method Collection Time Re ceived Time Location / / Volume Laterality Tissue (Appendix) 12/25/2017 9:14 AM CDT Tissue (Uterus) 12/25/2017 10:13 AM CDT Tissue (Fallopian 12/25/2017 10:14 Tube, Right) AM CDT Narrative This result has an attachment that is no t available. Chastity Mckay M.D. LAB SURG PATH ORDERABLES Performing Organization Address City/State/ZIP Code Phon e Number [facility] - [address] [place], [place] [address] [facility] documented in this encounter Visit Diagnoses Diagnosis Leiomyoma (Fibroid) Uterus - Primary Leiomyoma (Fibroid) Uterus Post Operative Nausea/Vomiting documented in this encounter Admitting Diagnoses Diagnosis Leiomyoma (Fibroid) Uterus documented in this encounter Administered Medications Inactive Administered Medications - up to 3 most recent administrations Medication Order MAR Action Action Date Dose Rate Site acetaminophen injection 1,000 New Bag 12/25/2017 3:42 PM 1,000 mg 400 mL/hr mg (OFIRMEV) CDT 1,000 mg, intravenous, at 400 mL/hr, Administer over 15 Minutes, Once, On Kari 12/25/17 at 1130, For 1 dose, PACU (only), Oral unless RASS less than -1 or nausea/vomiting. Do not use if given in last 6 hours, Restriction Criteria (Pharmacy will review and approve if criteria met): Unable to take or tolerate medications administered via the enteral route or orally (not just NPO) acetaminophen tablet 1,000 mg (TYLENOL) Given 12/25/2017 7:17 AM CDT 1,000 mg 1,000 mg, oral, Once, On Kari 12/25/17 at 0715, For 1 dose, Pre-Op, In Pre Op holding (PWA) celecoxib capsule 400 mg (CeleBREX) Given 12/25/2017 7:17 AM CDT 400 mg 400 mg, oral, Once, On Kari 12/25/17 at 0715, For 1 dose, Pre-Op, Pre-procedure on unit. Not to be administered for true sulfa allergy, acute GI bleed, history of GI bleed within past 6 months, or NSAID contraindications. gabapentin tablet 600 mg (NEURONTIN) Given 12/25/2017 7:17 AM CDT 600 mg 600 mg, oral, Once, On Kari 12/25/17 at 0715, For 1 dose, Pre-Op, Pre-procedure on unit., Drug Monitoring Program: Pharmacist to adjust medication order based on comorbities and indication. hydrALAZINE injection 5 mg (APRESOLINE) Given 12/25/2017 12:07 PM CDT 5 mg 5 mg, intravenous, Once as needed, high blood pressure, per Provider instructions, Starting on Kari 12/25/17 at 1116, For 1 dose, PACU (only), Follow institution's IV administration guidelines HYDROmorphone (PF) injection 0.2 mg Given 12/25/2017 12:54 PM CD T 0.2 mg (DILAUDID) 0.2 mg, intravenous, Every 5 min PRN, moderate pain or score 4-6 of 10, severe pain or score 7-10 of 10, Starting on Kari 12/25/17 at 1116, PACU (only), Up to maximum total dose of 2 mg Given 12/25/2017 12:00 PM CDT 0.2 mg Given 12/25/2017 11:48 AM CDT 0.2 mg ibuprofen tablet 600 mg (ADVIL,MOTRIN) 600 mg, oral, Every 6 hours, First dose on Fri12/26/17 at 1800, start 6 hours after last ketorolac dose administered ketorolac injection 15 mg (TORADOL) Given 12/25/2017 6:01 PM CDT 15 mg 15 mg, intravenous, Every 6 hours, First dose on Kari 12/25/17 at 1800, For 4 doses, start no sooner than 6 hours after last intraoperative dose Adult IV push rate: Over 15 seconds. Peds IV push rate: Over 1 minute. 60 mg dose only for IM, not recommended for IV., Drug Monitoring Program: Pharmacist to adjust medication order based on comorbities and indication. lactated ringers New Bag 12/25/2017 1:00 PM CDT 20 mL/hr 20 mL/hr 20 mL/hr, intravenous, Continuous, Starting on Kari 12/25/17 at 1100, PACU & Post-Op Continued from OR 12/25/2017 11:45 AM CDT 20 mL/hr 20 mL/hr Continued from OR 12/25/2017 11:00 AM CDT 20 mL/hr 20 mL/hr lactated ringers Continued from OR 12/25/2017 11:00 AM 20 mL/hr 20 mL/hr 20 mL/hr, intravenous, CDT Continuous, Starting on Krai 12/25/17 at 1100, PACU & Post-Op ondansetron (PF) injection 4 mg (ZOFRAN) Given 12/25/2017 4:20 PM CDT 4 mg 4 mg, intravenous, Every 6 hours PRN, nausea, vomiting, Starting on Kari 12/25/17 at 1116, For 48 hours, PACU (only), Reassess for nausea or vomiting after at least 10 minutes. If nausea or vomiting persists administer next ordered antiemetic medications (order for antiemetic medication administration ondansetron then droperidol then promethazine). oxyCODONE IR tablet 10 mg (ROXICODONE) 10 mg, oral, Every 4 hours PRN, severe p ain or score 7-10 of 10, Starting on Kari 12/25/17 at 1729 oxyCODONE IR tablet 5 mg (ROXICODONE) Given 12/25/2017 11:38 AM CDT 5 mg 5 mg, oral, Once, On Kari 12/25/17 at 1130, For 1 dose, PACU (only), Prior to discharge oxyCODONE IR tablet 5 mg (ROXICODONE) Given 12/25/2017 6:08 PM CDT 5 mg 5 mg, oral, Every 4 hours PRN, moderate pain or score 4-6 of 10, Starting on Kari 12/25/17 at 1729 sennosides-docusate sodium 8.6-50 mg per Given 12/25/2017 8:38 P M CDT 1 tablet tablet 1 tablet (SENOKOT-S) 1 tablet, oral, 2 times daily, First dose on Kari 12/25/17 at 2100, Starting evening of surgery. sodium phosphates enema 2 enema (FLEET) Given 12/25/2017 6:29 AM CDT 2 enemas 2 enema, rectal, Once, On Kari 12/25/17 at 0600, For 1 dose, Pre-Op, Two consecutive doses. Preprocedure on unit documented in this encounter Active and Recently Administered Medications Times are shown in CDT. Scheduled Medication Order 12/23/2017 12/24/2017 12/25/2017 acetaminophen injection 1,000 mg (OFIRMEV) (COMPLETED) 1541 (New Bag - Provider: Yas Kruger R.N.) 1,000 mg, intravenous, at 400 mL/hr, Adm inister over 15 Minutes, Once, On Kari 12/25/17 at 1130, For 1 dose, PACU (only), Oral unless RASS less than -1 or nausea/vomiting. Do not use if given in last 6 ho urs, Restriction Criteria (Pharmacy will review and approve if criteria met): Unable to take or tolerate medications administered via the enteral route or orally (not just NPO) acetaminophen tablet 1,000 mg (TYLENOL) (COMPLETED) 716 (Given - Provider: Aggie Massey R.N.) 1,000 mg, oral, Once, On Kari 12/25/17 at 0715, For 1 dose, Pre-Op, In Pre Op holding (PWA) acetaminophen tablet 1,000 mg (TYLENOL) 2037 (Not Given - Provider: Aggie Spencer RSinanN. - Reason: Patient/family refused) 1,000 mg, oral, 4 times daily, First dos e on Akri 12/25/17 at 2100, not to exceed 4 grams in 24 hours. ceFAZolin injection 2 g (ANCEF) (COMPLETED) 828 (Given - Provider: Germaine Brothers RSinanNSinan) 2 g, intravenous, Once, On Kari 12/25/17 a t 0715, For 1 dose, Intra-Op, Preoperatively within 1 hour prior to surgical incision. [place] IV push over 3 minutes. Add 5 mL NS to 1 gram vial for a final co ncentration of 200 mg/mL., Drug Monitori ng Program: Pharmacist to adjust medication order based on comorbities and indication., Indications: Prophylaxis, surgical celecoxib capsule 400 mg (CeleBREX) (COMPLETED) 716 (Given - Provider: Aggie Massey RBarbie) 400 mg, oral, Once, On Kari 12/25/17 at 07 15, For 1 dose, Pre-Op, Pre-procedure on unit. Not to be administered for true sulfa allergy, acute GI bleed, history of GI bleed within past 6 months, or NSAID contraindications. gabapentin tablet 600 mg (NEURONTIN) (COMPLETED) 716 (Given - Provider: Aggie Massey RBarbie) 600 mg, oral, Once, On Kari 12/25/17 at 07 15, For 1 dose, Pre-Op, Pre-procedure on unit., Drug Monitoring Program: Pharmacist to adjust medication order based on comorbities and indication. ibuprofen tablet 600 mg (ADVIL,MOTRIN)(Linked Group 1) 600 mg, oral, Every 6 hours, First dose on Fri12/26/17 at 1800, start 6 hours after last ketorolac dose administered ketorolac injection 15 mg (TORADOL)(Linked Group 1) 1801 (Given - Provider: Jacy Bains RSinanNSinan) 15 mg, intravenous, Every 6 hours, First dose on Kari 12/25/17 at 1800, For 4 doses, start no sooner than 6 hours after last intraoperative dose Adult IV push rate: Over 15 seconds. Peds IV push rate: Ove r 1 minute. 60 mg dose only for IM, not recommended for IV., Drug Monitoring Program: Pharmacist to adjust medication order based on comorbities and indication. magnesium hydroxide suspension 30 mL (MILK OF MAGNESIA) 2037 (Not Given - Provider: Aggie Spencer R.N. - Reason: Patient/family refused) 30 mL, oral, 2 times daily, First dose o n Kari 12/25/17 at 2100, Starting evening of surgery. After first bowel movement discontinue Magnesium hydroxide. oxyCODONE IR tablet 5 mg (ROXICODONE) (COMPLETED) 1137 (Given - Provider: Constance Drew R.N.) 5 mg, oral, Once, On Kari 12/25/17 at 1130 , For 1 dose, PACU (only), Prior to discharge sennosides-docusate sodium 8.6-50 mg per tablet 1 tablet (SENOKO T-S) 2037 (Given - Provider: Aggie Spencer R.N.) 1 tablet, oral, 2 times daily, First dos e on Kari 12/25/17 at 2100, Starting evening of surgery. sodium phosphates enema 2 enema (FLEET) (COMPLETED) 628 (Given - Provider: Kaia Syed R.N., Young) 2 enema, rectal, Once, On Kari 12/25/17 at 0600, For 1 dose, Pre-Op, Two consecutive doses. Preprocedure on unit Continuous Medication Order 12/23/2017 12/24/2017 12/25/2017 lactated ringers (CANCELED) 1100 (Continued from OR - Provider: Constance Drew R.N.)1145 (Continued from OR - Provider: Constance Drew R.N.)1300 (New Bag - Provider: Muriel Fiore R.N.) 20 mL/hr, intravenous, Continuous, Start ing on Kari 12/25/17 at 1100, PACU & Post-Op lactated ringers (CANCELED) 1100 (Continued from OR - Provider: Constance Drew R.N.)1145 (Stopped - Provider: Constance Drew R.N.)1300 (Canceled Entry - Provider: Muriel Fiore R.N.) 20 mL/hr, intravenous, Continuous, Start ing on Kari 12/25/17 at 1100, PACU & Post-Op PRN Medication Order 12/23/2017 12/24/2017 12/25/2017 bupivacaine-EPINEPHrine (PF) 0.25 %-1:20 0,000 injection (MARCAINE w/EPI) (CANCELED) 1046 (Given - Provid er: Sumaya Robert M.D.)1053 (Given - Provider: Sumaya Robert M.D.) As needed, Starting on Kari 12/25/17 at 1046, Intra-Op droperidol injection 0.625 mg (INAPSINE) 0.625 mg, intravenous, Every 6 hours PRN , nausea, vomiting, Starting Kari 12/25/17 at 1721, For 48 hours, Total of 3 doses in 24 hour period. RASS must be -2 or higher to administer. Reassess for nausea o r vomiting after at least 10 minutes. If nausea or vomiting persists administer next ordered antiemetic medications (order for antiemetic medication administration ondansetron then droperidol then promethazine)., Indications: Nausea and Vomiting hydrALAZINE injection 5 mg (APRESOLINE) (COMPLETED) 1207 (Given - Provider: Constance Drew, RSinanNSinan) 5 mg, intravenous, Once as needed, high blood pressure, per Provider instructions, Starting on Kari 12/25/17 at 1116, For 1 dose, PACU (only), Follow institution's IV administration guidelines HYDROmorphone (PF) injection 0.2 mg (DILAUDID) (CANCELED) 1148 (Given - Provider: Constance Drew, R.N.)1200 (Given - Provider: Constance Drew R.N.)1254 (Given - Provider: Constance Drew R.N.) 0.2 mg, intravenous, Every 5 min PRN, mo derate pain or score 4-6 of 10, severe pain or score 7-10 of 10, Starting on Kari 12/25/17 at 1116, PACU (only), Up to maximum total dose of 2 mg HYDROmorphone injection 0.2 mg (DILAUDID) 0.2 mg, intravenous, Every 2 hour PRN, f or breakthrough pain, Starting Kari 12/25/17 at 1721, For 3 doses, Unrelieved 30 minutes after PRN oral pain medication is used; if unable to take oral pain medicat ion; or if pain is greater than or equal to 7, use instead of oral pain medication. naloxone injection 0.2 mg (NARCAN) 0.2 mg, intravenous, As needed, respirat ory depression, Starting Kari 12/25/17 at 1721, For respiratory rate less than 8 breaths per minute or RASS score of -3, - 4, -5. Apply oxygen to keep oxygen saturations greater than 90% and notify service. ondansetron (PF) injection 4 mg (ZOFRAN) 4 mg, intravenous, Every 6 hours PRN, na usea, vomiting, Starting Kari 12/25/17 at 1721, For 48 hours, Reassess for nausea or vomiting after at least 10 minutes. If nausea or vomiting persists administer n ext ordered antiemetic medications (orde r for antiemetic medication administration ondansetron then droperidol then promethazine). ondansetron (PF) injection 4 mg (ZOFRAN) (CANCELED) 1620 (Given - Provider: Yas Kruger R.N. - Comment: Per Dr. Cabrera, ok to give 15 minutes early) 4 mg, intravenous, Every 6 hours PRN, na usea, vomiting, Starting on Kari 12/25/17 at 1116, For 48 hours, PACU (only), Reassess for nausea or vomiting after at least 10 minutes. If nausea or vomiting persi sts administer next ordered antiemetic m edications (order for antiemetic medication administration ondansetron then droperidol then promethazine). oxyCODONE IR tablet 10 mg (ROXICODONE)(Linked Group 2) 1807 (See Alternative - Provider: Jacy Bains R.N.) 10 mg, oral, Every 4 hours PRN, severe p ain or score 7-10 of 10, Starting on Kari 12/25/17 at 1729 oxyCODONE IR tablet 5 mg (ROXICODONE)(Linked Group 2) 180 (Given - Provider: Jacy Bains R.N.) 5 mg, oral, Every 4 hours PRN, moderate pain or score 4-6 of 10, Starting on Kari 12/25/17 at 1729 promethazine injection 6.25 mg (PHENERGAN) 6.25 mg, intravenous, Every 6 hours PRN, nausea, vomiting, Starting Kari 12/25/17 at 1721, For 48 hours, RASS must be -2 or higher to administer. Reassess for nausea/vomiting after at least 10 minutes. If nausea or vomiting persists administer next ordered antiemetic medications (order for antiemetic medication administration ondansetron then droperidol then promethazine). Linked Groups Order Group 1: ketorolac injection 15 mg (TORADOL)Jump to med 15 mg, intravenous, Every 6 hours, First dose on Kari 12/25/17 at 1800, For 4 doses
start no sooner than 6 hours after last intraoperative dose Adult IV push rate: Over 15 seconds.&n bsp;Peds IV push rate: Over 1 minute.&nb sp;60 mg dose only for IM, not recommended for IV.
Drug Monitoring Program: Pharmacist to adjust medication order based on comorbities and indication. Followed by ibuprofen tablet 600 mg (ADVIL,MOTRIN)Jump to med 600 mg, oral, Every 6 hours, First dose on Fri12/26/17 at 1800
start 6 hours after last ketorolac dose administered
Group 2: oxyCODONE IR tablet 5 mg (ROXICODONE)Jump to med 5 mg, oral, Every 4 hours PRN, moderate pain or score 4-6 of 10, Starting on Kari 12/25/17 at 1729 Or oxyCODONE IR tablet 10 mg (ROXICODONE)Jump to med 10 mg, oral, Every 4 hours PRN, severe p ain or score 7-10 of 10, Starting on Kari 12/25/17 at 1729 documented in this encounter
--- OUTSIDE RECORDS SUMMARY | 2022-04-30 11:49 | XMS_ITS | Encounter Summary ---
:1965 Author Organization [facility] Address [address] [place] [address] Care Team Providers Name Role Phone Unavailable Primary Care Provider Unavailable Reason for Visit Auth/Cert Specialty Diagnoses / Procedures Referred By Contact Refer red To Contact Diagnoses Leiomyoma (Fibroid) Uterus Procedures ID LAPAROSCOPY W RMVL ADNEXA ROBOTIC-ASSISTED HYSTERECTOMY WITH SALPINGECTOMY (OVARIAN PRESERVATION) Referral ID Status Reason Start Date Expiration Date Visits Requ ested Visits Authorized [id number] 1 1 Encounter Details Date Type Department Care Team Description 12/25/2017 Surgery [facility] OR Chastity Mckay, ROBOTIC-ASSISTED [address] [facility] [place] M.D HYSTERECTOMY, [place], [place] [address] [facility] SALPINGECTOMY, OVARIAN [id number] [place], [place] PRESERVATION. [phone] (Wo rk) Social History Tobacco Use Types [...] Sign Reading Time Taken Comments Blood Pressure 166/71 12/25/2017 12:50 PM CDT Pulse 74 12/25/2017 12:55 PM CDT Temperature 37 ??C (98.6 ??F) 12/25/2017 2:00 PM CDT Respiratory Rate 12 12/25/2017 12:55 PM CDT Oxygen Saturation 92% 12/25/2017 12:55 PM CDT Inhaled Oxygen Concentration - - [...] the patient that in our practice at [facility], we sometimes perform overlapping surgeries, meaning that [...] correct patient, date, site, and procedure. Dr. Mcaky's team placed their robotic trocars through direct visualization. We then scrubbed in to perform the appendectomy. We placed the patient in Trendelenburg and [id number] position. We identified the appendix. The base [...] gross abnormalities. Three robotic trocars and an certified ophthalmic surgical assistant port trocar were placed in the upper quadrants under direct visualization. The robot was docked. The ureter was identified, and the right fallopian tube was dissected free from the ovary utilizing cautery. The utero-ovarian ligament was sealed andtransected using the LigaSure device. The identical procedure was performed on the left side. Both fallopian tubes were removed through the certified ophthalmic surgical assistant port. The bladder was then reflected [...] The fascia underlying the periumbilical incision and certified ophthalmic surgical assistant port incision was closed with 1-0 [...] left fallopian tube Tissue Uterus [facility] Chastity Mckay M.D. 12/25/2017 1013 C : right fallopian tube Tissue Fallopian Tube, Right [facility] Chastity Mckay M.D. 12/25/2017 1014 Drains GI Tubes (Adults) [...] Component Value Ref Test Analysis Performed At [facility] Range Method Time Signature Gross A. ??Received fresh labeled appendix is a 5.6 x 1.4 cm 12/26/2017 [facility] Description appendix with smooth serosa, except for the tip of the 4:08 PM LABORATORIES appendix, which contains adhesions. ??There is an T - [place] outpouching from the appendix tip into the periappendiceal [facility] adipose tissue. ??The outpouching does not show gross perforation, but the surrounding periappendiceal adipose tissue contains a 1.1 x 0.8 x 0.8 cm area of fat necrosis. The lumen contains no fecalith. ??Ceramics Machine Operator tissue submitted for permanent sections only. ??Grossed by BERE. B. ??Received fresh labeled uterus and left fallopian tube is a 230 gram uterus and cervix with a 10.7 x 0.8 cm attached left fallopian tube. ??The uterine serosa is smooth. ??The endometrium is unremarkable. ??There are multiple (6) intramural leiomyomata (ranging in size from 0.7 cm to 4.6 cm in greatest dimension). ??Ceramics Machine Operator tissue submitted for frozen and permanent sections. Grossed by FC/SSF. C. ??Received fresh labeled right fallopian tube is a 6.3 cm in length by 1 cm in diameter portion of unremarkable fallopian tube. ??Ceramics Machine Operator tissue submitted for frozen and permanent sections. ??Grossed by SSF. Participated in Kiley Price M.D.-Pathology Fellow 12/26/2017 [facility] the Manoj Black M.D.-Pathology Resident 4:08 PM LABORATORIES Interpretation [facility] Report Sabrina Kramer M.D., Ph.D. [phone] 12/27/19 18 [facility] electronically I verify that I have examined all relevant slides/ma terials 4:08 PM LABORATORIES signed by for the specimen(s) and rendered or confirmed the diagnosi s. [facility] 12/26/2017 [facility] 4:08 PM LABORATORIES [facility] Frozen B. ??Uterus and left fallopian tube, hysterectomy and left 12/26/2017 [facility] Intraoperative salpingectomy: ??Multiple (6) intramural leiomyomata 4:08 PM LABORATORIES Report (ranging in size from 0.7 cm to 4.6 cm in greatest [facility] dimension). ??Unremarkable endometrium, cervix, and [place] fallopian tube. C. ??Fallopian tube, right, salpingectomy: ??Fallopian tube without diagnostic abnormality. Frozen section histologic interpretation performed by: Sabrina Kramer M.D., Ph.D. [phone] Block Summary A Appendix 12/26/2017 [facility] A1 Appendix tip-1 4:08 PM LABORATORIES A2 Appendix tip-2 [facility] A3 Appendix [facility] B Uterus and left fallopian tube B1 Cervix 6:00 B2 Endomyometrium with fibroid B3 Endomyometrium B4 Fibroid B5 Left tube C Right fallopian tube C1 Right fallopian tube Interpretation FINAL DIAGNOSIS 12/26/2017 [facility] A. ??Appendix, appendectomy: ??Subacute appendicitis with 4:08 PM LABORATORIES dense lymphohistiocytic inflammation, foreign body type CDT - NAZARIO giant cells, and fat necrosis adjacent to [...] Address City/State/ZIP Code Phon e Number [facility] - [address] [place] [address] [address] [facility] documented in this encounter Visit Diagnoses Diagnosis Leiomyoma (Fibroid) Uterus - Primary Leiomyoma (Fibroid) Uterus Post Operative Nausea/Vomiting Leiomyoma (Fibroid) Uterus documented in this encounter Admitting Diagnoses Diagnosis [...] dose, Pre-Op, In Pre Op holding (PWA) bupivacaine-EPINEPHrine (PF) 0.25 Given 12/25/2017 10:53 AM 1 mL Right Anterior %-1:200,000 injection (MARCAINE CDT Thigh w/EPI) As needed, Starting on Kari 12/25/17 at 1046, Intra-Op Given 12/25/2017 10:46 AM CDT 49 mL Abdo perla Tissue celecoxib capsule 400 mg (CeleBREX) Given 12/25/2017 [...] 20 mL/hr, intravenous, CDT Continuous, Starting on Kari 12/25/17 at 1100, PACU & Post-Op ondansetron [...] 12/25/2017 acetaminophen injection 1,000 mg (OFIRMEV) (COMPLETED) 1542 (New Bag - Provider: Yas Kruger RBarbie) 1,000 mg, intravenous, at 400 mL/hr, Adm [...] 716 (Given - Provider: Aggie Massey RBarbie) 1,000 mg, oral, Once, On Kari 12/25/17 at 0715, For 1 dose, Pre-Op, In Pre Op holding (PWA) acetaminophen tablet 1,000 mg (TYLENOL) 2037 (Not Given - Provider: Aggie Spencer RMaxim. - Reason: Patient/family refused) 1,000 mg, oral, 4 times daily, First dos e on Kari 6/14/18 at 2100, not to exceed 4 grams in 24 hours. ceFAZolin injection 2 g (ANCEF) (COMPLETED) 828 (Given - Provider: Germaine Brothers RSinanNSinan) 2 g, intravenous, Once, On Kari 18 a t 0715, For 1 dose, Intra-Op, [...] 716 (Given - Provider: Aggie Massey R.N.) 400 mg, oral, Once, On Kari 12/25/17 at 07 15, For 1 dose, Pre-Op, Pre-procedure on unit. Not to be administered for true sulfa allergy, acute GI bleed, history of GI bleed within past 6 months, or NSAID contraindications. gabapentin tablet 600 mg (NEURONTIN) (COMPLETED) 716 (Given - Provider: Aggie Massey RBarbie) 600 mg, oral, Once, On Kari 18 at 07 15, For 1 dose, Pre-Op, Pre-procedure on unit., Drug Monitoring Program: Pharmacist to adjust medication order based on comorbities and indication. ibuprofen tablet 600 mg (ADVIL,MOTRIN)(Linked Group 1) 600 mg, oral, Every 6 hours, First dose on Fri12/26/17 at 1800, start 6 hours after last ketorolac dose administered ketorolac injection 15 mg (TORADOL)(Linked Group 1) 1800 (Given - Provider: Jacy Bains RSinanNSinan) 15 [...] oxyCODONE IR tablet 5 mg (ROXICODONE) (COMPLETED) 113 (Given - Provider: Constance Drew R.N.) 5 [...] 628 (Given - Provider: Kaia Syed R.N., JakeSChicoNSinan) 2 enema, rectal, Once, On Kari 12/25/17 [...] (COMPLETED) 1207 (Given - Provider: Constance Drew, R.N.) 5 mg, intravenous, Once as needed, high blood pressure, per Provider instructions, Starting on Kari 12/25/17 at 1116, For 1 dose, PACU (only), Follow institution's IV administration guidelines HYDROmorphone (PF) injection 0.2 mg (DILAUDID) (CANCELED) 1148 (Given - Provider: Constance Drew, R.N.)1200 (Given - Provider: Constance Drew, R.N.)1254 (Given - Provider: Constance Drew, R.N.) 0.2 mg, intravenous, Every 5 min PRN, mo derate pain or score 4-6 of 10, severe pain or score 7-10 of 10, Starting on Kari 12/25/17 at 1116, PACU (only), Up to maximum total dose of 2 mg HYDROmorphone injection 0.2 mg (DILAUDID) 0.2 mg, intravenous, Every 2 hour PRN, f or breakthrough pain, Starting Kari 18 at 1721, For 3 doses, Unrelieved 30 [...] Kruger R.N. - Comment: Per Dr. Cabrera, gabe to give 15 minutes early) 4 mg, [...] IR tablet 5 mg (ROXICODONE)(Linked Group 2) 1807 (Given - Provider: Jacy Bains R.N.) 5 [...]
--- OUTSIDE RECORDS SUMMARY | 2022-04-30 11:49 | XMS_ITS | Encounter Summary ---
:1965 Author Organization [facility] Address [address] [place] [id number] Care Team Providers Name Role Phone Unavailable Primary Care Provider Unavailable Reason for Visit MRI/CAT/PET Scan (Routine) - Closed Specialty Diagnoses / Procedures Referred By Contact Refer red To Contact Radiology Diagnoses Malignant Neoplasm Of Rectosigmoid (HCC) Arlene Tripathi M.D. [facility] Procedures CT Abdomen Pelvis with IV Contrast CT Abdomen Pelvis without and with IV Contrast [place] CT ABD&PELVIS WO/W CNTRST HC CT ABD&PELVIS WO/W [facility]ST [place] CT ABD&PELVIS WO/W CNTRST [place] CT ABD&PELVIS W CNTRST HC CT ABD&PELVIS W CNTRST [address] [facility] [place] CT ABD&[place] [address] Referral ID Status Reason Start Date Expiration Date Visits Requ ested Visits Authorized [id number] Closed 11/11/2017 05/10/2018 1 1 Encounter Details Date Type Department Care Team Description 12/04/2017 Hospital Encounter Department of Arlene Tripathi Malign ant Neoplasm Of Radiology, Jesus Powers M.D. Rectosigmoid (HCC) Building, in [address] [place] [id number] [place] [address] [place], [place] (Work) [phone] Social History Tobacco Use [...] or relatives? How often do you attend scientologist or More than 4 times per year 12/08/2020 yazdanism services? Do you belong to any clubs or Yes 12/08/2020 organizations such as scientologist groups, unions, fraternal or athletic groups, or [...] Body Mass Index 30.48 06/03/2017 7:35 AM ORDER ENTRY REPRESENTATIVE documented in this encounter Medications at Time [...] r egion. Discussed with Arlene Tripathi MD [phone], by telephone. Narrative 12/04/2017 5:51 PM CDT [...] r egion. Discussed with Arlene Tripathi MD [phone], by telephone. Arlene Tripathi M.D. IMG CT [...]
--- OUTSIDE RECORDS SUMMARY | 2022-04-30 11:49 | XMS_ITS | Encounter Summary ---
:1965 Author Organization [facility] Address [address] [place] [address] Care Team Providers Name Role Phone Unavailable Primary Care Provider Unavailable Encounter Details Date Type Department Care Team Description 12/04/2017 Hospital Encounter Department of Arlene Tripathi Neoplasm Of Laboratory Medicine Tavia Powers Rectosigmoid (HCC) and Pathology, [address] [place] [address] [facility] [id number] [place] [phone] [place] [address] (Work) [place], [place] [phone] [address] (Fax) [phone] Social History Tobacco Use Types Packs/Day Years [...] Date/Time Associated Comments Diagnosis CARCINOEMBRYONIC AG Routine 12/04/2017 10:38 Malignant Neoplas m Results for this (CEA), S AM CDT Of Rectosigmoid procedure ar e in (HCC) the results section. documented in this encounter Results (ABNORMAL) CEA (Carcinoembryonic Antigen) (12/04/2017 10:38 AM CDT) [facility] gist Method Time Signature Carcinoembryonic Ag 5.0 (H) ng/mL 12/04/2017 [facility] (CEA), S 2:19 PM CDT [facility] Comment: ----REFERENCE VALUE---- <=3.0 (Non-smokers) Some smokers may have elevated CEA, usually <5.0. ----ADDITIONAL INFORMATION---- The testing method is an immunoenzymatic assay manufactured by [employer] and performed on the [employer] DxI 800. ? Values obtained with different assay met hods or kits may be different and cannot be used inte rchangeably. ? Test results cannot be interpreted as ab solute evidence for the presence or absence of malignant disease. Specimen Anatomical Collection Method Collection Time Receive d Time (Source) Location / / Volume Laterality Blood (Blood, 12/04/2017 10:38 12/04/2017 1:26 Venous) AM CDT PM CDT Arlene Tripathi M.D. LAB BLOOD ADD-ON Performing Organization Address City/State/ZIP Code Phon e Number [facility] [address] [place], [place] [address] [facility] documented in this encounter Visit Diagnoses Diagnosis Malignant Neoplasm Of Rectosigmoid (HCC) documented in this encounter
--- OUTSIDE RECORDS SUMMARY | 2022-04-30 11:49 | XMS_ITS | Encounter Summary ---
:1965 Author Organization [facility] Address [address] [place] [address] Care Team Providers Name Role Phone Unavailable Primary Care Provider Unavailable Encounter Details Date Type Department Care Team Description 12/16/2017 Hospital Encounter Department of Chastity Mckay Uterus Intramural; Laboratory Medicine Tavia Pinzon Menorrhagia and Pathology, [address] [place] [address] in [facility] [id number] [place] [phone] [place] [address] (Work) [place], [place] [phone] (Fax) [phone] Social History Tobacco Use Types Packs/Day Years [...] More than 4 times per year 12/08/2020 evangelical services? Do you belong to any clubs [...] every 4-6 hours as needed for pain ibuprofen (ADVIL,MOTRIN) Take 3 tablets (600 0 05/13/2019 200 mg tablet mg total) by mouth as needed for pain. every 4-6 hours as needed for pain lisinopril Take 1 tablet by 0 05/12/2017 05/13/20 19 (PRINIVIL,ZESTRIL) 10 mg mouth daily. tablet oxyCODONE (ROXICODONE) 5 Take 1 tablet (5 mg 10 tablet 0 02/05/2018 mg immediate release total) by mouth tablet every 4 (four) hours as needed for moderate pain or score 4-6 of 10. sennosides-docusate Take 1 tablet by 0 12/25/2017 02/05/2018 sodium (SENOKOT-S) 8.6-50 mouth 2 (two) times mg per tablet a day. documented as of this encounter Plan of Treatment Not on filedocumented as of this encounter Procedures Procedure Name Priority Date/Time Associated Comments Diagnosis CBC WITHOUT Routine 12/16/2017 4:48 PM Fibroid Uterus Results for this DIFFERENTIAL, B CDT Intramural procedure are in Menorrhagia the results section. TYPE AND SCREEN Routine 12/16/2017 4:48 PM Fibroid Uterus Resu lts for this CDT Intramural procedure are in Menorrhagia the results section. CREATININE WITH Routine 12/16/2017 4:48 PM Fibroid Uterus Resu lts for this EGFR, S/P CDT Intramural procedure are in Menorrhagia the results section. documented in this encounter Results (ABNORMAL) Creatinine with Estimated GFR (12/16/2017 4:48 PM CDT) [facility] gist Method Time Signature Creatinine 0.57 (L) 0.59 - 12/16/2017 [facility] 1.04 5:52 PM CDT LABORATORIES - mg/dL [facility] eGFR-Non >90 >=60 12/16/2017 [facility] Black/ mL/min/BS 5:52 PM CDT LABORATORIES - Citizen Of [place] A [facility] Comment: ----ADDITIONAL INFORMATION---- Estimated GFR calculated using the 2009 CKD_EPI creatinine equation. eGFR-Black/ >90 >=60 mL/min/BSA 12/16/2017 5:52 [facility] CDT LABORATORIES - [facility] Comment: ----ADDITIONAL INFORMATION---- Estimated GFR calculated using the 2009 CKD_EPI creatinine equation. Specimen Anatomical Collection Method Collection Time Receive d Time (Source) Location / / Volume Laterality Blood (Blood, 12/16/2017 4:48 PM 12/17/19 18 5:13 Venous) CDT PM CDT Chastity Mckay M.D. LAB BLOOD ADD-ON Performing Organization Address City/State/ZIP Code Phon e Number [facility] LABORATORIES - [address] [place] [address] [facility] CBC without Differential (12/16/2017 4:48 PM CDT) [facility] gist Method Time Signature Hemoglobin 11.8 11.6 - 12/16/2017 [facility] 15.0 g/dL 5:21 PM CDT LABORATORIES - [facility] Hematocrit 36.4 35.5 - 12/16/2017 [facility] 44.9 % 5:21 PM CDT LABORATORIES - [facility] Erythrocytes 4.43 3.92 - 12/16/2017 [facility] 5.13 5:21 PM CDT LABORATORIES - x10(12)/L [facility] MCV 82.2 78.2 - 12/16/2017 [facility] 97.9 fL 5:21 PM CDT LABORATORIES [facility] RBC Distrib Width 14.8 12.2 - 12/16/2017 [facility] 16.1 % 5:21 PM CDT LABORATORIES - [facility] Platelet Count 345 157 - 371 12/16/2017 [facility] x10(9)/L 5:21 PM CDT LABORATORIES - [facility] Leukocytes 9.3 3.4 - 9.6 12/16/2017 [facility] x10(9)/L 5:21 PM CDT LABORATORIES - [facility] Specimen Anatomical Collection Method Collection Time Receive d Time (Source) Location / / Volume Laterality Blood (Blood, 12/16/2017 4:48 PM 12/17/19 18 5:13 Venous) CDT PM CDT Chastity Mckay M.D. LAB BLOOD ADD-ON Performing Organization Address City/State/ZIP Code Phon e Number [facility] LABORATORIES - [address] [place] [phone] [facility] Type and screen (12/16/2017 4:48 PM CDT) [facility] gist Method Time Signature ABORh A Pos Not 12/16/2017 [facility] applicable 6:25 PM LABORATORIES - CDT [facility] Antibody Negative Negative 12/16/2017 [facility] Screen 6:38 PM LABORATORIES - CDT [facility] Type & Screen [id number] 12/16/2017 [facility] Expiration 6:25 PM LABORATORIES - CDT [facility] Specimen Anatomical Collection Method Collection Time Receive d Time (Source) Location / / Volume Laterality Blood (Blood, 12/16/2017 4:48 PM 12/17/19 18 5:23 Venous) CDT PM CDT Chastity Mckay M.D. LAB BLOOD BANK TEST ORDERABL ES Performing Organization Address City/[facility]/ZIP Code Phon e Number [facility] LABORATORIES - [address] [place] [address] [facility] documented in this encounter Visit Diagnoses Diagnosis Fibroid Uterus Intramural Menorrhagia documented in this encounter
--- OUTSIDE RECORDS SUMMARY | 2022-04-30 11:49 | XMS_ITS | Encounter Summary ---
:1965 Author Organization [facility] Address [address] [place] [address] Care Team Providers Name Role Phone Unavailable [...]
--- OUTSIDE RECORDS SUMMARY | 2022-04-30 11:50 | XMS_ITS | Encounter Summary ---
:1965 Author Organization [facility] Address [address] [place] [address] Care Team Providers Name Role Phone Unavailable Primary Care Provider Unavailable Encounter Details Date Type Department Care Team Description 05/19/2017 Hospital Encounter HX RST CRS DIRECT CLINIC Yanira Whitman, RICHAR, C.N.P., D.N.P. [address] [place] [phone] Social History Tobacco Use Types Packs/Day Years [...] More than 4 times per year 12/08/2020 druze services? Do you belong to any clubs [...] Comments Blood Pressure 163/94 05/19/2017 7:42 AM CMM OPERATOR Pulse 72 05/19/2017 7:42 AM CMM OPERATOR Temperature - - Respiratory Rate - - Oxygen Saturation - - Inhaled Oxygen - - Concentration Weight 81.4 kg (179 lb 7.3 05/19/2017 12:58 Vital si gn result oz) PM CMM OPERATOR from [facility]. Height 163 cm (5' 4.17) 05/19/2017 12:58 Vital sign result PM CMM OPERATOR from [facility]. Body Mass Index 30.64 05/19/2017 12:58 PM CMM OPERATOR documented in this encounter Medications at Time [...] sults for this WITH IV CONTRAST AM CMM OPERATOR procedure a re in the results section. CBC WITHOUT Routine 05/19/2017 9:31 Results for this DIFFERENTIAL, B AM CMM OPERATOR procedure ar e in the results section. BUN (BLOOD UREA Routine 05/19/2017 9:31 Results f or this NITROGEN), S/P AM CMM OPERATOR procedure are in the results section. SODIUM, S/P Routine 05/19/2017 9:31 Results for this AM CMM OPERATOR procedure are i n the results section. POTASSIUM, S/P Routine 05/19/2017 9:31 Results fo r this AM CMM OPERATOR procedure are i n the results section. GLUCOSE, FASTING, S/P Routine 05/19/2017 9:31 Res ults for this AM CMM OPERATOR procedure are i n the results section. CREATININE WITH EGFR, Routine 05/19/2017 9:31 Res ults for this S/P AM CMM OPERATOR procedure are i n the results section. CHLORIDE, S/P Routine 05/19/2017 9:31 Results for this AM CMM OPERATOR procedure are i n the results section. CARCINOEMBRYONIC AG Routine 05/19/2017 9:31 Resul ts for this (CEA), S AM CMM OPERATOR procedure are i n the results section. BICARBONATE, B/S/P Routine 05/19/2017 9:31 Result s for this AM CMM OPERATOR procedure are i n the results section. documented in this encounter Results MR Pelvis without and with IV Contrast (05/20/2017 10:26 AM CMM OPERATOR) Anatomical Region Laterality Modality Pelvis N/A Magnetic Resonance Specimen (Source) Anatomical Collection Method Collection Time Re ceived Time Location / / Volume Laterality 05/20/2017 10:26 AM CMM OPERATOR Impressions 05/20/2017 11:17 AM CMM OPERATOR 1. No MRI findings to suggest residual [...] [id number] 20-May-2017 11:17 Narrative 05/20/2017 11:17 AM CMM OPERATOR 20-May-2017 10:26:00 ??Exam: MRI PELVIS wo&w Indications: [...] PROCEDURES CBC without Differential (05/19/2017 9:31 AM CMM OPERATOR) [facility] Method Time Signature Hemoglobin 12.4 12.0 - [facility] 15.5 G/DL LABORATORIES - [facility] Hematocrit 37.5 34.9 - [facility] 44.5 % LABORATORIES - [facility] RBC Distrib Width 14.5 11.9 - [facility] 15.5 % [facility] - [facility] Platelet Count 289 150 - 450 [facility] X10(9)/L LABORATORIES - [facility] Leukocytes 5.6 3.5 - [facility] 10.5 LABORATORIES - X10(9)/L [facility] Erythrocytes 4.35 3.90 - [facility] 5.03 LABORATORIES - X10(12)/L [facility] MCV 86.2 81.6 - [facility] 98.3 [place] LABORATORIES - [facility] Specimen Anatomical Collection Method Collection Time Receive d Time (Source) Location / / Volume Laterality 05/19/2017 9:31 AM 7 9:31 CMM OPERATOR AM CMM OPERATOR Matheus Carrillo APRN, C.N.P., M.S. LAB BLOOD ADD-ON Performing Organization Address City/[facility]/ZIP Code Phon e Number [facility] LABORATORIES - [address] [place] [address] [facility] Potassium (05/19/2017 9:31 AM CMM OPERATOR) P athologist Signature Potassium, S 4.5 3.6 - 5.2 [facility] MMOL/L [facility] Specimen Anatomical Collection Method Collection Time Receive d Time (Source) Location / / Volume Laterality 05/19/2017 9:31 AM 7 9:31 CMM OPERATOR AM CMM OPERATOR Matheus Carrillo APRN, C.N.P., M.S. LAB BLOOD ADD-ON Performing Organization Address City/State/ZIP Code Phon e Number [facility] LABORATORIES - [address] [place] [address] [facility] Glucose, Fasting (05/19/2017 9:31 AM CMM OPERATOR) P athologist Signature Last Intake 15 HR [facility] Glucose, P 78 70 - 100 [facility] MG/DL [facility] Specimen Anatomical Collection Method Collection Time Receive d Time (Source) Location / / Volume Laterality 05/19/2017 9:31 AM 7 9:31 CMM OPERATOR AM CMM OPERATOR Matheus Carrillo APRN, C.N.P., M.S. LAB BLOOD NON ADD-ON Performing Organization Address City/[facility]/ZIP Code Phon e Number [facility] LABORATORIES - [address] [place] [address] [facility] Creatinine with Estimated GFR (MDRD) (05/19/2017 9:31 AM CMM OPERATOR) Analysis Performed At Patho logist Time Signature eGFR-Black/Afri >60 >60 [facility] can Macanese ML/MIN/BSA [facility] Creatinine 0.6 0.6 - 1.1 [facility] MG/DL LABORATORIES - [facility] eGFR >60 >60 [facility] Non-Black/Afric ML/MIN/BSA LABORATORIES - an Macanese [facility] Specimen Anatomical Collection Method Collection Time Receive d Time (Source) Location / / Volume Laterality 05/19/2017 9:31 AM 7 9:31 CMM OPERATOR AM CMM OPERATOR Matheus Carrillo APRN, C.N.P., M.S. LAB BLOOD ADD-ON Performing Organization Address City/State/ZIP Code Phon e Number [facility] LABORATORIES - [address] [place] [address] [facility] Bicarbonate (05/19/2017 9:31 AM CMM OPERATOR) athologist Signature HX 24 22 - 29 [facility] Bicarbonate, MMOL/L LABORATORIES - P/S [facility] Specimen Anatomical Collection Method Collection Time Receive d Time (Source) Location / / Volume Laterality 05/19/2017 9:31 AM 7 9:31 CMM OPERATOR AM CMM OPERATOR Matheus Carrillo APRN, C.N.P., M.S. LAB BLOOD ADD-ON Performing Organization Address City/State/ZIP Code Phon e Number [facility] LABORATORIES - [address] [place] [address] [facility] Chloride (05/19/2017 9:31 AM CMM OPERATOR) athologist Signature Chloride, S 107 98 - 107 [facility] MMOL/L LABORATORIES - [facility] Specimen Anatomical Collection Method Collection Time Receive d Time (Source) Location / / Volume Laterality 05/19/2017 9:31 AM 7 9:31 CMM OPERATOR AM CMM OPERATOR Matheus Carrillo APRN, C.N.P., M.S. LAB BLOOD ADD-ON Performing Organization Address City/State/ZIP Code Phon e Number [facility] LABORATORIES - [address] [place] [address] [facility] BUN (Blood Urea Nitrogen) (05/19/2017 9:31 AM CMM OPERATOR) P athologist Signature BUN (Blood 13 6 - 21 [facility] Urea MG/DL LABORATORIES - Nitrogen), S [facility] Specimen Anatomical Collection Method Collection Time Receive d Time (Source) Location / / Volume Laterality 05/19/2017 9:31 AM 7 9:31 CMM OPERATOR AM CMM OPERATOR Matheus Carrillo APRN, C.N.P., M.S. LAB BLOOD ADD-ON Performing Organization Address City/[facility]/ZIP Code Phon e Number [facility] LABORATORIES - [address] [place] [address] [facility] Sodium (05/19/2017 9:31 AM CMM OPERATOR) P athologist Signature Sodium, S 145 135 - 145 [facility] MMOL/L [facility] Specimen Anatomical Collection Method Collection Time Receive d Time (Source) Location / / Volume Laterality 05/19/2017 9:31 AM 7 9:31 CMM OPERATOR AM CMM OPERATOR Matheus Carrillo APRN, C.N.P., M.S. LAB BLOOD ADD-ON Performing Organization Address City/[facility] Code Phon e Number [facility] LABORATORIES - [address] [place] [address] [facility] (ABNORMAL) CEA (Carcinoembryonic Antigen) (05/19/2017 9:31 AM CMM OPERATOR) Patholo gist Method Time Signature Carcinoembryonic Ag 6.2 (H) SeeComment [facility] (CEA), S NG/ML [facility] Comment: ? REFERENCE VALUE------ ? <=3.0 (Non-smokers) ? Some smokers may have elevated ? CEA, usually <5.0. ? ADDITIONAL INFORMATIO N ? The testing method is an immunoenzymatic assay ? manufactured by [employer] and performed ? on the [employer] [...] Volume Laterality 05/19/2017 9:31 AM 7 9:31 CMM OPERATOR AM CMM OPERATOR Matheus Carrillo APRN, C.N.P., M.S. LAB BLOOD ADD-ON Performing Organization Address City/State/ZIP Code Phon e Number [facility] LABORATORIES - [address] [place], [place] [address] [facility] documented in this encounter Visit Diagnoses Not on filedocumented in this encounter
--- OUTSIDE RECORDS SUMMARY | 2022-04-30 11:50 | XMS_ITS | Encounter Summary ---
:1965 Author Organization [facility] Address [address] [place] [address] Care Team Providers Name Role Phone Unavailable [...]
--- OUTSIDE RECORDS SUMMARY | 2022-04-30 11:51 | XMS_ITS | Clinical Summary ---
:1965 Author Organization [employer] [facility] [place] [address] Care Team Providers Name Role Phone Pcp, [...] ID Effective Dates Phone Addre ss Type [facility] [email or web address] [id number] 2013-Present [address] [place] [address] Care Teams Director Of Construction Relationship Specialty Start Date End Date Pcp, No PCP - General 02/18/13 .
== END 2022-04-30 11:28 | disposition home or self-care (01) ==
PROVIDERS: PCP Internal Medicine; Visit Provider Internal Medicine
DX: Z12.31 Encounter for screening mammogram for malignant neoplasm of breast (principal)
CPT/HCPCS: 77063; 77067

== ENCOUNTER 2023-04-03 07:52 | Outpatient (CLI) | payer OTHER, SELFPAY | END 2023-04-03 07:53 | disposition home or self-care (01) | LOC: NFLDREF 04-04 08:50 | PROVIDERS: PCP Internal Medicine; Referring Provider Internal Medicine; Visit Provider Internal Medicine | DX: E78.5 Hyperlipidemia, unspecified (principal); I10 Essential (primary) hypertension | CPT/HCPCS: 80048; 80061 ==

== ENCOUNTER 2023-05-20 15:09 | Outpatient (CLI) | payer OTHER, SELFPAY ==
--- NOTE | 2023-05-20 15:20 | CRLHL7_ITS ---
For Patients: As a result of the Century Cures Act, medical imaging exams and procedure reports are released immediately into your electronic medical record. You may view this report before your referring provider. If you have questions, please contact your health care provider. BILATERAL SCREENING MAMMOGRAM WITH COMPUTER-AIDED DETECTION AND TOMOSYNTHESIS TECHNIQUE: CC and MLO views were obtained. These mammographic images have been obtained using full-field digital technique. These mammographic images were interpreted with the benefit of computer-aided detection. Breast Tomosynthesis was used in this interpretation. COMPARISON FILM: 04/30/22, 12/28/20, 07/16/18. FINDINGS: There are scattered areas of fibroglandular density IMPRESSION: There is no radiographic evidence for malignancy. ASSESSMENT: BI-RADS Category 1: Negative RECOMMENDATION: Routine screening mammogram in 1 year. A lay language report of this examination will be provided to the patient. Cristopher Floyd M.D. Diagnostic Radiologist [employer] [email or web address] MALOU/Dictated by: Cristopher Floyd MD @ 05/21/2023 12:22:00 PM (Electronically Signed)
== END 2023-05-20 15:10 | disposition home or self-care (01) ==
LOC: MAMMO 15:09
PROVIDERS: PCP Internal Medicine; Visit Provider Internal Medicine
DX: Z12.31 Encounter for screening mammogram for malignant neoplasm of breast (principal)
CPT/HCPCS: 77063; 77067

== ENCOUNTER 2024-05-18 11:49 | Outpatient (CLI) | payer BC, SELFPAY ==
--- OUTSIDE RECORDS SUMMARY | 2024-05-18 11:52 | XMS_ITS | Clinical Summary ---
Author Organization [employer] [facility] Address [place], [place] [address] Care Team Providers Care Financial Systems Director Name Role Phone Pcp, No Primary Care Provider Unavailabl e Allergies No known active allergies Medications No known medications Active Problems No known active problems Social History Tobacco Use Types Packs/Day Years Used Date Smoking Tobacco: Smoker, Current Status Unknown Cigarettes Tobacco Cessation:Ready to Q uit: No; Counseling Given: Yes Alcohol Use Standard Drinks/Week Comments Yes 0 (1 standard drink = 0.6 oz pur e alcohol) Sex and Gender Information Value Date Recorded Sex Assigned at Not on file Gender Identity Not on file Sexual Orientation Not on file Obstetrics History Last Filed Vital Signs Vital Sign Reading Time Taken Comments Blood Pressure 138/86 03/23/2013 8:40 AM CDT Pulse 88 03/23/2013 8:40 AM CDT Temperature - - Respiratory Rate 18 02/18/2013 10:1 5 AM CDT Oxygen Saturation 99% 02/18/2013 10: 15 AM CDT Inhaled Oxygen Concentration - - Weight 92.9 kg (204 lb 12.8 oz) 03/23/2013 8:40 AM CDT Height 161.9 cm (5' 3.75) 02/18/2013 1 0:15 AM CDT Body Mass Index 35.43 02/18/2013 10:15 AM CDT Plan of Treatment Health Maintenance Due Date Last Done Comments Tdap 09/25/1975 Depression screening for age 12+ 1976 HIV for age 15-65 09/25/1979 BMI (ht and wt on same day) for age 18+ 1982 Hepatitis C screening for ag e 18-79 1982 Tetanus booster 1984 Colonoscopy through age 75 2009 Lipids for age 45-75 2009 Mammogram for age 45-75 2009 Zoster (shingles) series for age 50+ (1 of 2) 2014 Pap test for age 21-65 03/25/2020 7, 03/25/2017 COVID-19 vaccine series (2023- season) 2024 Influenza for age 50-64 03/14/2024 Pneumococcal series for age 6-64 Aged Out No longer eligible b ased on patient's age to complete this topic Procedures Procedure Name Priority Date/Time Associated Diagnosis Comments GOVERNMENT SERVICES PROFESSIONAL THIN PREP PAP SCREEN IMAGED Routine 03/25/2017 3:10 PM CDT from Last 3 Months or Most Recently Relevant to Health Maintenance Results * GOVERNMENT SERVICES PROFESSIONAL THIN PREP PAP SCREEN IMAGED (03/25/2017 3:10 PM CDT) Case Report Gynecologic Cytology Report ? Case: [id number] ? Authorizing Provider: ??Shirin Caal PA-C ?Collected: ? 03/25/2017 1510 ? First Screen: ?Josie Hall ?Received: ?03/27/2017 1000 ? Rescreen: ?Winston Garza ? Specimen: ?GOVERNMENT SERVICES PROFESSIONAL ThinPrep Vial Screening, Cervical/Vaginal ? 04/03/2017 10:05 AM CDT [facility] INTERPRETATION/ RESULT NEGATIVE FOR INTRAEPITHELIAL LESION OR MALIGNANCY (NIL) (none) 04/03/2017 10:05 AM [facility] NISM(S) Shift in jose suggestive of bacterial vaginosis 04/03/2017 10:05 AM CDT [facility] SPECIMEN ADEQUACY Satisfactory for evaluation Endocervical component present Scant cellularity 04/03/2017 10:05 AM [facility] HPV REQUEST HPV and PAP 04/03/2017 10:05 AM T [facility] Last Pap Date 04/03/2017 10:05 AM [facility] Comment:20 yrs ago Automated Review Successful 04/03/2017 10:05 AM [facility] Comment:Specimen processed s uccessfully by automated security lead device, ThinPrep Imaging System, [employer] ANCILLARY TESTING GOVERNMENT SERVICES PROFESSIONAL HPV Ordered, Please see separate report 04/03/2017 10:05 AM [facility] Note The pap test is a screening technique, not a diagnostic procedure. ??It is used primarily to screen for squamous cancers and precursor lesions. ??Published studies have shown that it is subject to both false negative and false positive results. ??The pap test should not be used as the sole means to diagnose or exclude pre-malignant and malignant lesions. Interpreted at [facility] ([facility], [facility], [facility], [facility], [facility], [facility], [facility]) 04/03/2017 10:05 AM [facility] Other (Cervical/Vagina l) 03/25/2017 3:10 PM CDT 03/27/2017 10:00 AM CDT October [facility]CYTOLOGY [facility] [address] [place] [address], from Last 3 Months or Most Recently Relevant to Health Maintenance Care Teams Financial Systems Director Relationship Specialty Start Date End Date Pcp, No . PCP - General 02/18/13
== END 2024-05-18 11:50 | disposition home or self-care (01) ==
PROVIDERS: PCP Internal Medicine; Visit Provider Internal Medicine
DX: E78.5 Hyperlipidemia, unspecified (principal); I10 Essential (primary) hypertension
CPT/HCPCS: 80048; 80061

== ENCOUNTER 2024-05-25 07:11 | Outpatient (CLI) | payer BC, SELFPAY ==
--- OUTSIDE RECORDS SUMMARY | 2024-05-25 07:13 | XMS_ITS | Clinical Summary ---
Author Organization [facility] Address [place], [place] [address] Care Team Providers Care Fur Ironer Name Role Phone Pcp, No Primary Care [...] Procedure Name Priority Date/Time Associated Diagnosis Comments PAINTER DECORATOR THIN PREP PAP SCREEN IMAGED Routine 03/25/2017 3:10 PM CDT from Last 3 Months or Most Recently Relevant to Health Maintenance Results * PAINTER DECORATOR THIN PREP PAP SCREEN IMAGED (03/25/2017 3:10 PM CDT) Case Report Gynecologic Cytology Report ? Case: [id number] ? Authorizing Provider: ??Shirni Caal PA-C ?Collected: ? 03/25/2017 1510 ? First Screen: ?Josie Hall ?Received: ?03/27/2017 1000 ? Rescreen: ?Winston Garza ? Specimen: ?PAINTER DECORATOR ThinPrep Vial Screening, Cervical/Vaginal ? 04/03/2017 10:05 AM CDT [facility] INTERPRETATION/ RESULT NEGATIVE FOR INTRAEPITHELIAL LESION OR MALIGNANCY (NIL) (none) 04/03/2017 10:[address] [facility] NISM(S) Shift in jose suggestive of bacterial vaginosis 04/03/2017 10:05 AM CDT [facility] SPECIMEN ADEQUACY Satisfactory for evaluation Endocervical component present Scant cellularity 04/03/2017 10:05 AM [facility] HPV REQUEST HPV and PAP 04/03/2017 10:05 AM T [facility] Last Pap Date 04/03/2017 10:05 AM [facility] Comment:20 yrs ago Automated Review Successful 04/03/2017 10:05 AM [facility] Comment:Specimen processed s uccessfully by automated rn imcu device, ThinPrep Imaging System, [employer] ANCILLARY TESTING PAINTER DECORATOR HPV Ordered, Please see separate report 04/03/2017 10:[address] [facility] Note The pap test is a screening technique, not a diagnostic procedure. ??It is used primarily to screen for squamous cancers and precursor lesions. ??Published studies have shown that it is subject to both false negative and false positive results. ??The pap test should not be used as the sole means to diagnose or exclude pre-malignant and malignant lesions. Interpreted at [facility] ([facility], [facility], [facility], [facility], [facility], [facility], [facility]) 04/03/2017 10:[address] [facility] Other (Cervical/Vagina l) 03/25/2017 3:10 PM CDT 03/27/2017 10:00 AM CDT [facility]TOLOGY [facility] [address] [place] [address], from Last 3 Months or Most Recently Relevant to Health Maintenance Care Teams Fur Ironer Relationship Specialty Start Date End Date Pcp, No . PCP - General 02/18/13
--- NOTE | 2024-05-25 08:45 | W.ANESCHARGE ---
Anesthesia Charges Start Date/Time Anesthesia Start Date: 05/25/24 Anesthesia Start Time: 08:05 Stop Date/Time Anesthesia Stop Date: 05/25/24 Anesthesia Stop Time: 08:42
--- NOTE | 2024-05-25 09:40 | W.ANESCHARGE ---
Anesthesia Charges Start Date/Time Anesthesia Start Date: 05/25/24 Anesthesia Start Time: 08:05 Stop Date/Time Anesthesia Stop Date: 05/25/24 Anesthesia Stop Time: 08:42
== END 2024-05-25 07:12 | disposition home or self-care (01) ==
LOC: OP CLINIC 07:12
PROVIDERS: PCP Internal Medicine; Visit Provider Surgery
DX: Z85.048 Personal history of other malignant neoplasm of rectum, rectosigmoid junction, and anus (principal); D12.5 Benign neoplasm of sigmoid colon; D12.8 Benign neoplasm of rectum; Z98.890 Other specified postprocedural states
CPT/HCPCS: 00811; 45385; 88305; J2704

== ENCOUNTER 2024-08-06 08:31 | Outpatient (CLI) | payer BC, SELFPAY ==
--- NOTE | 2024-08-06 08:45 | CRLHL7_ITS ---
For Patients: As a result of the Century Cures Act, medical imaging exams and procedure reports are released immediately into your electronic medical record. You may view this report before your referring provider. If you have questions, please contact your health care provider. BILATERAL SCREENING MAMMOGRAM WITH COMPUTER-AIDED DETECTION AND TOMOSYNTHESIS TECHNIQUE: CC and MLO views were obtained. These mammographic images have been obtained using full-field digital technique. These mammographic images were interpreted with the benefit of computer-aided detection. Breast Tomosynthesis was used in this interpretation. COMPARISON FILM: 05/20/23, 04/30/22, 12/28/20. FINDINGS: There are scattered areas of fibroglandular density. IMPRESSION: There is no radiographic evidence for malignancy. ASSESSMENT: BI-RADS Category 1: Negative RECOMMENDATION: Routine screening mammogram in 1 year. A lay language report of this examination will be provided to the patient. Cristopher Floyd M.D. Diagnostic Radiologist [email or web address] SP/Dictated by: Cristopher Floyd MD @ 08/09/2024 10:35:00 AM (Electronically Signed)
== END 2024-08-06 08:32 | disposition home or self-care (01) ==
LOC: MAMMO 08:32
PROVIDERS: PCP Internal Medicine; Visit Provider Internal Medicine
DX: Z12.31 Encounter for screening mammogram for malignant neoplasm of breast (principal)
CPT/HCPCS: 77063; 77067